=== PATIENT | female | born 1980 | race Two or more races ===

== ENCOUNTER 2020-07-22 15:05 | Emergency (ER) | payer OTHER, SELFPAY ==
--- NOTE | 2020-07-22 | CT_ITS ---
EXAMINATION: CT ABDOMEN AND PELVIS WITHOUT CONTRAST CLINICAL INFORMATION: Right-sided flank pain. Renal colic. COMPARISON: CT scan abdomen pelvis 05/11/2020 TECHNIQUE: Multidetector volumetric imaging was performed from the superior aspect of the liver through the pubic symphysis. Sagittal and coronal reformatted images were obtained on the technologist's workstation. This CT examination was performed using dose optimization techniques as appropriate, variously including the following: *Automated exposure control *Adjustment of mA and/or kV according to patient size (this includes techniques or standardized protocols for targeted exams where dose is matched to indication/reason for exam; i.e. extremities or head) *Use of iterative reconstruction technique DLP: 901 mGy-cm FINDINGS: LUNG BASES: The visualized lung bases are unremarkable. LIVER, GALLBLADDER, AND BILIARY TREE: There is mildly enlarged. Right lobe of liver measures 21 cm superior inferior. Low attenuation of liver parenchyma due to fatty change. No focal liver lesion or intrahepatic bile duct dilatation. The gallbladder is unremarkable with no evidence of radiopaque gallstones, gallbladder wall thickening, or obvious pericholecystic inflammatory changes. PANCREAS: Unremarkable. SPLEEN: Unremarkable. ADRENAL GLANDS: Unremarkable. KIDNEYS AND URETERS: Right kidney: No hydronephrosis or ureteral stone. There is a 1 to 2 mm size stone lower pole right kidney unchanged since prior CT study 05/11/2020. Left kidney: There is no hydronephrosis. No ureteral stone. There is no renal calculus. The stones seen in the left kidney on the prior CAT scan of 05/11/2020 BLADDER: Unremarkable. GASTROINTESTINAL TRACT: The small and large bowel are unremarkable. Moderate volume of stool in the colon. The appendix is nonvisualized. There is no inflammation of the mesentery. ABDOMINAL WALL: No significant hernia is appreciated. LYMPH NODES: Normal. VASCULAR: Unremarkable. PELVIC VISCERA: Unremarkable. OSSEOUS STRUCTURES: Unremarkable. IMPRESSION: 1. There is no acute abnormality of the abdomen or the pelvis. 2. Mild hepatomegaly diffuse fatty change of liver. 3. There is no hydronephrosis of either kidney. There is a 1 to 2 mm size stone at the lower pole of the right kidney unchanged since prior CAT scan of 05/11/2020. No left-sided renal stones or ureteral stones are present.
[2020-07-22 15:31] VITALS: BP 108/61; BP 140/60; PULSE 74; PULSE 90; RESP 20; TEMP 36.3; O2SAT 98; O2SAT 99; BMI 35.4
--- NOTE | 2020-07-22 16:22 | ED_ITS ---
HPI - Back Pain/Injury General Chief Complaint: Back Pain/Injury <Allyson Robert NP - Last Filed: 07/22/20 17:48> Stated Complaint: CHRONIC BACK PAIN <ANG Carter Last Filed: 07/22/20 17:48> Time Seen by Provider: 07/22/20 16:13 <Allyson Robert NP - Last Filed: 07/22/20 17:48> Mode of arrival: ambulatory <ANG Carter Last Filed: 07/22/20 17:48> Limitations: no limitations <ANG Carter Last Filed: 07/22/20 17:48> History of Present Illness HPI Narrative: acute on chronic low back pain With radiation down the right leg with intermittent numbness and tingling for the last few weeks. no bowel or bladder incontinence. no saddle anesthesia. No fever/chills. pt ambulatory. <ANG Carter Last Filed: 07/22/20 17:48> MD elicited complaint: back pain <ANG Carter Last Filed: 07/22/20 17:48> Pertinent past history: prior back pain <ANG Carter Last Filed: 07/22/20 17:48> Onset (ago): week(s) <ANG Carter Last Filed: 07/22/20 17:48> Timing: constant <ANG Carter Last Filed: 07/22/20 17:48> Severity: moderate <ANG Carter Last Filed: 07/22/20 17:48> Similar Symptoms Previously: Yes <ANG Carter Last Filed: 07/22/20 17:48> Quality: sharp and stabbing <ANG Carter Last Filed: 07/22/20 17:48> Location: lumbar spine <ANG Carter Last Filed: 07/22/20 17:48> Radiation: right upper leg <ANG Carter Last Filed: 07/22/20 17:48> Exacerbating factors: movement <Allyson Robert NP - Last Filed: 07/22/20 17:48> Relieving factors: immobilization <Allyson Robert NP - Last Filed: 07/22/20 17:48> Associated symptoms: denies other symptoms <Allyson Robert NP - Last Filed: 07/22/20 17:48> Related Data Allergies/Adverse Reactions: Allergies Allergy/AdvReac Type Severity Reaction Status Date / Time morphine [MORPHINE] Allergy Severe SWELLING Verified 07/22/20 15:22 ibuprofen [IBUPROFEN] Allergy Intermediate HIVES Verified 07/22/20 15:22 naproxen [NAPROXEN] Allergy Intermediate HIVES Verified 07/22/20 15:22 tramadol [TRAMADOL] Allergy Unknown HIVES Verified 07/22/20 15:22 ketorolac [From TORADOL] AdvReac Unknown ITCHING Verified 07/22/20 15:22 Ibuprofen Allergy Unknown Hives Uncoded 07/22/20 15:22 Morphine Sulf Microinfusion Allergy Unknown Swelling Uncoded 07/22/20 15:22 PF <Allyson Robert NP - Last Filed: 07/22/20 17:48> Review of Systems Review of Systems: Yes all other systems are reviewed and are negative <Allyson Robert NP - Last Filed: 07/22/20 17:48> Constitutional: Constitutional: Reports no additional constitutional complaints, Denies body ache(s), Denies chills, Denies fever(s), Denies headache(s) and Denies weakness <Allyson Robert NP - Last Filed: 07/22/20 17:48> Eyes: Eyes: Reports no additional eye complaints and Denies change in vision <Allyson Robert NP - Last Filed: 07/22/20 17:48> ENT: Reports system reviewed and no additional complaints, except as documented, Denies dizziness, Denies headache(s), Denies nasal congestion, Denies nasal discharge and Denies neck pain <Allyson Robert NP - Last Filed: 07/22/20 17:48> Cardiovascular: Cardiovascular: Reports no additional cardiovascular complaints, Denies chest pain, Denies leg edema and Denies dyspnea <Allyson Robert NP - Last Filed: 07/22/20 17:48> Respiratory: Respiratory: Reports no additional respiratory complaints, Denies cough and Denies dyspnea <Allyson Robert NP - Last Filed: 07/22/20 17:48> Gastrointestinal: Gastrointestinal: Reports no additional gastrointestinal complaints, Denies abdominal pain, Denies diarrhea, Denies nausea and Denies vomiting <Allyson Robert NP - Last Filed: 07/22/20 17:48> Genitourinary: Genitourinary: Reports no additional female genitourinary complaints and Denies urinary incontinence <Allyson Robert NP - Last Filed: 07/22/20 17:48> Musculoskeletal: Musculoskeletal: Reports no additional musculoskeletal complaints, Reports back pain, Denies arthralgias, Denies joint swelling, Denies neck pain, Denies numbness and Denies tingling <Allyson Robert NP - Last Filed: 07/22/20 17:48> Integumentary/Breasts: Skin/Breast: Reports system reviewed and no additional complaints, except as docu and Denies rash <Allyson Robert NP - Last Filed: 07/22/20 17:48> Neurologic: Reports system reviewed and no additional complaints, except as documented, Denies Abnormal speech present, Denies dizziness, Denies headac he(s), Denies numbness, Denies tingling and Denies weakness <Allyson Robert NP - Last Filed: 07/22/20 17:48> [facility] [place] Past Medical History Source: obtained from family and nursing notes reviewed <Allyson Robert NP - Last Filed: 07/22/20 17:48> Medical History: Medical History Asthma Depression Sciatica <Allyson Robert NP - Last Filed: 07/22/20 17:48> Social History Social History: Social History Alcohol intake: current Alcohol intake frequency: holidays/special occasions only Alcohol type: beer and wine Smoked in Last 30 Days: No Use of substances other than those prescribed or required for medical reasons: No Substance Use Type: Marijuana Substance Use Frequency: Chronic Longstanding Last Used Substance: Weeks (ago) Advance Directives: No Advance Directives Information Provided: No <Allyson Robert NP - Last Filed: 07/22/20 17:48> Physical Exam Vital Signs and I&O and Narrative: Vital Signs and I&O: Vital Signs Temp 98.7 F 07/22/20 19:35 Pulse 65 07/22/20 19:35 Resp 16 07/22/20 19:35 BP 128/79 07/22/20 19:35 Pulse Ox 99 07/22/20 19:35 Intake & Output 07/22/20 07/22/20 07/23/20 06:59 18:59 06:59 Weight 90.718 kg Body Mass Index 35.4 <Allyson Robert NP - Last Filed: 07/22/20 17:48> Vital Signs and I&O: Vital Signs Temp 98.7 F 07/22/20 19:35 Pulse 65 07/22/20 19:35 Resp 16 07/22/20 19:35 BP 128/79 07/22/20 19:35 Pulse Ox 99 07/22/20 19:35 Intake & Output 07/22/20 07/22/20 07/23/20 06:59 18:59 06:59 Weight 90.718 kg Body Mass Index 35.4 <RHODA Soto - Last Filed: 07/22/20 19:45> Const: General: cooperative, healthy appearing, comfortable and no acute distress <Allyson Robert NP - Last Filed: 07/22/20 17:48> Orientation/consciousness: patient oriented x3 <Allyson Robert NP - Last Filed: 07/22/20 17:48> Limitations: no limitations <Allyson Robert NP - Last Filed: 07/22/20 17:48> HENMT: Head: Yes normal to inspection <Allyson Robert NP - Last Filed: 07/22/20 17:48> Ears: hearing grossly normal bilaterally <Allyson Robert NP - Last Filed: 07/22/20 17:48> General nose exam: Normal external nose present <Allyson Robert NP - Last Filed: 07/22/20 17:48> Face and sinus: Yes normal facial exam <Allyson Robert NP - Last Filed: 07/22/20 17:48> Mouth: Normal oral and palatal mucosa present <Allyson Robert NP - Last Filed: 07/22/20 17:48> Throat: Yes posterior oropharynx normal <Allyson Robert NP - Last Filed: 07/22/20 17:48> Eyes: General: appearance normal, both eyes and all related structures <Allyson Robert NP - Last Filed: 07/22/20 17:48> Pupils: Equal, round and reactive pupils present <Allyson Robert NP - Last Filed: 07/22/20 17:48> Neck: Neck: Yes normal visual inspection <Allyson Robert NP - Last Filed: 07/22/20 17:48> Chest: Chest palpation & inspection: normal inspection of the chest <Allyson Robert NP - Last Filed: 07/22/20 17:48> Resp: Effort & Inspection: normal respiratory effort <Allyson Robert NP - Last Filed: 07/22/20 17:48> Auscultation: clear to auscultation bilaterally <Allyson Robert NP - Last Filed: 07/22/20 17:48> Cardio: Rate: regular rate <Allyson Robert NP - Last Filed: 07/22/20 17:48> Rhythm: regular rhythm <Allyson Robert NP - Last Filed: 07/22/20 17:48> Peripheral pulses: Peripheral pulses 2+ throughout <Allyson Robert NP - Last Filed: 07/22/20 17:48> GI: Inspection: Yes normal to inspection <Allyson Robert NP - Last Filed: 07/22/20 17:48> Palpation (GI): Soft to palpation and nontender <Allyson Robert NP - Last Filed: 07/22/20 17:48> Auscultation: normal bowel sounds <Allyson Robert NP - Last Filed: 07/22/20 17:48> Back/Spine/Pelvis: Thoracic/Lumbar Spine: thoracic and lumbar spine normal to inspection, straight leg raise negative bilaterally ( positive for right lower leg) and paraspinal muscle tenderness ( Pain in the right lumbar paraspinal area and right buttocks) <Allyson Robert NP - Last Filed: 07/22/20 17:48> Skin: General skin exam: no rashes or lesions noted <Allyson Robert NP - Last Filed: 07/22/20 17:48> Neuro: General: patient oriented x3, no focal motor deficits and normal sensation to monofilament <Allyson Robert NP - Last Filed: 07/22/20 17:48> Cranial nerves: Yes Equal, round and reactive pupils present <Allyson Robert NP - Last Filed: 07/22/20 17:48> Cognition (Neuro): normal cognition <Allyson Robert NP - Last Filed: 07/22/20 17:48> Speech: No Abnormal speech present <Allyson Robert NP - Last Filed: 07/22/20 17:48> Gait exam (Neuro): Normal gait present <Allyson Robert NP - Last Filed: 07/22/20 17:48> Motor exam (neuro): 5/5 motor strength present throughout <Allyson Robert NP - Last Filed: 07/22/20 17:48> Extrem: General: Yes normal to inspection <Allyson Robert NP - Last Filed: 07/22/20 17:48> Course Course Course Narrative: Sign-out received from Annette. Labs reviewed and all within normal limits. CT scan of abdomen revealed a kidney stone although still in the kidney therefore not causing the patient's pain at this time. Patient most likely muscularskeletal pain. Will DC home with symptomatic treatment along with instructions to return if any new or worsening symptoms to follow-up with primary care provider. Patient understands agrees the plan. <RHODA Soto - Last Filed: 07/22/20 19:45> Reevaluation(s) Reevaluation #1: UA shows 3+ blood. History of renal colic. Will check CT abdomen /pelvis to rule out same. Will need labs including renal function. <Allyson Robert NP - Last Filed: 07/22/20 17:48> MDM - Back Pain/Injury MDM Narrative Medical decision making narrative: exam consistent with sciatica. No red flag symptoms, neuro deficits. Patient is also concerned for renal colic as she has a history of the same although tells me this feels like her sciatica. Will check UA, labs, Ct A/P. <Allyson Robert NP - Last Filed: 07/22/20 17:48> Differential Diagnosis Differential diagnosis: Likely lumbar radiculopathy, sciatica, renal colic and pyelonephritis <Allyson Robert NP - Last Filed: 07/22/20 17:48> Lab Data Result diagrams: : 07/22/20 17:53 07/22/20 17:53 <Allyson Robert NP - Last Filed: 07/22/20 17:48> Labs: Lab Results 07/22/20 07/22/20 07/22/20 Range/Units 17:32 17:53 17:53 WBC 9.0 (4.8-10.8) X10*3/uL RBC 4.56 (4.20-5.50) X10*6/uL Hgb 12.5 (12.0-16.0) g/dl Hct 37.6 (37-47) % MCV 82.5 (80-98) fL MCH 27.4 (27.0-33.0) pg MCHC 33.2 (31.0-35.0) g/dl RDW 13.3 (11.0-16.0) % Plt Count 219 (160-400) X10*3/uL MPV 10.8 (9.4-12.3) fL Immature Gran % (Auto) 0.8 H (0.0-0.4) % Neut % (Auto) 66.2 (45-73) % Lymph % (Auto) 24.9 (20-40) % [place] % (Auto) 6.3 (2-11) % Eos % (Auto) 1.6 (0-4) % Baso % (Auto) 0.2 (0-2) % Neut # (Auto) 6.0 (2.0-8.3) X10*3/uL Lymph # (Auto) 2.3 (1.2-4.9) X10*3/uL [place] # (Auto) 0.6 (0.1-1.2) X10*3/uL Eos # (Auto) 0.1 (0.0-0.4) X10*3/uL Baso # (Auto) 0.0 (0.0-0.2) X10*3/uL Abs Immat Gran (auto) 0.07 H (0.00-0.03) X10*3/uL Absolute Nucleated RBC 0.000 (0.0-0.012) X10*3/uL Nucleated RBC % (auto) 0.0 (0.0-0.2) /100WBC Sodium 138 (135-145) mmol/L Potassium 4.0 (3.3-5.1) mmol/l Chloride 105 (96-108) mmol/L Carbon Dioxide 23 (22-29) mmol/L Anion Gap 14 (12-20) BUN 13 (9-16) mg/dL Creatinine 0.76 (0.5-1.4) mg/dL Estim Creat Clear Calc 103.0 Estimated GFR > 60 Random Glucose 101 (60-115) mg/dL Calcium 9.2 (8.4-10.2) mg/dL Urine Color YELLOW Urine Appearance HAZY Urine pH 6.0 (5.0-8.0) Ur Specific [place] >= 1.030 H (1.005-1.025) Urine Protein NEG (NEG-TRACE) MG/DL Urine Glucose (UA) NEG (NEG) MG/DL Urine Ketones NEG (NEG) MG/DL Urine Blood 3+ H (NEG) Urine Nitrite NEG (NEG) Ur Leukocyte Esterase NEG (NEG) Urine RBC 5-9 H (0) /HPF Urine WBC 0 (0-4) /HPF Ur Squamous Epith Cells 2+ /LPF Calcium Oxalate Crystal 1+ /LPF Urine Bacteria 1+ /LPF Urine Test NEGATIVE (NEGATIVE) <Allyson Robert [employer] CLINICAL PROGRAMMER - Last Filed: 07/22/20 17:48> Lab Results 07/22/20 07/22/20 07/22/20 Range/Units 17:32 17:53 17:53 WBC 9.0 (4.8-10.8) X10*3/uL RBC 4.56 (4.20-5.50) X10*6/uL Hgb 12.5 (12.0-16.0) g/dl Hct 37.6 (37-47) % MCV 82.5 (80-98) fL MCH 27.4 (27.0-33.0) pg MCHC 33.2 (31.0-35.0) g/dl RDW 13.3 (11.0-16.0) % Plt Count 219 (160-400) X10*3/uL MPV 10.8 (9.4-12.3) fL Immature Gran % (Auto) 0.8 H (0.0-0.4) % Neut % (Auto) 66.2 (45-73) % Lymph % (Auto) 24.9 (20-40) % [place] % (Auto) 6.3 (2-11) % Eos % (Auto) 1.6 (0-4) % Baso % (Auto) 0.2 (0-2) % Neut # (Auto) 6.0 (2.0-8.3) X10*3/uL Lymph # (Auto) 2.3 (1.2-4.9) X10*3/uL [place] # (Auto) 0.6 (0.1-1.2) X10*3/uL Eos # (Auto) 0.1 (0.0-0.4) X10*3/uL Baso # (Auto) 0.0 (0.0-0.2) X10*3/uL Abs Immat Gran (auto) 0.07 H (0.00-0.03) X10*3/uL Absolute Nucleated RBC 0.000 (0.0-0.012) X10*3/uL Nucleated RBC % (auto) 0.0 (0.0-0.2) /100WBC Sodium 138 (135-145) mmol/L Potassium 4.0 (3.3-5.1) mmol/l Chloride 105 (96-108) mmol/L Carbon Dioxide 23 (22-29) mmol/L Anion Gap 14 (12-20) BUN 13 (9-16) mg/dL Creatinine 0.76 (0.5-1.4) mg/dL Estim Creat Clear Calc 103.0 Estimated GFR > 60 Random Glucose 101 (60-115) mg/dL Calcium 9.2 (8.4-10.2) mg/dL Urine Color YELLOW Urine Appearance HAZY Urine pH 6.0 (5.0-8.0) Ur Specific [place] >= 1.030 H (1.005-1.025) Urine Protein NEG (NEG-TRACE) MG/DL Urine Glucose (UA) NEG (NEG) MG/DL Urine Ketones NEG (NEG) MG/DL Urine Blood 3+ H (NEG) Urine Nitrite NEG (NEG) Ur Leukocyte Esterase NEG (NEG) Urine RBC 5-9 H (0) /HPF Urine WBC 0 (0-4) /HPF Ur Squamous Epith Cells 2+ /LPF Calcium Oxalate Crystal 1+ /LPF Urine Bacteria 1+ /LPF Urine Test NEGATIVE (NEGATIVE) <RHODA Soto - Last Filed: 07/22/20 19:45> Discharge Plan Discharge Clinical Impression: Sciatica <Allyson Robert NP - Last Filed: 07/22/20 17:48> Patient Disposition: Home, Self-Care <Allyson Robert NP - Last Filed: 07/22/20 17:48> Instructions: Sciatica (ED) <Allyson Robert NP - Last Filed: 07/22/20 17:48> Additional Instructions: heat or ice Gentle stretching Follow-up with her primary care doctor no heavy lifting or bending. <Allyson Robert NP - Last Filed: 07/22/20 17:48> Referrals: Prosper Barnard MD [Primary Care Provider] - 2 days <Allyson Robert NP - Last Filed: 07/22/20 17:48>
[2020-07-22 17:40] LABS: Glucose Urine UA NEG (NEG); Leukocyte Esterase Urine NEG (NEG); Nitrite Urine NEG (NEG); Specific Gravity - Urine >= 1.030 (1.005-1.025); Urine Blood 3+ (NEG); Urine Ketones NEG (NEG); Urine Protein NEG (NEG-TRACE)
[2020-07-22 17:43] LABS: Appearance Urine HAZY; Color Urine YELLOW
[2020-07-22 17:46] LABS: UPreg QC Valid YES; Urine Pregnancy NEGATIVE (NEGATIVE)
[2020-07-22 17:50] LABS: Bacteria Urine 1+ /LPF; Calcium Oxalate Crystals Urine 1+ /LPF; Squamous Epithelial Cell Urine 2+ /LPF; WBC Urine 0 /HPF (0-4)
[2020-07-22 18:02] LABS: MANUAL DIFF FLAG NO
[2020-07-22 18:13] LABS: Basophils Percent Auto 0.2 % (0-2); Eosinophils Absolute Auto 0.1 X10*3/uL (0.0-0.4); Eosinophils Percent Auto 1.6 % (0-4); Hematocrit 37.6 % (37-47); Hemoglobin 12.5 g/dl (12.0-16.0); Imm Gran Abs Auto 0.07 X10*3/uL (0.00-0.03); Imm Gran Pct Auto 0.8 % (0.0-0.4); Lymphocytes Absolute Auto 2.3 X10*3/uL (1.2-4.9); Lymphocytes Percent Auto 24.9 % (20-40); Mean Corpuscular HGB Conc 33.2 g/dl (31.0-35.0); Mean Corpuscular Hemoglobin 27.4 pg (27.0-33.0); Mean Corpuscular Volume 82.5 fL (80-98); Mean Platelet Volume 10.8 fL (9.4-12.3); Monocytes Absolute Auto 0.6 X10*3/uL (0.1-1.2); Monocytes Percent Auto 6.3 % (2-11); Neutrophils Percent Auto 66.2 % (45-73); Platelet Count 219 X10*3/uL (160-400); Red Blood Count 4.56 X10*6/uL (4.20-5.50); Red Cell Distribution Width 13.3 % (11.0-16.0)
[2020-07-22 18:25] LABS: Anion Gap 14 (12-20); Blood Urea Nitrogen 13 mg/dL (9-16); Calcium 9.2 mg/dL (8.4-10.2); Carbon Dioxide 23 mmol/L (22-29); Chloride 105 mmol/L (96-108); Estimated Glomerular Filt Rate > 60; Glucose Random 101 mg/dL (60-115); Sodium 138 mmol/L (135-145)
[2020-07-22 19:35] VITALS: BP 128/79; PULSE 65; RESP 16; TEMP 37.1; O2SAT 99
[2020-07-22] MEDS: oxyCODONE HCl Immed Release 5 MG TABLET PO (20:10)
== END 2020-07-22 20:20 | disposition home or self-care (01) ==
PROVIDERS: Nurse Practitioner Family; Emergency Provider Internal Medicine; PCP Internal Medicine
DX: M54.40 Lumbago with sciatica, unspecified side (principal); M79.605 Pain in left leg; M79.604 Pain in right leg; R20.0 Anesthesia of skin; F12.90 Cannabis use, unspecified, uncomplicated
CPT/HCPCS: 36415; 74176; 80048; 81001; 81025; 85025; 99284

== ENCOUNTER 2020-11-19 14:09 | Outpatient (REF) | payer OTHER, SELFPAY ==
--- NOTE | 2020-11-19 | US_ITS ---
EXAMINATION: US RETROPERITONEAL LIMITED (RENAL ONLY) CLINICAL INFORMATION: Kidney stone. COMPARISON: Previous CT of the abdomen and pelvis July 2020 and renal ultrasound June 2020 TECHNIQUE: Grayscale and color imaging of the kidneys FINDINGS: RIGHT KIDNEY: 11.6 x 5.5 x 6.3 cm (SAG x AP x TRV). The kidney is normal in size, contour, and echogenicity. Renal cortical thickness is normal. No calculi or focal parenchymal lesions. No hydronephrosis. LEFT KIDNEY: 11 x 5 x 4.9 cm (SAG x AP x TRV). The kidney is normal in size, contour, and echogenicity. Renal cortical thickness is normal. There is a 3 mm echogenic focus with twinkle artifact in the lower pole questionable for a stone. No renal mass. No hydronephrosis. US/US renal BI IMPRESSION: No right-sided stone seen. Question small left renal renal stone.
== END 2020-11-19 14:10 | disposition home or self-care (01) ==
LOC: HO.US 14:09
PROVIDERS: Visit Provider Urology
DX: N20.0 Calculus of kidney (principal)
CPT/HCPCS: 76775

== ENCOUNTER 2021-02-16 14:53 | Emergency (ER) | payer OTHER, SELFPAY ==
--- NOTE | ~2021-02-16 | CT_ITS ---
EXAMINATION: CT ABDOMEN AND PELVIS WITHOUT CONTRAST CLINICAL INFORMATION: Left-sided flank pain COMPARISON: Renal ultrasound 11/19/[address] abdomen pelvis 07/22/2020 TECHNIQUE: Multidetector volumetric imaging was performed from the superior aspect of the liver through the pubic symphysis. Sagittal and coronal reformatted images were obtained on the technologist's workstation. This CT examination was performed using dose optimization techniques as appropriate, variously including the following: *Automated exposure control *Adjustment of mA and/or kV according to patient size (this includes techniques or standardized protocols for targeted exams where dose is matched to indication/reason for exam; i.e. extremities or head) *Use of iterative reconstruction technique DLP: 835 mGy-cm FINDINGS: LUNG BASES: The visualized lung bases are unremarkable. LIVER, GALLBLADDER, AND BILIARY TREE: The liver is enlarged measuring 21 cm in length and demonstrates hepatic steatosis. No focal hepatic lesion or biliary ductal dilatation is present. The gallbladder is unremarkable with no evidence of radiopaque gallstones, gallbladder wall thickening, or obvious pericholecystic inflammatory changes. PANCREAS: Unremarkable. SPLEEN: Unremarkable. ADRENAL GLANDS: Unremarkable. KIDNEYS AND URETERS: The kidneys are normal in size, shape, and attenuation. A right lower pole nonobstructing renal calculus is present unchanged from the prior study. No hydronephrosis, hydroureter, or other calculi seen. No perinephric stranding. BLADDER: Unremarkable. GASTROINTESTINAL TRACT: The small and large bowel are unremarkable. The appendix is not seen but there is no evidence of appendicitis. ABDOMINAL WALL: No significant hernia is appreciated. LYMPH NODES: Normal. VASCULAR: Unremarkable. PELVIC VISCERA: Unremarkable. OSSEOUS STRUCTURES: Unremarkable. CT/CT abdomen pelvis wo con IMPRESSION: 1. Enlarged fatty liver. 2. Unchanged nonobstructing punctate right renal calculus. 3. A cause for the left-sided flank pain has not been found.
--- NOTE | ~2021-02-16 | US_ITS ---
EXAMINATION: US VENOUS ULTRASOUND WITH DOPPLER LOWER EXTREMITY, RIGHT CLINICAL INFORMATION: Right lower extremity pain COMPARISON: None TECHNIQUE: Ultrasound of the deep veins is performed from the hip to the calf with compression sonography and color and pulse Doppler assessment. Spectral analysis with color-flow imaging is performed. FINDINGS: There is normal venous compression and respiratory variation and augmented flow. The visualized common femoral vein, superficial femoral vein, profunda femoral vein, popliteal vein, and the trifurcation region shows no evidence of deep venous thrombosis. There is no significant popliteal fossa cyst. If the patient's symptoms persist, followup ultrasound in 5 days 7 days might be of value to exclude proximal propagation from a non-visualized calf vein. US/US venous duplex LE RT IMPRESSION: No DVT demonstrated in the right lower extremity.
[2021-02-16 14:57] VITALS: BP 126/69; PULSE 84; RESP 16; TEMP 36.9; O2SAT 98; BMI 39.0
--- NOTE | 2021-02-16 16:41 | ED_ITS ---
HPI - Extremity Problem General Chief complaint: Extremity Problem Stated complaint: R LEG PAIN Time Seen by Provider: 02/16/21 16:38 Source: patient Mode of arrival: ambulatory Limitations: no limitations History of Present Illness HPI Narrative: 40 y/o female with history of obesity, sciatica, UTI w/ Proteus bacteremia in the past, & kidney stones who presents with non-traumatic RLE pain. She states is started 2 days on the anterior aspect of her right lower leg and then now migrated to her calf and behind her right knee. It is worse with ambulation and palpation. She reports a small bump at the bottom of her right leg. No trauma or injury. She reported to triage that the last time she had leg pain she was diagnosed with a kidney stone. Upon review it appears her last ED visit in Jul 2020 was for low back pain, CT scan done to r/o renal colic and showed small stone within the kidney. She was treated for sciatica. She initially denied all flank pain to triage. Upon re-interviewing her she report some left sided flank discomfort and suprapubic discomfort as well as mild dysuria. No fever, chills, N/V/D or blood in her urine. MD Complaint: extremity pain Onset (ago): day(s) (2) Pain Consistency: constant Location: right Quality: aching Radiation: proximal Relieving factors: rest Exacerbating factors: weight bearing, walking, exertion and palpation Associated symptoms: other (subrapubic pain, flank pain, headache ) Related Data Previous Rx's Medication Instructions Recorded oxycodone-acetaminophen [Percocet] 1 tab PO Q6H PRN #10 tab 07/22/20 Allergies Allergy/AdvReac Type Severity Reaction Status Date / Time morphine [MORPHINE] Allergy Severe SWELLING Verified 07/22/20 15:22 ibuprofen [IBUPROFEN] Allergy Intermediate HIVES Verified 07/22/20 15:22 naproxen [NAPROXEN] Allergy Intermediate HIVES Verified 07/22/20 15:22 tramadol [TRAMADOL] Allergy Unknown HIVES Verified 07/22/20 15:22 ketorolac [From TORADOL] AdvReac Unknown ITCHING Verified 07/22/20 15:22 Ibuprofen Allergy Unknown Hives Uncoded 07/22/20 15:22 Morphine Sulf Microinfusion Allergy Unknown Swelling Uncoded 07/22/20 15:22 PF Review of Systems Review of Systems: Constitutional: No Fever, No Chills ENT/Mouth: No sore throat, No Rhinorrhea, No Swallowing Difficulty Cardiovascular: No Chest Pain, No SOB, No Orthopnea, No Edema Respiratory: No Cough, No Sputum, No Wheezing, No dyspnea Gastrointestinal: No Nausea, No Vomiting, No Diarrhea, + abdominal Pain (left flank) Genitourinary: + Dysuria, No Urinary Frequency, No Hematuria Musculoskeletal: + joint pain, + Myalgias Skin: No Skin Lesions, No rash Neuro: No Weakness, No Numbness, No Dizziness, + Headache Psych: No Anxiety/Panic, No Depression Heme/Lymph: No Bruising, No Lymphadenopathy Endocrine: No Polyuria, No Polydipsia [facility] Past Medical History Medical History Asthma Depression Sciatica Social History Social History Alcohol intake: current Alcohol intake frequency: holidays/special occasions only Alcohol type: beer and wine Substance Use Type: Marijuana Advance Directives: No Advance Directives Information Provided: No Physical Exam Vital Signs: Vital Signs: Last Vital Signs Temp 98.4 F 02/16/21 14:57 Pulse 84 02/16/21 14:57 Resp 16 02/16/21 14:57 BP 126/69 02/16/21 14:57 Pulse Ox 98 02/16/21 14:57 Body Mass Index 39.0 Appearance: Alert. Oriented X3. No acute distress. Eyes: Pupils equal, round and reactive to light. ENT: Pharynx normal. Neck: Normal inspection. Neck supple. CVS: Normal heart rate and rhythm. Pulses normal. Respiratory: No respiratory distress. Breath sounds normal. Abdomen: Obese, Soft and nontender. +BS x4. No CVA tenderness Skin: Skin warm and dry. Normal skin color. Normal skin turgor. No rashes. Extremities: No lower extremity edema. left posterior calf tenderness, popliteal fossa tenderness, no palpable mass. NV intact distally. no skin changes. Neuro: Oriented X 3. No motor deficit. No sensory deficit. Course Course Course Narrative: 40 y/o female presenting with RLE pain - calf and behind the knee as well as left flank and suprapubic pain (initially denied to triage). Will get LE Doppler to assess for DVT vs Haynes's cyst. UA ordered to assess for UTI and hematuria. Reevaluation(s) Reevaluation #1: LE doppler negative. UA negative for infection or blood. She s tates she never has blood in her urine with her kidney stones and states she needs a CT scan for further evaluation. Signed out to Leno Brown ASSET MANAGEMENT COORDINATOR who will assume care. MDM - Extremity (Nontraumatic) Lab Data Labs: Lab Results 02/16/21 Range/Units 17:12 Urine Color YELLOW Urine Appearance CLEAR Urine pH 6.0 (5.0-8.0) Ur Specific [place] 1.025 (1.005-1.025) Urine Protein NEG (NEG-TRACE) MG/DL Urine Glucose (UA) NEG (NEG) MG/DL Urine Ketones NEG (NEG) MG/DL Urine Blood NEG (NEG) Urine Nitrite NEG (NEG) Ur Leukocyte Esterase NEG (NEG) Discharge Plan Discharge Prescriptions: No Action oxycodone-acetaminophen [Percocet] 5-325 mg tablet 1 tab PO Q6H PRN (Reason: pain) Qty: 10 RF: 0
[2021-02-16 17:34] LABS: Glucose Urine UA NEG (NEG); Leukocyte Esterase Urine NEG (NEG); Nitrite Urine NEG (NEG); Specific Gravity - Urine 1.025 (1.005-1.025); Urine Blood NEG (NEG); Urine Ketones NEG (NEG); Urine Protein NEG (NEG-TRACE)
[2021-02-16 17:44] LABS: Appearance Urine CLEAR; Color Urine YELLOW
[2021-02-16 18:24] LABS: UPreg QC Valid YES; Urine Pregnancy NEGATIVE (NEGATIVE)
[2021-02-16 19:38] VITALS: BP 129/72; PULSE 71; RESP 17; O2SAT 99
[2021-02-16] MEDS: Acetaminophen 325 MG TABLET 650 MG PO (19:38)
== END 2021-02-16 20:43 | disposition home or self-care (01) ==
PROVIDERS: Physician Assistant; Emergency Provider Internal Medicine; PCP Internal Medicine
DX: M79.604 Pain in right leg (principal); R60.0 Localized edema; F12.90 Cannabis use, unspecified, uncomplicated; Z79.899 Other long term (current) drug therapy
CPT/HCPCS: 36415; 74176; 81003; 81025; 93971; 99284

== ENCOUNTER 2021-07-14 16:02 | Emergency (ER) | payer OTHER, SELFPAY ==
--- NOTE | ~2021-07-14 | XR_ITS ---
EXAMINATION: LUMBAR SPINE, SACRUM AND COCCYX CLINICAL INFORMATION: Fall with pain COMPARISON: CT abdomen pelvis 02/16/2021 TECHNIQUE: 3 views sacrum and coccyx, 3 views lumbosacral spine FINDINGS: No significant abnormality is seen. No fractures are detected. Some mild spondylitic endplate changes are present involving the superior endplate of L4 and L1, unchanged when compared to the prior CT. Disc heights are well preserved. Disc spaces are well preserved. XR/XR lumbar spine 2-3V IMPRESSION: No evidence of an acute osseous injury.
--- NOTE | ~2021-07-14 | XR_ITS ---
EXAMINATION: XR CHEST CLINICAL INFORMATION: Chest pain COMPARISON: Chest x-ray on 05/13/2020 TECHNIQUE: 2 views of the chest were obtained. FINDINGS: No significant abnormality is noted involving the heart, lungs, mediastinum, bony thorax or soft tissues. XR/XR chest 2V IMPRESSION: Unremarkable examination.
--- NOTE | ~2021-07-14 | XR_ITS ---
EXAMINATION: LUMBAR SPINE, SACRUM AND COCCYX CLINICAL INFORMATION: Fall with pain COMPARISON: CT abdomen pelvis 02/16/2021 TECHNIQUE: 3 views sacrum and coccyx, 3 views lumbosacral spine FINDINGS: No significant abnormality is seen. No fractures are detected. Some mild spondylitic endplate changes are present involving the superior endplate of L4 and L1, unchanged when compared to the prior CT. Disc heights are well preserved. Disc spaces are well preserved. XR/XR sacrum coccyx min 2V IMPRESSION: No evidence of an acute osseous injury.
[2021-07-14 16:17] VITALS: BP 129/68; PULSE 82; RESP 16; TEMP 36.7; O2SAT 99; BMI 39.0
--- NOTE | 2021-07-14 16:53 | ED_ITS ---
HPI - Fall General Chief Complaint: Fall Stated Complaint: multiple complaints Time Seen by Provider: 07/14/21 16:39 Source: patient Mode of arrival: ambulatory Limitations: no limitations History of Present Illness HPI Narrative: 41-year-old female here with low back pain and buttocks pain after a fall on Tuesday. Patient tells me she was sitting in a low chair and she fell backwards landing on her buttocks directly. Since then she has had persistent pain. No radiation of pain. No numbness to the groin. No bowel or bladder incontinence. No fevers or chills. No numbness or tingling in the legs. Patient is ambulatory. Related Data Previous Rx's Medication Instructions Recorded oxycodone-acetaminophen 5 mg-325 1 tab PO Q6H PRN #10 tab 07/22/20 mg tablet (Percocet) cyclobenzaprine 10 mg tablet 10 mg PO TID PRN #10 tab 07/14/21 lidocaine 5 % topical patch 1 patch TOPICAL DAILY #15 ea 07/14/21 (Lidoderm) oxycodone 5 mg tablet 5 mg PO Q8H PRN #5 tab 07/14/21 Allergies Allergy/AdvReac Type Severity Reaction Status Date / Time morphine [MORPHINE] Allergy Severe SWELLING Verified 07/14/21 16:16 ibuprofen [IBUPROFEN] Allergy Intermediate HIVES Verified 07/14/21 16:16 naproxen [NAPROXEN] Allergy Intermediate HIVES Verified 07/14/21 16:16 tramadol [TRAMADOL] Allergy Unknown HIVES Verified 07/14/21 16:16 ketorolac [From TORADOL] AdvReac Unknown ITCHING Verified 07/14/21 16:16 Ibuprofen Allergy Unknown Hives Uncoded 07/22/20 15:22 Morphine Sulf Microinfusion Allergy Unknown Swelling Uncoded 07/22/20 15:22 PF Review of Systems Review of Systems: Yes all other systems are reviewed and are negative Constitutional: Constitutional: Reports no additional constitutional complaints, Denies body ache(s), Denies chills, Denies fever(s), Denies headache(s) and Denies weakness Eyes: Eyes: Reports no additional eye complaints and Denies change in vision ENT: Reports system reviewed and no additional complaints, except as documented, Denies dizziness, Denies headache(s), Denies nasal congestion, Denies nasal discharge and Denies neck pain Cardiovascular: Cardiovascular: Reports no additional cardiovascular complaints, Denies chest pain, Denies leg edema and Denies dyspnea Respiratory: Respiratory: Reports no additional respiratory complaints, Denies cough and Denies dyspnea Gastrointestinal: Gastrointestinal: Reports no additional gastrointestinal complaints, Denies abdominal pain, Denies diarrhea, Denies nausea and Denies vomiting Genitourinary: Genitourinary: Reports no additional female genitourinary complaints and Denies urinary incontinence Musculoskeletal: Musculoskeletal: Reports no additional musculoskeletal complaints, Reports back pain, Denies arthralgias, Denies joint swelling, Denies neck pain, Denies numbness and Denies tingling Integumentary/Breasts: Skin/Breast: Reports system reviewed and no additional complaints, except as docu and Denies rash Neurologic: Reports system reviewed and no additional complaints, except as documented, Denies Abnormal speech present, Denies dizziness, Denies headache(s), Denies numbness, Denies tingling and Denies weakness PMFSH Past Medical History Attestation statement: The following information was validated with the patient. Source: old records reviewed and nursing notes reviewed Medical History Asthma Depression Sciatica Social History Social History Alcohol intake: current Alcohol intake frequency: holidays/special occasions only Alcohol type: beer and wine Substance Use Type: Marijuana Advance Directives: No Advance Directives Information Provided: No Patient : No Physical Exam Vital Signs: Vital Signs: Last Vital Signs Temp 98.0 F 07/14/21 16:17 Pulse 82 07/14/21 16:17 Resp 16 07/14/21 16:17 BP 129/68 07/14/21 16:17 Pulse Ox 99 07/14/21 16:17 Body Mass Index 39.0 Const: General: cooperative, healthy appearing, comfortable and no acute distress Orientation/consciousness: patient oriented x3 Limitations: no limitations HENMT: Head: Yes normal to inspection Ears: hearing grossly normal bilaterally General nose exam: Normal external nose present Face and sinus: Yes normal facial exam Mouth: Normal oral and palatal mucosa present Throat: Yes posterior oropharynx normal Eyes: General: appearance normal, both eyes and all related structures Pupils: Equal, round and reactive pupils present Neck: Neck: Yes normal visual inspection Chest: Chest palpation & inspection: normal inspection of the chest Resp: Effort & Inspection: normal respiratory effort Auscultation: clear to auscultation bilaterally Cardio: Rate: regular rate Rhythm: regular rhythm Peripheral pulses: Peripheral pulses 2+ throughout GI: Inspection: Yes normal to inspection Palpation (GI): Soft to palpation and nontender Auscultation: normal bowel sounds : General: Yes no CVA tenderness Back/Spine/Pelvis: Other: Midline lumbar tenderness with no step-offs or deformities. Patient also tenderness over bilateral buttocks with no obvious ecchymosis or swelling. Pain is worsened with bilateral straight leg raise Back: no CVA tenderness Thoracic/Lumbar Spine: thoracic and lumbar spine normal to inspection Skin: General skin exam: no rashes or lesions noted Neuro: General: patient oriented x3, no focal motor deficits and normal sensation to monofilament Cranial nerves: Yes CN's II-XII intact bilaterally, Yes Equal, round and reactive pupils present, Yes Bilaterally intact EOM present, Yes Nystagmus not present, Yes Normal facial strength present and Yes Midline tongue present Cognition (Neuro): normal cognition Speech: No Abnormal speech present Gait exam (Neuro): Normal gait present Motor exam (neuro): 5/5 motor strength present throughout Sensory Exam: Normal double simultaneous stimulation for sensation Deep tendon reflexes (DTR's): Right patellar reflex intensity grade: 2+ and Left patellar reflex intensity grade: 2+ Coordination: [id number] test normal, [id number] test normal and tandem gait normal Extrem: General: Yes normal to inspection Course Course Course Narrative: 41-year-old female here with fall with buttocks and low back pain. Will check x-rays. Normal neuro exam and no neuro deficits or red flag symptoms 1753-X-rays of lumbar spine, coccyx/sacrum normal. I went in to review this with the patient and she tells me she is also having left sided chest wall pain with hand numbness >3 days since the fall. Unclear if she struck anything. Will need labs, CXR, EKG. 1839-labs, chest x-ray EKG showed no acute finding. Likely chest wall strain from fall. Reviewed worrisome signs and symptoms when to return to the em ergency department. Comfortable discharge home. MDM - Fall MDM Narrative Medical decision making narrative: Less likely ACS with symptoms greater than 3 days, normal EKG and troponin Medical Records Attestation: I reviewed the patient's medical records. Lab Data Attestation: I reviewed the patient's lab results. Result diagrams: 07/14/21 18:12 07/14/21 18:12 Labs: Lab Results 07/14/21 07/14/21 07/14/21 Range/Units 18:12 18:12 18:12 WBC 8.1 (4.8-10.8) X10*3/uL RBC 4.91 (4.20-5.50) X10*6/uL Hgb 13.1 (12.0-16.0) g/dl Hct 40.0 (37-47) % MCV 81.5 (80-98) fL MCH 26.7 L (27.0-33.0) pg MCHC 32.8 (31.0-35.0) g/dl RDW 13.2 (11.0-16.0) % Plt Count 241 (160-400) X10*3/uL MPV 10.1 (9.4-12.3) fL Immature Gran % (Auto) 0.2 (0.0-0.4) % Neut % (Auto) 66.2 (45-73) % Lymph % (Auto) 26.3 (20-40) % [place] % (Auto) 5.1 (2-11) % Eos % (Auto) 2.0 (0-4) % Baso % (Auto) 0.2 (0-2) % Lymph # (Auto) 2.1 (1.2-4.9) X10*3/uL [place] # (Auto) 0.4 (0.1-1.2) X10*3/uL Eos # (Auto) 0.2 (0.0-0.4) X10*3/uL Baso # (Auto) 0.0 (0.0-0.2) X10*3/uL Abs Immat Gran (auto) 0.02 (0.00-0.03) X10*3/uL Absolute Neuts (auto) 5.3 (2.0-8.3) X10*3/uL Absolute Nucleated RBC 0.000 (0.0-0.012) X10*3/uL Nucleated RBC % (auto) 0.0 (0.0-0.2) /100WBC Sodium 140 (135-145) mmol/L Potassium 4.8 (3.3-5.1) mmol/L Chloride 109 H (96-108) mmol/L Carbon Dioxide 22 (22-29) mmol/L Anion Gap 14 (12-20) BUN 18 H (9-16) mg/dL Creatinine 1.19 (0.5-1.4) mg/dL Estim Creat Clear Calc 61.1 Estimated GFR 50 Random Glucose 93 (60-115) mg/dL Calcium 9.2 (8.4-10.2) mg/dL Magnesium 2.1 (1.6-2.6) mg/dL Total Bilirubin 0.3 (0.0-1.0) mg/dL Direct Bilirubin < 0.2 (0.0-0.5) mg/dL AST 35 H (5-31) U/L ALT 44 H (0-31) U/L Alkaline Phosphatase 81 (39-117) U/L Troponin I High Sens < 3.5 (<3.5-17.0) ng/L Total Protein 7.4 (6.5-8.0) g/dL Albumin 4.3 (3.5-5.0) g/dL ECG Data Attestation: I personally reviewed and interpreted this ECG as follows: ECG interpretation date: 07/14/21 ECG interpretation time: 18:00 Interpretation: NSR with rate 64, normal OK, normal QRS, normal QT Discharge Plan Discharge Clinical Impression: Back contusion, Atypical chest pain Patient Disposition: Home, Self-Care Instructions: Low Back Strain (ED), Contusion in Adults (ED), Chest Wall Pain (ED), Lower Back Exercises (ED) Additional Instructions: Heat or ice gentle stretching no heavy lifting or bending if continuing to have pain after 3 days follow-up with your PCP as discussed Prescriptions: New cyclobenzaprine 10 mg tablet 10 mg PO TID PRN (Reason: muscle spasm) Qty: 10 RF: 0 lidocaine [Lidoderm] 5 % adhesive patch,medicated 1 patch topical DAILY Qty: 15 RF: 0 oxycodone 5 mg tablet 5 mg PO Q8H PRN (Reason: pain) Qty: 5 RF: 0 No Action oxycodone-acetaminophen [Percocet] 5-325 mg tablet 1 tab PO Q6H PRN (Reason: pain) Qty: 10 RF: 0 Referrals: Prosper Barnard MD [Primary Care Provider] - 2 days Stand Alone Forms: Work/School Release
--- NOTE | 2021-07-14 17:53 | ECG_ITS ---
Test Reason : CHEST PAIN Blood Pressure : / mmHG Vent. Rate : 064 BPM Atrial Rate : 064 BPM P-R Int : 142 ms QRS Dur : 082 ms QT Int : 392 ms P-R-T Axes : 030 038 031 degrees QTc Int : 404 ms Normal sinus rhythm Normal ECG When compared with ECG of 02-MAR-2017 00:28, No significant change was found Referred By: Allyson Robert Electronically Signed By:KEY SANTOS
[2021-07-14 18:17] LABS: MANUAL DIFF FLAG NO
[2021-07-14 18:21] LABS: Basophils Percent Auto 0.2 % (0-2); Eosinophils Absolute Auto 0.2 X10*3/uL (0.0-0.4); Hemoglobin 13.1 g/dl (12.0-16.0); Imm Gran Abs Auto 0.02 X10*3/uL (0.00-0.03); Imm Gran Pct Auto 0.2 % (0.0-0.4); Lymphocytes Absolute Auto 2.1 X10*3/uL (1.2-4.9); Lymphocytes Percent Auto 26.3 % (20-40); Mean Corpuscular HGB Conc 32.8 g/dl (31.0-35.0); Mean Corpuscular Hemoglobin 26.7 pg (27.0-33.0); Mean Corpuscular Volume 81.5 fL (80-98); Mean Platelet Volume 10.1 fL (9.4-12.3); Monocytes Absolute Auto 0.4 X10*3/uL (0.1-1.2); Monocytes Percent Auto 5.1 % (2-11); Neutrophils Absolute Auto 5.3 X10*3/uL (2.0-8.3); Neutrophils Percent Auto 66.2 % (45-73); Platelet Count 241 X10*3/uL (160-400); Red Blood Count 4.91 X10*6/uL (4.20-5.50); Red Cell Distribution Width 13.2 % (11.0-16.0); White Blood Count 8.1 X10*3/uL (4.8-10.8)
[2021-07-14 18:37] LABS: Troponin-I High Sensitivity < 3.5 ng/L (<3.5-17.0)
[2021-07-14 18:38] LABS: Alanine Aminotransferase 44 U/L (0-31); Albumin Level 4.3 g/dL (3.5-5.0); Alkaline Phosphatase 81 U/L (39-117); Anion Gap 14 (12-20); Aspartate Amino Transferase 35 U/L (5-31); Bilirubin Direct < 0.2 mg/dL (0.0-0.5); Bilirubin Total 0.3 mg/dL (0.0-1.0); Blood Urea Nitrogen 18 mg/dL (9-16); Calcium 9.2 mg/dL (8.4-10.2); Carbon Dioxide 22 mmol/L (22-29); Chloride 109 mmol/L (96-108); Creatinine Clr Calc Pharmacy 61.1; Estimated Glomerular Filt Rate 50; Glucose Random 93 mg/dL (60-115); Magnesium 2.1 mg/dL (1.6-2.6); Potassium 4.8 mmol/L (3.3-5.1); Sodium 140 mmol/L (135-145); Total Protein 7.4 g/dL (6.5-8.0)
== END 2021-07-14 18:59 | disposition home or self-care (01) ==
PROVIDERS: Nurse Practitioner Family; Emergency Provider Emergency Medicine; PCP Internal Medicine
DX: S30.0XXA Contusion of lower back and pelvis, initial encounter (principal); R07.89 Other chest pain; F12.90 Cannabis use, unspecified, uncomplicated; X58.XXXA Exposure to other specified factors, initial encounter; Y93.9 Activity, unspecified; Y92.9 Unspecified place or not applicable; Y99.9 Unspecified external cause status; Z79.899 Other long term (current) drug therapy
CPT/HCPCS: 36415; 71046; 72100; 72220; 80048; 80076; 83735; 84484; 85025; 93005; 99283

== ENCOUNTER → 2021-07-29 09:43 | Outpatient (BNVA) | payer OTHER, SELFPAY | DX: N20.0 Calculus of kidney (principal); Z88.5 Allergy status to narcotic agent; Z88.8 Allergy status to other drugs, medicaments and biological substances | CPT/HCPCS: 99212 ==

== ENCOUNTER 2022-01-27 13:57 | Outpatient (REF) | payer OTHER, SELFPAY ==
--- NOTE | ~2022-01-27 | US_ITS ---
EXAMINATION: US RETROPERITONEAL LIMITED (RENAL ONLY) CLINICAL INFORMATION: Calculus of kidney. COMPARISON: CT abdomen and pelvis 02/16/2021. Renal ultrasound 11/19/2019 and 06/19/2020. TECHNIQUE: Real-time imaging of the kidneys. FINDINGS: RIGHT KIDNEY: 11.7 x 3.9 x 5.0 cm (SAG x AP x TRV). The kidney is normal in size, contour, and echogenicity. Renal cortical thickness is normal. No calculi or focal parenchymal lesions. No hydronephrosis. LEFT KIDNEY: 11.1 x 5.0 x 4.3 cm (SAG x AP x TRV). The kidney is normal in size, contour, and echogenicity. Renal cortical thickness is normal. No focal parenchymal lesions or hydronephrosis. There are echogenic stones in the upper pole measuring 0.4 cm and lower pole measuring 0.3 cm. There is no caliectasis or hydronephrosis. US/US renal BI IMPRESSION: Nonobstructive echogenic stones in the left kidney. A solitary stone was seen in left kidney on a previous CT abdomen exam 03/05/2021. Right kidney is unremarkable.
== END 2022-01-27 13:58 | disposition home or self-care (01) ==
LOC: HO.US 13:57
PROVIDERS: PCP Internal Medicine
DX: N20.0 Calculus of kidney (principal)
CPT/HCPCS: 76775

== ENCOUNTER → 2022-02-18 09:04 | Outpatient (BNVA) | payer OTHER, SELFPAY | PROVIDERS: PCP Internal Medicine | DX: Z13.89 Encounter for screening for other disorder (principal) ==

== ENCOUNTER 2022-04-27 10:56 | Outpatient (REF) | payer OTHER, SELFPAY ==
--- NOTE | ~2022-04-27 | US_ITS ---
EXAMINATION: US RETROPERITONEAL LIMITED (RENAL ONLY) CLINICAL INFORMATION: Calculus of kidney. COMPARISON: Ultrasound renal 01/27/2022. Ultrasound renal 11/19/2020. CT abdomen pelvis 02/16/2021. TECHNIQUE: Real-time imaging of the kidneys. FINDINGS: RIGHT KIDNEY: 11.3 x 4.8 x 6.8 cm (SAG x AP x TRV). The kidney is normal in size, contour, and echogenicity. Renal cortical thickness is normal. No calculi or focal parenchymal lesions. No hydronephrosis. LEFT KIDNEY: 11.3 x 5.3 x 4.8 cm (SAG x AP x TRV). The kidney is normal in size, contour, and echogenicity. Renal cortical thickness is normal. There is a 3 x 3 x 4 mm stone in the lower pole. No focal parenchymal lesions. No hydronephrosis. The liver is echogenic. US/US renal BI IMPRESSION: Small left renal stone. Normal right kidney..
== END 2022-04-27 10:57 | disposition home or self-care (01) ==
LOC: HO.US 10:56
PROVIDERS: PCP Internal Medicine
DX: N20.0 Calculus of kidney (principal)
CPT/HCPCS: 76775

== ENCOUNTER 2022-07-05 07:18 | Emergency (ER) | payer OTHER, SELFPAY ==
--- NOTE | ~2022-07-05 | CT_ITS ---
EXAMINATION: CT ABDOMEN AND PELVIS WITHOUT CONTRAST CLINICAL INFORMATION: Right flank pain. UTI. History of kidney stones. COMPARISON: CT scans dating between February 16, 2021 and August 11, 2016. TECHNIQUE: Multidetector volumetric imaging was performed from the superior aspect of the liver through the pubic symphysis. Sagittal and coronal reformatted images were obtained on the technologist's workstation. This CT examination was performed using dose optimization techniques as appropriate, variously including the following: *Automated exposure control *Adjustment of mA and/or kV according to patient size (this includes techniques or standardized protocols for targeted exams where dose is matched to indication/reason for exam; i.e. extremities or head) *Use of iterative reconstruction technique DLP: 790 mGy-cm FINDINGS: LUNG BASES: The lung bases appear clear, with no evidence of inflammation or nodules. LIVER, GALLBLADDER, AND BILIARY TREE: Liver measures approximately 21 cm in sagittal dimension. Diffusely hypodense. No focal hepatic lesion or biliary ductal dilatation is appreciated. Unremarkable appearance of the gallbladder. PANCREAS: Unremarkable SPLEEN: Unremarkable ADRENAL GLANDS: Unremarkable KIDNEYS AND URETERS: Suspect small right lower pole renal cortical scar, unchanged. The kidneys otherwise appear unremarkable in size, shape, and attenuation. Two, 0.3 cm right and one, 0.3 cm left, nonobstructing right renal collecting system stones. 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 BLADDER: Unremarkable GASTROINTESTINAL TRACT: The small and large bowel appear unremarkable. No diverticulosis. Normal-appearing distal ileum. No evidence of appendicitis. ABDOMINAL WALL: No significant hernia is appreciated. LYMPH NODES: No evidence of adenopathy by size criteria. VASCULAR: Unremarkable PELVIC VISCERA: Unremarkable OSSEOUS STRUCTURES: Unremarkable CT/CT abdomen pelvis wo IV con IMPRESSION: No acute finding. Bilateral, tiny, nonobstructing renal collecting system stones. No evidence of hydronephrosis on either side. Mild hepatomegaly and mild fatty infiltration of liver. 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
[2022-07-05 07:25] VITALS: BP 112/76; PULSE 100; RESP 19; TEMP 36.6; O2SAT 97; BMI 42.2
[2022-07-05 08:30] LABS: MANUAL DIFF FLAG NO
[2022-07-05 08:31] LABS: Basophils Percent Auto 0.2 % (0-2); Eosinophils Absolute Auto 0.2 X10*3/uL (0.0-0.4); Eosinophils Percent Auto 1.8 % (0-4); Hematocrit 43.7 % (37.0-47.0); Hemoglobin 14.3 g/dl (12.0-16.0); Imm Gran Abs Auto 0.03 X10*3/uL (0.00-0.03); Imm Gran Pct Auto 0.3 % (0.0-0.4); Lymphocytes Absolute Auto 1.9 X10*3/uL (1.2-4.9); Lymphocytes Percent Auto 20.4 % (20-40); Mean Corpuscular HGB Conc 32.7 g/dl (31.0-35.0); Mean Corpuscular Hemoglobin 26.1 pg (27.0-33.0); Mean Corpuscular Volume 79.7 fL (80.0-98.0); Mean Platelet Volume 9.9 fL (9.4-12.3); Monocytes Absolute Auto 0.4 X10*3/uL (0.1-1.2); Monocytes Percent Auto 4.5 % (2-11); Neutrophils Absolute Auto 6.9 x10*3/uL (2.0-8.3); Neutrophils Percent Auto 72.8 % (45-73); Platelet Count 217 X10*3/uL (160-400); Red Blood Count 5.48 X10*6/uL (4.20-5.50); Red Cell Distribution Width 13.2 % (11.0-16.0); White Blood Count 9.5 X10*3/uL (4.8-10.8)
[2022-07-05 08:35] LABS: Appearance Urine Cloudy; Color Urine Dark Yellow; Glucose Urine UA Negative (Negative); Leukocyte Esterase Urine Large (3+) (Negative); Nitrite Urine Positive (Negative); PH 5.5 (5.0-9.0); Specific Gravity - Urine 1.025 (1.005-1.025); UMIC TRIGGER UACC YES; Urine Blood Trace (Negative); Urine Ketones Trace mg/dL (Negative); Urine Protein 30 (1+) mg/dL (Neg-Trace)
[2022-07-05 08:43] LABS: UPreg QC Valid YES; Urine Pregnancy NEGATIVE (NEGATIVE)
[2022-07-05 08:44] LABS: Bacteria Urine 4+ (None Seen); UACC Culture Trigger YES; WBC Clumps Urine Present; WBC Urine >50 /HPF (0-5)
[2022-07-05 08:45] LABS: COVID-19 Test Negative (Negative); IDNOW Serial# 16C4AD1C
[2022-07-05 08:49] LABS: Alanine Aminotransferase 58 U/L (0-31); Albumin Level 4.4 g/dL (3.5-5.0); Alkaline Phosphatase 76 U/L (39-117); Anion Gap 16 (12-20); Aspartate Amino Transferase 42 U/L (5-31); Bilirubin Direct 0.3 mg/dL (0.0-0.5); Bilirubin Total 0.7 mg/dL (0.0-1.0); Blood Urea Nitrogen 16 mg/dL (9-16); Calcium 9.6 mg/dL (8.4-10.2); Carbon Dioxide 26 mmol/L (22-29); Chloride 99 mmol/L (96-108); Creatinine Clr Calc Pharmacy 91.9; Estimated Glomerular Filt Rate > 60; Glucose Random 133 mg/dL (60-115); Lipase 15 U/L (8-78); Potassium 3.8 mmol/L (3.3-5.1); Sodium 137 mmol/L (135-145); Total Protein 7.6 g/dL (6.5-8.0)
--- NOTE | 2022-07-05 09:46 | ED_ITS ---
HPI - General Adult General Chief complaint: Abdominal Pain Stated complaint: Lower abd pain/back pain/leg pain Time Seen by Provider: 07/05/22 09:11 Source: patient Mode of arrival: ambulatory Limitations: no limitations History of Present Illness HPI narrative: 42 yo female with history of kidney stones, sciatica, obesity, asthma who presents to the ER for evaluation of 2 weeks of headaches as well as low back pain that radiates down her right leg and lower abdominal pain. She reports whenever she has an exacerbation of her sciatica it usually correlates with when she is having a kidney stone. She reports her urine has been foul-smelling and cloudy lately. She denies any dysuria. No fever or chills. No foot nausea or vomiting. She presents today with her 17-year-old daughter who also has been having headaches for the last 2 weeks. They report that the filter in the car that they are infrequently had a filter with mouse droppings in it and she is concerned this may have been causing her headaches. MD complaint: Back pain, lower abdominal pain, headaches Onset (ago): week(s) (2) Location: head, back, abdomen, right and lower extremity Severity: moderate Severity scale (1-10): 6 Quality: stabbing and aching Pain Consistency: intermittent Relieving factors: none Exacerbating factors: none Associated symptoms: headaches and malaise Treatments prior to arrival: none Related Data Home Medications Medication Instructions Recorded Confirmed hydrochlorothiazide 12.5 mg tablet 12.5 mg PO DAILY 02/18/22 metoclopramide HCl 10 mg tablet 10 mg PO TID 02/18/22 potassium citrate 10 mEq (1,080 10 meq PO BID 02/18/22 mg) tablet,extended release Previous Rx's Medication Instructions Recorded oxycodone-acetaminophen 5 mg-325 1 tab PO Q6H PRN pain #10 tabs 07/22/20 mg tablet (Percocet) cyclobenzaprine 10 mg tablet 10 mg PO TID PRN muscle spasm #10 07/14/21 tabs lidocaine 5 % topical patch 1 patch topical DAILY #15 ea 07/14/21 (Lidoderm) oxycodone 5 mg tablet 5 mg PO Q8H PRN pain #5 tabs 07/14/21 pyridoxine (vitamin B6) 50 mg 50 mg PO DAILY #90 tabs 03/04/22 tablet phenazopyridine 100 mg tablet 100 mg PO Q8H 6 doses #6 tabs 04/19/22 sulfamethoxazole 800 1 tab PO BID 3 days #6 tabs 04/19/22 mg-trimethoprim 160 mg tablet (Bactrim DS) celecoxib 100 mg capsule (Celebrex) 100 mg PO BID 14 days #28 caps 06/10/22 prednisone 20 mg tablet 20 mg PO DAILY 5 days #5 tabs 06/10/22 tamsulosin 0.4 mg capsule 0.4 mg PO DAILY 14 days #14 caps 06/10/22 cyclobenzaprine 10 mg tablet 10 mg PO BID PRN muscle spasm #10 07/05/22 tabs levofloxacin 750 mg tablet 750 mg PO DAILY #6 tabs 07/05/22 oxycodone 5 mg tablet 5 mg PO TID PRN pain #6 tabs 07/05/22 Allergies Allergy/AdvReac Type Severity Reaction Status Date / Time morphine [MORPHINE] Allergy Severe SWELLING Verified 05/07/22 11:39 ibuprofen [IBUPROFEN] Allergy Intermediate HIVES Verified 05/07/22 11:39 naproxen [NAPROXEN] Allergy Intermediate HIVES Verified 05/07/22 11:39 tramadol [TRAMADOL] Allergy Unknown HIVES Verified 05/07/22 11:39 ketorolac [From TORADOL] AdvReac Unknown ITCHING Verified 05/07/22 11:39 Ibuprofen Allergy Unknown Hives Uncoded 05/07/22 11:39 Morphine Sulf Microinfusion Allergy Unknown Swelling Uncoded 05/07/22 11:39 PF Review of Systems Review of Systems: Constitutional: No Fever, No Chills ENT/Mouth: No sore throat, No Rhinorrhea, No Swallowing Difficulty Eyes: No Eye Pain, No Swelling, No Redness, No vision changes Cardiovascular: No Chest Pain, No SOB, No Orthopnea, No Edema Respiratory: No Cough, No Sputum, No Wheezing, No dyspnea Gastrointestinal: No Nausea, No Vomiting, No Diarrhea, + abdominal Pain, No Hematochezia, No Melena Genitourinary: No Dysuria, + Urinary Frequency, No Hematuria Musculoskeletal: + joint pain, No Myalgias Skin: No Skin Lesions, No rash Neuro: No Weakness, No Numbness, No Dizziness, + Headache Psych: No Anxiety/Panic, No Depression Heme/Lymph: No Bruising, No Lymphadenopathy Endocrine: No Polyuria, No Polydipsia [facility] Past Medical History Medical History Asthma Depression Renal calculi Sciatica Social History Social History Alcohol intake: current Alcohol intake frequency: holidays/special occasions only Alcohol type: beer and wine Substance Use Type: Marijuana Advance Directives: No Advance Directives Information Provided: No Physical Exam ED Vital Signs: Vital Signs - 24 hr 07/05/22 07:25 Temperature 98 F Pulse Rate 100 Respiratory Rate 19 Blood Pressure 112/76 Pulse Oximetry 97 Oxygen Delivery Method Room Air BMI result Body Mass Index 42.2 Appearance: Alert. Oriented X3. No acute distress. Eyes: Pupils equal, round and reactive to light. ENT: Pharynx normal. Neck: Normal inspection. Neck supple. CVS: Normal heart rate and rhythm. Pulses normal. Respiratory: No respiratory distress. Breath sounds normal. Abdomen: Obese, Soft and nontender. +BS x4. Pelvic deferred. No CVA tenderness. Lower lumbar soft tissue tenderness on the right. +SI joint tenderness on the right. Skin: Skin warm and dry. Normal skin color. Normal skin turgor. No rashes. Extremities: No lower extremity edema. Neuro: Oriented X 3. No motor deficit. No sensory deficit. Steady gait Course Course Course Narrative: 42-year-old female with a history of kidney stones and history sciatica pres ents to the ER for evaluation of 2 weeks of headache, lower back pain that radiates down her right leg as well as lower abdominal pain. She had lab work done in triage. She has no leukocytosis. Her kidney function is normal. Her urinalysis positive for infection. She is negative for COVID. She is concerned about recurring kidney stones. She reports they are small in the past but she has required procedures by Dr. Oakes in the past despite their small size. Given her history will get a CT scan for further evaluation. Reevaluation(s) Reevaluation #1: CT scan showing bilateral, tiny, nonobstructing renal collecting system stones. No evidence of hydronephrosis on either side. Will treat for UTI and sciatica. She will follow-up with her primary care doctor and her urologist. She is stable for discharge home. Medical Decision Making Lab Data Result diagrams: 07/05/22 08:21 07/05/22 08:20 Labs: Lab Results 07/05/22 07/05/22 07/05/22 Range/Units 08:20 08:21 08:24 WBC 9.5 (4.8-10.8) X10*3/uL RBC 5.48 (4.20-5.50) X10*6/uL Hgb 14.3 (12.0-16.0) g/dl Hct 43.7 (37.0-47.0) % MCV 79.7 L (80.0-98.0) fL MCH 26.1 L (27.0-33.0) pg MCHC 32.7 (31.0-35.0) g/dl RDW 13.2 (11.0-16.0) % Plt Count 217 (160-400) X10*3/uL MPV 9.9 (9.4-12.3) fL Immature Gran % (Auto) 0.3 (0.0-0.4) % Neut % (Auto) 72.8 (45-73) % Lymph % (Auto) 20.4 (20-40) % [place] % (Auto) 4.5 (2-11) % Eos % (Auto) 1.8 (0-4) % Baso % (Auto) 0.2 (0-2) % Lymph # (Auto) 1.9 (1.2-4.9) X10*3/uL [place] # (Auto) 0.4 (0.1-1.2) X10*3/uL Eos # (Auto) 0.2 (0.0-0.4) X10*3/uL Baso # (Auto) 0.0 (0.0-0.2) X10*3/uL Abs Immat Gran (auto) 0.03 (0.00-0.03) X10*3/uL Absolute Neuts (auto) 6.9 (2.0-8.3) x10*3/uL Absolute Nucleated RBC 0.000 (0.0-0.012) X10*3/uL Nucleated RBC % (auto) 0.0 (0.0-0.2) /100WBC Sodium 137 (135-145) mmol/L Potassium 3.8 D (3.3-5.1) mmol/L Chloride 99 (96-108) mmol/L Carbon Dioxide 26 (22-29) mmol/L Anion Gap 16 (12-20) BUN 16 (9-16) mg/dL Creatinine 0.82 (0.5-1.4) mg/dL Estim Creat Clear Calc 91.9 Estimated GFR > 60 Random Glucose 133 H (60-115) mg/dL Calcium 9.6 (8.4-10.2) mg/dL Total Bilirubin 0.7 (0.0-1.0) mg/dL Direct Bilirubin 0.3 (0.0-0.5) mg/dL AST 42 H (5-31) U/L ALT 58 H (0-31) U/L Alkaline Phosphatase 76 (39-117) U/L Total Protein 7.6 (6.5-8.0) g/dL Albumin 4.4 (3.5-5.0) g/dL Lipase 15 (8-78) U/L Urine Color Urine Appearance Urine pH (5.0-9.0) Ur Specific [place] (1.005-1.025) Urine Protein (Neg-Trace) mg/dL Urine Glucose (UA) (Negative) mg/dL Urine Ketones (Negative) mg/dL Urine Blood (Negative) Urine Nitrite (Negative) Ur Leukocyte Esterase (Negative) Urine RBC (0-2) /HPF Urine WBC (0-5) /HPF Urine WBC Clumps Ur Squamous Epith Cells (0-2) /HPF Urine Bacteria (None Seen) Hyaline Casts (0-2) /LPF Urine Test (NEGATIVE) COVID-19 ([facility]ENNIFER) Negative (Negative) COVID-19 Clin Com See Note 07/05/22 07/05/22 Range/Units 08:24 08:24 WBC (4.8-10.8) X10*3/uL RBC (4.20-5.50) X10*6/uL Hgb (12.0-16.0) g/dl Hct (37.0-47.0) % MCV (80.0-98.0) fL MCH (27.0-33.0) pg MCHC (31.0-35.0) g/dl RDW (11.0-16.0) % Plt Count (160-400) X10*3/uL MPV (9.4-12.3) fL Immature Gran % (Auto) (0.0-0.4) % Neut % (Auto) (45-73) % Lymph % (Auto) (20-40) % [place] % (Auto) (2-11) % Eos % (Auto) (0-4) % Baso % (Auto) (0-2) % Lymph # (Auto) (1.2-4.9) X10*3/uL [place] # (Auto) (0.1-1.2) X10*3/uL Eos # (Auto) (0.0-0.4) X10*3/uL Baso # (Auto) (0.0-0.2) X10*3/uL Abs Immat Gran (auto) (0.00-0.03) X10*3/uL Absolute Neuts (auto) (2.0-8.3) x10*3/uL Absolute Nucleated RBC (0.0-0.012) X10*3/uL Nucleated RBC % (auto) (0.0-0.2) /100WBC Sodium (135-145) mmol/L Potassium (3.3-5.1) mmol/L Chloride (96-108) mmol/L Carbon Dioxide (22-29) mmol/L Anion Gap (12-20) BUN (9-16) mg/dL Creatinine (0.5-1.4) mg/dL Estim Creat Clear Calc Estimated GFR Random Glucose (60-115) mg/dL Calcium (8.4-10.2) mg/dL Total Bilirubin (0.0-1.0) mg/dL Direct Bilirubin (0.0-0.5) mg/dL AST (5-31) U/L ALT (0-31) U/L Alkaline Phosphatase (39-117) U/L Total Protein (6.5-8.0) g/dL Albumin (3.5-5.0) g/dL Lipase (8-78) U/L Urine Color Dark Yellow Urine Appearance Cloudy Urine pH 5.5 (5.0-9.0) Ur Specific [place] 1.025 (1.005-1.025) Urine Protein 30 (1+) H (Neg-Trace) mg/dL Urine Glucose (UA) Negative (Negative) mg/dL Urine Ketones Trace (Negative) mg/dL Urine Blood Trace H (Negative) Urine Nitrite Positive H (Negative) Ur Leukocyte Esterase Large (3+) H (Negative) Urine RBC 3-5 H (0-2) /HPF Urine WBC >50 H (0-5) /HPF Urine WBC Clumps Present Ur Squamous Epith Cells 11-20 (0-2) /HPF Urine Bacteria 4+ (None Seen) Hyaline Casts 6-10 (0-2) /LPF Urine Test NEGATIVE (NEGATIVE) COVID-19 (JENNIFER) (Negative) COVID-19 Clin Com Discharge Plan Discharge Clinical Impression: Acute UTI, Sciatica Patient Disposition: Home, Self-Care Instructions: Urinary Tract Infection in Women (ED), Sciatica (ED) Additional Instructions: Your CT scan today did not show any kidney stones that would be causing your pain. Take the prescribed pain medication muscle relaxer as needed for your sciatica. Take the prescribed antibiotic as directed, start taking it tomorrow because your given 1st dose today in the emergency room. Drink plenty of fluids. Recommend following up with your primary care doctor in your urologist. If you develop new or worsening symptoms call 911 or come back to the ER for further evaluation. Prescriptions: New levofloxacin 750 mg tablet 750 mg PO DAILY Qty: 6 0RF oxycodone 5 mg tablet 5 mg PO TID PRN (Reason: pain) Qty: 6 0RF Rx Instructions: Partial Fill upon patient request. cyclobenzaprine 10 mg tablet 10 mg PO BID PRN (Reason: muscle spasm) Qty: 10 0RF No Action pyridoxine (vitamin B6) 50 mg tablet 50 mg PO DAILY Qty: 90 0RF phenazopyridine 100 mg tablet 100 mg PO Q8H 0 Days Qty: 6 0RF sulfamethoxazole-trimethoprim [Bactrim DS] 800-160 mg tablet 1 tab PO BID 3 Days Qty: 6 0RF tamsulosin 0.4 mg capsule 0.4 mg PO DAILY 14 Days Qty: 14 0RF prednisone 20 mg tablet 20 mg PO DAILY 5 Days Qty: 5 0RF celecoxib [Celebrex] 100 mg capsule 100 mg PO BID 14 Days Qty: 28 0RF oxycodone-acetaminophen [Percocet] 5-325 mg tablet 1 tab PO Q6H PRN (Reason: pain) Qty: 10 0RF cyclobenzaprine 10 mg tablet 10 mg PO TID PRN (Reason: muscle spasm) Qty: 10 0RF lidocaine [Lidoderm] 5 % adhesive patch,medicated 1 patch topical DAILY Qty: 15 0RF Rx Instructions: leave on most painful area for up to 12 hrs oxycodone 5 mg tablet 5 mg PO Q8H PRN (Reason: pain) Qty: 5 0RF metoclopramide HCl 10 mg tablet 10 mg PO TID hydrochlorothiazide 12.5 mg tablet 12.5 mg PO DAILY potassium citrate 10 mEq (1,080 mg) tablet extended release 10 meq PO BID
[2022-07-05] MEDS: Acetaminophen 325 MG TABLET 975 MG PO (10:09)
[2022-07-05] MEDS: levoFLOXacin 750 MG TABLET PO (10:09)
== END 2022-07-05 12:16 | disposition home or self-care (01) ==
PROVIDERS: Emergency Provider Emergency Medicine; PCP Internal Medicine
DX: N39.0 Urinary tract infection, site not specified (principal); B96.20 Unspecified Escherichia coli [E. coli] as the cause of diseases classified elsewhere; M54.41 Lumbago with sciatica, right side; Z87.442 Personal history of urinary calculi; Z20.822 Contact with and (suspected) exposure to COVID-19
CPT/HCPCS: 74176; 80048; 80076; 81001; 81025; 83690; 85025; 87086; 87088; 87186; 87635; 99283; 99284

== ENCOUNTER 2023-01-28 19:40 | Emergency (ER) | payer OTHER, SELFPAY ==
--- NOTE | ~2023-01-28 | CT_ITS ---
EXAMINATION: CT ABDOMEN AND PELVIS WITHOUT CONTRAST CLINICAL INFORMATION: Left flank pain with hematuria COMPARISON: 07/05/2022 TECHNIQUE: Multidetector volumetric imaging was performed from the superior aspect of the liver through the pubic symphysis. Sagittal and coronal reformatted images were obtained on the technologist's workstation. This CT examination was performed using dose optimization techniques as appropriate, variously including the following: *Automated exposure control *Adjustment of mA and/or kV according to patient size (this includes techniques or standardized protocols for targeted exams where dose is matched to indication/reason for exam; i.e. extremities or head) *Use of iterative reconstruction technique DLP: 910 mGy-cm FINDINGS: LUNG BASES: The visualized lung bases are unremarkable. LIVER, GALLBLADDER, AND BILIARY TREE: Enlarged liver measuring 22 cm in CC dimension. The liver is normal in shape with decreased attenuation. No focal hepatic lesion or biliary ductal dilatation is present. The gallbladder is unremarkable with no evidence of radiopaque gallstones, gallbladder wall thickening, or obvious pericholecystic inflammatory changes. PANCREAS: Unremarkable. SPLEEN: Unremarkable. ADRENAL GLANDS: Unremarkable. KIDNEYS AND URETERS: The kidneys are normal in size, shape, and attenuation. No hydronephrosis or hydroureter. Bilateral small calculi. Left lower pole 0.3 cm calculus is 14 cm from the posterior axillary line. Right lower pole 0.2 cm calculus is 15 cm from the posterior axillary line.. No perinephric stranding. BLADDER: Unremarkable. GASTROINTESTINAL TRACT: The stomach is unremarkable. Normal caliber small bowel. No obstruction. Normal appendix. Dense contrast in the rectum results in artifact. No colonic wall thickening or inflammatory change. No free air or free fluid. ABDOMINAL WALL: No significant hernia is appreciated. LYMPH NODES: Normal. VASCULAR: Unremarkable. PELVIC VISCERA: The uterus and adnexa are unremarkable. OSSEOUS STRUCTURES: No acute or suspicious osseous abnormality. Mild degenerative changes of the spine. CT/CT abdomen pelvis wo IV con IMPRESSION: 1. No hydronephrosis. Small bilateral nonobstructing renal calculi. 2. Hepatomegaly with hepatic steatosis. Fleischner guidelines were followed.
--- NOTE | 2023-01-28 20:29 | ED.GENADULT ---
HPI - General Adult General Chief complaint: General Medical <RHODA Montejo - Last Filed: 01/28/23 20:30> Stated complaint: Allergic reaction <RHODA Montejo - Last Filed: 01/28/23 20:30> Time Seen by Provider: 01/29/23 00:14 <RHODA Montejo - Last Filed: 01/28/23 20:30> Source: patient <Moise Zepeda MD - Last Filed: 01/29/23 07:13> Mode of arrival: ambulatory <Moise Zepeda MD - Last Filed: 01/29/23 07:13> Limitations: no limitations <Moise Zepeda MD - Last Filed: 01/29/23 07:13> History of Present Illness HPI narrative: Patient with multiple allergies applied the same here diabetes she does all the time and notices hives over the forehead extremities and the back no shortness of breath no lips or tongue swelling patient took 2 Benadryl and again 2 more tablets total of 100 mg prior to arrival and feeling much better at this time patient never had similar reaction in the past patient also noticed left lower abdomen pain with blood in the urine just prior to arrival does have history of kidney stones <Moise Zepeda MD - Last Filed: 01/29/23 07:13> Related Data Home medications: Home Medications Medication Instructions Recorded Confirmed hydrochlorothiazide 12.5 mg tablet 12.5 mg PO DAILY 02/18/22 metoclopramide HCl 10 mg tablet 10 mg PO TID 02/18/22 potassium citrate 10 mEq (1,080 10 meq PO BID 02/18/22 mg) tablet,extended release Previous Rx's Medication Instructions Recorded oxycodone-acetaminophen 5 mg-325 1 tab PO Q6H PRN pain #10 tabs 07/22/20 mg tablet (Percocet) cyclobenzaprine 10 mg tablet 10 mg PO TID PRN muscle spasm #10 07/14/21 tabs lidocaine 5 % topical patch 1 patch topical DAILY #15 ea 07/14/21 (Lidoderm) oxycodone 5 mg tablet 5 mg PO Q8H PRN pain #5 tabs 07/14/21 pyridoxine (vitamin B6) 50 mg 50 mg PO DAILY #90 tabs 03/04/22 tablet phenazopyridine 100 mg tablet 100 mg PO Q8H 6 doses #6 tabs 04/19/22 sulfamethoxazole 800 1 tab PO BID 3 days #6 tabs 04/19/22 mg-trimethoprim 160 mg tablet (Bactrim DS) celecoxib 100 mg capsule (Celebrex) 100 mg PO BID 14 days #28 caps 06/10/22 prednisone 20 mg tablet 20 mg PO DAILY 5 days #5 tabs 06/10/22 tamsulosin 0.4 mg capsule 0.4 mg PO DAILY 14 days #14 caps 06/10/22 cyclobenzaprine 10 mg tablet 10 mg PO BID PRN muscle spasm #10 07/05/22 tabs levofloxacin 750 mg tablet 750 mg PO DAILY #6 tabs 07/05/22 oxycodone 5 mg tablet 5 mg PO TID PRN pain #6 tabs 07/05/22 diphenhydramine HCl 25 mg tablet 50 mg PO Q8H PRN allergic reaction 01/29/23 (Benadryl Allergy) #20 tabs oxycodone 5 mg tablet 5 mg PO Q6H PRN pain #20 tabs 01/29/23 <RHODA Montejo - Last Filed: 01/28/23 20:30> Allergies/adverse reactions: Allergies Allergy/AdvReac Type Severity Reaction Status Date / Time morphine [MORPHINE] Allergy Severe SWELLING Verified 05/07/22 11:39 ibuprofen [IBUPROFEN] Allergy Intermediate HIVES Verified 05/07/22 11:39 naproxen [NAPROXEN] Allergy Intermediate HIVES Verified 05/07/22 11:39 acetaminophen Allergy Unknown Rash Verified 01/29/23 01:01 tramadol [TRAMADOL] Allergy Unknown HIVES Verified 05/07/22 11:39 ketorolac [From TORADOL] AdvReac Unknown ITCHING Verified 05/07/22 11:39 Ibuprofen Allergy Unknown Hives Uncoded 05/07/22 11:39 Morphine Sulf Microinfusion Allergy Unknown Swelling Uncoded 05/07/22 11:39 PF <RHODA Montejo - Last Filed: 01/28/23 20:30> Review of Systems Review of Systems: Yes all other systems are reviewed and are negative <Moise Zepeda MD - Last Filed: 01/29/23 07:13> PMFSH Past Medical History Medical History: Medical History Asthma Depression Renal calculi Sciatica <RHODA Montejo - Last Filed: 01/28/23 20:30> Social History Social History: Social History Alcohol intake: current Alcohol intake frequency: holidays/special occasions only Alcohol type: beer and wine Smoked in Last 30 Days: Yes Use of substances other than those prescribed or required for medical reasons: No Substance Use Type: Marijuana Advance Directives: No Advance Directives Information Provided: No Patient : No <RHODA Montejo - Last Filed: 01/28/23 20:30> Physical Exam ED Vital Signs: Vital Signs - 24 hr 01/28/23 20:33 01/29/23 00:13 01/29/23 03:41 Temperature 99.6 F 98.6 F 97.6 F Pulse Rate 106 H 84 77 Respiratory Rate 20 19 18 Blood Pressure 127/76 126/79 116/73 Pulse Oximetry 96 97 95 Oxygen Delivery Method Room Air Room Air Room Air BMI result Body Mass Index 41.0 <RHODA Montejo - Last Filed: 01/28/23 20:30> Vital Signs - 24 hr 01/28/23 20:33 01/29/23 00:13 01/29/23 03:41 Temperature 99.6 F 98.6 F 97.6 F Pulse Rate 106 H 84 77 Respiratory Rate 20 19 18 Blood Pressure 127/76 126/79 116/73 Pulse Oximetry 96 97 95 Oxygen Delivery Method Room Air Room Air Room Air BMI result Body Mass Index 41.0 <Moise Zepeda MD - Last Filed: 01/29/23 07:13> Appearance: Alert. Oriented X3. No acute distress. Eyes: PERRLA, No Nystagmus ENT: Pharynx normal. Oral Mucosa moist tongue and lips normal Neck: Normal inspection. Neck supple. CVS: Normal heart rate and rhythm. Pulses normal. Respiratory: No respiratory distress. Equal air entry bilateral, no wheezing/rales/rhonchi Abdomen: Soft left lower abdomen tenderness, Bowel sounds are present, no mass palpable, no CVA tenderness Skin: Skin warm and dry. Normal skin color. Normal skin turgor. Extremities: No lower extremity edema. No calf tenderness, hives over the forehead Neuro: Oriented X 3. No motor deficit. No sensory deficit.No cerebellar signs , cranial nerves II-XII intact <Moise Zepeda MD - Last Filed: 01/29/23 07:13> Course Course Course Narrative: RME performed by Mary Oliver PA-C. Patient is a 42 year old assigned female at presenting to the emergency department with an allergic reaction. Patient states that she dyed her hair today and is having an allergic reaction to it. Patient states that she took 4 25mg benadryl. Patient states she is now having lower abdominal pain and vaginal bleeding. Labs and imaging ordered. Patient placed back in the waiting room pending room availability and results. <RHODA Montejo - Last Filed: 01/28/23 20:30> Medications Administered Discontinued Medications Generic Name Dose Route Start Last Admin Trade Name Freq PRN Reason Stop Dose Admin Dexamethasone 10 mg 01/29/23 01:25 01/29/23 01:33 Dexamethasone 2 Mg Tablet PO 01/29/23 01:26 10 mg ONCE ONE Administration Oxycodone HCl 10 mg 01/29/23 03:42 01/29/23 03:49 Oxycodone Hcl Immed Release 5 Mg Tablet PO 01/29/23 03:43 10 mg ONCE ONE Administration <RHODA Montejo - Last Filed: 01/28/23 20:30> Medications Administered Discontinued Medications Generic Name Dose Route Start Last Admin Trade Name Freq PRN Reason Stop Dose Admin Dexamethasone 10 mg 01/29/23 01:25 01/29/23 01:33 Dexamethasone 2 Mg Tablet PO 01/29/23 01:26 10 mg ONCE ONE Administration Oxycodone HCl 10 mg 01/29/23 03:42 01/29/23 03:49 Oxycodone Hcl Immed Release 5 Mg Tablet PO 01/29/23 03:43 10 mg ONCE ONE Administration <Moise Zepeda MD - Last Filed: 01/29/23 07:13> Medical Decision Making Medical Decision Making MDM Narrative: Patient allergic reaction likely to hair dye nonspecific abdominal pain from likely had a stone which passed through the skin as such is negative , with nonobstructive stone <Moise Zepeda MD - Last Filed: 01/29/23 07:13> Lab Data MDM Lab Attestation statement: I reviewed the patient's lab results. <Moise Zepeda MD - Last Filed: 01/29/23 07:13> Result Diagrams: 01/28/23 20:48 01/28/23 20:48 <RHODA Montejo - Last Filed: 01/28/23 20:30> Labs: Lab Results 01/28/23 01/28/23 01/29/23 Range/Units 20:48 20:48 00:25 WBC 17.7 H (4.8-10.8) X10*3/uL RBC 5.03 (4.20-5.50) X10*6/uL Hgb 13.3 (12.0-16.0) g/dl Hct 40.5 (37.0-47.0) % MCV 80.5 (80.0-98.0) fL MCH 26.4 L (27.0-33.0) pg MCHC 32.8 (31.0-35.0) g/dl RDW 13.4 (11.0-16.0) % Plt Count 284 D (160-400) X10*3/uL MPV 9.7 (9.4-12.3) fL Immature Gran % (Auto) 0.5 H (0.0-0.4) % Neut % (Auto) 82.2 H (45-73) % Lymph % (Auto) 12.9 L (20-40) % [place] % (Auto) 3.9 (2-11) % Eos % (Auto) 0.3 (0-4) % Baso % (Auto) 0.2 (0-2) % Lymph # (Auto) 2.3 (1.2-4.9) X10*3/uL [place] # (Auto) 0.7 (0.1-1.2) X10*3/uL Eos # (Auto) 0.1 (0.0-0.4) X10*3/uL Baso # (Auto) 0.0 (0.0-0.2) X10*3/uL Abs Immat Gran (auto) 0.08 H (0.00-0.03) X10*3/uL Absolute Neuts (auto) 14.6 H (2.0-8.3) x10*3/uL Absolute Nucleated RBC 0.000 (0.0-0.012) X10*3/uL Nucleated RBC % (auto) 0.0 (0.0-0.2) /100WBC Sodium 138 (135-145) mmol/L Potassium 3.9 (3.3-5.1) mmol/L Chloride 103 (96-108) mmol/L Carbon Dioxide 25 (22-29) mmol/L Anion Gap 14 (12-20) BUN 18 H (9-16) mg/dL Creatinine 0.82 (0.5-1.4) mg/dL Estim Creat Clear Calc 90.4 Estimated GFR > 60 Random Glucose 103 (60-115) mg/dL Calcium 9.8 (8.4-10.2) mg/dL Magnesium 1.7 (1.6-2.6) mg/dL Total Bilirubin 0.7 (0.0-1.0) mg/dL AST 46 H (5-31) U/L ALT 62 H (0-31) U/L Alkaline Phosphatase 76 (39-117) U/L Total Protein 7.4 (6.5-8.0) g/dL Albumin 4.4 (3.5-5.0) g/dL Beta HCG, Quant < 2 mIU/mL Urine Color Yellow Urine Appearance Cloudy Urine pH 5.5 (5.0-9.0) Ur Specific [place] 1.025 (1.005-1.025) Urine Protein 30 (1+) H (Neg-Trace) mg/dL Urine Glucose (UA) Negative (Negative) mg/dL Urine Ketones Trace (Negative) mg/dL Urine Blood Large (3+) H (Negative) Urine Nitrite Negative (Negative) Ur Leukocyte Esterase Trace H (Negative) Urine RBC 6-10 H (0-2) /HPF Urine WBC 0-5 (0-5) /HPF Ur Squamous Epith Cells 3-5 (0-2) /HPF Urine Bacteria 1+ (None Seen) Hyaline Casts 3-5 (0-2) /LPF <RHODA Montejo - Last Filed: 01/28/23 20:30> Lab Results 01/28/23 01/28/23 01/29/23 Range/Units 20:48 20:48 00:25 WBC 17.7 H (4.8-10.8) X10*3/uL RBC 5.03 (4.20-5.50) X10*6/uL Hgb 13.3 (12.0-16.0) g/dl Hct 40.5 (37.0-47.0) % MCV 80.5 (80.0-98.0) fL MCH 26.4 L (27.0-33.0) pg MCHC 32.8 (31.0-35.0) g/dl RDW 13.4 (11.0-16.0) % Plt Count 284 D (160-400) X10*3/uL MPV 9.7 (9.4-12.3) fL Immature Gran % (Auto) 0.5 H (0.0-0.4) % Neut % (Auto) 82.2 H (45-73) % Lymph % (Auto) 12.9 L (20-40) % [place] % (Auto) 3.9 (2-11) % Eos % (Auto) 0.3 (0-4) % Baso % (Auto) 0.2 (0-2) % Lymph # (Auto) 2.3 (1.2-4.9) X10*3/uL [place] # (Auto) 0.7 (0.1-1.2) X10*3/uL Eos # (Auto) 0.1 (0.0-0.4) X10*3/uL Baso # (Auto) 0.0 (0.0-0.2) X10*3/uL Abs Immat Gran (auto) 0.08 H (0.00-0.03) X10*3/uL Absolute Neuts (auto) 14.6 H (2.0-8.3) x10*3/uL Absolute Nucleated RBC 0.000 (0.0-0.012) X10*3/uL Nucleated RBC % (auto) 0.0 (0.0-0.2) /100WBC Sodium 138 (135-145) mmol/L Potassium 3.9 (3.3-5.1) mmol/L Chloride 103 (96-108) mmol/L Carbon Dioxide 25 (22-29) mmol/L Anion Gap 14 (12-20) BUN 18 H (9-16) mg/dL Creatinine 0.82 (0.5-1.4) mg/dL Estim Creat Clear Calc 90.4 Estimated GFR > 60 Random Glucose 103 (60-115) mg/dL Calcium 9.8 (8.4-10.2) mg/dL Magnesium 1.7 (1.6-2.6) mg/dL Total Bilirubin 0.7 (0.0-1.0) mg/dL AST 46 H (5-31) U/L ALT 62 H (0-31) U/L Alkaline Phosphatase 76 (39-117) U/L Total Protein 7.4 (6.5-8.0) g/dL Albumin 4.4 (3.5-5.0) g/dL Beta HCG, Quant < 2 mIU/mL Urine Color Yellow Urine Appearance Cloudy Urine pH 5.5 (5.0-9.0) Ur Specific [place] 1.025 (1.005-1.025) Urine Protein 30 (1+) H (Neg-Trace) mg/dL Urine Glucose (UA) Negative (Negative) mg/dL Urine Ketones Trace (Negative) mg/dL Urine Blood Large (3+) H (Negative) Urine Nitrite Negative (Negative) Ur Leukocyte Esterase Trace H (Negative) Urine RBC 6-10 H (0-2) /HPF Urine WBC 0-5 (0-5) /HPF Ur Squamous Epith Cells 3-5 (0-2) /HPF Urine Bacteria 1+ (None Seen) Hyaline Casts 3-5 (0-2) /LPF <Moise Zepeda MD - Last Filed: 01/29/23 07:13> Discharge Plan Discharge Clinical Impression: Renal calculi, Allergic reaction <RHODA Montejo - Last Filed: 01/28/23 20:30> Patient Disposition: Home, Self-Care <RHODA Montejo - Last Filed: 01/28/23 20:30> Instructions: Kidney Stones (ED), General Allergic Reaction (ED) <RHODA Montejo - Last Filed: 01/28/23 20:30> Additional Instructions: Drink plenty of fluids Benadryl 2 tablets every 6 hours as needed for allergic reaction Likely allergic to hair dye do not use in future <RHODA Montejo - Last Filed: 01/28/23 20:30> Prescriptions: New diphenhydramine HCl [Benadryl Allergy] 25 mg tablet 50 mg PO Q8H PRN (Reason: allergic reaction) Qty: 20 0RF oxycodone 5 mg tablet 5 mg PO Q6H PRN (Reason: pain) Qty: 20 0RF Rx Instructions: Partial Fill upon patient request. No Action pyridoxine (vitamin B6) 50 mg tablet 50 mg PO DAILY Qty: 90 0RF phenazopyridine 100 mg tablet 100 mg PO Q8H 0 Days Qty: 6 0RF sulfamethoxazole-trimethoprim [Bactrim DS] 800-160 mg tablet 1 tab PO BID 3 Days Qty: 6 0RF tamsulosin 0.4 mg capsule 0.4 mg PO DAILY 14 Days Qty: 14 0RF prednisone 20 mg tablet 20 mg PO DAILY 5 Days Qty: 5 0RF celecoxib [Celebrex] 100 mg capsule 100 mg PO BID 14 Days Qty: 28 0RF oxycodone-acetaminophen [Percocet] 5-325 mg tablet 1 tab PO Q6H PRN (Reason: pain) Qty: 10 0RF cyclobenzaprine 10 mg tablet 10 mg PO TID PRN (Reason: muscle spasm) Qty: 10 0RF lidocaine [Lidoderm] 5 % adhesive patch,medicated 1 patch topical DAILY Qty: 15 0RF Rx Instructions: leave on most painful area for up to 12 hrs oxycodone 5 mg tablet 5 mg PO Q8H PRN (Reason: pain) Qty: 5 0RF levofloxacin 750 mg tablet 750 mg PO DAILY Qty: 6 0RF oxycodone 5 mg tablet 5 mg PO TID PRN (Reason: pain) Qty: 6 0RF Rx Instructions: Partial Fill upon patient request. cyclobenzaprine 10 mg tablet 10 mg PO BID PRN (Reason: muscle spasm) Qty: 10 0RF metoclopramide HCl 10 mg tablet 10 mg PO TID hydrochlorothiazide 12.5 mg tablet 12.5 mg PO DAILY potassium citrate 10 mEq (1,080 mg) tablet extended release 10 meq PO BID <RHODA Montejo - Last Filed: 01/28/23 20:30> Interventions: ED Discharge Assessment Last Done: 01/29/23 03:55 <RHODA Montejo - Last Filed: 01/28/23 20:30> Discharge Date/Time: 01/29/23 03:56 <RHODA Montejo - Last Filed: 01/28/23 20:30>
[2023-01-28 20:33] VITALS: BP 127/76; PULSE 106; RESP 20; TEMP 37.6; O2SAT 96; BMI 41.0
[2023-01-28 20:57] LABS: MANUAL DIFF FLAG NO
[2023-01-28 21:00] LABS: Basophils Percent Auto 0.2 % (0-2); Eosinophils Absolute Auto 0.1 X10*3/uL (0.0-0.4); Eosinophils Percent Auto 0.3 % (0-4); Hematocrit 40.5 % (37.0-47.0); Hemoglobin 13.3 g/dl (12.0-16.0); Imm Gran Abs Auto 0.08 X10*3/uL (0.00-0.03); Imm Gran Pct Auto 0.5 % (0.0-0.4); Lymphocytes Absolute Auto 2.3 X10*3/uL (1.2-4.9); Lymphocytes Percent Auto 12.9 % (20-40); Mean Corpuscular HGB Conc 32.8 g/dl (31.0-35.0); Mean Corpuscular Hemoglobin 26.4 pg (27.0-33.0); Mean Corpuscular Volume 80.5 fL (80.0-98.0); Mean Platelet Volume 9.7 fL (9.4-12.3); Monocytes Absolute Auto 0.7 X10*3/uL (0.1-1.2); Monocytes Percent Auto 3.9 % (2-11); Neutrophils Absolute Auto 14.6 x10*3/uL (2.0-8.3); Neutrophils Percent Auto 82.2 % (45-73); Platelet Count 284 X10*3/uL (160-400); Red Blood Count 5.03 X10*6/uL (4.20-5.50); Red Cell Distribution Width 13.4 % (11.0-16.0); White Blood Count 17.7 X10*3/uL (4.8-10.8)
[2023-01-28 21:41] LABS: Alanine Aminotransferase 62 U/L (0-31); Albumin Level 4.4 g/dL (3.5-5.0); Alkaline Phosphatase 76 U/L (39-117); Anion Gap 14 (12-20); Aspartate Amino Transferase 46 U/L (5-31); Bilirubin Total 0.7 mg/dL (0.0-1.0); Blood Urea Nitrogen 18 mg/dL (9-16); Calcium 9.8 mg/dL (8.4-10.2); Carbon Dioxide 25 mmol/L (22-29); Chloride 103 mmol/L (96-108); Creatinine Clr Calc Pharmacy 90.4; Estimated Glomerular Filt Rate > 60; Glucose Random 103 mg/dL (60-115); Magnesium 1.7 mg/dL (1.6-2.6); Potassium 3.9 mmol/L (3.3-5.1); Sodium 138 mmol/L (135-145); Total Protein 7.4 g/dL (6.5-8.0)
[2023-01-28 21:44] LABS: HCG Quantitative < 2 mIU/mL
[2023-01-29 00:13] VITALS: BP 126/79; PULSE 84; RESP 19; TEMP 37; O2SAT 97
[2023-01-29 00:39] LABS: Appearance Urine Cloudy; Color Urine Yellow; Glucose Urine UA Negative (Negative); Leukocyte Esterase Urine Trace (Negative); Nitrite Urine Negative (Negative); PH 5.5 (5.0-9.0); Specific Gravity - Urine 1.025 (1.005-1.025); UMIC TRIGGER UACC YES; Urine Blood Large (3+) (Negative); Urine Ketones Trace mg/dL (Negative); Urine Protein 30 (1+) mg/dL (Neg-Trace)
[2023-01-29 00:48] LABS: Bacteria Urine 1+ (None Seen); WBC Urine 0-5 /HPF (0-5)
[2023-01-29] MEDS: dexAMETHasone 2 MG TABLET 10 MG PO (01:33)
--- NOTE | 2023-01-29 03:33 | PC.NURSE ---
Pt. resting quietly in room, under no apparent distress. Pt. does report abdominal pain that wraps around the back. Pt. will be medicated per DEC.
[2023-01-29 03:41] VITALS: BP 116/73; PULSE 77; RESP 18; TEMP 36.4; O2SAT 95
[2023-01-29] MEDS: oxyCODONE HCl Immed Release 5 MG TABLET 10 MG PO (03:49)
== END 2023-01-29 03:56 | disposition home or self-care (01) ==
PROVIDERS: Physician Assistant Medical; Emergency Provider Internal Medicine; PCP Internal Medicine
DX: L23.4 Allergic contact dermatitis due to dyes (principal); N20.0 Calculus of kidney
CPT/HCPCS: 36415; 74176; 80053; 81001; 83735; 84702; 85025; 99284; J8540

== ENCOUNTER 2023-03-18 12:48 | Emergency (ER) | payer OTHER, SELFPAY ==
--- NOTE | 2023-03-18 12:49 | ECG_ITS ---
Test Reason : chest pain Blood Pressure : / mmHG Vent. Rate : 089 BPM Atrial Rate : 089 BPM P-R Int : 148 ms QRS Dur : 082 ms QT Int : 374 ms P-R-T Axes : 036 016 031 degrees QTc Int : 455 ms Normal sinus rhythm Cannot rule out Anterior infarct , age undetermined Abnormal ECG When compared with ECG of 14-JUL-2021 18:00, No significant change was found Referred By: Mary Oliver Electronically Signed By:SAHRA ULLOA MD
[2023-03-18 13:12] VITALS: BP 134/80; PULSE 100; RESP 18; TEMP 36.7; O2SAT 98; BMI 42.6
--- NOTE | 2023-03-18 13:12 | ED_ITS ---
HPI - General Adult General Chief complaint: General Medical Stated complaint: Chest Pain Time Seen by Provider: 03/18/23 20:40 Source: patient Mode of arrival: ambulatory Limitations: no limitations History of Present Illness HPI narrative: Patient is a 42 year old assigned female at with a history of kidney s tones presenting to the emergency department today with bilateral hip / leg pain, chest pain, and shortness of breath. Patient states that for a week she has had bilateral hip and leg pain but yesterday she developed chest pain and SOB after completing some heavy lifting. Patient denies any dizziness, lightheadedness, abdominal pain, nausea, vomiting, fever, chills, blurry vision, double vision, loss of vision, back pain, night sweats, pain with urination, increased urinary frequency, increased urinary urgency, blood in her urine or stool, syncope or a near syncopal episode, recent trauma or falls, bowel incontinence, bladder incontinence, bowel retention, bladder retention, or any other complaints at this time. Severity: mild Severity scale (1-10): 2 Relieving factors: none Exacerbating factors: none Associated symptoms: chest pain Treatments prior to arrival: none Related Data Home Medications Medication Instructions Recorded Confirmed hydrochlorothiazide 12.5 mg tablet 12.5 mg PO DAILY 02/18/22 metoclopramide HCl 10 mg tablet 10 mg PO TID 02/18/22 potassium citrate 10 mEq (1,080 10 meq PO BID 02/18/22 mg) tablet,extended release Previous Rx's Medication Instructions Recorded oxycodone-acetaminophen 5 mg-325 1 tab PO Q6H PRN pain #10 tabs 07/22/20 mg tablet (Percocet) cyclobenzaprine 10 mg tablet 10 mg PO TID PRN muscle spasm #10 07/14/21 tabs lidocaine 5 % topical patch 1 patch topical DAILY #15 ea 07/14/21 (Lidoderm) oxycodone 5 mg tablet 5 mg PO Q8H PRN pain #5 tabs 07/14/21 pyridoxine (vitamin B6) 50 mg 50 mg PO DAILY #90 tabs 03/04/22 tablet phenazopyridine 100 mg tablet 100 mg PO Q8H 6 doses #6 tabs 04/19/22 sulfamethoxazole 800 1 tab PO BID 3 days #6 tabs 04/19/22 mg-trimethoprim 160 mg tablet (Bactrim DS) celecoxib 100 mg capsule (Celebrex) 100 mg PO BID 14 days #28 caps 06/10/22 prednisone 20 mg tablet 20 mg PO DAILY 5 days #5 tabs 06/10/22 tamsulosin 0.4 mg capsule 0.4 mg PO DAILY 14 days #14 caps 06/10/22 cyclobenzaprine 10 mg tablet 10 mg PO BID PRN muscle spasm #10 07/05/22 tabs levofloxacin 750 mg tablet 750 mg PO DAILY #6 tabs 07/05/22 oxycodone 5 mg tablet 5 mg PO TID PRN pain #6 tabs 07/05/22 diphenhydramine HCl 25 mg tablet 50 mg PO Q8H PRN allergic reaction 01/29/23 (Benadryl Allergy) #20 tabs oxycodone 5 mg tablet 5 mg PO Q6H PRN pain #20 tabs 01/29/23 Allergies Allergy/AdvReac Type Severity Reaction Status Date / Time morphine [MORPHINE] Allergy Severe SWELLING Verified 05/07/22 11:39 ibuprofen [IBUPROFEN] Allergy Intermediate HIVES Verified 05/07/22 11:39 naproxen [NAPROXEN] Allergy Intermediate HIVES Verified 05/07/22 11:39 acetaminophen Allergy Unknown Rash Verified 01/29/23 01:01 tramadol [TRAMADOL] Allergy Unknown HIVES Verified 05/07/22 11:39 ketorolac [From TORADOL] AdvReac Unknown ITCHING Verified 05/07/22 11:39 Ibuprofen Allergy Unknown Hives Uncoded 05/07/22 11:39 Morphine Sulf Microinfusion Allergy Unknown Swelling Uncoded 05/07/22 11:39 PF Review of Systems Constitutional: Constitutional: Reports no additional constitutional complaints, Denies chills, Denies fever(s) and Denies night sweats Eyes: Eyes: Reports no additional eye complaints, Denies blurry vision, Denies change in vision, Denies diplopia, Denies eye discharge, Denies loss of vision and Denies eye pain ENT: Denies dizziness Cardiovascular: Cardiovascular: Reports no additional cardiovascular complaints, Reports chest pain, Denies lightheadedness, Denies Loss of Consciousness and Reports dyspnea Respiratory: Respiratory: Reports no additional respiratory complaints and Reports dyspnea Gastrointestinal: Gastrointestinal: Reports no additional gastrointestinal complaints, Denies abdominal pain, Denies melena, Denies hematochezia, Denies change in bowel habits and Denies change in stool character Genitourinary: Genitourinary: Denies hematuria, Denies urinary frequency, Eduardo es dysuria, Denies urinary incontinence, Denies urinary hesitancy and Denies urinary urgency Musculoskeletal: Musculoskeletal: Reports no additional musculoskeletal complaints, Denies numbness and Denies tingling Comments: bilateral hip and leg pain Neurologic: Denies dizziness, Denies loss of vision, Denies numbness and Denies tingling Psychiatric: Psychiatric: Reports no additional psychiatric complaints Endocrine: Endocrine: Reports no additional endocrine complaints Hematologic/Lymphatic: Hematologic/Lymphatic: Reports no additional hematologic/lymphatic complaints Allergic/Immunologic: Allergic/Immunologic: Reports no additional allerg ic/immunologic complaints [facility] Past Medical History Attestation statement: The following information was validated with the patient. Source: old records reviewed and nursing notes reviewed Medical History Asthma Depression Renal calculi Sciatica Social History Social History Alcohol intake: current Alcohol intake frequency: holidays/special occasions on ly Alcohol type: beer and wine Substance Use Type: Marijuana Advance Directives: No Advance Directives Information Provided: No Physical Exam ED Vital Signs: Vital Signs - 24 hr 03/18/23 13:12 Temperature 98.1 F Pulse Rate 100 Respiratory Rate 18 Blood Pressure 134/80 Pulse Oximetry 98 Oxygen Delivery Method Room Air BMI result Body Mass Index 42.6 Const General: cooperative, no acute distress, alert and awake Nutritional Appearance: well nourished Orientation/consciousness: patient oriented x3 Limitations: no limitations [facility] Head: Yes normal to inspection and Yes atraumatic Ears: hearing grossly normal bilaterally and external ears normal General nose exam: Normal external nose present, no nasal discharge noted and no epistaxis Face and sinus: Yes normal facial exam, No abrasion and No laceration Mouth: Normal oral and palatal mucosa present, no drooling and no muffled voice Eyes General: appearance normal, both eyes and all related structures Periorbital: periorbital findings normal Eyelids: Yes eyelids normal Conjunctivae: conjunctivae normal Pupils: Equal, round and reactive pupils present EOM: EOMs intact bilaterally Neck Neck: Yes normal visual inspection, Yes full ROM and Yes no lymphadenopathy Chest Chest palpation & inspection: normal inspection of the chest Resp Effort & Inspection: normal respiratory effort and able to speak in complete sentences GI Inspection: Yes normal to inspection Neuro General: patient oriented x3 and moves all extremities Cranial nerves: Yes Equal, round and reactive pupils present Cognition (Neuro): normal cognition Motor exam (neuro): 5/5 motor strength present throughout Sensory Exam: Normal double simultaneous stimulation for sensation Coordination: [id number] test normal Extrem General: Yes normal to inspection, Yes full ROM and Yes capillary refill normal Psych Appearance: grossly normal Mental Status: mental status grossly normal Affect: normal affect Attitude: cooperative Thought process: Normal thought process present Thought content: Normal thought content present Insight: Good insight present (Psych) Course Course Course Narrative: RME performed by Mary Oliver PA-C. Patient is a 42 year old assigned female at presenting to the emergency department with bilateral leg pain and chest pain. Labs ordered. Patient placed back in the waiting room pending room availability and results. Medical Decision Making Medical Decision Making MDM Narrative: Patient is a 42 year old assigned female at with a history of kidney stones presenting to the emergency department today with bilateral leg / hip pain, chest pain, and shortness of breath. Patient's physical exam was unremarkable. Patient's blood work was unremarkable. Patient's EKG was unremarkable. Patient eloped from the department before myself or any other provider within the department could explain her physical exam findings or test resutls. Differential Diagnosis Differential Diagnoses: The differential diagnosis associated with the presentation includes chest pain, hip pain, leg pain Lab Data [facility] Lab Attestation statement: I reviewed the patient's lab results. My interpretation of these studies and their corresponding values is that they are grossly normal. 03/18/23 13:05 03/18/23 13:05 Labs: Lab Results 03/18/23 03/18/23 03/18/23 Range/Units 13:05 13:05 13:05 WBC 10.0 (4.8-10.8) X10*3/uL RBC 5.27 (4.20-5.50) X10*6/uL Hgb 13.6 (12.0-16.0) g/dl Hct 42.7 (37.0-47.0) % MCV 81.0 (80.0-98.0) fL MCH 25.8 L (27.0-33.0) pg MCHC 31.9 (31.0-35.0) g/dl RDW 13.5 (11.0-16.0) % Plt Count 281 (160-400) X10*3/uL MPV 9.7 (9.4-12.3) fL Immature Gran % (Auto) 0.2 (0.0-0.4) % Neut % (Auto) 66.2 (45-73) % Lymph % (Auto) 25.5 (20-40) % Bath % (Auto) 5.5 (2-11) % Eos % (Auto) 2.3 (0-4) % Baso % (Auto) 0.3 (0-2) % Lymph # (Auto) 2.6 (1.2-4.9) X10*3/uL Bath # (Auto) 0.6 (0.1-1.2) X10*3/uL Eos # (Auto) 0.2 (0.0-0.4) X10*3/uL Baso # (Auto) 0.0 (0.0-0.2) X10*3/uL Abs Immat Gran (auto) 0.02 (0.00-0.03) X10*3/uL Absolute Neuts (auto) 6.6 (2.0-8.3) x10*3/uL Absolute Nucleated RBC 0.000 (0.0-0.012) X10*3/uL Nucleated RBC % (auto) 0.0 (0.0-0.2) /100WBC Sodium 139 (135-145) mmol/L Potassium 3.5 (3.3-5.1) mmol/L Chloride 103 (96-108) mmol/L Carbon Dioxide 21 L (22-29) mmol/L Anion Gap 19 (12-20) BUN 16 (9-16) mg/dL Creatinine 0.79 (0.5-1.4) mg/dL Estim Creat Clear Calc 95.9 Estimated GFR > 60 Random Glucose 118 H (60-115) mg/dL Calcium 10.0 (8.4-10.2) mg/dL Magnesium 2.2 (1.6-2.6) mg/dL Total Bilirubin 0.5 (0.0-1.0) mg/dL AST 59 H (5-31) U/L ALT 77 H (0-31) U/L Alkaline Phosphatase 75 (39-117) U/L Troponin I High Sens (<3.5-17.0) ng/L B-Natriuretic Peptide < 10 (<100) pg/mL Total Protein 7.8 (6.5-8.0) g/dL Albumin 4.5 (3.5-5.0) g/dL Beta HCG, Quant < 2 mIU/mL Urine Color Urine Appearance Urine pH (5.0-9.0) Ur Specific [place] (1.005-1.025) Urine Protein (Neg-Trace) mg/dL Urine Glucose (UA) (Negative) mg/dL Urine Ketones (Negative) mg/dL Urine Blood (Negative) Urine Nitrite (Negative) Ur Leukocyte Esterase (Negative) Urine RBC (0-2) /HPF Urine WBC (0-5) /HPF Ur Squamous Epith Cells (0-2) /HPF Urine Bacteria (None Seen) Hyaline Casts (0-2) /LPF 03/18/23 03/18/23 Range/Units 13:05 13:05 WBC (4.8-10.8) X10*3/uL RBC (4.20-5.50) X10*6/uL Hgb (12.0-16.0) g/dl Hct (37.0-47.0) % MCV (80.0-98.0) fL MCH (27.0-33.0) pg MCHC (31.0-35.0) g/dl RDW (11.0-16.0) % Plt Count (160-400) X10*3/uL MPV (9.4-12.3) fL Immature Gran % (Auto) (0.0-0.4) % Neut % (Auto) (45-73) % Lymph % (Auto) (20-40) % Bath % (Auto) (2-11) % Eos % (Auto) (0-4) % Baso % (Auto) (0-2) % Lymph # (Auto) (1.2-4.9) X10*3/uL Bath # (Auto) (0.1-1.2) X10*3/uL Eos # (Auto) (0.0-0.4) X10*3/uL Baso # (Auto) (0.0-0.2) X10*3/uL Abs Immat Gran (auto) (0.00-0.03) X10*3/uL Absolute Neuts (auto) (2.0-8.3) x10*3/uL Absolute Nucleated RBC (0.0-0.012) X10*3/uL Nucleated RBC % (auto) (0.0-0.2) /100WBC Sodium (135-145) mmol/L Potassium (3.3-5.1) mmol/L Chloride (96-108) mmol/L Carbon Dioxide (22-29) mmol/L Anion Gap (12-20) BUN (9-16) mg/dL Creatinine (0.5-1.4) mg/dL Estim Creat Clear Calc Estimated GFR Random Glucose (60-115) mg/dL Calcium (8.4-10.2) mg/dL Magnesium (1.6-2.6) mg/dL Total Bilirubin (0.0-1.0) mg/dL AST (5-31) U/L ALT (0-31) U/L Alkaline Phosphatase (39-117) U/L Troponin I High Sens < 2.7 (<3.5-17.0) ng/L B-Natriuretic Peptide (<100) pg/mL Total Protein (6.5-8.0) g/dL Albumin (3.5-5.0) g/dL Beta HCG, Quant mIU/mL Urine Color Yellow Urine Appearance Clear Urine pH 6.0 (5.0-9.0) Ur Specific [place] 1.020 (1.005-1.025) Urine Protein Negative (Neg-Trace) mg/dL Urine Glucose (UA) Negative (Negative) mg/dL Urine Ketones Negative (Negative) mg/dL Urine Blood Negative (Negative) Urine Nitrite Negative (Negative) Ur Leukocyte Esterase Trace H (Negative) Urine RBC 3-5 H (0-2) /HPF Urine WBC 0-5 (0-5) /HPF Ur Squamous Epith Cells 6-10 (0-2) /HPF Urine Bacteria 2+ (None Seen) Hyaline Casts 0-2 (0-2) /LPF Independent Interpretation I performed an independent interpretation of an: EKG Interpretation: Vent. Rate: 089 BPM ? ? Atrial Rate: 089 BPM P-R Int: 148 ms? QRS Dur: 082 ms QT Int: 374 ms ? ? ? P-R-T Axes: 036 016 031 degrees QTc Int: 455 ms ? Normal sinus rhythm Cannot rule out Anterior infarct , age undetermined Abnormal ECG When compared with ECG of 14-JUL-2021 18:00, No significant change was found ? Electronically Signed By:ZANDER CHAMBERLAIN MD Dictated By: Zander Chamberlain MD Signed By: Electronically signed by Zander Chamberlain MD 03/19/23 0942 Discharge Plan Discharge Clinical Impression: Bilateral hip pain, Chest pain Patient Disposition: Elopement Prescriptions: No Action pyridoxine (vitamin B6) 50 mg tablet 50 mg PO DAILY Qty: 90 0RF phenazopyridine 100 mg tablet 100 mg PO Q8H 0 Days Qty: 6 0RF sulfamethoxazole-trimethoprim [Bactrim DS] 800-160 mg tablet 1 tab PO BID 3 Days Qty: 6 0RF tamsulosin 0.4 mg capsule 0.4 mg PO DAILY 14 Days Qty: 14 0RF prednisone 20 mg tablet 20 mg PO DAILY 5 Days Qty: 5 0RF celecoxib [Celebrex] 100 mg capsule 100 mg PO BID 14 Days Qty: 28 0RF oxycodone-acetaminophen [Percocet] 5-325 mg tablet 1 tab PO Q6H PRN (Reason: pain) Qty: 10 0RF cyclobenzaprine 10 mg tablet 10 mg PO TID PRN (Reason: muscle spasm) Qty: 10 0RF lidocaine [Lidoderm] 5 % adhesive patch,medicated 1 patch topical DAILY Qty: 15 0RF Rx Instructions: leave on most painful area for up to 12 hrs oxycodone 5 mg tablet 5 mg PO Q8H PRN (Reason: pain) Qty: 5 0RF levofloxacin 750 mg tablet 750 mg PO DAILY Qty: 6 0RF oxycodone 5 mg tablet 5 mg PO TID PRN (Reason: pain) Qty: 6 0RF Rx Instructions: Partial Fill upon patient request. cyclobenzaprine 10 mg tablet 10 mg PO BID PRN (Reason: muscle spasm) Qty: 10 0RF diphenhydramine HCl [Benadryl Allergy] 25 mg tablet 50 mg PO Q8H PRN (Reason: allergic reaction) Qty: 20 0RF oxycodone 5 mg tablet 5 mg PO Q6H PRN (Reason: pain) Qty: 20 0RF Rx Instructions: Partial Fill upon patient request. metoclopramide HCl 10 mg tablet 10 mg PO TID hydrochlorothiazide 12.5 mg tablet 12.5 mg PO DAILY potassium citrate 10 mEq (1,080 mg) tablet extended release 10 meq PO BID Discharge Date/Time: 03/18/23 21:21
[2023-03-18 13:13] LABS: MANUAL DIFF FLAG NO
[2023-03-18 13:16] LABS: Appearance Urine Clear; Basophils Percent Auto 0.3 % (0-2); Color Urine Yellow; Eosinophils Absolute Auto 0.2 X10*3/uL (0.0-0.4); Eosinophils Percent Auto 2.3 % (0-4); Glucose Urine UA Negative (Negative); Hematocrit 42.7 % (37.0-47.0); Hemoglobin 13.6 g/dl (12.0-16.0); Imm Gran Abs Auto 0.02 X10*3/uL (0.00-0.03); Imm Gran Pct Auto 0.2 % (0.0-0.4); Leukocyte Esterase Urine Trace (Negative); Lymphocytes Absolute Auto 2.6 X10*3/uL (1.2-4.9); Lymphocytes Percent Auto 25.5 % (20-40); Mean Corpuscular HGB Conc 31.9 g/dl (31.0-35.0); Mean Corpuscular Hemoglobin 25.8 pg (27.0-33.0); Mean Platelet Volume 9.7 fL (9.4-12.3); Monocytes Absolute Auto 0.6 X10*3/uL (0.1-1.2); Monocytes Percent Auto 5.5 % (2-11); Neutrophils Absolute Auto 6.6 x10*3/uL (2.0-8.3); Neutrophils Percent Auto 66.2 % (45-73); Nitrite Urine Negative (Negative); Platelet Count 281 X10*3/uL (160-400); Red Blood Count 5.27 X10*6/uL (4.20-5.50); Red Cell Distribution Width 13.5 % (11.0-16.0); UMIC TRIGGER UACC YES; Urine Blood Negative (Negative); Urine Ketones Negative (Negative); Urine Protein Negative (Neg-Trace)
[2023-03-18 13:22] LABS: Bacteria Urine 2+ (None Seen); Hyaline Casts Urine 0-2 /LPF (0-2); WBC Urine 0-5 /HPF (0-5)
[2023-03-18 13:44] LABS: B Type Natriuretic Peptide < 10 pg/mL (<100)
[2023-03-18 13:50] LABS: Alanine Aminotransferase 77 U/L (0-31); Albumin Level 4.5 g/dL (3.5-5.0); Alkaline Phosphatase 75 U/L (39-117); Anion Gap 19 (12-20); Aspartate Amino Transferase 59 U/L (5-31); Bilirubin Total 0.5 mg/dL (0.0-1.0); Blood Urea Nitrogen 16 mg/dL (9-16); Carbon Dioxide 21 mmol/L (22-29); Chloride 103 mmol/L (96-108); Creatinine Clr Calc Pharmacy 95.9; Estimated Glomerular Filt Rate > 60; Glucose Random 118 mg/dL (60-115); Magnesium 2.2 mg/dL (1.6-2.6); Potassium 3.5 mmol/L (3.3-5.1); Sodium 139 mmol/L (135-145); Total Protein 7.8 g/dL (6.5-8.0)
[2023-03-18 13:53] LABS: HCG Quantitative < 2 mIU/mL; Troponin-I High Sensitivity < 2.7 ng/L (<3.5-17.0)
== END 2023-03-18 21:21 | disposition left against medical advice (07) ==
LOC: HO.ED 21:17
PROVIDERS: Physician Assistant Medical; Emergency Provider Emergency Medicine; PCP Internal Medicine
DX: M25.551 Pain in right hip (principal); M25.552 Pain in left hip; R07.9 Chest pain, unspecified; R06.02 Shortness of breath; Z87.442 Personal history of urinary calculi; Z79.899 Other long term (current) drug therapy
CPT/HCPCS: 36415; 80053; 81001; 83735; 83880; 84484; 84702; 85025; 93005; 99283

== ENCOUNTER 2023-04-02 21:44 | Emergency (ER) | payer OTHER, SELFPAY ==
[2023-04-02 21:45] VITALS: BP 130/72; PULSE 81; RESP 18; TEMP 37; O2SAT 95; BMI 39.1
[2023-04-02 22:43] LABS: MANUAL DIFF FLAG NO
[2023-04-02 22:52] LABS: Basophils Percent Auto 0.3 % (0-2); Eosinophils Absolute Auto 0.2 X10*3/uL (0.0-0.4); Eosinophils Percent Auto 1.4 % (0-4); Hematocrit 40.6 % (37.0-47.0); Hemoglobin 13.5 g/dl (12.0-16.0); Imm Gran Abs Auto 0.02 X10*3/uL (0.00-0.03); Imm Gran Pct Auto 0.2 % (0.0-0.4); Lymphocytes Absolute Auto 2.4 X10*3/uL (1.2-4.9); Lymphocytes Percent Auto 20.8 % (20-40); Mean Corpuscular HGB Conc 33.3 g/dl (31.0-35.0); Mean Corpuscular Hemoglobin 26.3 pg (27.0-33.0); Monocytes Absolute Auto 0.5 X10*3/uL (0.1-1.2); Monocytes Percent Auto 4.4 % (2-11); Neutrophils Absolute Auto 8.5 x10*3/uL (2.0-8.3); Neutrophils Percent Auto 72.9 % (45-73); Platelet Count 288 X10*3/uL (160-400); Red Blood Count 5.14 X10*6/uL (4.20-5.50); Red Cell Distribution Width 14.1 % (11.0-16.0); White Blood Count 11.6 X10*3/uL (4.8-10.8)
[2023-04-02 22:53] LABS: Appearance Urine Clear; Color Urine Yellow; Glucose Urine UA Negative (Negative); Leukocyte Esterase Urine Small (1+) (Negative); Nitrite Urine Negative (Negative); PH 7.5 (5.0-9.0); UMIC TRIGGER UACC YES; Urine Blood Negative (Negative); Urine Ketones Negative (Negative); Urine Protein Negative (Neg-Trace)
[2023-04-02 23:04] LABS: Alanine Aminotransferase 64 U/L (0-31); Albumin Level 4.3 g/dL (3.5-5.0); Alkaline Phosphatase 68 U/L (39-117); Anion Gap 14 (12-20); Aspartate Amino Transferase 45 U/L (5-31); Bilirubin Direct 0.2 mg/dL (0.0-0.5); Bilirubin Total 0.9 mg/dL (0.0-1.0); Blood Urea Nitrogen 14 mg/dL (9-16); Carbon Dioxide 25 mmol/L (22-29); Chloride 102 mmol/L (96-108); Creatinine Clr Calc Pharmacy 104.4; Estimated Glomerular Filt Rate > 60; Glucose Random 95 mg/dL (60-115); Lipase 12 U/L (8-78); Potassium 3.3 mmol/L (3.3-5.1); Sodium 138 mmol/L (135-145)
[2023-04-02 23:24] LABS: Bacteria Urine 3+ (None Seen); UACC Culture Trigger YES
--- NOTE | 2023-04-03 01:32 | ED_ITS ---
HPI - General Adult General Chief complaint: Abdominal Pain Stated complaint: Vomiting, unbalanced Time Seen by Provider: 04/03/23 01:32 Source: patient Mode of arrival: ambulatory Limitations: no limitations History of Present Illness HPI narrative: Patient is a 42 year old assigned female at with a history of kidney stones presenting to the emergency department today with nausea, vomiting, and abdominal pain. Patient states that since this morning she has had nausea, vomiting, and abdominal pain. Patient denies any current dizziness, lightheadedness, fever, chills, blurry vision, double vision, loss of vision, chest pain, difficulty breathing, shortness of breath, back pain, night sweats, pain with urination, increased urinary frequency, increased urinary urgency, blood in her urine or stool, syncope or a near syncopal episode, recent trauma or falls, bowel incontinence, bladder incontinence, bowel retention, bladder retention, or any other complaints at this time. Onset (ago): hour(s) Severity: mild Severity scale (1-10): 2 Relieving factors: none Exacerbating factors: none Associated symptoms: nausea/vomiting Treatments prior to arrival: none Related Data Home Medications Medication Instructions Recorded Confirmed hydrochlorothiazide 12.5 mg tablet 12.5 mg PO DAILY 02/18/22 metoclopramide HCl 10 mg tablet 10 mg PO TID 02/18/22 potassium citrate 10 mEq (1,080 10 meq PO BID 02/18/22 mg) tablet,extended release Previous Rx's Medication Instructions Recorded oxycodone-acetaminophen 5 mg-325 1 tab PO Q6H PRN pain #10 tabs 07/22/20 mg tablet (Percocet) cyclobenzaprine 10 mg tablet 10 mg PO TID PRN muscle spasm #10 07/14/21 tabs lidocaine 5 % topical patch 1 patch topical DAILY #15 ea 07/14/21 (Lidoderm) oxycodone 5 mg tablet 5 mg PO Q8H PRN pain #5 tabs 07/14/21 pyridoxine (vitamin B6) 50 mg 50 mg PO DAILY #90 tabs 03/04/22 tablet phenazopyridine 100 mg tablet 100 mg PO Q8H 6 doses #6 tabs 04/19/22 sulfamethoxazole 800 1 tab PO BID 3 days #6 tabs 04/19/22 mg-trimethoprim 160 mg tablet (Bactrim DS) celecoxib 100 mg capsule (Celebrex) 100 mg PO BID 14 days #28 caps 06/10/22 prednisone 20 mg tablet 20 mg PO DAILY 5 days #5 tabs 06/10/22 tamsulosin 0.4 mg capsule 0.4 mg PO DAILY 14 days #14 caps 06/10/22 cyclobenzaprine 10 mg tablet 10 mg PO BID PRN muscle spasm #10 07/05/22 tabs levofloxacin 750 mg tablet 750 mg PO DAILY #6 tabs 07/05/22 oxycodone 5 mg tablet 5 mg PO TID PRN pain #6 tabs 07/05/22 diphenhydramine HCl 25 mg tablet 50 mg PO Q8H PRN allergic reaction 01/29/23 (Benadryl Allergy) #20 tabs oxycodone 5 mg tablet 5 mg PO Q6H PRN pain #20 tabs 01/29/23 cefdinir 300 mg capsule 300 mg PO BID 7 days #14 caps 04/03/23 ondansetron 4 mg disintegrating 4 mg PO Q8H 3 days #9 tabs 04/03/23 tablet prednisone 20 mg tablet 20 mg PO DAILY 7 days #7 tabs 04/03/23 tamsulosin 0.4 mg capsule 0.4 mg PO DAILY #7 caps 04/03/23 Allergies Allergy/AdvReac Type Severity Reaction Status Date / Time morphine [MORPHINE] Allergy Severe SWELLING Verified 05/07/22 11:39 ibuprofen [IBUPROFEN] Allergy Intermediate HIVES Verified 05/07/22 11:39 naproxen [NAPROXEN] Allergy Intermediate HIVES Verified 05/07/22 11:39 acetaminophen Allergy Unknown Rash Verified 01/29/23 01:01 tramadol [TRAMADOL] Allergy Unknown HIVES Verified 05/07/22 11:39 ketorolac [From TORADOL] AdvReac Unknown ITCHING Verified 05/07/22 11:39 Ibuprofen Allergy Unknown Hives Uncoded 05/07/22 11:39 Morphine Sulf Microinfusion Allergy Unknown Swelling Uncoded 05/07/22 11:39 PF Review of Systems Constitutional: Constitutional: Reports no additional constitutional complaints, Denies chills, Denies fever(s) and Denies night sweats Eyes: Eyes: Reports no additional eye complaints, Denies blurry vision, Denies change in vision, Denies diplopia, Denies eye discharge, Denies loss of vision and Denies eye pain ENT: Denies dizziness Cardiovascular: Cardiovascular: Reports no additional cardiovascular complaints, Denies chest pain, Denies lightheadedness, Denies Loss of Consciousn ess and Denies dyspnea Respiratory: Respiratory: Reports no additional respiratory complaints and Denies dyspnea Gastrointestinal: Gastrointestinal: Reports no additional gastrointestinal complaints, Reports abdominal pain, Denies melena, Denies hematochezia, Denies change in bowel habits, Denies change in stool character, Reports nausea and Reports vomiting Genitourinary: Genitourinary: Denies hematuria, Denies urinary frequency, Den ies dysuria, Denies urinary incontinence, Denies urinary hesitancy and Denies urinary urgency Musculoskeletal: Musculoskeletal: Reports no additional musculoskeletal complaints, Denies numbness and Denies tingling Neurologic: Denies dizziness, Denies loss of vision, Denies numbness and Denies tingling Psychiatric: Psychiatric: Reports no additional psychiatric complaints Endocrine: Endocrine: Reports no additional endocrine complaints Hematologic/Lymphatic: Hematologic/Lymphatic: Reports no additional hematologic/lymphatic complaints Allergic/Immunologic: Allergic/Immunologic: Reports no additional allergic/immunologic complaints PMFSH Past Medical History Attestation statement: The following information was validated with the patient. Source: old records reviewed and nursing notes reviewed Medical History Asthma Depression Renal calculi Sciatica Social History Social History Alcohol intake: never Smoked in Last 30 Days: No Use of substances other than those prescribed or required for medical reasons: No Substance Use Type: Marijuana Advance Directives: No Advance Directives Information Provided: No Patient : No Physical Exam ED Vital Signs: Vital Signs - 24 hr 04/02/23 21:45 Temperature 98.6 F Pulse Rate 81 Respiratory Rate 18 Blood Pressure 130/72 Pulse Oximetry 95 Oxygen Delivery Method Room Air BMI result Body Mass Index 39.1 Const General: cooperative, no acute distress, alert and awake Nutritional Appearance: well nourished Orientation/consciousness: patient oriented x3 Limitations: no limitations HENMT Head: Yes normal to inspection and Yes atraumatic Ears: hearing grossly normal bilaterally and external ears normal General nose exam: Normal external nose present, no nasal discharge noted and no epistaxis Face and sinus: Yes normal facial exam, No abrasion and No laceration Mouth: Normal oral and palatal mucosa present, no drooling and no muffled voice Eyes General: appearance normal, both eyes and all related structures Periorbital: periorbital findings normal Eyelids: Yes eyelids normal Conjunctivae: conjunctivae normal Pupils: Equal, round and reactive pupils present EOM: EOMs intact bilaterally Neck Neck: Yes normal visual inspection, Yes full ROM and Yes no lymphadenopathy Chest Chest palpation & inspection: normal inspection of the chest Resp Effort & Inspection: normal respiratory effort and able to speak in complete se ntences GI Inspection: Yes normal to inspection Palpation (GI): Soft to palpation, not firm, nontender, no guarding and not rig id Neuro General: patient oriented x3 and moves all extremities Cranial nerves: Yes Equal, round and reactive pupils present Cognition (Neuro): normal cognition Motor exam (neuro): 5/5 motor strength present throughout Sensory Exam: Normal double simultaneous stimulation for sensation Coordination: [id number] test normal Extrem General: Yes normal to inspection, Yes full ROM and Yes capillary refill normal Psych Appearance: grossly normal Mental Status: mental status grossly normal Affect: normal affect Attitude: cooperative Thought process: Normal thought process present Thought content: Normal thought content present Insight: Good insight present (Psych) Medical Decision Making Medical Decision Making MDM Narrative: Patient is a 42 year old assigned female at with a history of kidney stones presenting to the emergency department today with abdominal pain, nausea, and vomiting. Patient's physical exam was unremarkable. Patient's blood work showed a slightly elevated WBC count of 11.6 which I attribute to her recent vomiting. Patient's urine showed a probable UTI, given her symptoms, will treat. Patient requested that I give her the medications she usually gets when she has a kidney stone . I explained my physical exam findings as well as all test results to the patient. I answered all questions asked by the patient. I stressed the importance of the patient taking her medication as prescribed. I stressed the importance of the patient following up with her primary care provider and her urologist. I stressed the importance of the patient returning to the emergency department immediately if her symptoms were to worsen or if she were to develop any dizziness, shortness of breath, difficulty breathing, chest pain, blurry vision, loss of vision, nausea, vomiting, abdominal pain, fever, chills, back pain, or any other complaints. Patient verbalized agreement and understanding with this treatment plan and discharge. Differential Diagnosis Differential Diagnoses: The differential diagnosis associated with the presentation includes UTI Admission/Observation Consideration of admission/observation: Escalation of care including admis roz/observation considered Patient would have been admitted to the hospital had her work up had any findings where hospital admission was appropriate. Lab Data MDM Lab Attestation statement: I reviewed the patient's lab results. My interpretation of these studies and their corresponding values is that they are grossly normal with the exception of her slightly elevated WBC count which I attribute to her recent episode of vomiting. 04/02/23 22:32 04/02/23 22:32 Labs: Lab Results 04/02/23 04/02/23 04/02/23 Range/Units 22:32 22:32 22:39 WBC 11.6 H (4.8-10.8) X10*3/uL RBC 5.14 (4.20-5.50) X10*6/uL Hgb 13.5 (12.0-16.0) g/dl Hct 40.6 (37.0-47.0) % MCV 79.0 L (80.0-98.0) fL MCH 26.3 L (27.0-33.0) pg MCHC 33.3 (31.0-35.0) g/dl RDW 14.1 (11.0-16.0) % Plt Count 288 (160-400) X10*3/uL MPV 10.0 (9.4-12.3) fL Immature Gran % (Auto) 0.2 (0.0-0.4) % Neut % (Auto) 72.9 (45-73) % Lymph % (Auto) 20.8 (20-40) % [place] % (Auto) 4.4 (2-11) % Eos % (Auto) 1.4 (0-4) % Baso % (Auto) 0.3 (0-2) % Lymph # (Auto) 2.4 (1.2-4.9) X10*3/uL [place] # (Auto) 0.5 (0.1-1.2) X10*3/uL Eos # (Auto) 0.2 (0.0-0.4) X10*3/uL Baso # (Auto) 0.0 (0.0-0.2) X10*3/uL Abs Immat Gran (auto) 0.02 (0.00-0.03) X10*3/uL Absolute Neuts (auto) 8.5 H (2.0-8.3) x10*3/uL Absolute Nucleated RBC 0.000 (0.0-0.012) X10*3/uL Nucleated RBC % (auto) 0.0 (0.0-0.2) /100WBC Sodium 138 (135-145) mmol/L Potassium 3.3 (3.3-5.1) mmol/L Chloride 102 (96-108) mmol/L Carbon Dioxide 25 (22-29) mmol/L Anion Gap 14 (12-20) BUN 14 (9-16) mg/dL Creatinine 0.69 (0.5-1.4) mg/dL Estim Creat Clear Calc 104.4 Estimated GFR > 60 Random Glucose 95 (60-115) mg/dL Calcium 10.0 (8.4-10.2) mg/dL Total Bilirubin 0.9 (0.0-1.0) mg/dL Direct Bilirubin 0.2 (0.0-0.5) mg/dL AST 45 H (5-31) U/L ALT 64 H (0-31) U/L Alkaline Phosphatase 68 (39-117) U/L Total Protein 8.0 (6.5-8.0) g/dL Albumin 4.3 (3.5-5.0) g/dL Lipase 12 (8-78) U/L Urine Color Yellow Urine Appearance Clear Urine pH 7.5 (5.0-9.0) Ur Specific [place] 1.020 (1.005-1.025) Urine Protein Negative (Neg-Trace) mg/dL Urine Glucose (UA) Negative (Negative) mg/dL Urine Ketones Negative (Negative) mg/dL Urine Blood Negative (Negative) Urine Nitrite Negative (Negative) Ur Leukocyte Esterase Small (1+) H (Negative) Urine RBC 6-10 H (0-2) /HPF Urine WBC 6-10 H (0-5) /HPF Ur Squamous Epith Cells 11-20 (0-2) /HPF Urine Bacteria 3+ (None Seen) Hyaline Casts 3-5 (0-2) /LPF Discharge Plan Discharge Clinical Impression: UTI (urinary tract infection) Patient Disposition: Home, Self-Care Instructions: Urinary Tract Infection in Women (DC) Additional Instructions: Follow up with your primary care provider and your urologist. Return to the emergency department immediately if your symptoms worsen or if you develop any dizziness, shortness of breath, difficulty breathing, chest pain, blurry vision, loss of vision, nausea, vomiting, abdominal pain, fever, chills, back pain, or any other complaints. Prescriptions: New prednisone 20 mg tablet 20 mg PO DAILY 7 Days Qty: 7 0RF ondansetron 4 mg tablet,disintegrating 4 mg PO Q8H 3 Days Qty: 9 0RF cefdinir 300 mg capsule 300 mg PO BID 7 Days Qty: 14 0RF tamsulosin 0.4 mg capsule 0.4 mg PO DAILY Qty: 7 0RF No Action pyridoxine (vitamin B6) 50 mg tablet 50 mg PO DAILY Qty: 90 0RF phenazopyridine 100 mg tablet 100 mg PO Q8H 0 Days Qty: 6 0RF sulfamethoxazole-trimethoprim [Bactrim DS] 800-160 mg tablet 1 tab PO BID 3 Days Qty: 6 0RF tamsulosin 0.4 mg capsule 0.4 mg PO DAILY 14 Days Qty: 14 0RF prednisone 20 mg tablet 20 mg PO DAILY 5 Days Qty: 5 0RF celecoxib [Celebrex] 100 mg capsule 100 mg PO BID 14 Days Qty: 28 0RF oxycodone-acetaminophen [Percocet] 5-325 mg tablet 1 tab PO Q6H PRN (Reason: pain) Qty: 10 0RF cyclobenzaprine 10 mg tablet 10 mg PO TID PRN (Reason: muscle spasm) Qty: 10 0RF lidocaine [Lidoderm] 5 % adhesive patch,medicated 1 patch topical DAILY Qty: 15 0RF Rx Instructions: leave on most painful area for up to 12 hrs oxycodone 5 mg tablet 5 mg PO Q8H PRN (Reason: pain) Qty: 5 0RF levofloxacin 750 mg tablet 750 mg PO DAILY Qty: 6 0RF oxycodone 5 mg tablet 5 mg PO TID PRN (Reason: pain) Qty: 6 0RF Rx Instructions: Partial Fill upon patient request. cyclobenzaprine 10 mg tablet 10 mg PO BID PRN (Reason: muscle spasm) Qty: 10 0RF diphenhydramine HCl [Benadryl Allergy] 25 mg tablet 50 mg PO Q8H PRN (Reason: allergic reaction) Qty: 20 0RF oxycodone 5 mg tablet 5 mg PO Q6H PRN (Reason: pain) Qty: 20 0RF Rx Instructions: Partial Fill upon patient request. metoclopramide HCl 10 mg tablet 10 mg PO TID hydrochlorothiazide 12.5 mg tablet 12.5 mg PO DAILY potassium citrate 10 mEq (1,080 mg) tablet extended release 10 meq PO BID Referrals: [facility] [place] [facility] [place] Group] (Call to establish and follow up with a primary care provider. If you already have a primary care provider, please follow up with them.) [facility] [place] [facility] [place] [Provider Group] (Call to establish and follow up with a primary care provider. If you already have a primary care provider, please follow up with them.) [facility] [place] [facility] [Provider Group] (Call to establish and follow up with a primary care provider. If you already have a primary care provider, please follow up with them.) [facility] [place] [facility] [Provider Group] (Follow up with your urologist. ) Interventions: ED Discharge Assessment Last Done: 04/03/23 02:04 Discharge Date/Time: 04/03/23 02:04 Print Language: Austrian
== END 2023-04-03 02:04 | disposition home or self-care (01) ==
PROVIDERS: Emergency Provider Emergency Medicine
DX: N39.0 Urinary tract infection, site not specified (principal); Z79.899 Other long term (current) drug therapy
CPT/HCPCS: 36415; 80048; 80076; 81001; 83690; 85025; 87086; 99283; 99284

== ENCOUNTER 2023-05-06 10:49 | Emergency (ER) | payer OTHER, SELFPAY ==
--- NOTE | ~2023-05-06 | XR_ITS ---
EXAMINATION: XR CHEST CLINICAL INFORMATION: Chest pain COMPARISON: None available. TECHNIQUE: 2 views of the chest were obtained. FINDINGS: No significant abnormality is noted involving the heart, lungs, mediastinum, bony thorax or soft tissues. XR/XR chest 2V IMPRESSION: Unremarkable examination.
--- NOTE | ~2023-05-06 | CT_ITS ---
EXAMINATION: CT ABDOMEN AND PELVIS WITHOUT CONTRAST CLINICAL INFORMATION: Question stone COMPARISON: 01/29/2023 TECHNIQUE: Multidetector volumetric imaging was performed from the superior aspect of the liver through the pubic symphysis. Sagittal and coronal reformatted images were obtained on the technologist's workstation. This CT examination was performed using dose optimization techniques as appropriate, variously including the following: *Automated exposure control *Adjustment of mA and/or kV according to patient size (this includes techniques or standardized protocols for targeted exams where dose is matched to indication/reason for exam; i.e. extremities or head) *Use of iterative reconstruction technique DLP: 916 mGy-cm FINDINGS: LUNG BASES: The visualized lung bases are unremarkable. LIVER, GALLBLADDER, AND BILIARY TREE: Enlarged liver measuring 21 cm in CC dimension. The liver is normal in shape with decreased attenuation. No focal hepatic lesion or biliary ductal dilatation is present. The gallbladder is unremarkable with no evidence of radiopaque gallstones, gallbladder wall thickening, or obvious pericholecystic inflammatory changes. PANCREAS: Unremarkable. SPLEEN: Unremarkable. ADRENAL GLANDS: Unremarkable. KIDNEYS AND URETERS: The kidneys are normal in size, shape, and attenuation. No hydronephrosis or hydroureter. There are 3 right renal calculi. The largest is seen at the lower pole measuring 0.3 cm, 16 cm from the posterior axillary line. There is a left lower pole 0.3 cm calculus which is 14 cm from the posterior axillary line. BLADDER: Decompressed with no gross abnormality. GASTROINTESTINAL TRACT: The stomach is unremarkable. Normal caliber small bowel. No obstruction. No colonic wall thickening or inflammation. Normal appendix. No free air or free fluid. ABDOMINAL WALL: No significant hernia is appreciated. LYMPH NODES: No lymphadenopathy. Unchanged appearance of a susana mesentery . VASCULAR: Unremarkable. PELVIC VISCERA: The uterus and adnexa are unremarkable. OSSEOUS STRUCTURES: No acute or suspicious osseous abnormality. Mild degenerative changes in the spine. CT/CT abdomen pelvis wo IV con IMPRESSION: 1. No hydronephrosis. Bilateral nonobstructing renal calculi. 2. Hepatomegaly with hepatic steatosis. Fleischner guidelines were followed.
--- NOTE | 2023-05-06 11:19 | ECG_ITS ---
Test Reason : CP Blood Pressure : / mmHG Vent. Rate : 068 BPM Atrial Rate : 068 BPM P-R Int : 152 ms QRS Dur : 084 ms QT Int : 406 ms P-R-T Axes : 025 009 016 degrees QTc Int : 431 ms Normal sinus rhythm Minimal voltage criteria for LVH, may be normal variant ( R in aVL ) Borderline ECG When compared with ECG of 18-MAR-2023 12:50, No significant change was found Referred By: Mary Oliver Electronically Signed By:Sancho Silvestre
[2023-05-06 11:25] VITALS: BP 125/78; BP 165/96; PULSE 65; PULSE 72; RESP 18; TEMP 36.8; O2SAT 96; O2SAT 98; BMI 42.9
[2023-05-06 11:34] VITALS: PULSE 73
--- NOTE | 2023-05-06 11:44 | PC.NURSE ---
pt a&ox3. respirations even and unlabored, lung sounds clear bilaterally. skin appropriate for ethnicity but slightly clammy. pt reports having bilateral flank pain with a hx of kidney stones. pt also reports pain across the upper chest. normal sinus on tele. reports n/v yesterday but denies today.
[2023-05-06 12:56] LABS: IDNOW Serial# 55D5AD1C
[2023-05-06 12:57] LABS: COVID-19 Test Negative (Negative)
--- NOTE | 2023-05-06 12:57 | ED_ITS ---
HPI - Chest Pain General Chief Complaint: Chest Pain Stated Complaint: Chest pain, dizzy, N/V per EMS Time Seen by Provider: 05/06/23 12:44 Source: patient Mode of arrival: ambulatory Limitations: no limitations History of Present Illness HPI narrative: This is a 42 years old female sent here by the office with multiple somatic complain which included chest pain, lower abdominal pain, MD complaint: chest pain Onset (ago): day(s) (2) Timing of current episode: episodic Onset: during rest Pain radiation: none Quality: aching Relieving factors: nothing Exacerbating factors: nothing Associated symptoms: nausea Risk Factors Coronary artery disease risk factors: none Thoracic aortic dissection risk factors: none Related Data Home Medications Medication Instructions Recorded Confirmed hydrochlorothiazide 12.5 mg tablet 12.5 mg PO DAILY 02/18/22 metoclopramide HCl 10 mg tablet 10 mg PO TID 02/18/22 potassium citrate 10 mEq (1,080 10 meq PO BID 02/18/22 mg) tablet,extended release Previous Rx's Medication Instructions Recorded oxycodone-acetaminophen 5 mg-325 1 tab PO Q6H PRN pain #10 tabs 07/22/20 mg tablet (Percocet) cyclobenzaprine 10 mg tablet 10 mg PO TID PRN muscle spasm #10 07/14/21 tabs lidocaine 5 % topical patch 1 patch topical DAILY #15 ea 07/14/21 (Lidoderm) oxycodone 5 mg tablet 5 mg PO Q8H PRN pain #5 tabs 07/14/21 pyridoxine (vitamin B6) 50 mg 50 mg PO DAILY #90 tabs 03/04/22 tablet phenazopyridine 100 mg tablet 100 mg PO Q8H 6 doses #6 tabs 04/19/22 sulfamethoxazole 800 1 tab PO BID 3 days #6 tabs 04/19/22 mg-trimethoprim 160 mg tablet (Bactrim DS) celecoxib 100 mg capsule (Celebrex) 100 mg PO BID 14 days #28 caps 06/10/22 prednisone 20 mg tablet 20 mg PO DAILY 5 days #5 tabs 06/10/22 tamsulosin 0.4 mg capsule 0.4 mg PO DAILY 14 days #14 caps 06/10/22 cyclobenzaprine 10 mg tablet 10 mg PO BID PRN muscle spasm #10 07/05/22 tabs levofloxacin 750 mg tablet 750 mg PO DAILY #6 tabs 07/05/22 oxycodone 5 mg tablet 5 mg PO TID PRN pain #6 tabs 07/05/22 diphenhydramine HCl 25 mg tablet 50 mg PO Q8H PRN allergic reaction 01/29/23 (Benadryl Allergy) #20 tabs oxycodone 5 mg tablet 5 mg PO Q6H PRN pain #20 tabs 01/29/23 cefdinir 300 mg capsule 300 mg PO BID 7 days #14 caps 04/03/23 ondansetron 4 mg disintegrating 4 mg PO Q8H 3 days #9 tabs 04/03/23 tablet prednisone 20 mg tablet 20 mg PO DAILY 7 days #7 tabs 04/03/23 tamsulosin 0.4 mg capsule 0.4 mg PO DAILY #7 caps 04/03/23 famotidine 20 mg tablet (Pepcid) 20 mg PO DAILY #5 tabs 05/07/23 prednisone 50 mg tablet 50 mg PO DAILY #5 tabs 05/07/23 Allergies Allergy/AdvReac Type Severity Reaction Status Date / Time morphine [MORPHINE] Allergy Severe SWELLING Verified 05/06/23 21:11 ibuprofen [IBUPROFEN] Allergy Intermediate HIVES Verified 05/06/23 21:11 naproxen [NAPROXEN] Allergy Intermediate HIVES Verified 05/06/23 21:11 acetaminophen Allergy Unknown Rash Verified 05/06/23 21:11 tramadol [TRAMADOL] Allergy Unknown HIVES Verified 05/06/23 21:11 diphenhydramine Allergy Hives Verified 05/06/23 21:11 [From Benadryl] ketorolac [From TORADOL] AdvReac Unknown ITCHING Verified 05/06/23 21:11 Ibuprofen Allergy Unknown Hives Uncoded 05/06/23 21:11 Morphine Sulf Microinfusion Allergy Unknown Swelling Uncoded 05/06/23 21:11 PF Review of Systems Constitutional: Constitutional: Reports no additional constitutional complaints Eyes: Eyes: Reports no additional eye complaints Cardiovascular: Cardiovascular: Reports no additional cardiovascular complaints Neurologic: Reports system reviewed and no additional complaints, except as documented PMFSH Past Medical History Attestation statement: The following information was validated with the patient. Medical History Asthma Depression Renal calculi Sciatica Social History Social History Alcohol intake: former Smoked in Last 30 Days: Yes Use of substances other than those prescribed or required for medical reasons: No Substance Use Type: Marijuana Advance Directives: No Advance Directives Information Provided: No Patient : No Physical Exam Vital Signs: Vital Signs: Last Vital Signs Temp 98.3 F 05/06/23 11:25 Pulse 78 05/06/23 17:10 Resp 16 05/06/23 17:10 BP 110/65 05/06/23 17:10 Pulse Ox 98 05/06/23 17:10 O2 Del Method Room Air 05/06/23 17:10 BMI result Body Mass Index 42.9 Const: General: cooperative Nutritional Appearance: well nourished Orientation/consciousness: patient oriented x3 Limitations: no limitations HEENT: Head: Yes normal to inspection General nose exam: Normal external nose present Face and sinus: Yes normal facial exam Mouth: Normal oral and palatal mucosa present Teeth and gingiva: dentition normal Neck: Neck: Yes normal visual inspection and Yes full ROM Thyroid: Thyroid normal Resp: Effort & Inspection: normal respiratory effort and able to speak in complete sentences Auscultation: clear to auscultation bilaterally Cardio: Jugular venous distension: no JVD Rate: regular rate Rhythm: regular rhythm GI: Inspection: Yes normal to inspection Palpation (GI): Soft to palpation and nontender Percussion: Yes normal to percussion Skin: General skin exam: no rashes or lesions noted, elasticity normal and turgor normal Neuro: General: patient oriented x3 Course Reevaluation(s) Reevaluation #1: Re-examined the patient this time she is doing much better reviewed the workup with the family at this point I think the patient can be discharged home in stable condition Time: 16:35 Medications Administered Discontinued Medications Generic Name Dose Route Start Last Admin Trade Name Freq PRN Reason Stop Dose Admin Sodium Chloride 1,000 mls @ 999 mls/hr 05/06/23 13:00 05/06/23 13:59 Ns IVCONT 05/06/23 14:00 999 mls/hr .[id number] LIZ Administration Medical Decision Making Medical Decision Making MDM Narrative: Patient presenting with multiple complaining including chest pain we go ahead and do labs, chest x-ray Differential Diagnosis Differential Diagnoses: The differential diagnosis associated with the presentation includes ACS/mi/viral syndrome Admission/Observation Consideration of admission/observation: Escalation of care including admission/observation considered Lab Data MDM Lab Attestation statement: I reviewed the patient's lab results. 05/06/23 11:55 05/06/23 11:55 Labs: Lab Results 05/06/23 05/06/23 05/06/23 Range/Units 11:50 11:55 11:55 WBC 10.0 (4.8-10.8) X10*3/uL RBC 5.16 (4.20-5.50) X10*6/uL Hgb 13.4 (12.0-16.0) g/dl Hct 40.9 (37.0-47.0) % MCV 79.3 L (80.0-98.0) fL MCH 26.0 L (27.0-33.0) pg MCHC 32.8 (31.0-35.0) g/dl RDW 13.8 (11.0-16.0) % Plt Count 204 D (160-400) X10*3/uL MPV 11.3 (9.4-12.3) fL Immature Gran % (Auto) 0.5 H (0.0-0.4) % Neut % (Auto) 67.6 (45-73) % Lymph % (Auto) 24.5 (20-40) % [place] % (Auto) 5.4 (2-11) % Eos % (Auto) 1.6 (0-4) % Baso % (Auto) 0.4 (0-2) % Lymph # (Auto) 2.4 (1.2-4.9) X10*3/uL [place] # (Auto) 0.5 (0.1-1.2) X10*3/uL Eos # (Auto) 0.2 (0.0-0.4) X10*3/uL Baso # (Auto) 0.0 (0.0-0.2) X10*3/uL Abs Immat Gran (auto) 0.05 H (0.00-0.03) X10*3/uL Absolute Neuts (auto) 6.7 (2.0-8.3) x10*3/uL Absolute Nucleated RBC 0.000 (0.0-0.012) X10*3/uL Nucleated RBC % (auto) 0.0 (0.0-0.2) /100WBC Sodium 136 (135-145) mmol/L Potassium 3.4 (3.3-5.1) mmol/L Chloride 102 (96-108) mmol/L Carbon Dioxide 24 (22-29) mmol/L Anion Gap 13 (12-20) BUN 13 (9-16) mg/dL Creatinine 0.70 (0.5-1.4) mg/dL Estim Creat Clear Calc 108.6 Estimated GFR > 60 Random Glucose 85 (60-115) mg/dL Calcium 9.3 D (8.4-10.2) mg/dL Magnesium 2.0 (1.6-2.6) mg/dL Total Bilirubin 0.4 (0.0-1.0) mg/dL AST 40 H (5-31) U/L ALT 46 H (0-31) U/L Alkaline Phosphatase 64 (39-117) U/L Troponin I High Sens (<3.5-17.0) ng/L Total Protein 7.5 (6.5-8.0) g/dL Albumin 4.0 (3.5-5.0) g/dL Beta HCG, Quant mIU/mL Urine Color Urine Appearance Urine pH (5.0-9.0) Ur Specific [place] (1.005-1.025) Urine Protein (Neg-Trace) mg/dL Urine Glucose (UA) (Negative) mg/dL Urine Ketones (Negative) mg/dL Urine Blood (Negative) Urine Nitrite (Negative) Ur Leukocyte Esterase (Negative) Urine Test (NEGATIVE) COVID-19 (JENNIFER) Negative (Negative) COVID-19 Clin Com See Note 05/06/23 05/06/23 05/06/23 Range/Units 11:55 11:55 13:56 WBC (4.8-10.8) X10*3/uL RBC (4.20-5.50) X10*6/uL Hgb (12.0-16.0) g/dl Hct (37.0-47.0) % MCV (80.0-98.0) fL MCH (27.0-33.0) pg MCHC (31.0-35.0) g/dl RDW (11.0-16.0) % Plt Count (160-400) X10*3/uL MPV (9.4-12.3) fL Immature Gran % (Auto) (0.0-0.4) % Neut % (Auto) (45-73) % Lymph % (Auto) (20-40) % [place] % (Auto) (2-11) % Eos % (Auto) (0-4) % Baso % (Auto) (0-2) % Lymph # (Auto) (1.2-4.9) X10*3/uL [place] # (Auto) (0.1-1.2) X10*3/uL Eos # (Auto) (0.0-0.4) X10*3/uL Baso # (Auto) (0.0-0.2) X10*3/uL Abs Immat Gran (auto) (0.00-0.03) X10*3/uL Absolute Neuts (auto) (2.0-8.3) x10*3/uL Absolute Nucleated RBC (0.0-0.012) X10*3/uL Nucleated RBC % (auto) (0.0-0.2) /100WBC Sodium (135-145) mmol/L Potassium (3.3-5.1) mmol/L Chloride (96-108) mmol/L Carbon Dioxide (22-29) mmol/L Anion Gap (12-20) BUN (9-16) mg/dL Creatinine (0.5-1.4) mg/dL Estim Creat Clear Calc Estimated GFR Random Glucose (60-115) mg/dL Calcium (8.4-10.2) mg/dL Magnesium (1.6-2.6) mg/dL Total Bilirubin (0.0-1.0) mg/dL AST (5-31) U/L ALT (0-31) U/L Alkaline Phosphatase (39-117) U/L Troponin I High Sens < 2.7 (<3.5-17.0) ng/L Total Protein (6.5-8.0) g/dL Albumin (3.5-5.0) g/dL Beta HCG, Quant < 2 mIU/mL Urine Color Dark Yellow Urine Appearance Cloudy Urine pH 5.5 (5.0-9.0) Ur Specific [place] >= 1.030 H (1.005-1.025) Urine Protein Trace (Neg-Trace) mg/dL Urine Glucose (UA) Negative (Negative) mg/dL Urine Ketones Negative (Negative) mg/dL Urine Blood Negative (Negative) Urine Nitrite Negative (Negative) Ur Leukocyte Esterase Negative (Negative) Urine Test (NEGATIVE) COVID-19 (JENNIFER) (Negative) COVID-19 Clin Com 05/06/23 Range/Units 13:59 WBC (4.8-10.8) X10*3/uL RBC (4.20-5.50) X10*6/uL Hgb (12.0-16.0) g/dl Hct (37.0-47.0) % MCV (80.0-98.0) fL MCH (27.0-33.0) pg MCHC (31.0-35.0) g/dl RDW (11.0-16.0) % Plt Count (160-400) X10*3/uL MPV (9.4-12.3) fL Immature Gran % (Auto) (0.0-0.4) % Neut % (Auto) (45-73) % Lymph % (Auto) (20-40) % [place] % (Auto) (2-11) % Eos % (Auto) (0-4) % Baso % (Auto) (0-2) % Lymph # (Auto) (1.2-4.9) X10*3/uL [place] # (Auto) (0.1-1.2) X10*3/uL Eos # (Auto) (0.0-0.4) X10*3/uL Baso # (Auto) (0.0-0.2) X10*3/uL Abs Immat Gran (auto) (0.00-0.03) X10*3/uL Absolute Neuts (auto) (2.0-8.3) x10*3/uL Absolute Nucleated RBC (0.0-0.012) X10*3/uL Nucleated RBC % (auto) (0.0-0.2) /100WBC Sodium (135-145) mmol/L Potassium (3.3-5.1) mmol/L Chloride (96-108) mmol/L Carbon Dioxide (22-29) mmol/L Anion Gap (12-20) BUN (9-16) mg/dL Creatinine (0.5-1.4) mg/dL Estim Creat Clear Calc Estimated GFR Random Glucose (60-115) mg/dL Calcium (8.4-10.2) mg/dL Magnesium (1.6-2.6) mg/dL Total Bilirubin (0.0-1.0) mg/dL AST (5-31) U/L ALT (0-31) U/L Alkaline Phosphatase (39-117) U/L Troponin I High Sens (<3.5-17.0) ng/L Total Protein (6.5-8.0) g/dL Albumin (3.5-5.0) g/dL Beta HCG, Quant mIU/mL Urine Color Urine Appearance Urine pH (5.0-9.0) Ur Specific [place] (1.005-1.025) Urine Protein (Neg-Trace) mg/dL Urine Glucose (UA) (Negative) mg/dL Urine Ketones (Negative) mg/dL Urine Blood (Negative) Urine Nitrite (Negative) Ur Leukocyte Esterase (Negative) Urine Test NEGATIVE (NEGATIVE) COVID-19 ([facility]ENN[facility]ER) (Negative) COVID-19 Clin Com Independent Interpretation I performed an independent interpretation of an: EKG, Plain X-Ray and CT Scan Interpretation: Normal sinus rhythm rate [address]-T changes Radiology Impression Discussion of test interpretation with radiology: I have reviewed the radiologist's reading. Independent Historian Clinical information obtained from an independent historian. History obtained from or confirmed by: Other (sister) External Record Review External record reviewed: Inpatient record Prescription Management I considered prescription management with: Pain Medication Chronic Conditions Patient?s care impacted by: Hypertension Discharge Plan Discharge Clinical Impression: Fatty liver, Chest pain Patient Disposition: Home, Self-Care Instructions: Non-Alcoholic Fatty Liver Disease (ED) Prescriptions: No Action pyridoxine (vitamin B6) 50 mg tablet 50 mg PO DAILY Qty: 90 0RF phenazopyridine 100 mg tablet 100 mg PO Q8H 0 Days Qty: 6 0RF sulfamethoxazole-trimethoprim [Bactrim DS] 800-160 mg tablet 1 tab PO BID 3 Days Qty: 6 0RF tamsulosin 0.4 mg capsule 0.4 mg PO DAILY 14 Days Qty: 14 0RF prednisone 20 mg tablet 20 mg PO DAILY 5 Days Qty: 5 0RF celecoxib [Celebrex] 100 mg capsule 100 mg PO BID 14 Days Qty: 28 0RF oxycodone-acetaminophen [Percocet] 5-325 mg tablet 1 tab PO Q6H PRN (Reason: pain) Qty: 10 0RF cyclobenzaprine 10 mg tablet 10 mg PO TID PRN (Reason: muscle spasm) Qty: 10 0RF lidocaine [Lidoderm] 5 % adhesive patch,medicated 1 patch topical DAILY Qty: 15 0RF Rx Instructions: leave on most painful area for up to 12 hrs oxycodone 5 mg tablet 5 mg PO Q8H PRN (Reason: pain) Qty: 5 0RF levofloxacin 750 mg tablet 750 mg PO DAILY Qty: 6 0RF oxycodone 5 mg tablet 5 mg PO TID PRN (Reason: pain) Qty: 6 0RF Rx Instructions: Partial Fill upon patient request. cyclobenzaprine 10 mg tablet 10 mg PO BID PRN (Reason: muscle spasm) Qty: 10 0RF diphenhydramine HCl [Benadryl Allergy] 25 mg tablet 50 mg PO Q8H PRN (Reason: allergic reaction) Qty: 20 0RF oxycodone 5 mg tablet 5 mg PO Q6H PRN (Reason: pain) Qty: 20 0RF Rx Instructions: Partial Fill upon patient request. prednisone 20 mg tablet 20 mg PO DAILY 7 Days Qty: 7 0RF ondansetron 4 mg tablet,disintegrating 4 mg PO Q8H 3 Days Qty: 9 0RF cefdinir 300 mg capsule 300 mg PO BID 7 Days Qty: 14 0RF tamsulosin 0.4 mg capsule 0.4 mg PO DAILY Qty: 7 0RF prednisone 50 mg tablet 50 mg PO DAILY Qty: 5 0RF famotidine [Pepcid] 20 mg tablet 20 mg PO DAILY Qty: 5 0RF metoclopramide HCl 10 mg tablet 10 mg PO TID hydrochlorothiazide 12.5 mg tablet 12.5 mg PO DAILY potassium citrate 10 mEq (1,080 mg) tablet extended release 10 meq PO BID Interventions: ED Discharge Assessment Last Done: 05/06/23 17:13 Discharge Date/Time: 05/06/23 17:14
[2023-05-06 13:09] LABS: Basophils Percent Auto 0.4 % (0-2); Eosinophils Absolute Auto 0.2 X10*3/uL (0.0-0.4); Eosinophils Percent Auto 1.6 % (0-4); Hematocrit 40.9 % (37.0-47.0); Hemoglobin 13.4 g/dl (12.0-16.0); Imm Gran Abs Auto 0.05 X10*3/uL (0.00-0.03); Imm Gran Pct Auto 0.5 % (0.0-0.4); Lymphocytes Absolute Auto 2.4 X10*3/uL (1.2-4.9); Lymphocytes Percent Auto 24.5 % (20-40); MANUAL DIFF FLAG NO; Mean Corpuscular HGB Conc 32.8 g/dl (31.0-35.0); Mean Corpuscular Volume 79.3 fL (80.0-98.0); Mean Platelet Volume 11.3 fL (9.4-12.3); Monocytes Absolute Auto 0.5 X10*3/uL (0.1-1.2); Monocytes Percent Auto 5.4 % (2-11); Neutrophils Absolute Auto 6.7 x10*3/uL (2.0-8.3); Neutrophils Percent Auto 67.6 % (45-73); Platelet Count 204 X10*3/uL (160-400); Red Blood Count 5.16 X10*6/uL (4.20-5.50); Red Cell Distribution Width 13.8 % (11.0-16.0)
[2023-05-06 13:14] LABS: Anion Gap 13 (12-20)
[2023-05-06 13:19] LABS: Alanine Aminotransferase 46 U/L (0-31); Alkaline Phosphatase 64 U/L (39-117); Aspartate Amino Transferase 40 U/L (5-31); Bilirubin Total 0.4 mg/dL (0.0-1.0); Blood Urea Nitrogen 13 mg/dL (9-16); Calcium 9.3 mg/dL (8.4-10.2); Carbon Dioxide 24 mmol/L (22-29); Chloride 102 mmol/L (96-108); Creatinine Clr Calc Pharmacy 108.6; Estimated Glomerular Filt Rate > 60; Glucose Random 85 mg/dL (60-115); Potassium 3.4 mmol/L (3.3-5.1); Sodium 136 mmol/L (135-145); Total Protein 7.5 g/dL (6.5-8.0)
[2023-05-06 13:24] LABS: Troponin-I High Sensitivity < 2.7 ng/L (<3.5-17.0)
[2023-05-06 13:26] LABS: HCG Quantitative < 2 mIU/mL
[2023-05-06] MEDS: 0.9 % Sodium Chloride 1,000 ML 999 ML IVCONT (13:59)
[2023-05-06 14:24] LABS: Appearance Urine Cloudy; Color Urine Dark Yellow; Glucose Urine UA Negative (Negative); Leukocyte Esterase Urine Negative (Negative); Nitrite Urine Negative (Negative); PH 5.5 (5.0-9.0); Specific Gravity - Urine >= 1.030 (1.005-1.025); Urine Blood Negative (Negative); Urine Ketones Negative (Negative); Urine Protein Trace mg/dL (Neg-Trace)
[2023-05-06 14:26] LABS: UPreg QC Valid YES; Urine Pregnancy NEGATIVE (NEGATIVE)
[2023-05-06 14:30] VITALS: BP 103/53; PULSE 68; RESP 13; O2SAT 97
[2023-05-06 17:10] VITALS: BP 110/65; PULSE 78; RESP 16; O2SAT 98
== END 2023-05-06 17:14 | disposition home or self-care (01) ==
PROVIDERS: Physician Assistant Medical; Emergency Provider Emergency Medicine; PCP Internal Medicine
DX: R07.9 Chest pain, unspecified (principal); K76.0 Fatty (change of) liver, not elsewhere classified; I10 Essential (primary) hypertension; F12.90 Cannabis use, unspecified, uncomplicated; Z79.899 Other long term (current) drug therapy; Z20.822 Contact with and (suspected) exposure to COVID-19
CPT/HCPCS: 36415; 71046; 74176; 80053; 81003; 81025; 83735; 84484; 84702; 85025; 87635; 93005; 99284; 99285

== ENCOUNTER → 2023-05-06 11:19 | Outpatient (BNV) | payer OTHER, SELFPAY | PROVIDERS: Emergency Provider Emergency Medicine; PCP Internal Medicine; Visit Provider Internal Medicine Cardiovascular Disease | DX: R07.9 Chest pain, unspecified (principal) | CPT/HCPCS: 93010 ==

== ENCOUNTER 2023-05-06 21:04 | Emergency (ER) | payer OTHER, SELFPAY ==
[2023-05-06 21:06] VITALS: BP 134/75; PULSE 105; RESP 20; TEMP 36.9; O2SAT 95; BMI 42.6
--- NOTE | 2023-05-06 22:50 | ED_ITS ---
HPI - Allergic Reaction General Chief complaint: Allergic Reaction Stated complaint: Allergic reaction/Was just D/C Time Seen by Provider: 05/06/23 22:36 Source: patient Mode of arrival: ambulatory Limitations: no limitations History of Present Illness HPI narrative: Patient comes to the emergency room complaining of a possible allergic reaction. Patient complaining of itching in the forehead ears and around the chest. Patient denies shortness of breath or oropharyngeal swelling. Patient states that the allergic reaction started after she left the hospital today. Earlier today patient was seen here for chest pain. However, since that only medication the patient got was normal saline. Patient states that at home she took Merline to help with the symptoms but did not help much. Related Data Home Medications Medication Instructions Recorded Confirmed hydrochlorothiazide 12.5 mg tablet 12.5 mg PO DAILY 02/18/22 metoclopramide HCl 10 mg tablet 10 mg PO TID 02/18/22 potassium citrate 10 mEq (1,080 10 meq PO BID 02/18/22 mg) tablet,extended release Previous Rx's Medication Instructions Recorded oxycodone-acetaminophen 5 mg-325 1 tab PO Q6H PRN pain #10 tabs 07/22/20 mg tablet (Percocet) cyclobenzaprine 10 mg tablet 10 mg PO TID PRN muscle spasm #10 07/14/21 tabs lidocaine 5 % topical patch 1 patch topical DAILY #15 ea 07/14/21 (Lidoderm) oxycodone 5 mg tablet 5 mg PO Q8H PRN pain #5 tabs 07/14/21 pyridoxine (vitamin B6) 50 mg 50 mg PO DAILY #90 tabs 03/04/22 tablet phenazopyridine 100 mg tablet 100 mg PO Q8H 6 doses #6 tabs 04/19/22 sulfamethoxazole 800 1 tab PO BID 3 days #6 tabs 04/19/22 mg-trimethoprim 160 mg tablet (Bactrim DS) celecoxib 100 mg capsule (Celebrex) 100 mg PO BID 14 days #28 caps 06/10/22 prednisone 20 mg tablet 20 mg PO DAILY 5 days #5 tabs 06/10/22 tamsulosin 0.4 mg capsule 0.4 mg PO DAILY 14 days #14 caps 06/10/22 cyclobenzaprine 10 mg tablet 10 mg PO BID PRN muscle spasm #10 07/05/22 tabs levofloxacin 750 mg tablet 750 mg PO DAILY #6 tabs 07/05/22 oxycodone 5 mg tablet 5 mg PO TID PRN pain #6 tabs 07/05/22 diphenhydramine HCl 25 mg tablet 50 mg PO Q8H PRN allergic reaction 01/29/23 (Benadryl Allergy) #20 tabs oxycodone 5 mg tablet 5 mg PO Q6H PRN pain #20 tabs 01/29/23 cefdinir 300 mg capsule 300 mg PO BID 7 days #14 caps 04/03/23 ondansetron 4 mg disintegrating 4 mg PO Q8H 3 days #9 tabs 04/03/23 tablet prednisone 20 mg tablet 20 mg PO DAILY 7 days #7 tabs 04/03/23 tamsulosin 0.4 mg capsule 0.4 mg PO DAILY #7 caps 04/03/23 famotidine 20 mg tablet (Pepcid) 20 mg PO DAILY #5 tabs 05/07/23 prednisone 50 mg tablet 50 mg PO DAILY #5 tabs 05/07/23 Allergies Allergy/AdvReac Type Severity Reaction Status Date / Time morphine [MORPHINE] Allergy Severe SWELLING Verified 05/06/23 21:11 ibuprofen [IBUPROFEN] Allergy Intermediate HIVES Verified 05/06/23 21:11 naproxen [NAPROXEN] Allergy Intermediate HIVES Verified 05/06/23 21:11 acetaminophen Allergy Unknown Rash Verified 05/06/23 21:11 tramadol [TRAMADOL] Allergy Unknown HIVES Verified 05/06/23 21:11 diphenhydramine Allergy Hives Verified 05/06/23 21:11 [From Benadryl] ketorolac [From TORADOL] AdvReac Unknown ITCHING Verified 05/06/23 21:11 Ibuprofen Allergy Unknown Hives Uncoded 05/06/23 21:11 Morphine Sulf Microinfusion Allergy Unknown Swelling Uncoded 05/06/23 21:11 PF Review of Systems Review of Systems: Constitutional : No Weight loss, No Fever, No Chills, No Night Sweats, No Fatigue, No Malaise ENT/Mouth : No Hearing loss, No Ear Pain, No Nasal Congestion, No Sinus Pain, No Hoarseness, No sore throat, No Rhinorrhea, No Swallowing Difficulty Eyes: No Eye Pain, No Swelling, No Redness, No Foreign Body, No Discharge, No Vision Changes Cardiovascular : No Chest Pain, No SOB, No Dyspnea on Exertion, No Orthopnea, No Edema, No Palpitations Respiratory : No Cough, No Sputum, No Wheezing, No Smoke Exposure, No Dyspnea Gastrointestinal : No Nausea, No Vomiting, No Diarrhea, No Constipation, No abdominal Pain, No Hematochezia, No Melena Genitourinary : no irregular bleeding, No Dysuria, No Urinary Frequency, No Hematuria, No Urinary Incontinence, No Urgency, No Flank Pain, No Urinary Flow Changes, No Hesitancy Musculoskeletal : No joint pain, No Myalgias, No Joint Swelling Skin : Complaining of mild rash in the forehead, neck ears and chest Neuro : No Weakness, No Numbness, No Paresthesias, No Loss of Consciousness, No Dizziness, No Headache Psych : No Anxiety/Panic, No Depression, No SI/HI/AH/VH, No Social Issues, Heme/Lymph: No Bruising, No Bleeding,No Lymphadenopathy Endocrine : No Polyuria, No Polydipsia, No Temperature Intolerance [facility] Past Medical History Medical History Asthma Depression Renal calculi Sciatica Social History Social History Alcohol intake: former Smoked in Last 30 Days: Yes Use of substances other than those prescribed or required for medical reasons: No Substance Use Type: Marijuana Advance Directives: No Advance Directives Information Provided: No Patient : No Physical Exam ED Vital Signs: Vital Signs - 24 hr 05/06/23 21:06 05/06/23 23:29 05/07/23 00:11 Temperature 98.4 F 98.2 F 98.2 F Pulse Rate 105 H 64 77 Respiratory Rate 20 16 16 Blood Pressure 134/75 110/54 L 127/78 Pulse Oximetry 95 97 98 Oxygen Delivery Method Room Air Room Air Room Air BMI result Body Mass Index 42.6 Const Other: Appearance: Alert. Oriented X3. No acute distress. Eyes: Pupils equal, round and reactive to light. ENT: Pharynx normal. Neck: Normal inspection. Neck supple. No lymph nodes noted. No crepitus CVS: Normal heart rate and rhythm. Pulses normal. Normal S1 and S2 Respiratory: No respiratory distress. Breath sounds normal. No Wheezing. No rales Abdomen: Soft and nontender. No rigidity. No distention. Skin: Skin warm and dry. Erythema and hives on the forehead, ears in forearms, mild rash/hives over the chest Extremities: No lower extremity edema. No Lacerations. No Rash Neuro: Oriented X 3. No motor deficit. No sensory deficit. Moving all extremities. No slurred speech. CN 2 through 12 grossly intact Psych: calm, cooperative, normal affect Course Course Course Narrative: -at this time, patient receiving Pepcid, Solu-Medrol. Patient is allergic to Benadryl. Epinephrine not indicated at this time. Medications Administered Discontinued Medications Generic Name Dose Route Start Last Admin Trade Name Freq PRN Reason Stop Dose Admin Famotidine 20 mg 05/06/23 22:43 05/06/23 22:58 Famotidine/Pf 20 Mg/2 Ml Vial IVPUSH 05/06/23 22:44 20 mg ONCE ONE Administration Methylprednisolone Sodium Succinate 125 mg 05/06/23 22:42 05/06/23 22:58 Methylprednisolone Sod Succ 125 Mg/2 Ml Vial IVPUSH 05/06/23 22:43 125 mg ONCE ONE Administration Medical Decision Making Medical Decision Making [facility] Narrative: -patient receive IV medication. Patient states that she still feels that she has itching in her forehead and her face. However, there is no rash present. There is no swelling -patient discharged with p.o. medication for home. Has no angioedema, no wheezing, vitals normal Differential Diagnosis Differential Diagnoses: The differential diagnosis associated with the pr esentation includes (Allergic reaction, anxiety) Discharge Plan Discharge Clinical Impression: Urticaria Patient Disposition: Home, Self-Care Instructions: Urticaria (ED) Additional Instructions: Please follow-up with your primary care physician tomorrow. If you have any worsening or new symptoms, please return to the emergency room or call 911 Prescriptions: New prednisone 50 mg tablet 50 mg PO DAILY Qty: 5 0RF famotidine [Pepcid] 20 mg tablet 20 mg PO DAILY Qty: 5 0RF No Action pyridoxine (vitamin B6) 50 mg tablet 50 mg PO DAILY Qty: 90 0RF phenazopyridine 100 mg tablet 100 mg PO Q8H 0 Days Qty: 6 0RF sulfamethoxazole-trimethoprim [Bactrim DS] 800-160 mg tablet 1 tab PO BID 3 Days Qty: 6 0RF tamsulosin 0.4 mg capsule 0.4 mg PO DAILY 14 Days Qty: 14 0RF prednisone 20 mg tablet 20 mg PO DAILY 5 Days Qty: 5 0RF celecoxib [Celebrex] 100 mg capsule 100 mg PO BID 14 Days Qty: 28 0RF oxycodone-acetaminophen [Percocet] 5-325 mg tablet 1 tab PO Q6H PRN (Reason: pain) Qty: 10 0RF cyclobenzaprine 10 mg tablet 10 mg PO TID PRN (Reason: muscle spasm) Qty: 10 0RF lidocaine [Lidoderm] 5 % adhesive patch,medicated 1 patch topical DAILY Qty: 15 0RF Rx Instructions: leave on most painful area for up to 12 hrs oxycodone 5 mg tablet 5 mg PO Q8H PRN (Reason: pain) Qty: 5 0RF levofloxacin 750 mg tablet 750 mg PO DAILY Qty: 6 0RF oxycodone 5 mg tablet 5 mg PO TID PRN (Reason: pain) Qty: 6 0RF Rx Instructions: Partial Fill upon patient request. cyclobenzaprine 10 mg tablet 10 mg PO BID PRN (Reason: muscle spasm) Qty: 10 0RF diphenhydramine HCl [Benadryl Allergy] 25 mg tablet 50 mg PO Q8H PRN (Reason: allergic reaction) Qty: 20 0RF oxycodone 5 mg tablet 5 mg PO Q6H PRN (Reason: pain) Qty: 20 0RF Rx Instructions: Partial Fill upon patient request. prednisone 20 mg tablet 20 mg PO DAILY 7 Days Qty: 7 0RF ondansetron 4 mg tablet,disintegrating 4 mg PO Q8H 3 Days Qty: 9 0RF cefdinir 300 mg capsule 300 mg PO BID 7 Days Qty: 14 0RF tamsulosin 0.4 mg capsule 0.4 mg PO DAILY Qty: 7 0RF metoclopramide HCl 10 mg tablet 10 mg PO TID hydrochlorothiazide 12.5 mg tablet 12.5 mg PO DAILY potassium citrate 10 mEq (1,080 mg) tablet extended release 10 meq PO BID
[2023-05-06] MEDS: Famotidine/PF 20 MG/2 ML VIAL IVPUSH (22:58)
[2023-05-06] MEDS: methylPREDNISolone Sod Succ 125 MG/2 ML VIAL IVPUSH (22:58)
[2023-05-06 23:29] VITALS: BP 110/54; PULSE 64; RESP 16; TEMP 36.8; O2SAT 97
[2023-05-07 00:11] VITALS: BP 127/78; PULSE 77; RESP 16; TEMP 36.8; O2SAT 98
--- NOTE | 2023-05-07 01:55 | PC.NURSE ---
Provider spoke with patient and updated patient on plan of care. Plan is for dc home with oral medications. pt aware and agreeable to plan pt awake, alert and oriented x 3. skin warm and dry. resp unlabored. denies n/v. no acute distress noted. managing secretions. speaking in full clear sentences. dc home with family member
== END 2023-05-07 01:58 | disposition home or self-care (01) ==
PROVIDERS: Emergency Provider Emergency Medicine
DX: L50.9 Urticaria, unspecified (principal)
CPT/HCPCS: 96374; 96375; 99284; J2930

== ENCOUNTER 2023-05-25 10:42 | Outpatient (AMB) | payer OTHER, SELFPAY ==
--- NOTE | 2023-05-25 10:42 | A.OFFVIS_ITS ---
Intake Intake Visit Reasons: ED follow up(UTI) Intake Note: Patient presents today via phone for a follow-up on UTI: Patient stated: Discomfort when urinating more like burning. Meds- Vit B6 & Tamsulosin Allergies to Antibiotic- No Known Allergies Blood Thinner- None Bobbin Marker Required: No Accompanied by: Self / Same As Patient Allergies morphine [MORPHINE] Allergy (Severe, Verified 05/25/23 10:43) SWELLING ibuprofen [IBUPROFEN] Allergy (Intermediate, Verified 05/25/23 10:43) HIVES naproxen [NAPROXEN] Allergy (Intermediate, Verified 05/25/23 10:43) HIVES acetaminophen Allergy (Unknown, Verified 05/25/23 10:43) Rash tramadol [TRAMADOL] Allergy (Unknown, Verified 05/25/23 10:43) HIVES diphenhydramine [From Benadryl] Allergy (Verified 05/25/23 10:43) Hives ketorolac [From TORADOL] Adverse Reaction (Unknown, Verified 05/25/23 10:43) ITCHING Ibuprofen Allergy (Unknown, Uncoded 05/25/23 10:43) Hives Morphine Sulf Microinfusion PF Allergy (Unknown, Uncoded 05/25/23 10:43) Swelling Medication List - Last Reconciled 05/25/23 by Jose A Oakes MD celecoxib (Celebrex) 100 mg PO BID 14 days famotidine (Pepcid) 20 mg PO DAILY hydrochlorothiazide 12.5 mg PO DAILY metoclopramide HCl 10 mg PO TID ondansetron 4 mg PO Q8H PRN oxycodone 5 mg PO Q8H PRN potassium citrate ER 10 mEq PO BID 90 days prednisone 50 mg PO DAILY PRN pyridoxine (vitamin B6) 50 mg PO DAILY 90 days tamsulosin 0.4 mg PO DAILY topiramate 25 mg PO DAILY HPI HPI Comments History of Present Illness Details Tracey is a very pleasant female. She is a patient of Dr. Mak. She seen for the following urologic conditions - nephrolithiasis Telemedicine Evaluation 15 min Consultation Doximity Elena Video attempted Nephrolithiasis Longstanding stone former Concurrent sciatica and herniated disc which makes pain evaluation difficult Multiple prior stone procedures Continues with vitamin B6 and potassium citrate Recently started top remain for headaches which is a stone promoter 05/08 CT scan 3 small stones right side Therapeutic plan - encourage fluid intake - surveillance imaging PFSH Medical History Asthma Depression Renal calculi Sciatica Social History Alcohol intake: former Substance Use Type: Marijuana Review of Systems Const All systems reviewed & are unremarkable except as noted in HPI and below Reports no additional complaints Resp Reports no additional complaints GI Reports no additional complaints Reports as per HPI Musc Reports no additional complaints Physical Exam Telemedicine evaluation Appropriate responses Regular breathing rate and rhythm HEENT Head: Yes normal to inspection Ears: hearing grossly normal bilaterally Eyes General: appearance normal, both eyes and all related structures Neck Neck: Yes normal visual inspection Chest Chest palpation & inspection: normal inspection of the chest Resp Effort & Inspection: normal respiratory effort and able to speak in complete sentences Assessment & Plan Assessment & Plan (1) Renal calculi: Code(s): N20.0 - Calculus of kidney Plan Six month follow-up Orders: Orders US renal BI 6 Months N20.0 - Calculus of kidney Medications: Changed From ondansetron 4 mg PO Q8H 9 tabs 0RF 3 days To ondansetron 4 mg PO Q8H PRN From prednisone 50 mg PO DAILY 5 tabs 0RF To prednisone 50 mg PO DAILY PRN From pyridoxine (vitamin B6) 50 mg PO DAILY 90 tabs 0RF To pyridoxine (vitamin B6) 50 mg PO DAILY 90 tabs 3RF 90 days From potassium citrate ER 10 mEq PO BID To potassium citrate ER 10 mEq PO BID 180 tabs 3RF 90 days Patient Instructions: Imaging studies, laboratory and physical exam results were discussed and reviewed in detail. No major barriers to patient understanding were identified. An opportunity to ask questions regarding the treatment plan was provided. All questions were answered. The patient expressed understanding and agreement with the above treatment plan. The patient is aware they should contact our office by phone for worsening of their current condition or the appearance of new urologic symptoms. Compliance is encouraged with any medications and followup testing that is ordered. It is a privilege to participate in the urologic care of your patient. If you have any questions or concerns regarding treatment for the above conditions, or other urologic issues, please do not hesitate to contact me. The office telephone contact is [phone]. This note is constructed using voice recognition software. While every effort has been made to ensure accuracy finisher card tender errors may have been included. Yours sincerely, Dr Jose A Oakes MD, [facility] - Urology Providers of Expert, Compassionate Care for the Genitourinary System Telehealth Telehealth Location of provider rendering services: practice address Location of patient: address on file Patient Identification confirmed using: Name, : Yes Telehealth method: voice only Patient verbally consented to treatment: Yes Patient verbally consented to billing insurance company: Yes Patient informed of any privacy concerns related to visit: Yes Coding Level of Care Code Tele Est Pt Level 4 (25485) Diagnoses Renal calculi N20.0
== END 2023-05-25 11:40 | disposition home or self-care (01) ==
LOC: HO.HUSH 10:42
PROVIDERS: PCP Internal Medicine; Visit Provider Urology
DX: N20.0 Calculus of kidney (principal)
CPT/HCPCS: 99214

== ENCOUNTER → 2023-05-25 10:42 | Outpatient (BNVA) | payer OTHER, SELFPAY | PROVIDERS: PCP Internal Medicine; Visit Provider Urology ==

== ENCOUNTER 2023-08-09 06:53 | Emergency (ER) | payer OTHER, SELFPAY ==
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
[2023-08-09 07:09] VITALS: BP 114/75; PULSE 76; RESP 18; TEMP 36.6; O2SAT 95; BMI 42.0
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
== END 2023-08-09 13:16 | disposition home or self-care (01) ==
PROVIDERS: Emergency Provider Emergency Medicine; PCP Internal Medicine
DX: S33.5XXA Sprain of ligaments of lumbar spine, initial encounter (principal); S46.912A Strain of unspecified muscle, fascia and tendon at shoulder and upper arm level, left arm, initial encounter; S13.4XXA Sprain of ligaments of cervical spine, initial encounter; V43.52XA Car driver injured in collision with other type car in traffic accident, initial encounter; Y93.89 Activity, other specified; Y92.414 Local residential or business street as the place of occurrence of the external cause; Y99.9 Unspecified external cause status
CPT/HCPCS: 72100; 73030; 99282; 99283

== ENCOUNTER 2023-09-14 12:00 | Emergency (ER) | payer OTHER, SELFPAY ==
--- NOTE | ~2023-09-14 | XR_ITS ---
EXAMINATION: XR CHEST CLINICAL INFORMATION: Chest pain COMPARISON: 05/06/2023. TECHNIQUE: 2 views of the chest were obtained. FINDINGS: No significant abnormality is noted involving the heart, lungs, mediastinum, bony thorax or soft tissues. No evidence for pleural effusion or vascular congestion. XR/XR chest 2V IMPRESSION: No evidence for acute process.
--- NOTE | ~2023-09-14 | CT_ITS ---
EXAMINATION: CT ANGIOGRAM OF THE CHEST WITH AND WITHOUT CONTRAST (CT PULMONARY ANGIOGRAM FOR PE) CLINICAL INFORMATION: Reason for Exam Exertional dyspnea. SOB/CP. Postsurgical COMPARISON: None available. TECHNIQUE: Prior to contrast administration, noncontrast localization images were obtained. Subsequently, multidetector volumetric imaging was performed from the thoracic inlet to below the diaphragms following the administration of 65 mL Omnipaque 350 intravenous contrast. No contrast reaction reported Sagittal, coronal, and MIP oblique sagittal reformatted images were obtained on the CT workstation, uploaded to PACS, and reviewed. This CT examination was performed using dose optimization techniques as appropriate, variously including the following: *Automated exposure control *Adjustment of mA and/or kV according to patient size (this includes techniques or standardized protocols for targeted exams where dose is matched to indication/reason for exam; i.e. extremities or head) *Use of iterative reconstruction technique Total exam dose-length product 334 mGy-cm FINDINGS: QUALITY OF STUDY/CONTRAST BOLUS: Satisfactory. PULMONARY ARTERIES: No pulmonary emboli. THORACIC AORTA: No aneurysm. LUNG: No focal consolidation, nodules or masses. PLEURA: No pleural effusion or pneumothorax. MEDIASTINUM: Normal heart size. No pericardial effusion. No hilar or mediastinal lymphadenopathy. No evidence of septal bowing or right heart strain. CORONARY ARTERY CALCIFICATION: None visualized on this study. CHEST WALL/AXILLA: No axillary or internal mammary lymphadenopathy. OSSEOUS STRUCTURES: No acute or suspicious osseous abnormality. UPPER ABDOMEN: The liver is of diminished attenuation. There has been a prior gastric sleeve procedure. There is a small amount of free air within the upper abdomen. No reflux of contrast into the hepatic veins to suggest elevated right heart pressures. CT/CT angio chest PE protocol IMPRESSION: No evidence of pulmonary embolism. No active cardiopulmonary disease. Fatty infiltration of the liver. Prior gastric sleeve procedure. Small amount of free air noted within the upper abdomen which needs correlation for current significance. VTE: Negative.
--- NOTE | 2023-09-14 12:03 | ECG_ITS ---
Test Reason : CHEST TIGHNESS Blood Pressure : / mmHG Vent. Rate : 091 BPM Atrial Rate : 091 BPM P-R Int : 140 ms QRS Dur : 076 ms QT Int : 364 ms P-R-T Axes : 037 010 023 degrees QTc Int : 447 ms Normal sinus rhythm Normal ECG When compared with ECG of 06-MAY-2023 11:31, Heart rate has increased Referred By: Isabel Montoya Electronically Signed By:SHANIA SUAREZ MD
[2023-09-14 12:09] VITALS: BP 113/72; PULSE 108; RESP 19; TEMP 36.6; O2SAT 98; BMI 39.2
--- NOTE | 2023-09-14 12:10 | ED.GENADULT ---
HPI - General Adult General Chief complaint: Chest Pain Stated complaint: Chest tightness, headache Time Seen by Provider: 09/14/23 16:05 Source: patient, RN notes reviewed and old records reviewed Mode of arrival: ambulatory History of Present Illness HPI narrative: 43-year-old female with a past medical history of renal calculi, depression, asthma, sciatica, s/p gastric sleeve at [facility] on 09/05/23 presenting to the ED today complaining of generalized fatigue/weakness, lightheadedness, chest pressure SOB, and exertional dyspnea x yesterday. Admits chest pain worse with deep inspiration. Denies abdominal pain, nausea/vomiting, diarrhea, dysuria/hematuria, cough, fever Onset (ago): day(s) Related Data Home Medications Medication Instructions Recorded Confirmed hydrochlorothiazide 12.5 mg tablet 12.5 mg PO DAILY 02/18/22 05/25/23 metoclopramide HCl 10 mg tablet 10 mg PO TID 02/18/22 05/25/23 ondansetron 4 mg disintegrating 4 mg PO Q8H PRN nausea and vomiting 05/25/23 05/25/23 tablet prednisone 50 mg tablet 50 mg PO DAILY PRN 05/25/23 05/25/23 topiramate 25 mg tablet 25 mg PO DAILY 05/25/23 05/25/23 Previous Rx's Medication Instructions Recorded oxycodone 5 mg tablet 5 mg PO Q8H PRN pain #5 tabs 07/14/21 celecoxib 100 mg capsule (Celebrex) 100 mg PO BID 14 days #28 caps 06/10/22 tamsulosin 0.4 mg capsule 0.4 mg PO DAILY #7 caps 04/03/23 famotidine 20 mg tablet (Pepcid) 20 mg PO DAILY #5 tabs 05/07/23 potassium citrate 10 mEq (1,080 10 meq PO BID 90 days #180 tabs 05/25/23 mg) tablet,extended release pyridoxine (vitamin B6) 50 mg 50 mg PO DAILY 90 days #90 tabs 05/25/23 tablet cyclobenzaprine 10 mg tablet 10 mg PO BID PRN muscle spasm #10 08/09/23 tabs Allergies Allergy/AdvReac Type Severity Reaction Status Date / Time morphine [MORPHINE] Allergy Severe SWELLING Verified 09/14/23 12:09 ibuprofen [IBUPROFEN] Allergy Intermediate HIVES Verified 09/14/23 12:09 naproxen [NAPROXEN] Allergy Intermediate HIVES Verified 09/14/23 12:09 acetaminophen Allergy Unknown Rash Verified 09/14/23 12:09 tramadol [TRAMADOL] Allergy Unknown HIVES Verified 09/14/23 12:09 diphenhydramine Allergy Hives Verified 09/14/23 12:09 [From Benadryl] ketorolac [From TORADOL] AdvReac Unknown ITCHING Verified 09/14/23 12:09 Ibuprofen Allergy Unknown Hives Uncoded 09/14/23 12:09 Morphine Sulf Microinfusion Allergy Unknown Swelling Uncoded 09/14/23 12:09 PF Review of Systems Review of Systems: Constitutional: No Fever, No Chills, No Fatigue, No Malaise ENT/Mouth: No Ear Pain, No Nasal Congestion, No sore throat, No Rhinorrhea, No Swallowing Difficulty Eyes: No Eye Pain, No Swelling, No Redness, No Vision Changes Cardiovascular: +Chest Pain, + SOB, + Dyspnea on Exertion, No Orthopnea, No Edema, No Palpitations Respiratory: No Cough, No Sputum, No Wheezing, No Smoke Exposure, + Dyspnea Gastrointestinal: No Nausea, No Vomiting, No Diarrhea, No Constipation, No Abdominal pain Genitourinary: No Dysuria, No Urinary Frequency, No Hematuria, No Urinary Incontinence/retention, No Flank Pain Musculoskeletal: No joint pain, No Myalgias, No Joint Swelling Skin: No Skin Lesions, No rash Neuro: No Weakness, + lightheaded, No Headache Yes all other systems are reviewed and are negative Constitutional: Constitutional: Reports as per [facility] Past Medical History Attestation statement: The following information was validated with the patient. Source: old records reviewed Medical History Renal calculi Depression Asthma Sciatica Social History Social History Alcohol intake: never Smoked in Last 30 Days: No Use of substances other than those prescribed or required for medical reasons: No Substance Use Type: Marijuana Advance Directives: No Advance Directives Information Provided: Yes Physical Exam ED Vital Signs: Vital Signs - 24 hr 09/14/23 12:09 09/14/23 16:11 09/14/23 18:27 Temperature 98 F 98 F Pulse Rate 108 H 80 86 Respiratory Rate 19 18 Blood Pressure 113/72 116/72 Pulse Oximetry 98 96 97 Oxygen Delivery Method Room Air Room Air Room Air 09/14/23 21:08 Temperature 98.2 F Pulse Rate 84 Respiratory Rate 14 Blood Pressure 105/61 Pulse Oximetry 98 Oxygen Delivery Method Room Air BMI result Body Mass Index 39.2 Const General: cooperative, healthy appearing and no acute distress Orientation/consciousness: patient oriented x3 Limitations: no limitations HENMT Head: Yes normal to inspection and Yes atraumatic Ears: hearing grossly normal bilaterally General nose exam: Normal external nose present Face and sinus: Yes normal facial exam Eyes General: appearance normal, both eyes and all related structures EOM: EOMs intact bilaterally Neck Neck: Yes normal visual inspection and Yes no meningeal signs Resp Effort & Inspection: normal respiratory effort and no respiratory distress Auscultation: clear to auscultation bilaterally Cardio Rate: regular rate Heart sounds: S1 normal heart sound present and S2 normal heart sound present GI Other: Appropriately healing surgical scars noted Inspection: Yes normal to inspection Palpation (GI): Soft to palpation, nontender, no guarding and not rigid General: Yes no CVA tenderness Back/Spine/Pelvis Back: no CVA tenderness Skin Rashes: no rashes Wounds: no wounds Neuro General: patient oriented x3, tone normal and no meningeal signs Cranial nerves: Yes CN's II-XII intact bilaterally Gait exam (Neuro): Normal gait present Extrem General: Yes normal to inspection, Yes no pedal edema and Yes no calf tenderness Course Course Course Narrative: This is an RME: Additional HPI, ROS, PE not included below will be deferred to primary provider. This is a [id number], hx of bariatric surgery on 09/05/2023, presenting to the ER with a complaint of chest tightness, dizziness, and generalized starting today. Had gastric sleeve last tuesday at [facility], no complications with the surgery Plan: EKG, CXR, labs, UA, viral swabs -1755--no leukocytosis. AST/ALT chronically elevated. initial troponin negative > will obtain 3 hour repeat -COVID/flu/RSV negative XR chest 2V IMPRESSION: No evidence for acute process. -2210--troponin x2 negative. CT angio chest PE protocol IMPRESSION: No evidence of pulmonary embolism. No active cardiopulmonary disease. Fatty infiltration of the liver. Prior gastric sleeve procedure. Small amount of free air noted within the upper abdomen which needs correlation for current significance. VTE: Negative. > free air expected as patient is postsurgical from laparoscopic sleeve. Case discussed with Dr. Webb who is in agreement, no need for abdominal imaging at this time, abdomen is benign on exam. Will consult patient's bariatric surgery in at [facility] Dr. Salamanca -[id number]--ED administrative secretary has called bariatric office multiple times, have not heard back from patient's surgeon. Patient requesting discharge. Patient is tolerating p.o. in the ED. Results discussed. Recommended calling her surgeon 1st thing in the morning, also admits she has follow-up on September 19 or . With shared decision-making comfortable with this plan Results discussed with patient including worrisome signs and symptoms and strict return precautions, and when to return to the emergency department. They verbalized understanding and feel safe for discharge at this time. Medications Administered Discontinued Medications Generic Name Dose Route Start Last Admin Trade Name Freq PRN Reason Stop Dose Admin Sodium Chloride 1,000 mls @ 999 mls/hr 09/14/23 16:30 09/14/23 19:40 Ns IV 09/14/23 17:30 Infused .Q1H1M LIZ Infusion Iohexol 100 ml 09/14/23 19:17 09/14/23 19:17 Iohexol 350 Mg/Ml 100 Ml Infus..Btl IV 09/14/23 19:18 65 ml ONCE ONE Administration Medical Decision Making Medical Decision Making MDM Narrative: 43-year-old female with a past medical history of renal calculi, depression, asthma, sciatica, s/p gastric sleeve at [facility] on 09/05/23 presenting to the ED today complaining of generalized fatigue/weakness, lightheadedness, chest pressure SOB, and exertional dyspnea x yesterday. Admits chest pain worse with deep inspiration. On exam initially tachycardic, NAD, nontoxic appearing, lungs CTA, abdomen soft/nontender. No pedal edema/calf tenderness. Concern for ACS vs PE vs dehydration/metabolic abnormalities. Lower suspicion for DVT. Rule out pneumonia. Low suspicion for intra-abdominal pathology/perforation or postsurgical complication without tenderness on exam Plan: EKG, labs, UA, CXR, CT/PE, IVF, reassess Please refer to course for remaining clinical decision making, interpretation of labs/imaging results, and discussions with consultants and/or family members. Differential Diagnosis Differential Diagnoses: The differential diagnosis associated with the presentation includes As above Admission/Observation Consideration of admission/observation: Escalation of care including admission/observation considered Consult Healthcare Provider Management of the patient was discussed with: Flight Operations Dispatch Clerk Lab Data MDM Lab Attestation statement: I reviewed the patient's lab results. 09/14/23 12:21 09/14/23 12:21 Labs: Lab Results 09/14/23 09/14/23 09/14/23 Range/Units 12:21 18:18 19:04 WBC 7.9 (4.8-10.8) X10*3/uL RBC 5.17 (4.20-5.50) X10*6/uL Hgb 13.5 (12.0-16.0) g/dl Hct 40.2 (37.0-47.0) % MCV 77.8 L (80.0-98.0) fL MCH 26.1 L (27.0-33.0) pg MCHC 33.6 (31.0-35.0) g/dl RDW 13.6 (11.0-16.0) % Plt Count 383 D (160-400) X10*3/uL MPV 9.5 (9.4-12.3) fL Immature Gran % (Auto) 0.3 (0.0-0.4) % Neut % (Auto) 66.2 (45-73) % Lymph % (Auto) 23.6 (20-40) % [place] % (Auto) 7.3 (2-11) % Eos % (Auto) 2.3 (0-4) % Baso % (Auto) 0.3 (0-2) % Lymph # (Auto) 1.9 (1.2-4.9) X10*3/uL [place] # (Auto) 0.6 (0.1-1.2) X10*3/uL Eos # (Auto) 0.2 (0.0-0.4) X10*3/uL Baso # (Auto) 0.0 (0.0-0.2) X10*3/uL Abs Immat Gran (auto) 0.02 (0.00-0.03) X10*3/uL Absolute Neuts (auto) 5.3 (2.0-8.3) x10*3/uL Absolute Nucleated RBC 0.000 (0.0-0.012) X10*3/uL Nucleated RBC % (auto) 0.0 (0.0-0.2) /100WBC Sodium 139 (135-145) mmol/L Potassium 3.4 (3.3-5.1) mmol/L Chloride 106 (96-108) mmol/L Carbon Dioxide 21 L (22-29) mmol/L Anion Gap 15 (12-20) BUN 10 (9-16) mg/dL Creatinine 0.66 (0.5-1.4) mg/dL Estim Creat Clear Calc 108.2 Estimated GFR > 60 Random Glucose 93 (60-115) mg/dL Calcium 9.6 (8.4-10.2) mg/dL Magnesium 1.9 (1.6-2.6) mg/dL Total Bilirubin 0.5 (0.0-1.0) mg/dL Direct Bilirubin 0.2 (0.0-0.5) mg/dL AST 46 H (5-31) U/L ALT 48 H (0-31) U/L Alkaline Phosphatase 66 (39-117) U/L Troponin I High Sens < 2.7 < 2.7 (<3.5-17.0) ng/L B-Natriuretic Peptide < 10 (<100) pg/mL Total Protein 8.1 H (6.5-8.0) g/dL Albumin 4.3 (3.5-5.0) g/dL Lipase 35 (8-78) U/L Beta HCG, Quant < 2 mIU/mL Urine Color Dark Yellow Urine Appearance Cloudy Urine pH 6.0 (5.0-9.0) Ur Specific [place] 1.025 (1.005-1.025) Urine Protein 30 (1+) H (Neg-Trace) mg/dL Urine Glucose (UA) Negative (Negative) mg/dL Urine Ketones >=160 (Negative) mg/dL Urine Blood Moderate (2+) H (Negative) Urine Nitrite Negative (Negative) Ur Leukocyte Esterase Negative (Negative) Urine RBC 3-5 H (0-2) /HPF Urine WBC 0-5 (0-5) /HPF Ur Squamous Epith Cells 6-10 (0-2) /HPF Urine Bacteria 1+ (None Seen) Hyaline Casts 6-10 (0-2) /LPF Influenza Type A (PCR) NEGATIVE (Negative) Influenza Type B (PCR) NEGATIVE (Negative) RSV RNA Qual (PCR) NEGATIVE (Negative) SARS-CoV-2 RNA (RT-PCR) NEGATIVE (Negative) Independent Interpretation I performed an independent interpretation of an: EKG (My interpretation EKG normal sinus rhythm rate of 91. MN interval 140. QTC 447. No significant change when compared to prior. No STEMI) Radiology Impression Discussion of test interpretation with radiology: I have reviewed the radiologist's reading. Independent Historian Clinical information obtained from an independent historian. History obtained from or confirmed by: EMS External Record Review External record reviewed: Inpatient record, Office record, Outpatient record, Prior outpatient labs, Prior outpatient radiology, Primary care record and Outside ED record Tests considered The following testing was considered but not selected: As above Prescription Management I considered prescription management with: Pain Medication Discharge Plan Discharge Clinical Impression: Chest pressure, Exertional dyspnea Patient Disposition: Home, Self-Care Instructions: Chest Pain (DC) Additional Instructions: PLEASE CALL YOUR BARIATRIC SURGEON 1ST THING IN THE MORNING Your blood work and imaging studies were reassuring If her pain persists or worsens, you are unable to eat or drink develops fever, nausea/vomiting, worsening shortness of breath return to the ED immediately Prescriptions: No Action celecoxib [Celebrex] 100 mg capsule 100 mg PO BID 14 Days Qty: 28 0RF oxycodone 5 mg tablet 5 mg PO Q8H PRN (Reason: pain) Qty: 5 0RF tamsulosin 0.4 mg capsule 0.4 mg PO DAILY Qty: 7 0RF famotidine [Pepcid] 20 mg tablet 20 mg PO DAILY Qty: 5 0RF cyclobenzaprine 10 mg tablet 10 mg PO BID PRN (Reason: muscle spasm) Qty: 10 0RF metoclopramide HCl 10 mg tablet 10 mg PO TID hydrochlorothiazide 12.5 mg tablet 12.5 mg PO DAILY topiramate 25 mg tablet 25 mg PO DAILY ondansetron 4 mg tablet,disintegrating 4 mg PO Q8H PRN (Reason: nausea and vomiting) prednisone 50 mg tablet 50 mg PO DAILY PRN pyridoxine (vitamin B6) 50 mg tablet 50 mg PO DAILY 90 Days Qty: 90 3RF potassium citrate 10 mEq (1,080 mg) tablet extended release 10 meq PO BID 90 Days Qty: 180 3RF Referrals: Dejan Mak MD [Primary Care Provider] -
[2023-09-14 12:24] LABS: MANUAL DIFF FLAG NO
[2023-09-14 12:27] LABS: Basophils Percent Auto 0.3 % (0-2); Eosinophils Absolute Auto 0.2 X10*3/uL (0.0-0.4); Eosinophils Percent Auto 2.3 % (0-4); Hematocrit 40.2 % (37.0-47.0); Hemoglobin 13.5 g/dl (12.0-16.0); Imm Gran Abs Auto 0.02 X10*3/uL (0.00-0.03); Imm Gran Pct Auto 0.3 % (0.0-0.4); Lymphocytes Absolute Auto 1.9 X10*3/uL (1.2-4.9); Lymphocytes Percent Auto 23.6 % (20-40); Mean Corpuscular HGB Conc 33.6 g/dl (31.0-35.0); Mean Corpuscular Hemoglobin 26.1 pg (27.0-33.0); Mean Corpuscular Volume 77.8 fL (80.0-98.0); Mean Platelet Volume 9.5 fL (9.4-12.3); Monocytes Absolute Auto 0.6 X10*3/uL (0.1-1.2); Monocytes Percent Auto 7.3 % (2-11); Neutrophils Absolute Auto 5.3 x10*3/uL (2.0-8.3); Neutrophils Percent Auto 66.2 % (45-73); Platelet Count 383 X10*3/uL (160-400); Red Blood Count 5.17 X10*6/uL (4.20-5.50); Red Cell Distribution Width 13.6 % (11.0-16.0); White Blood Count 7.9 X10*3/uL (4.8-10.8)
[2023-09-14 12:44] LABS: Alanine Aminotransferase 48 U/L (0-31); Albumin Level 4.3 g/dL (3.5-5.0); Alkaline Phosphatase 66 U/L (39-117); Anion Gap 15 (12-20); Aspartate Amino Transferase 46 U/L (5-31); Bilirubin Direct 0.2 mg/dL (0.0-0.5); Bilirubin Total 0.5 mg/dL (0.0-1.0); Blood Urea Nitrogen 10 mg/dL (9-16); Calcium 9.6 mg/dL (8.4-10.2); Carbon Dioxide 21 mmol/L (22-29); Chloride 106 mmol/L (96-108); Creatinine Clr Calc Pharmacy 108.2; Estimated Glomerular Filt Rate > 60; Glucose Random 93 mg/dL (60-115); Lipase 35 U/L (8-78); Potassium 3.4 mmol/L (3.3-5.1); Sodium 139 mmol/L (135-145); Total Protein 8.1 g/dL (6.5-8.0)
[2023-09-14 12:54] LABS: Troponin-I High Sensitivity < 2.7 ng/L (<3.5-17.0)
[2023-09-14 13:12] LABS: Influenza A PCR NEGATIVE (Negative); Influenza B PCR NEGATIVE (Negative); Resp Syncy Virus RNA Qual PCR NEGATIVE (Negative); SARS COV2 PCR INHOUSE NEGATIVE (Negative)
--- NOTE | 2023-09-14 16:10 | PC.NURSE ---
Patient reports sob with exertion and right sided chest pressure. Had gastric sleeve last tuesday, and had echo about 2 weeks ago at [facility] but has not gotten the results,. States has had the sob for a few months but it is worse lately
[2023-09-14 16:11] VITALS: BP 116/72; PULSE 80; RESP 18; TEMP 36.6; O2SAT 96
[2023-09-14] MEDS: 0.9 % Sodium Chloride 1,000 ML 999 ML IV (16:56)
[2023-09-14 18:27] VITALS: PULSE 86; O2SAT 97
[2023-09-14 18:28] LABS: Appearance Urine Cloudy; Color Urine Dark Yellow; Glucose Urine UA Negative (Negative); Leukocyte Esterase Urine Negative (Negative); Nitrite Urine Negative (Negative); Specific Gravity - Urine 1.025 (1.005-1.025); UMIC TRIGGER UACC YES; Urine Blood Moderate (2+) (Negative); Urine Ketones >=160 mg/dL (Negative); Urine Protein 30 (1+) mg/dL (Neg-Trace)
[2023-09-14 18:37] LABS: Bacteria Urine 1+ (None Seen); WBC Urine 0-5 /HPF (0-5)
[2023-09-14 18:45] LABS: HCG Quantitative < 2 mIU/mL
--- NOTE | 2023-09-14 19:06 | PC.NURSE ---
this rn assumed care of pt. pt resting in stretcher, ct at bedside.
[2023-09-14] MEDS: iohexoL 350 MG/ML 100 ML INFUS..BTL IV (19:17)
[2023-09-14 19:48] LABS: Magnesium 1.9 mg/dL (1.6-2.6)
[2023-09-14 19:56] LABS: B Type Natriuretic Peptide < 10 pg/mL (<100)
[2023-09-14 19:57] LABS: Troponin-I High Sensitivity < 2.7 ng/L (<3.5-17.0)
[2023-09-14 21:08] VITALS: BP 105/61; PULSE 84; RESP 14; TEMP 36.8; O2SAT 98
--- NOTE | 2023-09-14 21:49 | MHC.EDTECH ---
Called [facility] bariatrics/surgery per request of Es Nash to reach (or subscription agent) @ 2014. No call back recieved. 2nd call placed @0152
== END 2023-09-14 22:46 | disposition home or self-care (01) ==
PROVIDERS: Physician Assistant; Physician Assistant Medical; Emergency Provider Emergency Medicine; PCP Internal Medicine
DX: R07.89 Other chest pain (principal); R51.9 Headache, unspecified; R06.02 Shortness of breath; Z79.899 Other long term (current) drug therapy; Z20.822 Contact with and (suspected) exposure to COVID-19; Z20.828 Contact with and (suspected) exposure to other viral communicable diseases
CPT/HCPCS: 0241U; 36415; 71046; 71275; 80048; 80076; 81001; 83690; 83735; 83880; 84484; 84702; 85025; 93005; 96360; 96361; 99284; 99285; Q9967

== ENCOUNTER 2023-09-17 11:22 | Emergency (ER) | payer OTHER, SELFPAY ==
--- NOTE | ~2023-09-17 | CT_ITS ---
EXAMINATION: CT ABDOMEN AND PELVIS WITHOUT CONTRAST CLINICAL INFORMATION: Right flank pain COMPARISON: CT abdomen pelvis 05/06/2023. TECHNIQUE: Multidetector volumetric imaging was performed from the superior aspect of the liver through the pubic symphysis. Sagittal and coronal reformatted images were obtained on the technologist's workstation. This CT examination was performed using dose optimization techniques as appropriate, variously including the following: *Automated exposure control *Adjustment of mA and/or kV according to patient size (this includes techniques or standardized protocols for targeted exams where dose is matched to indication/reason for exam; i.e. extremities or head) *Use of iterative reconstruction technique DLP: 721 mGy-cm FINDINGS: Evaluation of solid organs, vascular structures, and bowel wall limited in the absence of intravenous contrast. LUNG BASES: Unremarkable. LIVER AND BILIARY TREE: Diffuse hepatic steatosis. Hepatomegaly with liver spanning 20 cm in craniocaudal dimension. GALLBLADDER: Unremarkable. PANCREAS: Unremarkable. SPLEEN: Unremarkable. ADRENAL GLANDS: Unremarkable. KIDNEYS AND URETERS: Tiny, 3 mm calculus at the right ureterovesicular junction with minimal upstream right hydroureteronephrosis and mild right perinephric fat stranding. Scattered additional nonobstructing bilateral renal calculi, measuring up to 4 mm on each side, not significantly changed in burden from 05/06/2023. GASTROINTESTINAL TRACT: Postoperative appearance from sleeve gastrectomy without abnormal fluid adjacent to the surgical anastomosis. Normal appendix. VASCULAR: Unremarkable LYMPH NODES: No lymphadenopathy. PERITONEUM: No ascites. A few small foci of scattered ventral abdominal pneumoperitoneum, most pronounced in the mid and upper abdomen, likely postoperative. BLADDER: Unremarkable. PELVIC VISCERA: Unremarkable. ABDOMINAL AND PELVIC WALL: Linear fat stranding traversing the epigastric abdominal wall to the ventral omental fat (series 4, image [id number]), may correlate to prior surgical port site. OSSEOUS STRUCTURES: Unremarkable. CT/CT abdomen pelvis wo IV con IMPRESSION: 1. Obstructing 3 mm calculus at the right ureterovesicular junction with minimal upstream right hydroureteronephrosis and mild likely reactive right perinephric fat stranding. 2. Expected postoperative appearance from sleeve gastrectomy with a few residual foci of scattered pneumoperitoneum. 3. Hepatomegaly with hepatic steatosis.
[2023-09-17 11:29] VITALS: BP 110/76; BP 133/67; PULSE 72; RESP 22; TEMP 36.4; O2SAT 98; BMI 39.1
--- NOTE | 2023-09-17 11:47 | ED.GENADULT ---
HPI - General Adult General Chief complaint: Abdominal Pain Stated complaint: LOWER BACK PAIN RECENT SURGERY Time Seen by Provider: 09/17/23 11:47 Source: patient Mode of arrival: ambulatory Limitations: no limitations History of Present Illness HPI narrative: Patient is a 43-year-old female with history of gastric sleeve on 09/05 performed at [facility], renal calculi, asthma, sciatica, depression presenting to the emergency department with acute onset severe right lower quadrant abdominal pain radiating to her flank, is unable to void, also reports nausea and vomiting. Denies diarrhea. Denies fever. States feels similar to previous episodes of renal calculi. MD complaint: abdominal and flank pain Onset (ago): hour(s) Location: abdomen and right Radiation: flank Severity: severe and similar to prior episodes Severity scale (1-10): >10 Quality: sharp Pain Consistency: constant Relieving factors: none Exacerbating factors: none Associated symptoms: nausea/vomiting Treatments prior to arrival: none Related Data Home Medications Medication Instructions Recorded Confirmed hydrochlorothiazide 12.5 mg tablet 12.5 mg PO DAILY 02/18/22 05/25/23 metoclopramide HCl 10 mg tablet 10 mg PO TID 02/18/22 05/25/23 ondansetron 4 mg disintegrating 4 mg PO Q8H PRN nausea and vomiting 05/25/23 05/25/23 tablet prednisone 50 mg tablet 50 mg PO DAILY PRN 05/25/23 05/25/23 topiramate 25 mg tablet 25 mg PO DAILY 05/25/23 05/25/23 Previous Rx's Medication Instructions Recorded oxycodone 5 mg tablet 5 mg PO Q8H PRN pain #5 tabs 07/14/21 celecoxib 100 mg capsule (Celebrex) 100 mg PO BID 14 days #28 caps 06/10/22 famotidine 20 mg tablet (Pepcid) 20 mg PO DAILY #5 tabs 05/07/23 potassium citrate 10 mEq (1,080 10 meq PO BID 90 days #180 tabs 05/25/23 mg) tablet,extended release pyridoxine (vitamin B6) 50 mg 50 mg PO DAILY 90 days #90 tabs 05/25/23 tablet cyclobenzaprine 10 mg tablet 10 mg PO BID PRN muscle spasm #10 08/09/23 tabs ondansetron 8 mg disintegrating 8 mg PO Q6-8H #20 tabs 09/17/23 tablet oxycodone 5 mg tablet 5 mg PO Q8H PRN pain #9 tabs 09/17/23 tamsulosin 0.4 mg capsule 0.4 mg PO DAILY #7 caps 09/17/23 tamsulosin 0.4 mg capsule 0.4 mg PO DAILY to help pass 09/17/23 kidney stones #10 caps Allergies Allergy/AdvReac Type Severity Reaction Status Date / Time morphine [MORPHINE] Allergy Severe SWELLING Verified 09/17/23 11:34 ibuprofen [IBUPROFEN] Allergy Intermediate HIVES Verified 09/17/23 11:34 naproxen [NAPROXEN] Allergy Intermediate HIVES Verified 09/17/23 11:34 acetaminophen Allergy Unknown Rash Verified 09/17/23 11:34 tramadol [TRAMADOL] Allergy Unknown HIVES Verified 09/17/23 11:34 diphenhydramine Allergy Hives Verified 09/17/23 11:34 [From Benadryl] ketorolac [From TORADOL] AdvReac Unknown ITCHING Verified 09/17/23 11:34 Ibuprofen Allergy Unknown Hives Uncoded 09/14/23 12:09 Morphine Sulf Microinfusion Allergy Unknown Swelling Uncoded 09/14/23 12:09 PF Review of Systems Review of Systems: As per HPI. Yes all other systems are reviewed and are negative Constitutional: Constitutional: Reports as per HPI PMFSH Past Medical History Medical History Renal calculi Depression Asthma Sciatica Social History Social History Alcohol intake: never Smoked in Last 30 Days: No Use of substances other than those prescribed or required for medical reasons: No Substance Use Type: Marijuana Advance Directives: No Advance Directives Information Provided: No Physical Exam ED Vital Signs: Vital Signs - 24 hr 09/17/23 11:29 09/17/23 11:51 09/17/23 12:08 Temperature 97.6 F 97.6 F Pulse Rate 68 62 Respiratory Rate 22 H 18 Blood Pressure 133/67 137/64 Pulse Oximetry 97 96 Oxygen Delivery Method Room Air Room Air 09/17/23 13:58 Temperature Pulse Rate 60 Respiratory Rate 18 Blood Pressure 131/71 Pulse Oximetry 96 Oxygen Delivery Method Room Air BMI result Body Mass Index 39.1 Vital signs have been reviewed and appear to be correct. Blood pressure normal. Heart rate normal. Respiratory rate normal. Temperature normal. Oxygen saturation normal. Const General: cooperative, healthy appearing, no acute distress and other (appears uncomfortable) Orientation/consciousness: oriented to person, oriented to place, oriented to time and patient oriented x3 Limitations: no limitations HENMT Head: Yes normocephalic and Yes atraumatic Ears: external ears normal General nose exam: Normal external nose present Face and sinus: Yes face symmetric Mouth: oropharynx normal and moist mucous membranes Throat: Yes uvula midline Eyes Pupils: Equal, round and reactive pupils present Neck Neck: Yes normal visual inspection and Yes supple Resp Effort & Inspection: normal respiratory effort and able to speak in complete sentences Auscultation: clear to auscultation bilaterally Cardio Rate: regular rate Rhythm: regular rhythm Heart sounds: S1 normal heart sound present and S2 normal heart sound present GI Palpation (GI): Soft to palpation and nontender Auscultation: normoactive bowel sounds General: Yes CVA tenderness on the right Back/Spine/Pelvis Back: CVA tenderness Skin General skin exam: elasticity normal and turgor normal Neuro General: oriented to person, oriented to place, oriented to time, patient oriented x3, moves all extremities, no focal motor deficits and CN's II-XI intact bilaterally Cranial nerves: Yes Equal, round and reactive pupils present Cognition (Neuro): normal cognition Extrem General: Yes full ROM, Yes no pedal edema and Yes no calf tenderness Psych Mental Status: mental status grossly normal Affect: normal affect Thought process: Normal thought process present Medications Administered Discontinued Medications Generic Name Dose Route Start Last Admin Trade Name Yash PRN Reason Stop Dose Admin Fentanyl 50 mcg 09/17/23 12:12 09/17/23 12:18 Fentanyl Citrate/Pf 100 Mcg/2 Ml Vial IVPUSH 09/17/23 12:13 50 mcg ONCE ONE Administration Protocol Fentanyl 50 mcg 09/17/23 13:51 09/17/23 13:56 Fentanyl Citrate/Pf 100 Mcg/2 Ml Vial IVPUSH 09/17/23 13:52 50 mcg ONCE ONE Administration Protocol Sodium Chloride 1,000 mls @ 999 mls/hr 09/17/23 12:00 09/17/23 13:56 Ns IV 09/17/23 13:00 Infused .Q1H1M LIZ Infusion Ondansetron HCl 4 mg 09/17/23 11:49 09/17/23 11:59 Ondansetron Hcl 4 Mg/2 Ml Vial IVPUSH 09/17/23 11:50 4 mg ONCE ONE Administration Oxycodone HCl 5 mg 09/17/23 11:49 09/17/23 11:59 Oxycodone Hcl Immed Release 5 Mg Tablet PO 09/17/23 11:50 5 mg ONCE ONE Administration Medical Decision Making Medical Decision Making [facility] Narrative: Patient is a 43-year-old female with history of gastric sleeve on 09/05 performed at [facility], renal calculi, asthma, sciatica, depression presenting to the emergency department with acute onset severe right lower quadrant abdominal pain radiating to her flank, is unable to void, also reports nausea and vomiting. On exam patient is awake, A+Ox3, VS WNL, afebrile, normal neurological exam without focal deficits, physical exam findings as above. Given reported symptoms and physical exam findings, initial differential includes renal/ureteral calculi, UTI/pyelonephritis, ovarian torsion, appendicitis, uterine fibroid. Notified by nursing that patient vomited PO oxycodone, will try IV fentanyl. Labs notable for no leukocytosis, no anemia, no significant electrolyte abnormalities or evidence of MARJORIE. CT notable for 3 mm stone at UVJ with mild hydronephrosis. My interpretation is in agreement with the radiologist's interpretation. Patient updated on results and all questions answered. Feel patient is stable for discharge home with oxycodone and tamsulosin. Instructed patient to follow-up with urology. Return precautions discussed at bedside. Patient verbalized understanding of and agreement with plan. Differential Diagnosis Differential Diagnoses: The differential diagnosis associated with the presentation includes As per MDM. Admission/Observation Consideration of admission/observation: Escalation of care including admission/observation considered Lab Data [facility] Lab Attestation statement: I reviewed the patient's lab results. As per MDM. 09/17/23 11:50 09/17/23 12:40 Labs: Lab Results 09/17/23 09/17/23 09/17/23 Range/Units 11:50 12:08 12:40 WBC 9.3 (4.8-10.8) X10*3/uL RBC 4.89 (4.20-5.50) X10*6/uL Hgb 12.6 (12.0-16.0) g/dl Hct 38.2 (37.0-47.0) % MCV 78.1 L (80.0-98.0) fL MCH 25.8 L (27.0-33.0) pg MCHC 33.0 (31.0-35.0) g/dl RDW 14.0 (11.0-16.0) % Plt Count 353 (160-400) X10*3/uL MPV 10.0 (9.4-12.3) fL Immature Gran % (Auto) 0.2 (0.0-0.4) % Neut % (Auto) 75.1 H (45-73) % Lymph % (Auto) 17.4 L (20-40) % [place] % (Auto) 6.1 (2-11) % Eos % (Auto) 0.9 (0-4) % Baso % (Auto) 0.3 (0-2) % Lymph # (Auto) 1.6 (1.2-4.9) X10*3/uL [place] # (Auto) 0.6 (0.1-1.2) X10*3/uL Eos # (Auto) 0.1 (0.0-0.4) X10*3/uL Baso # (Auto) 0.0 (0.0-0.2) X10*3/uL Abs Immat Gran (auto) 0.02 (0.00-0.03) X10*3/uL Absolute Neuts (auto) 7.0 (2.0-8.3) x10*3/uL Absolute Nucleated RBC 0.000 (0.0-0.012) X10*3/uL Nucleated RBC % (auto) 0.0 (0.0-0.2) /100WBC Sodium 145 (135-145) mmol/L Potassium 3.3 (3.3-5.1) mmol/L Chloride 108 (96-108) mmol/L Carbon Dioxide 22 (22-29) mmol/L Anion Gap 18 (12-20) BUN 12 (9-16) mg/dL Creatinine 0.79 (0.5-1.4) mg/dL Estim Creat Clear Calc 90.3 Estimated GFR > 60 Random Glucose 100 (60-115) mg/dL Calcium 9.0 D (8.4-10.2) mg/dL Total Bilirubin 0.4 (0.0-1.0) mg/dL Direct Bilirubin 0.2 (0.0-0.5) mg/dL AST 38 H (5-31) U/L ALT 36 H (0-31) U/L Alkaline Phosphatase 57 (39-117) U/L Total Protein 6.9 (6.5-8.0) g/dL Albumin 3.6 (3.5-5.0) g/dL Lipase 25 (8-78) U/L Urine Color Yellow Urine Appearance Cloudy Urine pH 6.0 (5.0-9.0) Ur Specific [place] >= 1.030 H (1.005-1.025) Urine Protein 30 (1+) H (Neg-Trace) mg/dL Urine Glucose (UA) Negative (Negative) mg/dL Urine Ketones >=80 (Negative) mg/dL Urine Blood Moderate (2+) H (Negative) Urine Nitrite Negative (Negative) Ur Leukocyte Esterase Negative (Negative) Urine RBC 11-20 H (0-2) /HPF Urine WBC 0-5 (0-5) /HPF Ur Squamous Epith Cells 11-20 (0-2) /HPF Calcium Oxalate Crystal Present Urine Bacteria 4+ (None Seen) Hyaline Casts >20 (0-2) /LPF Urine Test NEGATIVE (NEGATIVE) Independent Interpretation I performed an independent interpretation of an: CT Scan Interpretation: Obstructing 3 mm calculus at right UVJ with mild hydroureteronephrosis Radiology Impression Discussion of test interpretation with radiology: I have reviewed the radiologist's reading. Radiologist Impression: CT/CT abdomen pelvis wo IV con IMPRESSION: 1. Obstructing 3 mm calculus at the right ureterovesicular junction with minimal upstream right hydroureteronephrosis and mild likely reactive right perinephric fat stranding. 2. Expected postoperative appearance from sleeve gastrectomy with a few residual foci of scattered pneumoperitoneum. 3. Hepatomegaly with hepatic steatosis. External Record Review External record reviewed: Inpatient record, Office record and Outpatient record Prescription Management I considered prescription management with: Pain Medication and Other Discharge Plan Discharge Clinical Impression: Calculi, ureter Patient Disposition: Home, Self-Care Instructions: Low Oxalate Diet (ED), How to Strain Your Urine (ED), Hydronephrosis (ED), Ureteral Stones (ED) Additional Instructions: You are evaluated in the emergency department today for right-sided pain. Your CT scan shows a 3 mm stone in your right ureter. You are being discharged home with a referral to Urology, please call the office to schedule a follow-up appointment. You are being prescribed oxycodone for severe pain. You are being prescribed tamsulosin to dilate your ureter. You should also follow-up with your primary care provider this week. Return to the emergency department if you develop worsening pain, persistent vomiting, inability urinate, fever 100.4? F or greater, or any other concerning symptoms. Prescriptions: New tamsulosin 0.4 mg capsule 0.4 mg PO DAILY Qty: 7 0RF oxycodone 5 mg tablet 5 mg PO Q8H PRN (Reason: pain) Qty: 9 0RF Rx Instructions: Partial Fill upon patient request. No Action celecoxib [Celebrex] 100 mg capsule 100 mg PO BID 14 Days Qty: 28 0RF tamsulosin 0.4 mg capsule 0.4 mg PO DAILY Qty: 10 1RF ondansetron 8 mg tablet,disintegrating 8 mg PO Q6-8H Qty: 20 0RF oxycodone 5 mg tablet 5 mg PO Q8H PRN (Reason: pain) Qty: 5 0RF famotidine [Pepcid] 20 mg tablet 20 mg PO DAILY Qty: 5 0RF cyclobenzaprine 10 mg tablet 10 mg PO BID PRN (Reason: muscle spasm) Qty: 10 0RF metoclopramide HCl 10 mg tablet 10 mg PO TID hydrochlorothiazide 12.5 mg tablet 12.5 mg PO DAILY topiramate 25 mg tablet 25 mg PO DAILY ondansetron 4 mg tablet,disintegrating 4 mg PO Q8H PRN (Reason: nausea and vomiting) prednisone 50 mg tablet 50 mg PO DAILY PRN pyridoxine (vitamin B6) 50 mg tablet 50 mg PO DAILY 90 Days Qty: 90 3RF potassium citrate 10 mEq (1,080 mg) tablet extended release 10 meq PO BID 90 Days Qty: 180 3RF Referrals: [facility] [Provider Group]
[2023-09-17 11:51] VITALS: PULSE 68; O2SAT 97
[2023-09-17 11:53] LABS: MANUAL DIFF FLAG NO
[2023-09-17 11:54] LABS: Basophils Percent Auto 0.3 % (0-2); Eosinophils Absolute Auto 0.1 X10*3/uL (0.0-0.4); Eosinophils Percent Auto 0.9 % (0-4); Hematocrit 38.2 % (37.0-47.0); Hemoglobin 12.6 g/dl (12.0-16.0); Imm Gran Abs Auto 0.02 X10*3/uL (0.00-0.03); Imm Gran Pct Auto 0.2 % (0.0-0.4); Lymphocytes Absolute Auto 1.6 X10*3/uL (1.2-4.9); Lymphocytes Percent Auto 17.4 % (20-40); Mean Corpuscular Hemoglobin 25.8 pg (27.0-33.0); Mean Corpuscular Volume 78.1 fL (80.0-98.0); Monocytes Absolute Auto 0.6 X10*3/uL (0.1-1.2); Monocytes Percent Auto 6.1 % (2-11); Neutrophils Percent Auto 75.1 % (45-73); Platelet Count 353 X10*3/uL (160-400); Red Blood Count 4.89 X10*6/uL (4.20-5.50); White Blood Count 9.3 X10*3/uL (4.8-10.8)
[2023-09-17] MEDS: oxyCODONE HCl Immed Release 5 MG TABLET PO (11:59)
[2023-09-17] MEDS: ondansetron HCL 4 MG/2 ML VIAL IVPUSH (11:59)
[2023-09-17] MEDS: 0.9 % Sodium Chloride 1,000 ML 999 ML IV (12:01)
[2023-09-17 12:08] VITALS: BP 137/64; PULSE 62; RESP 18; TEMP 36.4; O2SAT 96
[2023-09-17] MEDS: fentaNYL citrate/PF 100 MCG/2 ML VIAL 50 MCG IVPUSH ×2 (12:18→13:56)
--- NOTE | 2023-09-17 12:19 | PC.NURSE ---
RLQ abd pain, inability to void but urge, bladder scan 13ml. Medicated as charted however pt unable to tolerate PO Oxycodone vomiting after admin, fentanyl being given at this time. Pt states nausea/vomiting with waves of pain. Skin pwd. Speaking full sentences but appears comfortable and restless. Incisions well appearing, no redness/warmth/drainage to sites.
[2023-09-17 12:33] LABS: UPreg QC Valid YES; Urine Pregnancy NEGATIVE (NEGATIVE)
[2023-09-17 12:36] LABS: Appearance Urine Cloudy; Color Urine Yellow; Glucose Urine UA Negative (Negative); Leukocyte Esterase Urine Negative (Negative); Nitrite Urine Negative (Negative); Specific Gravity - Urine >= 1.030 (1.005-1.025); UMIC TRIGGER UACC YES; Urine Blood Moderate (2+) (Negative); Urine Ketones >=80 mg/dL (Negative); Urine Protein 30 (1+) mg/dL (Neg-Trace)
[2023-09-17 12:50] LABS: Bacteria Urine 4+ (None Seen); Calcium Oxalate Crystals Urine Present; Hyaline Casts Urine >20 /LPF (0-2); WBC Urine 0-5 /HPF (0-5)
[2023-09-17 13:02] LABS: Alanine Aminotransferase 36 U/L (0-31); Albumin Level 3.6 g/dL (3.5-5.0); Alkaline Phosphatase 57 U/L (39-117); Anion Gap 18 (12-20); Aspartate Amino Transferase 38 U/L (5-31); Bilirubin Direct 0.2 mg/dL (0.0-0.5); Bilirubin Total 0.4 mg/dL (0.0-1.0); Blood Urea Nitrogen 12 mg/dL (9-16); Carbon Dioxide 22 mmol/L (22-29); Chloride 108 mmol/L (96-108); Creatinine Clr Calc Pharmacy 90.3; Estimated Glomerular Filt Rate > 60; Glucose Random 100 mg/dL (60-115); Lipase 25 U/L (8-78); Potassium 3.3 mmol/L (3.3-5.1); Sodium 145 mmol/L (135-145); Total Protein 6.9 g/dL (6.5-8.0)
[2023-09-17 13:58] VITALS: BP 131/71; PULSE 60; RESP 18; O2SAT 96
--- NOTE | 2023-09-17 13:58 | PC.NURSE ---
Pt improved s/p pain meds, now returning and medicated again as charted, pain remains to rlq and 10/10
[2023-09-17] MEDS: fentaNYL citrate/PF 100 MCG/2 ML VIAL IVPUSH (16:12)
[2023-09-17 16:15] VITALS: BP 113/55; PULSE 60; RESP 18
== END 2023-09-17 16:27 | disposition home or self-care (01) ==
PROVIDERS: Emergency Provider Emergency Medicine; PCP Internal Medicine
DX: N13.2 Hydronephrosis with renal and ureteral calculous obstruction (principal)
CPT/HCPCS: 36415; 74176; 80048; 80076; 81001; 81025; 83690; 85025; 96361; 96374; 96375; 96376; 99284; 99285; J2405; J3010

== ENCOUNTER 2023-11-15 07:39 | Outpatient (REF) | payer OTHER, SELFPAY ==
--- NOTE | ~2023-11-15 | US_ITS ---
EXAMINATION: US RETROPERITONEAL LIMITED (RENAL ONLY) CLINICAL INFORMATION: Calculus of kidney. COMPARISON: CT abdomen and pelvis 09/17/2023. Renal ultrasound 04/27/2022 and 01/27/2022. TECHNIQUE: Real-time imaging of the kidneys. FINDINGS: RIGHT KIDNEY: 10.7 x 5.8 x 5.6 cm (SAG x AP x TRV). The kidney is normal in size, contour, and echogenicity. Renal cortical thickness is normal. No focal parenchymal lesions or hydronephrosis. At the lower pole, a 6 mm nonobstructing calculus is seen. LEFT KIDNEY: 11.2 x 5.4 x 4.7 cm (SAG x AP x TRV). The kidney is normal in size, contour, and echogenicity. Renal cortical thickness is normal. No calculi or focal parenchymal lesions. No hydronephrosis. US/US renal BI IMPRESSION: A 6 cm nonobstructing right renal calculus is seen. No right renal calculus is seen. No hydronephrosis is noted bilaterally.
== END 2023-11-15 07:40 | disposition home or self-care (01) ==
LOC: HO.US 07:39
PROVIDERS: PCP Internal Medicine; Visit Provider Urology
DX: N20.0 Calculus of kidney (principal)
CPT/HCPCS: 76775

== ENCOUNTER 2023-11-22 15:32 | Outpatient (AMB) | payer OTHER, SELFPAY ==
--- NOTE | 2023-11-22 15:42 | A.OFFVIS_ITS ---
Intake Intake Visit Reasons: UVJ stone(set) Intake Note: Patient presents for follow up Ultrasound Results Imagin11/15/23 Urology Medications: Vitamin B6,Tamsulosin Blood Thinner: none Patient stated she was not able to urinate prior to today's visit, and today she is urinating with pain in the area of the bladder, and she also noticed her urine light green color Bladder Blower Required: No Accompanied by: Daughter Allergies morphine [MORPHINE] Allergy (Severe, Verified 11/22/23 20:21) SWELLING ibuprofen [IBUPROFEN] Allergy (Intermediate, Verified 11/22/23 20:21) HIVES naproxen [NAPROXEN] Allergy (Intermediate, Verified 11/22/23 20:21) HIVES acetaminophen Allergy (Unknown, Verified 11/22/23 20:21) Rash tramadol [TRAMADOL] Allergy (Unknown, Verified 11/22/23 20:21) HIVES diphenhydramine [From Benadryl] Allergy (Verified 11/22/23 20:21) Hives ketorolac [From TORADOL] Adverse Reaction (Unknown, Verified 11/22/23 20:21) ITCHING Ibuprofen Allergy (Unknown, Uncoded 11/22/23 20:21) Hives Morphine Sulf Microinfusion PF Allergy (Unknown, Uncoded 11/22/23 20:21) Swelling Medication List - Last Reconciled 11/22/23 by EMANI Rock-CARMELO celecoxib (Celebrex) 100 mg PO BID 14 days cyclobenzaprine 10 mg PO BID PRN famotidine (Pepcid) 20 mg PO DAILY hydrochlorothiazide 12.5 mg PO DAILY metoclopramide HCl 10 mg PO TID ondansetron 8 mg PO Q6-8H oxycodone 5 mg PO Q8H PRN potassium citrate ER 10 mEq PO BID 90 days prednisone 50 mg PO DAILY PRN pyridoxine (vitamin B6) 50 mg PO DAILY 90 days tamsulosin 0.4 mg PO DAILY topiramate 25 mg PO DAILY HPI HPI Comments History of Present Illness Details Tracey is a 43-year-old female patient of Dr. Mak who was accompanied by her daughter at today's office visit. She has a past medical history of asthma, depression, and nephrolithiasis. She presents to the office today for follow-up of her nephrolithiasis. In discussion with the patient today she reports having seeked emergency room care in September and again just a few days ago for ongoing flank pain she has been having. She reports originally flank pain started on the right side at which time a CT of the abdomen was ordered and performed. These results were reviewed with the patient today. 3 mm calculus at the right ureterovesical junction with minimal upstream right hydroureteronephrosis and mild right perinephric fat stranding. Scattered additional nonobstructing bilateral renal calculi measuring up to 4 mm on each side. She reports soon after ER visit in September her right-sided flank pain subsided. However more recently approximately 1 week ago started experiencing left-sided flank pain at which time an ultrasound was ordered for further assessment evaluation. These results were reviewed with the patient today. Right kidney with lower pole 6 mm nonobstructing calculus. Left kidney with no calculi, lesions, and or hydronephrosis noted. No right renal calculus is seen as noted on previous CT. Discussed no nephrolithiasis noted on left side and patient reporting left-sided flank pain. No CVA tenderness noted bilaterally on exam today. Discussed obtaining CT KUB for further assessment evaluation. She reports a longstanding history of nephrolithiasis and discusses attempting to drink plenty of water daily. However has recently had gastric sleeve and has had difficulty with increased water consumption. She does report noting urinary urgency and frequency 1 week ago however this has since subsided. She otherwise denies incontinence, nocturia, hematuria, dysuria, foul smelling urine, changes to urinary stream, fever, and or chills. In office urinalysis results reviewed with the patient today. She otherwise offers no other issues or concerns at this time. [facility] Medical History Renal calculi Depression Asthma Sciatica Social History Alcohol intake: never Substance Use Type: Marijuana Review of Systems Const Reports as per HPI Eyes Reports no additional complaints ENT Reports no additional complaints Card Reports no additional complaints Resp Reports as per HPI GI Reports as per HPI Reports as per HPI Musc Reports no additional complaints Neuro Reports no additional complaints Psych Reports as per HPI Endo Reports no additional complaints Manuel/Lymph Reports no additional complaints Aller/Immun Reports no additional complaints Physical Exam Const General: cooperative, healthy appearing, comfortable, no acute distress, well developed, alert and awake Orientation/consciousness: patient oriented x3 Limitations: no limitations HEENT Head: Yes normal to inspection, Yes normocephalic and Yes atraumatic Ears: hearing grossly normal bilaterally Eyes General: appearance normal, both eyes and all related structures Neck Neck: Yes normal visual inspection and Yes trachea midline Chest Chest palpation & inspection: normal inspection of the chest Resp Effort & Inspection: normal respiratory effort and able to speak in complete sentences Cardio Rate: regular rate GI Inspection: Yes normal to inspection General: Yes no CVA tenderness Back/Spine/Pelvis Back: no CVA tenderness Skin General skin exam: no rashes or lesions noted Neuro General: patient oriented x3 Extrem General: Yes normal to inspection Psych Appearance: grossly normal and well kempt Mental Status: mental status grossly normal Speech and movement: Normal speech and movement present and Clear speech present Affect: normal affect Attitude: cooperative Thought process: Normal thought process present Thought content: Normal thought content present Insight: Fair insight present (Psych) Judgement: Fair judgement present (Psych) Results AMB Urinalysis, Automated UA Leukoctes 0 Aida/uL Last Edit by Mayte Lemonisra Lemon [facility] on 11/22/23 15 :52 UA Nitrite Negative [facility] on 11/22/23 15: 52 UA Urobilinogen 0.2 mg/dL Last Edit by Mayte Lemonisra Lemon [facility] on 4 15:52 UA Protein 15 mg/dL [facility] on 11/22/23 15:5 2 UA pH 6.0 Last Edit by Mayte Lemonisra Lemon [facility] on 11/22/23 15:52 UA Blood 10 Senthil/uL Last Edit by Mayte Lemonisra Lemon [facility] on 11/22/23 15:52 UA Specific [place] 1.030 Last Edit by Mayte Lemonisra Lemon [facility] on 15:52 UA Ketone Negative Last Edit by Mayte Lemonisra Lemon [facility] on 11/22/23 15:5 2 UA Bilirubin 0 mg/dL Last Edit by Mayte Lemonisra Lemon [facility] on 11/22/23 15: 52 UA Glucose 0 mg/dL Last [facility] on 11/22/23 15:52 Results Reviewed Results Reviewed: Laboratory Last Values Urine pH (Auto) 6.0 11/22/23 15:45 Specific [place] (Auto) 1.030 11/22/23 15:45 Urine Protein (Auto) 15 mg/dL 11/22/23 15:45 Glucose (UA)(Auto) 0 mg/dL 11/22/23 15:45 Urine Ketones (Auto) Negative 11/22/23 15:45 Urine Blood (Auto) 10 Senthil/uL 11/22/23 15:45 Urine Nitrite (Auto) Negative 11/22/23 15:45 Urine Bilirubin (Auto) 0 mg/dL 11/22/23 15:45 Urine Urobilinogen (Auto) 0.2 mg/dL 11/22/23 15:45 Leukocyte Esterase (Auto) 0 Aida/uL 11/22/23 15:45 Date of Service: 09/17/23 EXAMINATION: CT ABDOMEN AND PELVIS WITHOUT CONTRAST LUNG BASES: Unremarkable. LIVER AND BILIARY TREE: Diffuse hepatic steatosis. Hepatomegaly with liver spanning 20 cm in craniocaudal dimension. GALLBLADDER: Unremarkable. PANCREAS: Unremarkable. SPLEEN: Unremarkable. ADRENAL GLANDS: Unremarkable. KIDNEYS AND URETERS: Tiny, 3 mm calculus at the right ureterovesicular junction with minimal upstream right hydroureteronephrosis and mild right perinephric fat stranding. Scattered additional nonobstructing bilateral renal calculi, measuring up to 4 mm on each side, not significantly changed in burden from 05/06/2023. GASTROINTESTINAL TRACT: Postoperative appearance from sleeve gastrectomy without abnormal fluid adjacent to the surgical anastomosis. Normal appendix. VASCULAR: Unremarkable LYMPH NODES: No lymphadenopathy. PERITONEUM: No ascites. A few small foci of scattered ventral abdominal pneumoperitoneum, most pronounced in the mid and upper abdomen, likely postoperative. BLADDER: Unremarkable. PELVIC VISCERA: Unremarkable. ABDOMINAL AND PELVIC WALL: Linear fat stranding traversing the epigastric abdominal wall to the ventral omental fat (series 4, image 274), may correlate to prior surgical port site. OSSEOUS STRUCTURES: Unremarkable. IMPRESSION: 1. Obstructing 3 mm calculus at the right ureterovesicular junction with minimal upstream right hydroureteronephrosis and mild likely reactive right perinephric fat stranding. 2. Expected postoperative appearance from sleeve gastrectomy with a few residual foci of scattered pneumoperitoneum. 3. Hepatomegaly with hepatic steatosis. Date of Service: 11/15/23 EXAMINATION: US RETROPERITONEAL LIMITED (RENAL ONLY) FINDINGS: RIGHT KIDNEY: 10.7 x 5.8 x 5.6 cm (SAG x AP x TRV). The kidney is normal in size, contour, and echogenicity. Renal cortical thickness is normal. No focal parenchymal lesions or hydronephrosis. At the lower pole, a 6 mm nonobstructing calculus is seen. LEFT KIDNEY: 11.2 x 5.4 x 4.7 cm (SAG x AP x TRV). The kidney is normal in size, contour, and echogenicity. Renal cortical thickness is normal. No calculi or focal parenchymal lesions. No hydronephrosis. IMPRESSION: A 6 cm nonobstructing right renal calculus is seen. No right renal calculus is seen. No hydronephrosis is noted bilaterally. Assessment & Plan Assessment & Plan (1) Renal calculi: Code(s): N20.0 - Calculus of kidney (2) Flank pain: Code(s): R10.9 - Unspecified abdominal pain Plan In office urinalysis results reviewed with the patient today; as noted above. Recent CT and ultrasound results reviewed with the patient today. No CVA tenderness noted on exam today bilaterally Discussed, educated, and stressed the importance of attempting to drink plenty of water daily. Continue vitamin B6 as discussed and prescribed. Discussed at length potential causes for nephrolithiasis Discussed obtaining CT KUB for further assessment evaluation. Discussed near future metabolic workup with 24 hour urine collection and labs. P.r.n. medication provided; for pain Follow-up in 1-2 weeks with imaging to be completed prior; or sooner with any issues, concerns, and or questions. Orders: Orders AMB Urinalysis Automated Today R33.9 - Retention of urine, unspecified CT kidney stone Today N20.0 - Calculus of kidney, R10.9 - Unspecified abdominal pain Medications: Refilled oxycodone Partial Fill upon patient request. 5 mg PO Q8H PRN 9 tabs 0RF pain Discontinued tamsulosin Discontinued Reason: Duplicate 0.4 mg PO DAILY 7 caps 0RF Patient Instructions: The patient had an opportunity to ask questions regarding the treatment plan. All questions were answered. Physical exam, labs, and imaging were discussed and reviewed in detail. As well as risks, benefits, and discussion of treatment choices. No major barriers to understanding were identified. The patient expressed understanding and agreement with the above treatment plan. The patient was made aware they should contact our office by phone for worsening of their current condition, the appearance of new symptoms, or with any questions or concerns. Compliance is encouraged with any medications and follow up testing that is ordered. It is a privilege to be allowed the opportunity to participate in? your urological care.? Again, if you have any questions or concerns If you have any questions or concerns please do not hesitate to contact me. The office is [phone]. This note is constructed using voice recognition software. While every effort has been made to ensure accuracy amusement centre manager errors may have been included. Yours sincerely, MELE Rock Coding Level of Care Code Est Pt Level 4 (46059) Diagnoses Renal calculi N20.0 Flank pain R10.9
== END 2023-11-22 16:15 | disposition home or self-care (01) ==
PROVIDERS: PCP Internal Medicine; Visit Provider Nurse Practitioner Family
DX: N20.0 Calculus of kidney (principal); R10.9 Unspecified abdominal pain
CPT/HCPCS: 99214

== ENCOUNTER → 2023-11-22 15:32 | Outpatient (BNVA) | payer OTHER, SELFPAY | PROVIDERS: PCP Internal Medicine; Visit Provider Nurse Practitioner Family | DX: N20.0 Calculus of kidney (principal); R10.9 Unspecified abdominal pain | CPT/HCPCS: 81003; 99212 ==

== ENCOUNTER 2023-12-14 07:12 | Outpatient (REF) | payer OTHER, SELFPAY ==
--- NOTE | ~2023-12-14 | CT_ITS ---
EXAMINATION: CT KIDNEY STONE CLINICAL INFORMATION: Calculus of kidney. COMPARISON: CT abdomen and pelvis 09/17/2023. TECHNIQUE: 5 mm thin axial and reformatted 3 mm thin sagittal and coronal images of abdomen and pelvis were obtained without contrast. DLP: 526 mGy-cm. This CT examination was performed using dose optimization technique as appropriate, variously including the following: Automated exposure control Adjustment of MA and/or KV according to patient size(this includes techniques or standardized protocols for targeted exams where dose is matched to indication/reason for exam; extremities or head. Use of iterative reconstruction techniques. FINDINGS: Lung Bases: Unremarkable. The heart size is normal. Liver, Gallbladder and Ducts: The liver is mildly enlarged measuring 20 cm in craniocaudad dimension, normal contour and mildly attenuated. No focal lesion or intrahepatic ductal dilatation seen. The gallbladder is unremarkable. Spleen: The spleen is normal size and density. There is punctate calcification at the splenic hilum. Pancreas: Unremarkable. Adrenal Glands: Unremarkable. Kidneys and Ureter: There is a 2 mm nonobstructive radiopaque calculus midpole and a 3 mm radiopaque calculus lower pole right kidney; the calculi are approximately 11.2 cm from the right posterior skin line. There is scarring along the lower pole right kidney. Previously seen radiopaque calculi in left kidney is not visualized at this time. No perinephric stranding seen. There is no caliectasis or hydronephrosis. The ureters are unremarkable. Lymphovascular Structures: The abdominal aorta is of normal caliber. No abnormal-sized retroperitoneal or mesenteric lymph nodes seen. GI Tract: There are gastric sleeve postsurgical changes in the epigastric region. The small bowel loops are normal caliber. Scattered stool and gas is seen in the colon without distention. Appendix is normal with likely appendicolith present. Abdominal Wall: Unremarkable. Pelvis: The uterus is anteverted and unremarkable. No adnexal mass or free fluid. No abnormal pelvic lymph nodes Osseous Structures: Unremarkable. CT/CT kidney stone IMPRESSION: 2 mm midpole and 3 mm lower pole radiopaque calculi left kidney without caliectasis or hydronephrosis. Previously visualized left renal calculi and right UVJ stones are not visualized. Stable gastric sleeve surgery changes. Mild hepatomegaly and hepatic steatosis are stable.
== END 2023-12-14 07:13 | disposition home or self-care (01) ==
LOC: HO.CT 07:12
PROVIDERS: PCP Internal Medicine; Visit Provider Nurse Practitioner Family
DX: N20.0 Calculus of kidney (principal); R10.9 Unspecified abdominal pain
CPT/HCPCS: 74176

== ENCOUNTER 2023-12-27 14:48 | Outpatient (AMB) | payer OTHER, SELFPAY ==
--- NOTE | 2023-12-27 14:51 | A.OFFVIS_ITS ---
Intake Intake Visit Reasons: 4w/CT KUB(set) Intake Note: Patient presents today for a follow up Meds- Tamsulosin, Vitamin B6, Allergies to Antibiotic- No Known Allergies Blood Thinner- None Housing Officer Required: No Accompanied by: Self / Same As Patient Allergies morphine [MORPHINE] Allergy (Severe, Verified 12/27/23 14:58) SWELLING ibuprofen [IBUPROFEN] Allergy (Intermediate, Verified 12/27/23 14:58) HIVES naproxen [NAPROXEN] Allergy (Intermediate, Verified 12/27/23 14:58) HIVES acetaminophen Allergy (Unknown, Verified 12/27/23 14:58) Rash tramadol [TRAMADOL] Allergy (Unknown, Verified 12/27/23 14:58) HIVES diphenhydramine [From Benadryl] Allergy (Verified 12/27/23 14:58) Hives ketorolac [From TORADOL] Adverse Reaction (Unknown, Verified 12/27/23 14:58) ITCHING Ibuprofen Allergy (Unknown, Uncoded 12/27/23 14:58) Hives Morphine Sulf Microinfusion PF Allergy (Unknown, Uncoded 12/27/23 14:58) Swelling HPI HPI Comments History of Present Illness Details Tracey is a 43-year-old female patient of Dr. Mak who was accompanied by her daughter at today's office visit. She has a past medical history of asthma, depression, and nephrolithiasis. She presents to the office today for follow-up of her nephrolithiasis. Recent CT KUB results reviewed with the patient today. There is a 2 mm nonobstructing radiopaque calculus mid pole and a 3 mm calculus lower pole right kidney. No perinephric stranding. No hydronephrosis. The ureters are unremarkable. It appears when compared to previous study patient has since passed her stone. In discussion with the patient today she reports she continues with infrequent intermittent bilateral flank pain. She has a longstanding history of nephrolithiasis requiring surgical intervention. Discussed at length potential causes of nephrolithiasis. Discussed further metabolic workup with 24 hour urine collection and labs. When asked she reports compliance with vitamin B6 as prescribed. She otherwise denies urinary urgency, urinary frequency, incontinence, nocturia, hematuria, dy suria, foul smelling urine, changes to urinary stream, flank pain, fever, and or chills. She is happy with her current voiding parameters. In office urinalysis results reviewed with the patient today. She otherwise offers no other issues or concerns at this time. [facility] Medical History Renal calculi Depression Asthma Sciatica Social History Alcohol intake: never Substance Use Type: Marijuana Review of Systems Const Reports as per HPI Eyes Reports no additional complaints ENT Reports no additional complaints Card Reports no additional complaints Resp Reports as per HPI GI Reports as per HPI Reports as per HPI Musc Reports no additional complaints Neuro Reports no additional complaints Psych Reports as per HPI Endo Reports no additional complaints Manuel/Lymph Reports no additional complaints Aller/Immun Reports no additional complaints Physical Exam Const General: cooperative, healthy appearing, comfortable, no acute distress, well developed, alert and awake Orientation/consciousness: patient oriented x3 Limitations: no limitations HEENT Head: Yes normal to inspection, Yes normocephalic and Yes atraumatic Ears: hearing grossly normal bilaterally Eyes General: appearance normal, both eyes and all related structures Neck Neck: Yes normal visual inspection and Yes trachea midline Chest Chest palpation & inspection: normal inspection of the chest Resp Effort & Inspection: normal respiratory effort and able to speak in complete sentences Cardio Rate: regular rate GI Inspection: Yes normal to inspection General: Yes no CVA tenderness Back/Spine/Pelvis Back: no CVA tenderness Skin General skin exam: no rashes or lesions noted Neuro General: patient oriented x3 Extrem General: Yes normal to inspection Psych Appearance: grossly normal and well kempt Mental Status: mental status grossly normal Speech and movement: Normal speech and movement present and Clear speech present Affect: normal affect Attitude: cooperative Thought process: Normal thought process present Thought content: Normal thought content present Insight: Fair insight present (Psych) Judgement: Fair judgement present (Psych) Results AMB Urinalysis, Automated UA Leukoctes 0 Aida/uL Last Edit by Mayte Lemon, [facility] on 12/27/23 15 :05 UA Nitrite Negative Last Edit by [facility], [facility] on 12/27/23 15: 05 UA Urobilinogen 0.2 mg/dL [facility] on 4 15:05 UA Protein 15 mg/dL Last Edit by [facility], [facility] on 12/27/23 15:0 5 UA pH 5.5 Last Edit by [facility], [facility] on 12/27/23 15:05 UA Blood 0 Senthil/uL Last Edit by [facility], [facility] on 12/27/23 15:05 UA Specific [place] 1.030 Last Edit by [facility], [facility] on 15:05 UA Ketone Negative Last Edit by [facility], [facility] on 12/27/23 15:0 5 UA Bilirubin 0 mg/dL Last Edit by [facility] on 12/27/23 15: 05 UA Glucose 0 mg/dL Last Edit by [facility] on 12/27/23 15:05 Results Reviewed Results Reviewed: Laboratory Last Values Urine pH (Auto) 5.5 12/27/23 14:55 Specific [place] (Auto) 1.030 12/27/23 14:55 Urine Protein (Auto) 15 mg/dL 12/27/23 14:55 Glucose (UA)(Auto) 0 mg/dL 12/27/23 14:55 Urine Ketones (Auto) Negative 12/27/23 14:55 Urine Blood (Auto) 0 Senthil/uL 12/27/23 14:55 Urine Nitrite (Auto) Negative 12/27/23 14:55 Urine Bilirubin (Auto) 0 mg/dL 12/27/23 14:55 Urine Urobilinogen (Auto) 0.2 mg/dL 12/27/23 14:55 Leukocyte Esterase (Auto) 0 Aida/uL 12/27/23 14:55 Date of Service: 12/14/23 Procedure(s): CT kidney stone FINDINGS: Lung Bases: Unremarkable. The heart size is normal. Liver, Gallbladder and Ducts: The liver is mildly enlarged measuring 20 cm in craniocaudad dimension, normal contour and mildly attenuated. No focal lesion or intrahepatic ductal dilatation seen. The gallbladder is unremarkable. Spleen: The spleen is normal size and density. There is punctate calcification at the splenic hilum. Pancreas: Unremarkable. Adrenal Glands: Unremarkable. Kidneys and Ureter: There is a 2 mm nonobstructive radiopaque calculus midpole and a 3 mm radiopaque calculus lower pole right kidney; the calculi are approximately 11.2 cm from the right posterior skin line. There is scarring along the lower pole right kidney. Previously seen radiopaque calculi in left kidney is not visualized at this time. No perinephric stranding seen. There is no caliectasis or hydronephrosis. The ureters are unremarkable. Lymphovascular Structures: The abdominal aorta is of normal caliber. No abnormal-sized retroperitoneal or mesenteric lymph nodes seen. GI Tract: There are gastric sleeve postsurgical changes in the epigastric region. The small bowel loops are normal caliber. Scattered stool and gas is seen in the colon without distention. Appendix is normal with likely appendicolith present. Abdominal Wall: Unremarkable. Pelvis: The uterus is anteverted and unremarkable. No adnexal mass or free fluid. No abnormal pelvic lymph nodes Osseous Structures: Unremarkable. IMPRESSION: 2 mm midpole and 3 mm lower pole radiopaque calculi left kidney without caliectasis or hydronephrosis. Previously visualized left renal calculi and right UVJ stones are not visualized. Stable gastric sleeve surgery changes. Mild hepatomegaly and hepatic steatosis are stable. Assessment & Plan Assessment & Plan (1) Renal calculi: Code(s): N20.0 - Calculus of kidney (2) Flank pain: Code(s): R10.9 - Unspecified abdominal pain Plan In office urinalysis results reviewed with the patient today; as noted above. Recent imaging results reviewed with the patient today; as noted above. No CVA tenderness noted on exam today bilaterally Discussed, educated, and stressed the importance of attempting to drink plenty of water daily. Continue vitamin B6 as discussed and prescribed. Discussed at length potential causes for nephrolithiasis Discussed obtaining metabolic workup with 24 hour urine collection and labs; however patient declines at this time. Patient currently denies any bothersome urinary issues or concerns. Reassurance provided. Will obtain renal ultrasound in 6 months. Follow-up in 6 months with imaging to be completed prior; or sooner with any issues, concerns, and or questions. Orders: Orders US renal BI 6 Months N20.0 - Calculus of kidney AMB Urinalysis Automated Today R33.9 - Retention of urine, unspecified Medications: Discontinued famotidine (Pepcid) Discontinued Reason: Patient Completed Course 20 mg PO DAILY 5 tabs 0RF cyclobenzaprine Discontinued Reason: Patient Completed Course 10 mg PO BID PRN 10 tabs 0RF muscle spasm celecoxib (Celebrex) Discontinued Reason: Patient Completed Course 100 mg PO BID 28 caps 0RF 14 days tamsulosin Discontinued Reason: Patient Completed Course 0.4 mg PO DAILY 10 caps 1RF to help pass kidney stones oxycodone Partial Fill upon patient request. Discontinued Reason: Patient no longer taking 5 mg PO Q8H PRN 9 tabs 0RF pain ondansetron Discontinued Reason: Patient Completed Course 8 mg PO Q6-8H 20 tabs 0RF Patient Instructions: The patient had an opportunity to ask questions regarding the treatment plan. All questions were answered. Physical exam, labs, and imaging were discussed and reviewed in detail. As well as risks, benefits, and discussion of treatment choices. No major barriers to understanding were identified. The patient expressed understanding and agreement with the above treatment plan. The patient was made aware they should contact our office by phone for worsening of their current condition, the appearance of new symptoms, or with any questions or concerns. Compliance is encouraged with any medications and follow up testing that is ordered. It is a privilege to be allowed the opportunity to participate in? your urological care.? Again, if you have any questions or con cerns If you have any questions or concerns please do not hesitate to contact me. The office is [phone]. This note is constructed using voice recognition software. While every effort has been made to ensure accuracy kieselguhr regenerator operator errors may have been included. Yours sincerely, MELE Rock Coding Level of Care Code Est Pt Level 3 (23985) Diagnoses Renal calculi N20.0 Flank pain R10.9
== END 2023-12-27 15:27 | disposition home or self-care (01) ==
PROVIDERS: PCP Internal Medicine; Visit Provider Nurse Practitioner Family
DX: N20.0 Calculus of kidney (principal); R10.9 Unspecified abdominal pain
CPT/HCPCS: 99213

== ENCOUNTER → 2023-12-27 14:48 | Outpatient (BNVA) | payer OTHER, SELFPAY | PROVIDERS: PCP Internal Medicine; Visit Provider Nurse Practitioner Family | DX: N20.0 Calculus of kidney (principal); R10.9 Unspecified abdominal pain | CPT/HCPCS: 81003; 99212 ==

== ENCOUNTER 2024-03-16 16:39 | Emergency (ER) | payer OTHER, SELFPAY ==
[2024-03-16 16:50] VITALS: BP 147/78; PULSE 74; RESP 18; TEMP 36.7; O2SAT 99; BMI 34.0
--- NOTE | 2024-03-16 16:52 | ED_ITS ---
HPI - Female Genitourinary General Chief complaint: Abdominal Pain Stated complaint: bleeding for 2+ weeks Time Seen by Provider: 03/16/24 20:11 Source: patient Mode of arrival: ambulatory Limitations: no limitations History of Present Illness ED Provider: Leno Toscano PA-C HPI Narrative: 43-year-old female with history of obesity, status post bariatric surgery 6 months ago who presents to the ER for evaluation of irregular vaginal bleeding for the last 2-3 weeks. Patient states she usually gets her menstrual cycle at the end of every month however got it warrants the earlier part of this month. She states she has been bleeding on and off for the last 3 weeks. She has been wearing a panty liner and feels small gushes of blood when she is up and about. No large passage of clots. She states with the bleeding she has had some nausea, lower back pain and feeling generally weak. She is afraid her blood counts are low. She denies history of anemia in the past. She states her older sister started going through perimenopause at her age. Patient has not seen her OBGYN in over 1 year. She states she has been having nausea and some epigastric discomfort for the last day or so as well. No vomiting or diarrhea. She is due to follow-up with her bariatric surgeon. elicited complaint: vaginal bleeding Onset (ago): week(s) Location of symptoms: suprapubic Severity: moderate Female Urogenital Radiation: Non-Radiating Quality of pain: cramping Consistency: intermittent Vaginal discharge: none Vaginal bleeding: moderate Urinary symptoms: Hematuria Exacerbating factors: movement Associated symptoms: abdominal pain Treatment prior to arrival: none Sexual activity: No Patient : No Related Data Home Medications ?Medication ?Instructions ?Recorded ?Confirmed topiramate 25 mg tablet 25 mg PO DAILY 05/25/23 05/25/23 Previous Rx's ?Medication ?Instructions ?Recorded potassium citrate 10 mEq (1,080 10 meq PO BID 90 days #180 tabs 05/25/23 mg) tablet,extended release pyridoxine (vitamin B6) 50 mg 50 mg PO DAILY 90 days #90 tabs 05/25/23 tablet ondansetron 4 mg disintegrating 4 mg PO Q8H PRN nausea and 03/16/24 tablet vomiting #7 tabs Allergies Allergy/AdvReac Type Severity Reaction Status Date / Time morphine [MORPHINE] Allergy Severe SWELLING Verified 03/16/24 16:54 ibuprofen [IBUPROFEN] Allergy Intermediate HIVES Verified 03/16/24 16:54 naproxen [NAPROXEN] Allergy Intermediate HIVES Verified 03/16/24 16:54 acetaminophen Allergy Unknown Rash Verified 03/16/24 16:54 tramadol [TRAMADOL] Allergy Unknown HIVES Verified 03/16/24 16:54 diphenhydramine Allergy Hives Verified 03/16/24 16:54 [From Benadryl] ketorolac [From TORADOL] AdvReac Unknown ITCHING Verified 03/16/24 16:54 Ibuprofen Allergy Unknown Hives Uncoded 12/27/23 14:58 Morphine Sulf Microinfusion Allergy Unknown Swelling Uncoded 12/27/23 14:58 PF Review of Systems 2 Review of Systems: Yes all other systems are reviewed and are negative [facility] Past Medical History Medical History Renal calculi Depression Asthma Sciatica Social History Social History Alcohol intake: never Substance Use Type: Marijuana Advance Directives: No Advance Directives Information Provided: No Do you have a plan to hurt others: No Plan Physical Exam 2 Vital Signs: Vital Signs: Last Vital Signs Temp 98.5 F 03/16/24 20:29 Pulse 59 03/16/24 20:29 Resp 18 03/16/24 20:29 BP 93/71 03/16/24 20:29 Pulse Ox 99 03/16/24 20:29 O2 Del Method Room Air 03/16/24 20:29 BMI result Body Mass Index 34.0 Appearance: Alert. Oriented X3. No acute distress. Head: normocephalic, atraumatic. Eyes: Pupils equal, round and reactive to light. ENT: Pharynx normal. No tonsillar swelling or exudate. Neck: Normal inspection. Neck supple. CVS: Normal heart rate and rhythm. Pulses normal. Respiratory: No respiratory distress. Breath sounds normal. Abdomen: Soft and nontender. +BS x4. Pelvic deferred Skin: Skin warm and dry. Normal skin color. Normal skin turgor. No rashes. Extremities: No lower extremity edema. No joint swelling. Neuro/psych: Oriented X 3. No motor deficit. No sensory deficit. CN II-XII intact. Normal speech and cognition. Course Course Course Narrative: This is a Rapid Medical Examination (RME) performed by Tg Rider PA-C in triage. Full HPI, ROS, assessment and treatment plan per primary provider in the Main ED. 43 yo female here for eval of intermittent vaginal spotting, lower abdominal cramping, nausea, headache, and b/l low back pain x3 weeks. is unable to decipher if the bleeding is coming from her vagina or her urethra. reports blood is more present when I urinate) . using panty liners at home. is not changing these very often. has not followed up with OBGYN for this. admits to hx of renal stones, reports back pain feels similar to this. not on AC. well appearing. obese abd. soft, ND/NT. No cvat. Plan: labs, UA ordered Medical Decision Making Medical Decision Making [facility] Narrative: 53-year-old female presents to the ER for evaluation of irregular vaginal bleeding for the last 3 weeks. Patient is vital signs are stable on arrival. Her exam is benign. She is declining a pelvic examination today and would like to follow-up with her OBGYN for this. Her lab work was reviewed and reveals an H and H of 13/39.4. She has not anemic. What she is describing is small amounts of bleeding, only requiring a panty liner. Urinalysis is not showing any evidence of infection. Doubt any kidney stones given her descriptions of the pain being more suprapubic and cramping in nature. At this time comfortable discharge home with outpatient follow-up with her OBGYN, bariatric surgeon. Patient agrees with plan. Differential Diagnosis Differential Diagnoses: The differential diagnosis associated with the presentation includes Perimenopausal bleeding, dysfunctional uterine bleeding, , fibroids, endometriosis Lab Data [facility] Lab Attestation statement: I reviewed the patient's lab results. No evidence of anemia, normal renal function 03/16/24 17:18 03/16/24 17:18 Labs: Lab Results 03/16/24 Range/Units 17:18 WBC 8.1 (4.8-10.8) X10*3/uL RBC 4.70 (4.20-5.50) X10*6/uL Hgb 13.0 (12.0-16.0) g/dl Hct 39.4 (37.0-47.0) % MCV 83.8 (80.0-98.0) fL MCH 27.7 (27.0-33.0) pg MCHC 33.0 (31.0-35.0) g/dl RDW 13.7 (11.0-16.0) % Plt Count 252 D (160-400) X10*3/uL MPV 10.0 (9.4-12.3) fL Immature Gran % (Auto) 0.2 (0.0-0.4) % Neut % (Auto) 64.7 (45-73) % Lymph % (Auto) 27.7 (20-40) % [place] % (Auto) 6.3 (2-11) % Eos % (Auto) 0.7 (0-4) % Baso % (Auto) 0.4 (0-2) % Lymph # (Auto) 2.2 (1.2-4.9) X10*3/uL [place] # (Auto) 0.5 (0.1-1.2) X10*3/uL Eos # (Auto) 0.1 (0.0-0.4) X10*3/uL Baso # (Auto) 0.0 (0.0-0.2) X10*3/uL Abs Immat Gran (auto) 0.02 (0.00-0.03) X10*3/uL Absolute Neuts (auto) 5.2 (2.0-8.3) x10*3/uL Absolute Nucleated RBC 0.000 (0.0-0.012) X10*3/uL Nucleated RBC % (auto) 0.0 (0.0-0.2) /100WBC Sodium 139 (135-145) mmol/L Potassium 4.4 (3.3-5.1) mmol/L Chloride 106 (96-108) mmol/L Carbon Dioxide 27 (22-29) mmol/L Anion Gap 10 L (12-20) BUN 14 (9-16) mg/dL Creatinine 0.67 (0.5-1.4) mg/dL Estim Creat Clear Calc 98.5 Estimated GFR > 60 Random Glucose 82 (60-115) mg/dL Calcium 9.4 (8.4-10.2) mg/dL Magnesium 1.9 (1.6-2.6) mg/dL Total Bilirubin 0.4 (0.0-1.0) mg/dL AST 21 (5-31) U/L ALT 15 (0-31) U/L Alkaline Phosphatase 87 (39-117) U/L Total Protein 7.0 (6.5-8.0) g/dL Albumin 3.9 (3.5-5.0) g/dL Lipase 24 (8-78) U/L Urine Color Dark Yellow Urine Appearance Cloudy Urine pH 5.5 (5.0-9.0) Ur Specific [place] 1.025 (1.005-1.025) Urine Protein Trace (Neg-Trace) mg/dL Urine Glucose (UA) Negative (Negative) mg/dL Urine Ketones Trace (Negative) mg/dL Urine Blood Large (3+) H (Negative) Urine Nitrite Negative (Negative) Ur Leukocyte Esterase Negative (Negative) Urine RBC >20 H (0-2) /HPF Urine WBC 0-5 (0-5) /HPF Ur Squamous Epith Cells 3-5 (0-2) /HPF Calcium Oxalate Crystal Present Urine Bacteria None Seen (None Seen) Hyaline Casts 0-2 (0-2) /LPF Urine Test NEGATIVE (NEGATIVE) External Record Review External record reviewed: Outpatient record and Prior outpatient labs Tests considered The following testing was considered but not selected: Pelvic ultrasound was considered however not indicated emergently today Prescription Management I considered prescription management with: Pain Medication Chronic Conditions Patient?s care impacted by: Other (Obesity) Critical Care Time Critical Care Time Critical Care Time: No Discharge Plan Discharge Clinical Impression: Abnormal vaginal bleeding Patient Disposition: Home, Self-Care Instructions: Dysfunctional Uterine Bleeding (ED) Additional Instructions: Your blood counts today were normal, no evidence of anemia. Your urine test did not show any evidence of infection. Recommend taking the prescribed nausea medication as needed. Rest and drink plenty of fluids. It is important that you follow-up with your OBGYN provider for full evaluation and treatment. Your vaginal bleeding is most likely due to perimenopausal state. You may expect irregular vaginal bleeding for the next several months to years. If you develop new or worsening symptoms call 911 or come back to the ER for further evaluation. Prescriptions: New ondansetron 4 mg tablet,disintegrating 4 mg PO Q8H PRN (Reason: nausea and vomiting) Qty: 7 0RF No Action topiramate 25 mg tablet 25 mg PO DAILY pyridoxine (vitamin B6) 50 mg tablet 50 mg PO DAILY 90 Days Qty: 90 3RF potassium citrate 10 mEq (1,080 mg) tablet extended release 10 meq PO BID 90 Days Qty: 180 3RF Referrals: Dejan Mak MD [Primary Care Provider] - Print Language: Icelandic
[2024-03-16 17:23] LABS: MANUAL DIFF FLAG NO
[2024-03-16 17:34] LABS: Appearance Urine Cloudy; Color Urine Dark Yellow; Glucose Urine UA Negative (Negative); Leukocyte Esterase Urine Negative (Negative); Nitrite Urine Negative (Negative); PH 5.5 (5.0-9.0); Specific Gravity - Urine 1.025 (1.005-1.025); UMIC TRIGGER UACC YES; Urine Blood Large (3+) (Negative); Urine Ketones Trace mg/dL (Negative); Urine Protein Trace mg/dL (Neg-Trace)
[2024-03-16 17:38] LABS: Basophils Percent Auto 0.4 % (0-2); Eosinophils Absolute Auto 0.1 X10*3/uL (0.0-0.4); Eosinophils Percent Auto 0.7 % (0-4); Hematocrit 39.4 % (37.0-47.0); Imm Gran Abs Auto 0.02 X10*3/uL (0.00-0.03); Imm Gran Pct Auto 0.2 % (0.0-0.4); Lymphocytes Absolute Auto 2.2 X10*3/uL (1.2-4.9); Lymphocytes Percent Auto 27.7 % (20-40); Mean Corpuscular Hemoglobin 27.7 pg (27.0-33.0); Mean Corpuscular Volume 83.8 fL (80.0-98.0); Monocytes Absolute Auto 0.5 X10*3/uL (0.1-1.2); Monocytes Percent Auto 6.3 % (2-11); Neutrophils Absolute Auto 5.2 x10*3/uL (2.0-8.3); Neutrophils Percent Auto 64.7 % (45-73); Platelet Count 252 X10*3/uL (160-400); Red Cell Distribution Width 13.7 % (11.0-16.0); White Blood Count 8.1 X10*3/uL (4.8-10.8)
[2024-03-16 17:40] LABS: UPreg QC Valid YES; Urine Pregnancy NEGATIVE (NEGATIVE)
[2024-03-16 17:42] LABS: Alanine Aminotransferase 15 U/L (0-31); Albumin Level 3.9 g/dL (3.5-5.0); Alkaline Phosphatase 87 U/L (39-117); Anion Gap 10 (12-20); Aspartate Amino Transferase 21 U/L (5-31); Bilirubin Total 0.4 mg/dL (0.0-1.0); Blood Urea Nitrogen 14 mg/dL (9-16); Calcium 9.4 mg/dL (8.4-10.2); Carbon Dioxide 27 mmol/L (22-29); Chloride 106 mmol/L (96-108); Creatinine Clr Calc Pharmacy 98.5; Estimated Glomerular Filt Rate > 60; Glucose Random 82 mg/dL (60-115); Lipase 24 U/L (8-78); Magnesium 1.9 mg/dL (1.6-2.6); Potassium 4.4 mmol/L (3.3-5.1); Sodium 139 mmol/L (135-145)
[2024-03-16 17:59] LABS: Bacteria Urine None Seen (None Seen); Calcium Oxalate Crystals Urine Present; Hyaline Casts Urine 0-2 /LPF (0-2); RBC Urine >20 /HPF (0-2); WBC Urine 0-5 /HPF (0-5)
[2024-03-16 20:29] VITALS: BP 93/71; PULSE 59; RESP 18; TEMP 36.9; O2SAT 99
[2024-03-16 21:05] VITALS: BP 116/71; PULSE 66; RESP 18; TEMP 36.9; O2SAT 99
== END 2024-03-16 21:06 | disposition home or self-care (01) ==
PROVIDERS: Physician Assistant Medical; Emergency Provider Emergency Medicine Emergency Medical Services; PCP Internal Medicine
DX: N93.9 Abnormal uterine and vaginal bleeding, unspecified (principal); Z98.84 Bariatric surgery status
CPT/HCPCS: 36415; 80053; 81001; 81025; 83690; 83735; 85025; 99283; 99284

== ENCOUNTER 2024-06-05 04:56 | Emergency (ER) | payer OTHER, SELFPAY ==
--- NOTE | ~2024-06-05 | XR_ITS ---
EXAMINATION: XR CHEST CLINICAL INFORMATION: Chest pain. COMPARISON: CTA chest dated 09/14/2023. TECHNIQUE: PA and lateral views of the chest. FINDINGS: The lungs are clear. The cardiomediastinal silhouette is normal in size. There is no pleural effusion or pneumothorax. No acute osseous abnormality. XR/XR chest 2V IMPRESSION: No acute cardiopulmonary findings. Electronically signed by: Shahbaz Titus MD 06/05/2024 11:04 AM EDT
[2024-06-05 05:07] VITALS: BP 123/84; PULSE 61; RESP 18; TEMP 36.8; O2SAT 100; BMI 32.5
--- NOTE | 2024-06-05 05:12 | MHC.EDTECH ---
Patient brought into triage area,covid,and strep swab obtained and sent to lab
[2024-06-05 05:30] LABS: IDNOW Serial# 08D9AD1C; Strep A Nucleic Acid Negative (Negative)
[2024-06-05 05:36] LABS: COVID-19 Test Negative (Negative); IDNOW Serial# 152EDE1D
[2024-06-05 05:41] VITALS: BP 107/69; PULSE 57; RESP 18; TEMP 36.7; O2SAT 94
--- NOTE | 2024-06-05 06:31 | ED_ITS ---
HPI - General Adult General Chief complaint: General Medical Stated complaint: cough Time Seen by Provider: 06/05/24 06:31 Source: patient and RN notes reviewed Mode of arrival: ambulatory Limitations: no limitations History of Present Illness ED Provider: Isabel Montoya PA-C HPI narrative: This is a 43-year-old female, with a history of asthma, presents to the emergency department with complaints of cough and sore throat for the last 3 days. Patient states that over the last 3 days she has had a slight cough which has progressively worsened over the last 2 days. She states that cough is dry, and is accompanied by shortness of breath. She also reports constant chest pain, worsening with cough. Denies any palpitations. Denies any abdominal pain, nausea, vomiting or diarrhea. No sick contacts. She has been taking [id number] cold medicine without any relief. No other complaints or concerns at this time. MD complaint: Cough, chest pain, sore throat Onset (ago): day(s) Quality: aching Pain Consistency: constant Relieving factors: none Exacerbating factors: none Associated symptoms: denies other symptoms Treatments prior to arrival: none Related Data Home Medications ?Medication ?Instructions ?Recorded ?Confirmed topiramate 25 mg tablet 25 mg PO DAILY 05/25/23 05/25/23 Previous Rx's ?Medication ?Instructions ?Recorded potassium citrate 10 mEq (1,080 10 meq PO BID 90 days #180 tabs 05/25/23 mg) tablet,extended release pyridoxine (vitamin B6) 50 mg 50 mg PO DAILY 90 days #90 tabs 05/25/23 tablet ondansetron 4 mg disintegrating 4 mg PO Q8H PRN nausea and 03/16/24 tablet vomiting #7 tabs benzonatate 100 mg capsule 100 mg PO TID PRN cough #10 caps 06/05/24 Allergies Allergy/AdvReac Type Severity Reaction Status Date / Time morphine [MORPHINE] Allergy Severe SWELLING Verified 06/05/24 05:08 ibuprofen [IBUPROFEN] Allergy Intermediate HIVES Verified 06/05/24 05:08 naproxen [NAPROXEN] Allergy Intermediate HIVES Verified 06/05/24 05:08 acetaminophen Allergy Unknown Rash Verified 06/05/24 05:08 tramadol [TRAMADOL] Allergy Unknown HIVES Verified 06/05/24 05:08 diphenhydramine Allergy Hives Verified 06/05/24 05:08 [From Benadryl] ketorolac [From TORADOL] AdvReac Unknown ITCHING Verified 06/05/24 05:08 Ibuprofen Allergy Unknown Hives Uncoded 06/05/24 05:08 Morphine Sulf Microinfusion Allergy Unknown Swelling Uncoded 06/05/24 05:08 PF Review of Systems 2 Review of Systems: Yes all other systems are reviewed and are negative Constitutional: Constitutional: Reports as per HPI [facility] Past Medical History Medical History Renal calculi Depression Asthma Sciatica Social History Social History Alcohol intake: never Smoked in Last 30 Days: No Use of substances other than those prescribed or required for medical reasons: No Substance Use Type: Marijuana Advance Directives: No Advance Directives Information Provided: Yes Do you have a plan to hurt others: No Plan Physical Exam ED Vital Signs: Vital Signs - 24 hr 06/05/24 05:07 06/05/24 05:41 06/05/24 07:51 Temperature 98.3 F 98.0 F 98.0 F Pulse Rate 61 57 62 Respiratory Rate 18 18 16 Blood Pressure 123/84 107/69 114/80 Pulse Oximetry 100 94 97 Oxygen Delivery Method Room Air Room Air Room Air 06/05/24 10:24 06/05/24 12:24 06/05/24 13:12 Temperature 98.2 F 97.8 F 97.8 F Pulse Rate 53 50 50 Respiratory Rate 18 15 15 Blood Pressure 123/80 109/74 109/74 Pulse Oximetry 96 99 99 Oxygen Delivery Method Room Air Room Air Room Air BMI result Body Mass Index 32.5 Const General: cooperative, comfortable and no acute distress Orientation/consciousness: patient oriented x3 Limitations: no limitations HENMT Head: Yes normal to inspection, Yes normocephalic and Yes atraumatic Ears: hearing grossly normal bilaterally and TM's normal bilaterally General nose exam: Normal external nose present Face and sinus: Yes normal facial exam Mouth: Normal oral and palatal mucosa present, oropharynx normal and moist mucous membranes Throat: Yes posterior oropharynx normal Eyes General: appearance normal, both eyes and all related structures Eyelids: Yes eyelids normal Conjunctivae: conjunctivae normal Sclerae: sclerae normal Pupils: Equal, round and reactive pupils present EOM: EOMs intact bilaterally Neck Neck: Yes normal visual inspection, Yes full ROM and Yes no lymphadenopathy Lymphatic: no lymphadenopathy noted Chest Other: Mild tenderness palpation along the anterior chest wall. Chest palpation & inspection: normal inspection of the chest Resp Effort & Inspection: normal respiratory effort and able to speak in complete sentences Auscultation: clear to auscultation bilaterally, no crackles, no rales, no rhonchi and no wheezes Cardio Rate: regular rate Rhythm: regular rhythm Heart sounds: S1 normal heart sound present and S2 normal heart sound present GI Inspection: Yes normal to inspection Skin General skin exam: no rashes or lesions noted Trauma: no lacerations or abrasions Wounds: no wounds Neuro General: patient oriented x3 and moves all extremities Cranial nerves: Yes Equal, round and reactive pupils present Extrem General: Yes normal to inspection Right upper extremity: normal to inspection Left upper extremity: normal to inspection Right lower extremity: normal to inspection Left lower extremity: normal to inspection Course Reevaluation(s) Reevaluation #1: Labs returned, she has no leukocytosis, normocytic anemia noted with an H and H of 11.6 and 35.2 chemistry within normal limits. Troponin 45.1. Repeat EKG shows no changes. It is unlikely that this is cardiac in nature. She has had chest pain ongoing for the last 2 days, worsening with coughing. We will repeat 2nd troponin at 10:30 a.m.. We will continue to closely monitor. She tested negative for COVID and strep. Chest x-ray still pending at this time. Time: 08:36 Reevaluation #2: Patient's initial trop was elevated, repeated twice, less than 2.7. I discussed this with my attending physician, Dr. Ledesma. This is likely a lab error, as it is very unlikely that she had an elevated troponin at 43 and then had 2- troponins. She has remained stable, is not complaining of any chest pain, only reproducible chest pain with coughing. It is unclear what caused this elevation however this is unlikely cardiac in nature. She has no cardiac risk factors. This may be a lab error as this is highly unlikely that her 1st troponin was 43 and then became negative. Discussed findings with patient. Her symptoms are likely consistent with a URI. Discussed strict return precautions. She understands and agrees with plan. Patient stable for discharge. Medications Administered Discontinued Medications Generic Name Dose Route Start Last Admin Trade Name Yash PRN Reason Stop Dose Admin Benzonatate 100 mg 06/05/24 06:43 06/05/24 07:15 Benzonatate 100 Mg Capsule PO 06/05/24 06:44 100 mg ONCE ONE Administration Medical Decision Making Medical Decision Making [facility] Narrative: This is a 43-year-old female who presents to the emergency department with complaints of cough and sore throat for the last 2 days. On arrival, vital signs within normal limits. She is nontoxic appearing and speaking full sentences. She does have mild chest wall tenderness with palpation. Lungs are clear to auscultation bilaterally. Differential diagnoses include pneumonia, URI, COVID, ACS strep, [employer] unlikely. Plan: Labs, EKG, chest x-ray, Tessalon Differential Diagnosis Differential Diagnoses: The differential diagnosis associated with the presentation includes See above Admission/Observation Consideration of admission/observation: Escalation of care including admission/observation considered Lab Data [facility] Lab Attestation statement: I reviewed the patient's lab results. Negative COVID, strep 06/05/24 07:24 06/05/24 12:32 Labs: Lab Results 06/05/24 06/05/24 06/05/24 Range/Units 05:12 07:24 10:30 WBC 7.2 (4.8-10.8) X10*3/uL RBC 4.21 (4.20-5.50) X10*6/uL Hgb 11.6 L (12.0-16.0) g/dl Hct 35.2 L (37.0-47.0) % MCV 83.6 (80.0-98.0) fL MCH 27.6 (27.0-33.0) pg MCHC 33.0 (31.0-35.0) g/dl RDW 12.8 (11.0-16.0) % Plt Count 224 (160-400) X10*3/uL MPV 10.0 (9.4-12.3) fL Immature Gran % (Auto) 0.3 (0.0-0.4) % Neut % (Auto) 61.4 (45-73) % Lymph % (Auto) 28.0 (20-40) % [place] % (Auto) 6.8 (2-11) % Eos % (Auto) 3.2 (0-4) % Baso % (Auto) 0.3 (0-2) % Lymph # (Auto) 2.0 (1.2-4.9) X10*3/uL [place] # (Auto) 0.5 (0.1-1.2) X10*3/uL Eos # (Auto) 0.2 (0.0-0.4) X10*3/uL Baso # (Auto) 0.0 (0.0-0.2) X10*3/uL Abs Immat Gran (auto) 0.02 (0.00-0.03) X10*3/uL Absolute Neuts (auto) 4.4 (2.0-8.3) x10*3/uL Absolute Nucleated RBC 0.000 (0.0-0.012) X10*3/uL Nucleated RBC % (auto) 0.0 (0.0-0.2) /100WBC Sodium 142 (135-145) mmol/L Potassium 3.9 (3.3-5.1) mmol/L Chloride 109 H (96-108) mmol/L Carbon Dioxide 24 (22-29) mmol/L Anion Gap 13 (12-20) BUN 13 (9-16) mg/dL Creatinine 0.67 (0.5-1.4) mg/dL Estim Creat Clear Calc 96.3 Estimated GFR > 60 Random Glucose 86 (60-115) mg/dL Calcium 9.1 (8.4-10.2) mg/dL Magnesium 1.9 (1.6-2.6) mg/dL Total Bilirubin 0.3 (0.0-1.0) mg/dL Direct Bilirubin 0.1 (0.0-0.5) mg/dL AST 19 (5-31) U/L ALT 14 (0-31) U/L Alkaline Phosphatase 88 (39-117) U/L Troponin I High Sens 45.1 H D < 2.7 D (<3.5-17.0) ng/L B-Natriuretic Peptide 38 (<100) pg/mL Total Protein 6.5 (6.5-8.0) g/dL Albumin 3.8 (3.5-5.0) g/dL COVID-19 (JENNIFER) Negative (Negative) COVID-19 Clin Com See Note S. pyogenes GrpA ALEKSANDR Negative (Negative) 06/05/24 Range/Units 12:32 WBC (4.8-10.8) X10*3/uL RBC (4.20-5.50) X10*6/uL Hgb (12.0-16.0) g/dl Hct (37.0-47.0) % MCV (80.0-98.0) fL MCH (27.0-33.0) pg MCHC (31.0-35.0) g/dl RDW (11.0-16.0) % Plt Count (160-400) X10*3/uL MPV (9.4-12.3) fL Immature Gran % (Auto) (0.0-0.4) % Neut % (Auto) (45-73) % Lymph % (Auto) (20-40) % [place] % (Auto) (2-11) % Eos % (Auto) (0-4) % Baso % (Auto) (0-2) % Lymph # (Auto) (1.2-4.9) X10*3/uL [place] # (Auto) (0.1-1.2) X10*3/uL Eos # (Auto) (0.0-0.4) X10*3/uL Baso # (Auto) (0.0-0.2) X10*3/uL Abs Immat Gran (auto) (0.00-0.03) X10*3/uL Absolute Neuts (auto) (2.0-8.3) x10*3/uL Absolute Nucleated RBC (0.0-0.012) X10*3/uL Nucleated RBC % (auto) (0.0-0.2) /100WBC Sodium 140 (135-145) mmol/L Potassium 4.1 (3.3-5.1) mmol/L Chloride 109 H (96-108) mmol/L Carbon Dioxide 24 (22-29) mmol/L Anion Gap 11 L (12-20) BUN 12 (9-16) mg/dL Creatinine 0.62 (0.5-1.4) mg/dL Estim Creat Clear Calc 104.0 Estimated GFR > 60 Random Glucose 83 (60-115) mg/dL Calcium 9.1 (8.4-10.2) mg/dL Magnesium (1.6-2.6) mg/dL Total Bilirubin (0.0-1.0) mg/dL Direct Bilirubin (0.0-0.5) mg/dL AST (5-31) U/L ALT (0-31) U/L Alkaline Phosphatase (39-117) U/L Troponin I High Sens < 2.7 (<3.5-17.0) ng/L B-Natriuretic Peptide (<100) pg/mL Total Protein (6.5-8.0) g/dL Albumin (3.5-5.0) g/dL COVID-19 (JENNIFER) (Negative) COVID-19 Clin Com S. pyogenes GrpA ALEKSANDR (Negative) Independent Interpretation I performed an independent interpretation of an: EKG Interpretation: EKG - 06/05/2024649 - normal sinus rhythm at a ventricular rate of 60 beats per minute, MA interval 156, QT QTC 438/438, no STEMI EKG 06/05/2024818 - sinus bradycardia at a ventricular rate of 57 beats per minute, no ST elevation Radiology Impression Discussion of test interpretation with radiology: I have reviewed the radiologist's reading. Radiologist Impression: FINDINGS: The lungs are clear. The cardiomediastinal silhouette is normal in size. There is no pleural effusion or pneumothorax. No acute osseous abnormality. IMPRESSION: No acute cardiopulmonary findings. Discharge Plan Discharge Clinical Impression: Acute upper respiratory infection Patient Disposition: Home, Self-Care Instructions: Upper Respiratory Infection (ED) Additional Instructions: You were seen in the emergency department due to cough and sore throat. Your workup today was reassuring. We will likely have a virus that is causing him to have these symptoms. Please rest, drink plenty of fluids and take prescribed Tessalon as needed. Saltwater gargles, warm tea with honey, and cold fluids could also help with your sore throat. Follow up with your primary care physician. If any new or worsening symptoms occur including but not limited to chest pain, shortness of breath, difficulty breathing, please return for re-evaluation. Prescriptions: New benzonatate 100 mg capsule 100 mg PO TID PRN (Reason: cough) Qty: 10 0RF No Action ondansetron 4 mg tablet,disintegrating 4 mg PO Q8H PRN (Reason: nausea and vomiting) Qty: 7 0RF topiramate 25 mg tablet 25 mg PO DAILY pyridoxine (vitamin B6) 50 mg tablet 50 mg PO DAILY 90 Days Qty: 90 3RF potassium citrate 10 mEq (1,080 mg) tablet extended release 10 meq PO BID 90 Days Qty: 180 3RF Interventions: ED Discharge Assessment Last Done: 06/05/24 13:12 Discharge Date/Time: 06/05/24 13:15 Print Language: [place]
--- NOTE | 2024-06-05 06:43 | ECG_ITS ---
Test Reason : GEN MED Blood Pressure : / mmHG Vent. Rate : 060 BPM Atrial Rate : 060 BPM P-R Int : 156 ms QRS Dur : 092 ms QT Int : 438 ms P-R-T Axes : 037 023 024 degrees QTc Int : 438 ms Normal sinus rhythm Normal ECG When compared with ECG of 14-SEP-2023 12:07, Vent. rate has decreased BY 31 BPM Referred By: Isabel Montoya Electronically Signed By:KEY SANTOS
[2024-06-05] MEDS: Benzonatate 100 MG CAPSULE PO (07:15)
[2024-06-05 07:28] LABS: MANUAL DIFF FLAG NO
[2024-06-05 07:29] LABS: Basophils Percent Auto 0.3 % (0-2); Eosinophils Absolute Auto 0.2 X10*3/uL (0.0-0.4); Eosinophils Percent Auto 3.2 % (0-4); Hematocrit 35.2 % (37.0-47.0); Hemoglobin 11.6 g/dl (12.0-16.0); Imm Gran Abs Auto 0.02 X10*3/uL (0.00-0.03); Imm Gran Pct Auto 0.3 % (0.0-0.4); Mean Corpuscular Hemoglobin 27.6 pg (27.0-33.0); Mean Corpuscular Volume 83.6 fL (80.0-98.0); Monocytes Absolute Auto 0.5 X10*3/uL (0.1-1.2); Monocytes Percent Auto 6.8 % (2-11); Neutrophils Absolute Auto 4.4 x10*3/uL (2.0-8.3); Neutrophils Percent Auto 61.4 % (45-73); Platelet Count 224 X10*3/uL (160-400); Red Blood Count 4.21 X10*6/uL (4.20-5.50); Red Cell Distribution Width 12.8 % (11.0-16.0); White Blood Count 7.2 X10*3/uL (4.8-10.8)
[2024-06-05 07:45] LABS: Alanine Aminotransferase 14 U/L (0-31); Albumin Level 3.8 g/dL (3.5-5.0); Alkaline Phosphatase 88 U/L (39-117); Anion Gap 13 (12-20); Aspartate Amino Transferase 19 U/L (5-31); Bilirubin Direct 0.1 mg/dL (0.0-0.5); Bilirubin Total 0.3 mg/dL (0.0-1.0); Blood Urea Nitrogen 13 mg/dL (9-16); Calcium 9.1 mg/dL (8.4-10.2); Carbon Dioxide 24 mmol/L (22-29); Chloride 109 mmol/L (96-108); Creatinine Clr Calc Pharmacy 96.3; Estimated Glomerular Filt Rate > 60; Glucose Random 86 mg/dL (60-115); Magnesium 1.9 mg/dL (1.6-2.6); Potassium 3.9 mmol/L (3.3-5.1); Sodium 142 mmol/L (135-145); Total Protein 6.5 g/dL (6.5-8.0)
[2024-06-05 07:51] VITALS: BP 114/80; PULSE 62; RESP 16; TEMP 36.7; O2SAT 97
[2024-06-05 07:52] LABS: Troponin-I High Sensitivity 45.1 ng/L (<3.5-17.0)
--- NOTE | 2024-06-05 08:11 | ECG_ITS ---
Test Reason : elevated trop Blood Pressure : / mmHG Vent. Rate : 057 BPM Atrial Rate : 057 BPM P-R Int : 160 ms QRS Dur : 090 ms QT Int : 432 ms P-R-T Axes : 035 019 024 degrees QTc Int : 420 ms Sinus bradycardia Otherwise normal ECG When compared with ECG of 05-JUN-2024 06:50, No significant change was found Referred By: Isabel Montoya Electronically Signed By:KEY SANTOS
[2024-06-05 09:10] LABS: B Type Natriuretic Peptide 38 pg/mL (<100)
[2024-06-05 10:24] VITALS: BP 123/80; PULSE 53; RESP 18; TEMP 36.8; O2SAT 96
[2024-06-05 11:00] LABS: Troponin-I High Sensitivity < 2.7 ng/L (<3.5-17.0)
[2024-06-05 12:24] VITALS: BP 109/74; PULSE 50; RESP 15; TEMP 36.6; O2SAT 99
[2024-06-05 12:52] LABS: Anion Gap 11 (12-20); Blood Urea Nitrogen 12 mg/dL (9-16); Calcium 9.1 mg/dL (8.4-10.2); Carbon Dioxide 24 mmol/L (22-29); Chloride 109 mmol/L (96-108); Estimated Glomerular Filt Rate > 60; Glucose Random 83 mg/dL (60-115); Potassium 4.1 mmol/L (3.3-5.1); Sodium 140 mmol/L (135-145)
[2024-06-05 13:01] LABS: Troponin-I High Sensitivity < 2.7 ng/L (<3.5-17.0)
[2024-06-05 13:12] VITALS: BP 109/74; PULSE 50; RESP 15; TEMP 36.6; O2SAT 99
== END 2024-06-05 13:15 | disposition home or self-care (01) ==
PROVIDERS: Emergency Medicine; Physician Assistant Medical; Emergency Provider Emergency Medicine
DX: J39.8 Other specified diseases of upper respiratory tract (principal); J02.9 Acute pharyngitis, unspecified; R05.9 Cough, unspecified; R00.2 Palpitations; R06.02 Shortness of breath; R00.1 Bradycardia, unspecified; Z11.52 Encounter for screening for COVID-19; Z79.899 Other long term (current) drug therapy
CPT/HCPCS: 36415; 71046; 80048; 80076; 83735; 83880; 84484; 85025; 87635; 87651; 93005; 99283; 99284

== ENCOUNTER 2024-06-28 10:23 | Emergency (ER) | payer OTHER, SELFPAY ==
--- NOTE | ~2024-06-28 | CT_ITS ---
EXAMINATION: CT HEAD WITHOUT CONTRAST CLINICAL INFORMATION: Left facial tingling COMPARISON: None TECHNIQUE: Contiguous axial imaging was performed from the skull base to vertex without intravenous administration of contrast. This CT examination was performed using dose optimization techniques as appropriate, variously including the following: *Automated exposure control *Adjustment of mA and/or kV according to patient size (this includes techniques or standardized protocols for targeted exams where dose is matched to indication/reason for exam; i.e. extremities or head) *Use of iterative reconstruction technique DLP: 619.79 mGy-cm FINDINGS: There is no evidence of acute intracranial hemorrhage or territorial infarction. No abnormal mass effect or midline shift is seen. [place] to white matter differentiation is well preserved. No extra-axial fluid collections are identified. The ventricles are normal in size. There is no abnormal attenuation within the brain parenchyma. The osseous structures and soft tissues are normal. The mastoid air cells and visualized portions of the paranasal sinuses are well aerated. CT/CT cervical spine wo IV con IMPRESSION: No acute intracranial pathology. EXAMINATION: Noncontrast CT scan of the cervical spine. INDICATION: Left facial tingling COMPARISON: None. TECHNIQUE: Helical, multidetector axial images were obtained from the occiput to the upper thorax. Coronal and sagittal reformats of the cervical spine were provided for interpretation. DLP: 377.66 mGy-cm FINDINGS: No acute fractures or dislocations of the cervical spine are seen. Slight reversal of the normal cervical curvature. Mild multilevel degenerative changes. Anatomic alignment and positioning of the vertebral bodies and posterior elements is noted. The atlantoaxial joint and craniovertebral articulations are normal without evidence of subluxation. There is no prevertebral soft tissue swelling. The thyroid gland and visualized portions of the lung apices and mediastinum are unremarkable. IMPRESSION: 1. No acute visible fracture or dislocation. 2. Slight reversal of the normal cervical curvature. 3. Mild multilevel degenerative changes. Electronically signed by: Zulma Floyd MD 06/28/2024 04:16 PM EDT
[2024-06-28 10:29] VITALS: BP 131/63; PULSE 80; RESP 20; TEMP 36.8; O2SAT 98; BMI 32.1
--- NOTE | 2024-06-28 10:37 | ECG_ITS ---
Test Reason : facial numbness Blood Pressure : / mmHG Vent. Rate : 072 BPM Atrial Rate : 072 BPM P-R Int : 146 ms QRS Dur : 074 ms QT Int : 386 ms P-R-T Axes : 025 012 023 degrees QTc Int : 422 ms Normal sinus rhythm Normal ECG When compared with ECG of 05-JUN-2024 08:19, No significant change was found Referred By: Kelly Hsu Electronically Signed By:KEY SANTOS
[2024-06-28 10:52] LABS: MANUAL DIFF FLAG NO
[2024-06-28 10:59] LABS: Basophils Percent Auto 0.2 % (0-2); Eosinophils Absolute Auto 0.1 X10*3/uL (0.0-0.4); Eosinophils Percent Auto 1.3 % (0-4); Hematocrit 37.5 % (37.0-47.0); Hemoglobin 12.2 g/dl (12.0-16.0); Imm Gran Abs Auto 0.04 X10*3/uL (0.00-0.03); Imm Gran Pct Auto 0.4 % (0.0-0.4); Lymphocytes Absolute Auto 1.5 X10*3/uL (1.2-4.9); Lymphocytes Percent Auto 16.3 % (20-40); Mean Corpuscular HGB Conc 32.5 g/dl (31.0-35.0); Mean Corpuscular Hemoglobin 26.9 pg (27.0-33.0); Mean Corpuscular Volume 82.8 fL (80.0-98.0); Mean Platelet Volume 9.9 fL (9.4-12.3); Monocytes Absolute Auto 0.5 X10*3/uL (0.1-1.2); Neutrophils Absolute Auto 6.9 x10*3/uL (2.0-8.3); Neutrophils Percent Auto 75.8 % (45-73); Platelet Count 244 X10*3/uL (160-400); Red Blood Count 4.53 X10*6/uL (4.20-5.50); Red Cell Distribution Width 12.8 % (11.0-16.0); White Blood Count 9.1 X10*3/uL (4.8-10.8)
[2024-06-28 11:14] LABS: Troponin-I High Sensitivity < 2.7 ng/L (<3.5-17.0)
[2024-06-28 11:27] LABS: Alanine Aminotransferase 13 U/L (0-31); Alkaline Phosphatase 95 U/L (39-117); Anion Gap 11 (12-20); Aspartate Amino Transferase 18 U/L (5-31); Bilirubin Total 0.7 mg/dL (0.0-1.0); Blood Urea Nitrogen 13 mg/dL (9-16); Calcium 9.3 mg/dL (8.4-10.2); Carbon Dioxide 25 mmol/L (22-29); Chloride 108 mmol/L (96-108); Creatinine Clr Calc Pharmacy 94.5; Estimated Glomerular Filt Rate > 60; Glucose Random 86 mg/dL (60-115); HCG Quantitative < 2 mIU/mL; Magnesium 2.1 mg/dL (1.6-2.6); Potassium 4.4 mmol/L (3.3-5.1); Sodium 140 mmol/L (135-145); TSH reflex Free T4 1.36 uIU/mL (0.32-4.0); Total Protein 7.1 g/dL (6.5-8.0)
--- NOTE | 2024-06-28 13:54 | ED_ITS ---
HPI - General Adult General Chief complaint: General Medical Stated complaint: Facial numbness, back pain Time Seen by Provider: 06/28/24 13:53 Source: patient Mode of arrival: ambulatory Limitations: no limitations History of Present Illness ED Provider: shena REYES narrative: Patient is a 44-year-old female with history of asthma, sciatica, depression, renal calculi presenting to the emergency department with complaint of right- sided hip pain for the past 3 days. Patient states that she was walking down stairs 3 days ago when she slipped and put out her arms to brace herself. She states that she felt a pulling sensation in her back and hip at that time. Since then, she feels as though her right hip is spasming. Has pain with movement, difficulty with ambulation due to this. She also reports feeling palpitations with brief episodes of left sided cheek/jaw tingling yesterday for approximately 3 hours which have since resolved and have not returned. MD complaint: right hip pain Onset (ago): day(s) Location: right and lower extremity Radiation: non-radiation Severity: severe Quality: aching Pain Consistency: constant Relieving factors: none Exacerbating factors: movement Associated symptoms: other Treatments prior to arrival: none Related Data Home Medications ?Medication ?Instructions ?Recorded ?Confirmed topiramate 25 mg tablet 25 mg PO DAILY 05/25/23 05/25/23 Previous Rx's ?Medication ?Instructions ?Recorded potassium citrate 10 mEq (1,080 10 meq PO BID 90 days #180 tabs 05/25/23 mg) tablet,extended release pyridoxine (vitamin B6) 50 mg 50 mg PO DAILY 90 days #90 tabs 05/25/23 tablet ondansetron 4 mg disintegrating 4 mg PO Q8H PRN nausea and 03/16/24 tablet vomiting #7 tabs benzonatate 100 mg capsule 100 mg PO TID PRN cough #10 caps 06/05/24 cyclobenzaprine 5 mg tablet 5 mg PO TID PRN muscle spasm #10 06/28/24 tabs lidocaine 5 % topical patch 1 patch topical DAILY #15 ea 06/28/24 prednisone 20 mg tablet 40 mg (2 x 20 mg) PO DAILY #10 tabs 06/28/24 Allergies Allergy/AdvReac Type Severity Reaction Status Date / Time morphine [MORPHINE] Allergy Severe SWELLING Verified 06/28/24 10:34 ibuprofen [IBUPROFEN] Allergy Intermediate HIVES Verified 06/28/24 10:34 naproxen [NAPROXEN] Allergy Intermediate HIVES Verified 06/28/24 10:34 acetaminophen Allergy Unknown Rash Verified 06/28/24 10:34 tramadol [TRAMADOL] Allergy Unknown HIVES Verified 06/28/24 10:34 diphenhydramine Allergy Hives Verified 06/28/24 10:34 [From Benadryl] ketorolac [From TORADOL] AdvReac Unknown ITCHING Verified 06/28/24 10:34 Ibuprofen Allergy Unknown Hives Uncoded 06/05/24 05:08 Morphine Sulf Microinfusion Allergy Unknown Swelling Uncoded 06/05/24 05:08 PF Review of Systems 2 Review of Systems: As per HPI. Yes all other systems are reviewed and are negative Constitutional: Constitutional: Reports as per HPI PMFSH Past Medical History Medical History Renal calculi Depression Asthma Sciatica Social History Social History Alcohol intake: never Substance Use Type: Marijuana Advance Directives: No Advance Directives Information Provided: Yes Do you have a plan to hurt others: No Plan Physical Exam ED Vital Signs: Vital Signs - 24 hr 06/28/24 10:29 06/28/24 14:41 06/28/24 17:01 Temperature 98.2 F 98.1 F 98.5 F Pulse Rate 80 69 78 Respiratory Rate 20 18 20 Blood Pressure 131/63 103/49 L 112/77 Pulse Oximetry 98 99 98 Oxygen Delivery Method Room Air Room Air Room Air BMI result Body Mass Index 32.1 Vital signs have been reviewed and appear to be correct. Blood pressure normal. Heart rate normal. Respiratory rate normal. Temperature normal. Oxygen saturation normal. Const General: cooperative, healthy appearing and no acute distress Orientation/consciousness: oriented to person, oriented to place, oriented to time and patient oriented x3 Limitations: no limitations HENMT Head: Yes normocephalic and Yes atraumatic Ears: external ears normal General nose exam: Normal external nose present Face and sinus: Yes face symmetric Mouth: oropharynx normal and moist mucous membranes Throat: Yes uvula midline Eyes Pupils: Equal, round and reactive pupils present Neck Neck: Yes normal visual inspection and Yes supple Resp Effort & Inspection: normal respiratory effort and able to speak in complete sentences Auscultation: clear to auscultation bilaterally Cardio Rate: regular rate Rhythm: regular rhythm Heart sounds: S1 normal heart sound present and S2 normal heart sound present GI Palpation (GI): Soft to palpation and nontender Auscultation: normoactive bowel sounds General: Yes no CVA tenderness Back/Spine/Pelvis Back: no CVA tenderness Skin General skin exam: elasticity normal and turgor normal Neuro General: oriented to person, oriented to place, oriented to time, patient oriented x3, gait normal, tone normal, moves all extremities, Normal light touch and pain sensation, no focal motor deficits, CN's II-XI intact bilaterally and deep tendon reflexes 2+ bilaterally Cranial nerves: Yes Equal, round and reactive pupils present Cognition (Neuro): normal cognition Motor exam (neuro): 5/5 motor strength present throughout Extrem General: Yes full ROM, Yes no pedal edema and Yes no calf tenderness Right lower extremity: hip/thigh Details: normal to inspection, tenderness Location: of the hip Location: laterally and normal ROM; no swelling and no crepitus and foot Details: toes with normal ROM and vascular exam Details: dorsalis pedis pulse present and posterior tibial pulse present Psych Mental Status: mental status grossly normal Affect: normal affect Thought process: Normal thought process present NIH Stroke Scale Internal: Initial- Upon Arrival Time: 15:00 Level of Consciousness: Alert Level of Consciousness Questions: Answers both questions correctly Level of Consciousness Commands: Performs both tasks correctly Best Gaze: Normal Visual: No visual loss Facial Palsy: Normal Motor Arm (Right): No drift Motor Arm (Left): No drift Motor Leg (Right): No drift Motor Leg (Left): No drift Limb Ataxia: Absent Sensory: Normal Best Language: No aphasia Dysarthia: Normal Extinction and Inattention: No abnormality Score: 0 Medications Administered Discontinued Medications Generic Name Dose Route Start Last Admin Trade Name Kennyq PRN Reason Stop Dose Admin Cyclobenzaprine HCl 10 mg 06/28/24 14:59 06/28/24 15:20 Cyclobenzaprine Hcl 10 Mg Tablet PO 06/28/24 15:00 10 mg ONCE ONE Administration Prednisone 50 mg 06/28/24 14:59 06/28/24 15:22 Prednisone 10 Mg Tablet PO 06/28/24 15:00 50 mg ONCE ONE Administration Medical Decision Making Medical Decision Making [facility] Narrative: Patient is a 44-year-old female with history of asthma, sciatica, depression, renal calculi presenting to the emergency department with complaint of right- sided hip pain for the past 3 days. On exam patient is awake, A+Ox3, VS WNL, afebrile, normal neurological exam without focal deficits, physical exam findings as above. Given reported symptoms and physical exam findings, initial differential includes right hip strain, sprain, spasm, lumbar radiculopathy, anxiety, TIA, CVA/ICH. No red flag findings concerning for malignancy/mass, SEA, cauda equina/cord compression. Labs unremarkable, troponin negative. CT head and c-spine notable for no acute abnormalities. My interpretation is in agreement with the radiologist's interpretation. EKG shows normal sinus rhythm. Pain improved with medication given in the ED. Feel facial tingling likely due to anxiety. Will treat with cyclobenzaprine, prednisone. Instructed patient to follow up with PCP. Return precautions discussed at bedside. Patient verbalized understanding of and agreement with plan. Differential Diagnosis Differential Diagnoses: The differential diagnosis associated with the presentation includes As per [facility] Admission/Observation Consideration of admission/observation: Escalation of care including admission/observation considered Patient would have been admitted to the hospital had their work up had any findings where hospital admission was appropriate and their clinical presentation warranted hospital admission. Lab Data [facility] Lab Attestation statement: I reviewed the patient's lab results. As per [facility] 06/28/24 10:47 06/28/24 10:47 Labs: Lab Results 06/28/24 Range/Units 10:47 WBC 9.1 (4.8-10.8) X10*3/uL RBC 4.53 (4.20-5.50) X10*6/uL Hgb 12.2 (12.0-16.0) g/dl Hct 37.5 (37.0-47.0) % MCV 82.8 (80.0-98.0) fL MCH 26.9 L (27.0-33.0) pg MCHC 32.5 (31.0-35.0) g/dl RDW 12.8 (11.0-16.0) % Plt Count 244 (160-400) X10*3/uL MPV 9.9 (9.4-12.3) fL Immature Gran % (Auto) 0.4 (0.0-0.4) % Neut % (Auto) 75.8 H (45-73) % Lymph % (Auto) 16.3 L (20-40) % [place] % (Auto) 6.0 (2-11) % Eos % (Auto) 1.3 (0-4) % Baso % (Auto) 0.2 (0-2) % Lymph # (Auto) 1.5 (1.2-4.9) X10*3/uL [place] # (Auto) 0.5 (0.1-1.2) X10*3/uL Eos # (Auto) 0.1 (0.0-0.4) X10*3/uL Baso # (Auto) 0.0 (0.0-0.2) X10*3/uL Abs Immat Gran (auto) 0.04 H (0.00-0.03) X10*3/uL Absolute Neuts (auto) 6.9 (2.0-8.3) x10*3/uL Absolute Nucleated RBC 0.000 (0.0-0.012) X10*3/uL Nucleated RBC % (auto) 0.0 (0.0-0.2) /100WBC Sodium 140 (135-145) mmol/L Potassium 4.4 (3.3-5.1) mmol/L Chloride 108 (96-108) mmol/L Carbon Dioxide 25 (22-29) mmol/L Anion Gap 11 L (12-20) BUN 13 (9-16) mg/dL Creatinine 0.67 (0.5-1.4) mg/dL Estim Creat Clear Calc 94.5 Estimated GFR > 60 Random Glucose 86 (60-115) mg/dL Calcium 9.3 (8.4-10.2) mg/dL Magnesium 2.1 (1.6-2.6) mg/dL Total Bilirubin 0.7 (0.0-1.0) mg/dL AST 18 (5-31) U/L ALT 13 (0-31) U/L Alkaline Phosphatase 95 (39-117) U/L Troponin I High Sens < 2.7 (<3.5-17.0) ng/L Total Protein 7.1 (6.5-8.0) g/dL Albumin 4.0 (3.5-5.0) g/dL TSH 1.36 (0.32-4.0) uIU/mL Beta HCG, Quant < 2 mIU/mL Independent Interpretation I performed an independent interpretation of an: EKG (normal sinus rhythm, rate 72bpm, normal IN interval and QTc) and CT Scan Interpretation: CT head and c-spine notable for no acute abnormalities. Radiology Impression Discussion of test interpretation with radiology: I have reviewed the radiologist's reading. Radiologist Impression: IMPRESSION: 1. No acute visible fracture or dislocation. 2. Slight reversal of the normal cervical curvature. 3. Mild multilevel degenerative changes. IMPRESSION: No acute intracranial pathology. External Record Review External record reviewed: Inpatient record, Office record and Outpatient record Prescription Management I considered prescription management with: Pain Medication and Other Discharge Plan Discharge Clinical Impression: Strain of muscle of right hip, Lumbar radiculopathy, right Patient Disposition: Home, Self-Care Instructions: Muscle Strain (DC), Hip Sprain (ED), Lumbar Radiculopathy (ED) Additional Instructions: You were evaluated in the emergency department today for hip pain. Your evaluation did not show signs of medical conditions requiring emergent intervention at this time. We recommended that you use ibuprofen or Tylenol per package directions every 6 hours as needed for pain. If necessary, you can alternate these medications so that you take one medication every 3 hours. For instance, at noon take ibuprofen, then at 3:00 p.m. take Tylenol, then at 6:00 p.m. take ibuprofen. You have been prescribed a muscle relaxer which you may take every 8 hours as needed for spasms. You have been prescribed 5% topical lidocaine patches which you can wear for up to 12 hours in a 24 hour period. Do not apply heat directly over the patches. You have been prescribed a short course of steroids to decrease inflammation. Please schedule an appointment for follow-up with your primary care physician this week for further evaluation of your symptoms. Return to the emergency department if you experience worsening back pain, difficulty walking, fevers, numbness, tingling, incontinence, groin numbness or tingling, or any other concerning symptoms. Prescriptions: New cyclobenzaprine 5 mg tablet 5 mg PO TID PRN (Reason: muscle spasm) Qty: 10 0RF prednisone 20 mg tablet 40 mg PO DAILY Qty: 10 0RF lidocaine 5 % adhesive patch,medicated 1 patch topical DAILY Qty: 15 0RF Rx Instructions: leave on most painful area for up to 12 hrs No Action ondansetron 4 mg tablet,disintegrating 4 mg PO Q8H PRN (Reason: nausea and vomiting) Qty: 7 0RF benzonatate 100 mg capsule 100 mg PO TID PRN (Reason: cough) Qty: 10 0RF topiramate 25 mg tablet 25 mg PO DAILY pyridoxine (vitamin B6) 50 mg tablet 50 mg PO DAILY 90 Days Qty: 90 3RF potassium citrate 10 mEq (1,080 mg) tablet extended release 10 meq PO BID 90 Days Qty: 180 3RF Print Language: Nigerien
[2024-06-28 14:41] VITALS: BP 103/49; PULSE 69; RESP 18; TEMP 36.7; O2SAT 99
[2024-06-28] MEDS: Cyclobenzaprine HCl 10 MG TABLET PO (15:20)
[2024-06-28] MEDS: predniSONE 10 MG TABLET 50 MG PO (15:22)
[2024-06-28 17:01] VITALS: BP 112/77; PULSE 78; RESP 20; TEMP 36.9; O2SAT 98
[2024-06-28 18:10] VITALS: BP 112/77; PULSE 78; RESP 20; TEMP 36.9; O2SAT 98
== END 2024-06-28 18:18 | disposition home or self-care (01) ==
PROVIDERS: Registered Nurse Emergency; Emergency Provider Emergency Medicine; PCP Internal Medicine
DX: M54.16 Radiculopathy, lumbar region (principal); M54.50 Low back pain, unspecified; R20.0 Anesthesia of skin; M25.551 Pain in right hip; R00.2 Palpitations; R51.9 Headache, unspecified; M54.2 Cervicalgia; Z79.899 Other long term (current) drug therapy
CPT/HCPCS: 36415; 70450; 72125; 80053; 83735; 84443; 84484; 84702; 85025; 93005; 99284

== ENCOUNTER 2024-07-02 18:42 | Emergency (ER) | payer OTHER, SELFPAY ==
--- NOTE | ~2024-07-02 | XR_ITS ---
EXAMINATION: XR LUMBOSACRAL SPINE CLINICAL INFORMATION: Injury. Pain. COMPARISON: None available. TECHNIQUE: Three views of the lumbosacral spine. FINDINGS: The alignment is normal. There is mild diffuse thoracolumbar discogenic degenerative change with mild endplate sclerosis and mild osteophyte formation. The bone mineralization is normal. There is no fracture. The soft tissues are unremarkable. XR/XR lumbar spine 2-3V IMPRESSION: Mild degenerative disc disease. No fracture or malalignment. Electronically signed by: Guilherme Goss MD 07/03/2024 12:50 AM EDT
[2024-07-02 18:52] VITALS: BP 118/77; PULSE 74; O2SAT 99
[2024-07-02 19:03] VITALS: BP 118/61; PULSE 71; RESP 20; TEMP 37.1; O2SAT 99; BMI 34.2
--- NOTE | 2024-07-02 19:03 | ED.GENADULT ---
HPI - General Adult General Chief complaint: Abdominal Pain Stated complaint: R side hip & lower back pain 1x day Time Seen by Provider: 07/02/24 21:36 Source: patient Mode of arrival: ambulatory Limitations: no limitations History of Present Illness ED Provider: ekta REYES narrative: Patient apparently week ago had a near fall complaining of pain in the paraspinal lumbar area increases on ambulation getting worse also noticed her urine is cloudy no fever no shortness a breath no nausea no vomiting Related Data Home Medications ?Medication ?Instructions ?Recorded ?Confirmed topiramate 25 mg tablet 25 mg PO DAILY 05/25/23 05/25/23 Previous Rx's ?Medication ?Instructions ?Recorded potassium citrate 10 mEq (1,080 10 meq PO BID 90 days #180 tabs 05/25/23 mg) tablet,extended release pyridoxine (vitamin B6) 50 mg 50 mg PO DAILY 90 days #90 tabs 05/25/23 tablet ondansetron 4 mg disintegrating 4 mg PO Q8H PRN nausea and 03/16/24 tablet vomiting #7 tabs benzonatate 100 mg capsule 100 mg PO TID PRN cough #10 caps 06/05/24 cyclobenzaprine 5 mg tablet 5 mg PO TID PRN muscle spasm #10 06/28/24 tabs lidocaine 5 % topical patch 1 patch topical DAILY #15 ea 06/28/24 prednisone 20 mg tablet 40 mg (2 x 20 mg) PO DAILY #10 tabs 06/28/24 cyclobenzaprine 10 mg tablet 10 mg PO Q8H #20 tabs 07/03/24 oxycodone 5 mg tablet 5 mg PO Q6H PRN pain #20 tabs 07/03/24 Allergies Allergy/AdvReac Type Severity Reaction Status Date / Time morphine [MORPHINE] Allergy Severe SWELLING Verified 07/02/24 19:05 ibuprofen [IBUPROFEN] Allergy Intermediate HIVES Verified 07/02/24 19:05 naproxen [NAPROXEN] Allergy Intermediate HIVES Verified 07/02/24 19:05 acetaminophen Allergy Unknown Rash Verified 07/02/24 19:05 tramadol [TRAMADOL] Allergy Unknown HIVES Verified 07/02/24 19:05 diphenhydramine Allergy Hives Verified 07/02/24 19:05 [From Benadryl] ketorolac [From TORADOL] AdvReac Unknown ITCHING Verified 07/02/24 19:05 Ibuprofen Allergy Unknown Hives Uncoded 07/02/24 19:05 Morphine Sulf Microinfusion Allergy Unknown Swelling Uncoded 07/02/24 19:05 PF Review of Systems Review of Systems: Yes all other systems are reviewed and are negative [facility] Past Medical History Medical History Renal calculi Depression Asthma Sciatica Social History Social History Alcohol intake: never Substance Use Type: Marijuana Advance Directives: No Advance Directives Information Provided: No Do you have a plan to hurt others: No Plan Physical Exam ED Vital Signs: Vital Signs - 24 hr 07/02/24 19:03 07/02/24 22:00 Temperature 98.7 F 98.5 F Pulse Rate 71 65 Respiratory Rate 20 18 Blood Pressure 118/61 107/71 Pulse Oximetry 99 99 Oxygen Delivery Method Room Air Room Air BMI result Body Mass Index 34.2 Appearance: Alert. Oriented X3. No acute distress. ENT: Pharynx normal. Oral Mucosa moist Neck: Normal inspection. Neck supple. CVS: Normal heart rate and rhythm. Pulses normal. Respiratory: No respiratory distress. Equal air entry bilateral, no wheezing/rales/rhonchi Abdomen: Soft and nontender. Bowel sounds are present, no mass palpable, no CVA tenderness back: Tenderness paraspinal lumbar area more so on the right side no midline tenderness Skin: Skin warm and dry. Normal skin color. Normal skin turgor. Extremities: No lower extremity edema. No calf tenderness Neuro: Oriented X 3. No motor deficit. Course Course Course Narrative: This is a Rapid Medical Examination (RME) performed by Tg Rider PA-C in triage. Full HPI, ROS, assessment and treatment plan per primary provider in the Main ED. 44 yo female with history of asthma, sciatica, depression, renal calculi here for eval of right low back/ hip pain, worsening today. pain now radiating to right lower abdomen. reports assoc cloudy urine. seen here on 06/28 for same. diagnosed w/ muscle strain and discharged home w/ lido patches, pregnisone, and flexeril. + uncomfortable appearing. no cvat. Plan: labs, UA Medications Administered Discontinued Medications Generic Name Dose Route Start Last Admin Trade Name Yash PRN Reason Stop Dose Admin Cyclobenzaprine HCl 10 mg 07/02/24 22:17 07/02/24 22:39 Cyclobenzaprine Hcl 10 Mg Tablet PO 07/02/24 22:18 10 mg ONCE ONE Administration Oxycodone HCl 10 mg 07/02/24 22:18 07/02/24 22:39 Oxycodone Hcl Immed Release 5 Mg Tablet PO 07/02/24 22:19 10 mg ONCE ONE Administration Medical Decision Making Medical Decision Making [facility] Narrative: Patient with lumbar strain x-ray negative for lumbar fracture workup negative advised patient to take pain medication muscle relaxant as advised Differential Diagnosis Differential Diagnoses: The differential diagnosis associated with the presentation includes Lab Data [facility] Lab Attestation statement: I reviewed the patient's lab results. 07/02/24 19:46 07/02/24 19:46 Labs: Lab Results 07/02/24 Range/Units 19:46 WBC 9.5 (4.8-10.8) X10*3/uL RBC 4.65 (4.20-5.50) X10*6/uL Hgb 12.4 (12.0-16.0) g/dl Hct 38.6 (37.0-47.0) % MCV 83.0 (80.0-98.0) fL MCH 26.7 L (27.0-33.0) pg MCHC 32.1 (31.0-35.0) g/dl RDW 12.4 (11.0-16.0) % Plt Count 298 (160-400) X10*3/uL MPV 9.9 (9.4-12.3) fL Immature Gran % (Auto) 0.4 (0.0-0.4) % Neut % (Auto) 86.5 H (45-73) % Lymph % (Auto) 10.5 L (20-40) % [place] % (Auto) 1.9 L (2-11) % Eos % (Auto) 0.6 (0-4) % Baso % (Auto) 0.1 (0-2) % Lymph # (Auto) 1.0 L (1.2-4.9) X10*3/uL [place] # (Auto) 0.2 (0.1-1.2) X10*3/uL Eos # (Auto) 0.1 (0.0-0.4) X10*3/uL Baso # (Auto) 0.0 (0.0-0.2) X10*3/uL Abs Immat Gran (auto) 0.04 H (0.00-0.03) X10*3/uL Absolute Neuts (auto) 8.2 (2.0-8.3) x10*3/uL Absolute Nucleated RBC 0.000 (0.0-0.012) X10*3/uL Nucleated RBC % (auto) 0.0 (0.0-0.2) /100WBC Sodium 143 (135-145) mmol/L Potassium 4.5 (3.3-5.1) mmol/L Chloride 104 (96-108) mmol/L Carbon Dioxide 27 (22-29) mmol/L Anion Gap 17 (12-20) BUN 17 H (9-16) mg/dL Creatinine 0.74 (0.5-1.4) mg/dL Estim Creat Clear Calc 88.5 Estimated GFR > 60 Random Glucose 131 H (60-115) mg/dL Calcium 9.7 (8.4-10.2) mg/dL Magnesium 2.1 (1.6-2.6) mg/dL Total Bilirubin 0.3 (0.0-1.0) mg/dL AST 18 (5-31) U/L ALT 12 (0-31) U/L Alkaline Phosphatase 102 (39-117) U/L Total Protein 7.6 (6.5-8.0) g/dL Albumin 4.1 (3.5-5.0) g/dL Urine Color Yellow Urine Appearance Clear Urine pH >= 9.0 (5.0-9.0) Ur Specific [place] 1.020 (1.005-1.025) Urine Protein Trace (Neg-Trace) mg/dL Urine Glucose (UA) Negative (Negative) mg/dL Urine Ketones Negative (Negative) mg/dL Urine Blood Negative (Negative) Urine Nitrite Negative (Negative) Ur Leukocyte Esterase Negative (Negative) Discharge Plan Discharge Clinical Impression: Acute lumbar myofascial strain Patient Disposition: Home, Self-Care Instructions: Low Back Strain (ED) Additional Instructions: Take pain medication and muscle relaxant as advised Apply ice pack Prescriptions: New cyclobenzaprine 10 mg tablet 10 mg PO Q8H Qty: 20 0RF oxycodone 5 mg tablet 5 mg PO Q6H PRN (Reason: pain) Qty: 20 0RF Rx Instructions: Partial Fill upon patient request. No Action ondansetron 4 mg tablet,disintegrating 4 mg PO Q8H PRN (Reason: nausea and vomiting) Qty: 7 0RF benzonatate 100 mg capsule 100 mg PO TID PRN (Reason: cough) Qty: 10 0RF cyclobenzaprine 5 mg tablet 5 mg PO TID PRN (Reason: muscle spasm) Qty: 10 0RF prednisone 20 mg tablet 40 mg PO DAILY Qty: 10 0RF lidocaine 5 % adhesive patch,medicated 1 patch topical DAILY Qty: 15 0RF Rx Instructions: leave on most painful area for up to 12 hrs topiramate 25 mg tablet 25 mg PO DAILY pyridoxine (vitamin B6) 50 mg tablet 50 mg PO DAILY 90 Days Qty: 90 3RF potassium citrate 10 mEq (1,080 mg) tablet extended release 10 meq PO BID 90 Days Qty: 180 3RF Print Language: Portuguese
[2024-07-02 19:51] LABS: MANUAL DIFF FLAG NO
[2024-07-02 19:54] LABS: Basophils Percent Auto 0.1 % (0-2); Eosinophils Absolute Auto 0.1 X10*3/uL (0.0-0.4); Eosinophils Percent Auto 0.6 % (0-4); Hematocrit 38.6 % (37.0-47.0); Hemoglobin 12.4 g/dl (12.0-16.0); Imm Gran Abs Auto 0.04 X10*3/uL (0.00-0.03); Imm Gran Pct Auto 0.4 % (0.0-0.4); Lymphocytes Percent Auto 10.5 % (20-40); Mean Corpuscular HGB Conc 32.1 g/dl (31.0-35.0); Mean Corpuscular Hemoglobin 26.7 pg (27.0-33.0); Mean Platelet Volume 9.9 fL (9.4-12.3); Monocytes Absolute Auto 0.2 X10*3/uL (0.1-1.2); Monocytes Percent Auto 1.9 % (2-11); Neutrophils Absolute Auto 8.2 x10*3/uL (2.0-8.3); Neutrophils Percent Auto 86.5 % (45-73); Platelet Count 298 X10*3/uL (160-400); Red Blood Count 4.65 X10*6/uL (4.20-5.50); Red Cell Distribution Width 12.4 % (11.0-16.0); White Blood Count 9.5 X10*3/uL (4.8-10.8)
[2024-07-02 20:06] LABS: Appearance Urine Clear; Color Urine Yellow; Glucose Urine UA Negative (Negative); Leukocyte Esterase Urine Negative (Negative); Nitrite Urine Negative (Negative); PH >= 9.0 (5.0-9.0); Urine Blood Negative (Negative); Urine Ketones Negative (Negative); Urine Protein Trace mg/dL (Neg-Trace)
[2024-07-02 20:08] LABS: Alanine Aminotransferase 12 U/L (0-31); Albumin Level 4.1 g/dL (3.5-5.0); Alkaline Phosphatase 102 U/L (39-117); Anion Gap 17 (12-20); Aspartate Amino Transferase 18 U/L (5-31); Bilirubin Total 0.3 mg/dL (0.0-1.0); Blood Urea Nitrogen 17 mg/dL (9-16); Calcium 9.7 mg/dL (8.4-10.2); Carbon Dioxide 27 mmol/L (22-29); Chloride 104 mmol/L (96-108); Creatinine Clr Calc Pharmacy 88.5; Estimated Glomerular Filt Rate > 60; Glucose Random 131 mg/dL (60-115); Magnesium 2.1 mg/dL (1.6-2.6); Potassium 4.5 mmol/L (3.3-5.1); Sodium 143 mmol/L (135-145); Total Protein 7.6 g/dL (6.5-8.0)
[2024-07-02 22:00] VITALS: BP 107/71; PULSE 65; RESP 18; TEMP 36.9; O2SAT 99
--- NOTE | 2024-07-02 22:18 | MHC.EDTECH ---
Hourly rounds and vitals completed,call siu in reach
[2024-07-02] MEDS: Cyclobenzaprine HCl 10 MG TABLET PO (22:39)
[2024-07-02] MEDS: oxyCODONE HCl Immed Release 5 MG TABLET 10 MG PO (22:39)
[2024-07-03 00:35] VITALS: BP 107/71; PULSE 65; RESP 18; TEMP 36.9; O2SAT 99
== END 2024-07-03 00:35 | disposition home or self-care (01) ==
PROVIDERS: Physician Assistant Medical; Emergency Provider Internal Medicine
DX: S39.012A Strain of muscle, fascia and tendon of lower back, initial encounter (principal); X58.XXXA Exposure to other specified factors, initial encounter; M25.551 Pain in right hip; Y93.89 Activity, other specified; Y92.89 Other specified places as the place of occurrence of the external cause; Y99.8 Other external cause status; Z79.899 Other long term (current) drug therapy
CPT/HCPCS: 36415; 72100; 80053; 81003; 83735; 85025; 99283; 99284

== ENCOUNTER 2024-12-10 06:20 | Emergency (ER) | payer OTHER, SELFPAY ==
--- NOTE | ~2024-12-10 | CT_ITS ---
EXAMINATION: CT ABDOMEN AND PELVIS WITH CONTRAST CLINICAL INFORMATION: Diffuse abdominal pain. COMPARISON: CT kidney stone protocol dated December 14, 2023. TECHNIQUE: Multidetector volumetric images were obtained from the superior aspect of the liver through the pubic symphysis following administration 85 mL of Omnipaque 350 intravenous contrast. Sagittal and coronal reformatted images were obtained on the technologist's workstation. Oral contrast: No This CT examination was performed using dose optimization techniques as appropriate, variously including the following: *Automated exposure control *Adjustment of mA and/or kV according to patient size (this includes techniques or standardized protocols for targeted exams where dose is matched to indication/reason for exam; i.e. extremities or head) *Use of iterative reconstruction technique DLP: 585 mGy centimeter. FINDINGS: LUNG BASES: No acute airspace disease. There is a 1 mm noncalcified pulmonary nodule, left lung base. LIVER, GALLBLADDER, AND BILIARY TREE: Liver measures 18 cm. No focal mass. Portal veins, hepatic veins and intrahepatic portion of the IVC are patent. Gallbladder is fluid-filled without pericholecystic fluid collection or gallbladder wall thickening. Common bile duct measures 3 mm. PANCREAS: No focal mass. No peripancreatic fluid collection. No main pancreatic ductal dilatation. SPLEEN: 10 cm. No focal lesion. ADRENAL GLANDS: No nodular lesions. KIDNEYS AND URETERS: Normal enhancement pattern. No gross renal mass. No hydronephrosis. 2 mm nonobstructing calculus in the lower pole right kidney. Subcentimeter cystic lesions, right kidney. BLADDER: Fluid-filled. GASTROINTESTINAL TRACT: Gas and fluid-filled mildly prominent distal jejunal enhancement ileal loops. Stool within the large intestine. No intestinal obstruction pattern. Appendix is normal. Terminal ileum is normal. No ascites. No pneumoperitoneum. Sutures along the right side of the stomach wall. No pneumatosis intestinalis. ABDOMINAL WALL: Fat-containing right midline supraumbilical/epigastric hernia. LYMPH NODES: Prominent mesenteric lymph nodes with associated mesenteric edema pattern. VASCULAR: No aneurysm or dissection, abdominal aorta. PELVIC VISCERA: Heterogeneous nodular nonenlarged uterus. 2.2 cm cystic structure in the left adnexa and 1.4 cm cystic structure in the right adnexa. OSSEOUS STRUCTURES: Spondylosis, L4-5 and L5-S1. Sclerosis and the sacroiliac joints. Probable bony island lesions in the left femoral head. CT/CT abdomen pelvis w IV con IMPRESSION: Consider inflammatory bowel disease versus enteritis in the correct clinical settings. Small fat-containing right midline epigastric/supraumbilical hernia. Hepatomegaly. Nonobstructing calculus/nephrolithiasis, right kidney. Probable dominant follicles, bilaterally Status post gastric sleeve.. Fleischner guidelines were followed. Electronically signed by: Keyon Mendoza MD 12/10/2024 09:41 AM [place]
[2024-12-10 06:24] VITALS: BP 109/61; PULSE 89; RESP 18; TEMP 37.1; O2SAT 98; BMI 32.2
--- OUTSIDE RECORDS SUMMARY | 2024-12-10 06:40 | XMS_ITS | Encounter Summary ---
Author Organization [facility] Address [address] [place] [address] Care Team Providers Care Senior Electronics Design Engineer Name Role Phone Dejan Mak MD Primary Care Provider [phone] Reason for Visit * Consultation (Routine) - Authorized Specialty Diagnoses / Procedures Referred By Contac t Referred To Contact Physical Therapy Diagnoses Chronic bilateral low back pain with right-sided sciatica Heather Miller, PA [address] [facility], [address] [place] [address] Phone: tel: fax: Reg Caro, PT [address] [place] [address] Phone: tel: fax: Referral ID Status Reason Start Date Expiration Date Visits Requested Visits Authorized [id number] Authorized Consult and Treat 10/12/2024 10/12/2025 21 21 Encounter Details Date Type Department Care Team ([facility] Contact Info) Description 12/04/2024 12:30 PM EST Treatment Outpatient Rehabilitation - [place] [address] [place] [phone] Sarah Aponte PTA Chronic bilateral low back pain with right-sided sciatica (Primary Dx) Social History Tobacco Use Types Packs/Day Years Used Date Smoking Tobacco: Some Days Cigarettes Last attempted to quit: 07/24/2023 Smokeless Tobacco: Never Alcohol Use Standard Drinks/Week Comments Yes 0 (1 standard drink = 0.6 oz pur e alcohol) occasional Comments No Sex and Gender Information Value Date Recorded Sex Assigned at Not on file Legal Sex Female 1:55 AM EST Gender Identity Not on file Sexual Orientation Not on file documented as of this encounter Progress Notes * Aden Mccall PTA - 12/04/2024 12:30 PM EST [facility] - Outpatient PHYSICAL THERAPY DAILY TREATMENT NOTE - OP Date: 12/04/2024 Visit Number: [id number] Patient Name: Tracey Estes : 1980 Age: 44 y.o. Gender: female Diagnosis: ICD-10-CM ICD-9-CM 1. Chronic bilateral low back pain with right-sided sciatica M54.41 724.2 G89.29 724.3 338.29 Date of Onset/Surgery: 08/08/2023 Referring Provider: Heather Miller PA Insurance: Payor: [employer] PLAN / Plan: [employer] MEDICAID / Product Type: *No Product type* / Patient Identified by: Aden Mccall PTA Language: Kinyarwanda Medications: Current Outpatient Medications on File Prior to Visit Medication Sig Dispense Refill albuterol HFA (PROAIR HFA ; PROVENTIL HFA ; VENTOLIN HFA) 90 mcg/actuation inhaler Inhale 2 puffs by mouth. clotrimazole-betamethasone (LOTRISONE) 1-0.05 % cream 1 g twice daily 2 to 4 weeks (between toes onleft side) cyclobenzaprine (FLEXERIL) 5 mg tablet Take 1 tablet (5 mg total) by mouth at bedtime as needed formuscle spasms. 30 tablet 1 EPINEPHrine (EpiPen 2-Telly) 0.3 mg/0.3 mL injection Inject 0.3 mL (0.3 mg total) into the thigh. fluticasone propionate (FLONASE) 50 mcg/actuation nasal spray SPRAY 2 SPRAYS INTO EACH NOSTRIL EVERY DAY 48 mL 1 HYDROmorphone (DILAUDID) 2 mg tablet Take 1 tablet (2 mg total) by mouth. hydrOXYzine HCL (ATARAX) 10 mg tablet Take 1 tablet (10 mg total) by mouth 3 (three) times a day ifneeded. meclizine (ANTIVERT) 12.5 mg tablet Take 1 tablet (12.5 mg total) by mouth. ondansetron ODT (ZOFRAN-ODT) 8 mg disintegrating tablet Dissolve 1 tablet (8 mg total) on top of the tongue every 8 (eight) hours if needed for nausea or vomiting. 12 tablet 1 oxyCODONE (OXY-IR) 5 mg immediate release capsule Take 1 capsule (5 mg total) by mouth 2 (two) times a day if needed for severe pain. Max Daily Amount: 10 mg 20 capsule 0 predniSONE (DELTASONE) 20 mg tablet Take 2 tablets (40 mg total) by mouth 1 (one) time each day. SUMAtriptan (IMITREX) 25 mg tablet Take 1 tablet (25 mg total) by mouth 1 (one) time if needed for migraine. May repeat after 2 hours. 27 tablet 3 No current facility-administered medications on file prior to visit. Allergies: is allergic to ibuprofen, morphine, naproxen, acetaminophen, amoxicillin, diphenhydramine hcl, gabapentin, hydromorphone, nitrofurantoin, tramadol, and latex. Precautions: Fall risk: No Patient/Caregiver Goals: SUBJECTIVE Subjective Report: I'm a little sore today. Chart Reviewed: Yes Pain 7/10 OBJECTIVE TREATMENT INTERVENTION: Modalities: None performed Procedures: HS in sitting 30 sec x3 Piriformis stretch 30 x3 Seated red ball roll outs x10 with 10 sec holds Supine hip flexor stretch with leg hanging off 30 sec x3 ASSESSMENT/Response to Treatment Good Pt reports pain with all activities today, educated on exercises to do at home, unable to print handout due to program, print next visit. Patient Education: Education provided: Yes Education Provided To: Patient utilizing Explanation and Demonstration mode(s) of education Response to Education: Applied Knowledge, Verbal Understanding, and Demonstrated Skills PLAN POC Development/Review: No Change in the Plan of Care; Participants: Patient Total Treatment Time: 30 Modalities: Therapeutic procedures: Documentation completed by Aden Mccall PTA Cosigned by Sarah Aponte PTA at 12/04/2024 1:39 PM EST documented in this encounter Plan of Treatment Upcoming Encounters Date Type Department Care Team (Late st Contact Info) Description 12/11/2024 9:30 AM EST Office Visit Obstetrics and Gynecology - [address] [phone] Gabi Grimaldo MD [address] [place], [place] 01/23/2025 2:00 PM EDT Consult [facility] [place] [address] [facility] [address] [place] [phone] Afsaneh Smith MD [address] [phone] 06/20/2025 4:00 PM EDT Appointment Radiology Department - [address] [phone] 07/23/2025 8:00 AM EDT Office Visit Adult Medicine West - [address] [phone] Dejan Mak MD [address] [place] [address] documented as of this encounter Goals Goal Patient Goal Type Associated Problems Recent Progress Patient-Stated? Author less pain General Yes Reg Caro PT PT STG x 8 visits General Yes Reg Caro, PT Note: Pt will report average pain level decrease of 2 /10, Pt will wake be able to sleep 2-3 hrs at night Pt will increase sitting capacity to 30 minutes, Pt will be able to perform full bridge in order to improve bed mobility, Pt will improve lumbar flexion ROM to 80 degrees, and Pt will require no assist in LE dressing Pt will improve hip abd strength to 4-/5 P will improve hip add strength to 3/5 PT LTG x 15 visits General No Vania, George, PT Note: Pt will improve lumbar flexion to 90 degrees to allow dressing LE without assist, Pt will be able to sit through a 90 movie, Pt will be able to lift case of water without being limited by back pain, Pt will be able to negotiate stairs reciprocally without limitation due to back pain Pt will be able to put groceries away documented as of this encounter Visit Diagnoses Diagnosis Chronic bilateral low back pain with right-sided sciatica- Primary Encounter for screening mammogram for breast cancer documented in this encounter Care Teams Senior Electronics Design Engineer Relationship Specialty Start Date End Date Dejan Mak MD [address] [place] [address] PCP - General 12/28/22 documented as of this encounter
--- OUTSIDE RECORDS SUMMARY | 2024-12-10 06:40 | XMS_ITS | Encounter Summary ---
Author Organization [employer] Address [address] [place] [address] Care Team Providers Care Vehicle Body Maker Name Role Phone Dejan Mak MD Primary Care Provider [phone] Reason for Visit * Reason Onset Date Comments ultra sound 11/29/2024 Encounter Details Date Type Department Care Team ([facility] st Contact Info) Description 11/29/2024 Telephone Adult Medicine [facility] [address] [place] [address] Dejan Mak MD [address] [place] [address] ultra sound Social History Tobacco Use Types Packs/Day Years [...] as of this encounter Progress Notes * Ivory Santos RN - 11/30/2024 3:30 PM EST Results of ultrasound given to pt . She is having vaginal spotting and I did explain that would notbe related to her kidneys, if this is vaginal she would need to speak with filenet developer, she has no new symptoms, will f/u with urology * Lorena Cardoza - 11/30/2024 3:04 PM EST Patient returning phone call Patient is expeirecning bleeding the pass three days. Pt states that she was bleeding a day before the ultra however not on the day of the ultra. Patient is worried regarding the bleeding. Pt is not understanding if results on MyChart are normal then why is she bleeding. Patient states she keeps playing phone tag and growing increasingly worried. Patient also had some other test that she has been expecting calls back from and no one has called her and explained the results to any of the test taking. Patient is starting to become concerned with care team not calling to explain test results. Patient states she see results in my chart however she does not understand any results and would like to discuss what results mean. * Ivory Santos RN - 11/30/2024 1:46 PM EST Call to pt. Left message for pt to call triage * Dejan Mak MD - 11/30/2024 1:39 PM EST Recommend patient to follow up with her urologist * Ivory Santos RN - 11/29/2024 4:27 PM EST Any recommendations for pt ? Has a non obstructing stone on US * Gricelda Garcia MA - 11/29/2024 4:19 PM EST Images from the original note were not included. Pt just had U/S yesterday and called seemingly upset that she has not gotten the result. Please reach out to pt with result as the pt wants this explained. * Lorena Cardoza - 11/29/2024 3:22 PM EST Patient call requires triage: Symptoms patient is presenting: patient had ultra sound test done yesterday. Patient saw results were in the chart however patient has been expecting phone call regarding explaining results and future treatment options going forward. How long has patient had these symptoms?: 11/28/2024 For ALL patients calling to schedule any appointment (routine, sick visit, follow up, consult, etc.) in the outpatient setting please ask the following questions: Do you have fever of higher than 101, sore throat with difficulty swallowing or severe shortness ofbreath? no If YES to any of these above symptoms, send a message to triage and do not book. Red dot. If no, an audio or video visit should be booked. Have you had close contact with someone with Coronavirus in the last 14 days? no Have you traveled abroad? no Have you traveled recently to another state outside of [place], [place], [place], [place], [place], [place], [place]? no o If yes, did you quarantine for 14 days or have a negative covid test? no If yes to any of the above, patient is not to be scheduled in office until after 14 day quarantine or negative covid test. If pain or injury related was it due to an accident at work or from a motor vehicle accident? If yes, date of accident/Injury: No If yes, gather 3rd republican insurance information Third Democrat Information: not applicable PCP: Dejan Mak MD Payor: [facility] PLAN / Plan: WE[employer] MEDICAID / Product Type: *No Product type* / documented in this encounter Plan of Treatment Upcoming Encounters Date Type Department Care Team (Late st Contact Info) Description 12/11/2024 9:30 AM EST Office Visit Obstetrics and Gynecology [address] [phone] Gabi Grimaldo MD [address] [place] [address] 01/23/2025 2:00 PM EDT Consult [facility] [place] [address] [place] [phone] Afsaneh Smith MD [address] [facility] [address] [place] [phone] 06/20/2025 4:00 PM EDT Appointment Radiology Department - [address] [phone] 07/23/2025 8:00 AM EDT Office Visit Adult Medicine [facility] - [address] [phone] Dejan Mak MD [address] [place] [address] documented as of this encounter Goals Goal [...] PT LTG x 15 visits General No Reg Caro, PT Note: Pt will improve lumbar flexion [...] documented as of this encounter Visit Diagnoses Not on filedocumented in this encounter Care Teams Vehicle Body Maker Relationship Specialty Start Date End Date Dejan Mak MD [address] [place] [address] PCP - General 12/28/22 documented as of this encounter
--- OUTSIDE RECORDS SUMMARY | 2024-12-10 06:40 | XMS_ITS | Clinical Summary ---
Author Organization [facility] Address [address] [place] [address] Phone Care Team Providers Care Employment Law Specialist Name Role Phone Prosper Barnard MD Primary Care Provider [phone] Allergies Active Allergy Reactions Criticality Noted Date Comments Ibuprofen 08/28/2021 Morphine 08/28/2021 Naproxen 08/28/2021 Tramadol 08/28/2021 Medications oxyCODONE (ROXICODONE) 5 MG immediate release tablet 07/14/2021 Acti ve albuterol HFA (PROVENTIL HFA;VENTOLIN HFA) 108 (90 Base) MCG/ACT inhaler Inhale 2 puffs every 6 (six) hours if needed Active EPINEPHrine 0.3 MG/0.3ML solution prefilled syringe Inject 0.3 mg into the shoulder, thigh, or buttocks 05/26/2020 Active loratadine (CLARITIN) 10 MG tablet Take 10 mg by mouth 11/24/2017 Active Pyridoxine HCl (Vitamin B6) 50 MG tablet Take 50 mg by mouth 1 (one) time each day 04/05/2022 Active phentermine 15 MG capsule Take 15 mg by mouth 1 (one) time each day in the morning Active hydroCHLOROthia zide 25 MG tablet Take 1 tablet (25 mg total) by mouth 1 (one) time each day 30 tablet 5 07/29/2023 Active Cholecalciferol (Vitamin D) 25 MCG (1000 UT) tablet Take 1 tablet by mouth 1 (one) time each day 30 tablet 5 07/29/2023 Active Active Problems Problem Noted Date Diagnosed Date Flank pain 11/03/2021 Microscopic hematuria 11/03/2021 Renal colic 11/03/2021 Renal stone 11/03/2021 Urinary tract infectious disease 11/03/2021 Family History Medical History Relation Comments Kidney disease Brother Heart disease Father Kidney failure Father Heart disease Paternal Grandfather Heart disease Paternal Grandmother Kidney failure Sister Relation Status Comments Brother Father Paternal Grandfather Paternal Grandmother Sister Social History Tobacco Use Types Packs/Day Years Used Date Smoking Tobacco: Every Day Cigarettes Smokeless Tobacco: Never Tobacco Cessation:Ready to Q uit: Not Asked; Counseling Given: Not Answered Alcohol Use Standard Drinks/Week Comments Yes 0 (1 standard drink = 0.6 oz pur e alcohol) occasion Comments Unknown Sex and Gender Information Value Date Recorded Sex Assigned at Not on file Legal Sex Female 1:21 PM EDT Gender Identity Not on file Sexual Orientation Not on file Last Filed Vital Signs Vital Sign Reading Time Taken Comments Blood Pressure 118/76 07/29/2023 11:50 AM EDT Pulse 73 07/29/2023 11:50 AM EDT Temperature - - Respiratory Rate - - Oxygen Saturation 97% 05/12/2022 2:35 PM EDT Inhaled Oxygen Concentration - - Weight 98.9 kg (218 lb) 07/29/2023 11:50 AM EDT Height - - Body Mass Index - - Plan of Treatment Health Maintenance Due Date Last Done Comments Pneumococcal Vaccine: Pediat rics (0 to 5 Years) and At-Risk Patients (6 to 64 Years) (1 of 2 - PCV) 1984 Hepatitis B Vaccine (1 of 3 - 19+ 3-dose series) 06/12 Influenza Vaccine (#1) 2024 Insurance [facility] MEDICAID [facility] MEDICAID Care Teams Employment Law Specialist Relationship Specialty Start Date End Date Prosper Barnard MD [address] [place] [address] PCP - General Internal Medicine 08/28/21
--- OUTSIDE RECORDS SUMMARY | 2024-12-10 06:40 | XMS_ITS | Encounter Summary ---
Author Organization [facility] Address [address] [place] [address] Care Team Providers Care Bread Distributor Name Role Phone Dejan Mak MD Primary Care Provider [phone] Reason for Visit * Reason Onset Date Comments vna 11/29/2024 Encounter Details Date Type Department Care Team ([facility] st Contact Info) Description 11/29/2024 Telephone Adult Medicine [facility] [address] [place] [address] Dejan Mak MD [address] [place] [address] vna Social History Tobacco Use Types Packs/Day Years [...] as of this encounter Progress Notes * Aime Santos LPN - 12/04/2024 2:12 PM EST 11/27 office note faxed to [facility] * Aime Santos LPN - 12/04/2024 9:48 AM EST Left a message on [employer] (+ ID) VM to call me left the last OV date 11/27/24 * Remy Kurtz - 12/03/2024 12:15 PM EST [facility] calling back , would like to speak to nurse [phone], last office visit for the client , states received one for August but patient saw provider recently * Aime Santos LPN - 11/29/2024 4:47 PM EST Spoke with [employer] she did receive the referral for [employer] * Aime Santos LPN - 11/29/2024 3:56 PM EST Called patient referral paper work was faxed to [phone] Att [employer] confirmation was received Called [employer] she said she never received the fax re faxed to [phone] Confirmation received * Ivory Santos RN - 11/29/2024 3:40 PM EST 11/27 vna referral was sent by Fabricio santos and confirmation received And there is note pt is active with [employer] Pt states no one has come because the agency is waiting for forms from dr Mak? * Lorena Cardoza - 11/29/2024 3:12 PM EST Patient call requires triage: Symptoms patient is presenting: patient is reaching out regarding needing pcp signature for home health care paperwork [employer] [address], [facility]. Patient wastold that doctor would fax information over however nothing was fax over. Appointment notes provingthat you need services. Patient insurance company called patient and told her that someone from [facility] said that paperwork was faxed however nothing was faxed over. Phone number [phone] How long has patient had these symptoms?: 10/2024 For ALL patients calling to schedule any [...] traveled recently to another state outside of [place], [place], [place], [place], [place], [place], [place]? no o If yes, did you [...] yes, gather 3rd republican insurance information Third Libertarian Information: not applicable PCP: Dejan Mak MD [facility] [employer] [facility] [employer] PLAN / Plan: [facility] MEDICAID / Product Type: *No Product type* / documented in this encounter Plan of Treatment Upcoming Encounters Date Type Department Care Team (Late st Contact Info) Description 12/11/2024 9:30 AM EST Office Visit Obstetrics and Gynecology - [address] [phone] Gabi Grimaldo MD [address] [place], [place] 01/23/2025 2:00 PM EDT Consult [address] [place] [address] Afsaneh Smith MD 175 [facility] [address] [place] [address] 06/20/2025 4:00 PM EDT Appointment Radiology Department [address] [phone] 07/23/2025 8:00 AM EDT Office Visit Adult Medicine [address] [phone] Dejan Mak MD [address] [place], [place] documented as of this encounter Goals Goal Patient Goal Type Associated Problems Recent Progress Patient-Stated? Author less pain General Yes Reg Caro, PT PT STG x 8 visits General [...] on filedocumented in this encounter Care Teams Bread Distributor Relationship Specialty Start Date End Date Dejan Mak MD [address] [place], [place] PCP - General 12/28/22 documented as of this encounter
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
--- OUTSIDE RECORDS SUMMARY | 2024-12-10 06:41 | XMS_ITS | Encounter Summary ---
Author Organization [employer] Address [address] [place] [address] Care Team Providers Care Extern Name Role Phone Dejan Mak MD Primary Care Provider [phone] Reason for Visit * Reason Onset Date Comments Referral 11/12/2024 Fall 11/12/2024 Encounter Details Date Type Department Care Team ([facility] st Contact Info) Description 11/12/2024 Telephone Adult Medicine [facility] [place] [address] [place] [address] Dejan Mak MD 444 [place] [address] Referral; Fall Social History Tobacco Use Types Packs/Day Years [...] Progress Notes * Ivory Santos RN - 11/12/2024 10:09 AM EST Pt to complete PT ev al and then will see dr Mak to disucuss changes in services she wants to change to a program at [place] she will have the agency send form to PCP. Will see dr Mak 11/27 * Honorio Casas - 11/12/2024 9:23 AM EST The patient is calling in regards to a referral for [employer] services and a fall that she has had 2 daysago due to her right leg (she stated). The patient was calling for a referral and stated that she is already receiving [employer] services but the program or service company is asking for another referral due to the patient needing more hours and she does not know if she would need to make another appointment for that or just request another referral. The fall was on her right side. Please Advise. documented in this encounter Plan of Treatment Upcoming Encounters Date Type Department Care Team (Late st Contact Info) Description 12/11/2024 9:30 AM EST Office Visit Obstetrics and Gynecology - [address] [phone] Gabi Grimaldo MD 30 [place], [place] 01/23/2025 2:00 PM EDT Consult [facility] [place] [address] [phone] Afsaneh Smith MD [address] [phone] 06/20/2025 4:00 PM EDT Appointment Radiology Department - [address] [phone] 07/23/2025 8:00 AM EDT Office Visit Adult Medicine [place] - [address] [phone] Dejan Mak MD [address] [place] [address] documented as of this encounter Visit Diagnoses Not on filedocumented in this encounter Care Teams Extern Relationship Specialty Start Date End Date Dejan Mak MD [address] [place] [address] PCP - General 12/28/22 documented as of this encounter
--- OUTSIDE RECORDS SUMMARY | 2024-12-10 06:41 | XMS_ITS | Encounter Summary ---
Author Organization [employer] Address [address] [place] [address] Care Team Providers Care Bench Worker Binding Name Role Phone Dejan Mak MD Primary Care Provider [phone] Reason for Visit * Reason Onset Date Comments Abdominal Pain 11/26/2024 Blood in Urine 11/26/2024 Encounter Details Date Type Department Care Team (Late st Contact Info) Description 11/26/2024 Telephone Adult Medicine [facility] 444 [place] [phone] Dejan Mak MD 444 [place] [address] Abdominal Pain; Blood in Urine Social History Tobacco Use Types Packs/Day Years [...] Progress Notes * Ivory Santos RN - 11/26/2024 3:57 PM EST Pt has had dysuria and frequency for the past week. Also c/o feeling tired and dizzy Pt has no chest pain or SOB, denies any N/V/D , has not taken temp but she felt like she had a fever last night, no fever now , is able to tolerate PO with no appetite, Pt has abd and flank pain, C/Oburning with urination,voiding small amounts frequently and has urgency, denies any blood in the urine but has bright red blood when she wipes pt denies any recent trauma or surgery Advised home care following the Protocol. RN reinforced telephone consultation and advice. Reviewedwith the patient the signs and symptoms to watch for that would require immediate attention. If symptoms change, worsen or increase in intensity, to call back immediately. Pt is scheduled to see dr Mak at 2:00 , she will go to the ed tonight if she is worse * Cara Galeas - 11/26/2024 3:47 PM EST Patient call requires triage: Symptoms patient is presenting: c/o abdominal pain, blood in urine, frequent urination How long has patient had these symptoms?: 1 week For ALL patients calling to schedule any [...] traveled recently to another state outside of [place], [place], [place], [place], [place], [place], [place]? no o If yes, did you quarantine [...] not applicable PCP: Dejan Mak MD Payor: [employer] PLAN / Plan: [employer] MEDICAID / Product Type: *No Product type* / documented in this encounter Plan of Treatment Upcoming Encounters Date Type Department Care Team (Late st Contact Info) Description 12/11/2024 9:30 AM EST Office Visit Obstetrics and Gynecology - [address] [phone] Gabi Grimaldo MD 30 [place], [place] 01/23/2025 2:00 PM EDT Consult [facility] [place] 175 [facility] [address] [place] [phone] Afsaneh Smith MD [address] [phone] 06/20/2025 4:00 PM EDT Appointment Radiology Department - [address] [phone] 07/23/2025 8:00 AM EDT Office Visit Adult Medicine [place] - [address] [phone] Dejan Mak MD [address] [place] [address] documented as of this encounter Goals Goal [...] on filedocumented in this encounter Care Teams Bench Worker Binding Relationship Specialty Start Date End Date Dejan Mak MD [address] [place] [address] PCP - General 12/28/22 documented as of this encounter
--- OUTSIDE RECORDS SUMMARY | 2024-12-10 06:41 | XMS_ITS | Encounter Summary ---
Author Organization [employer] Address [address] [place] [address] Care Team Providers Care Special Projects Coordinator Name Role Phone Dejan Mak MD Primary Care Provider [phone] Reason for Visit * Reason Onset Date Comments Medication Problem 11/29/2024 Encounter Details Date Type Department Care Team ([facility] Contact Info) Description 11/29/2024 Telephone Adult Medicine [facility] [address] [place] [address] Dejan Mak MD [address] [place] [address] Medication Problem Social History Tobacco Use Types Packs/Day Years [...] as of this encounter Progress Notes * Gricelda Garcia MA - 12/06/2024 4:47 PM EST Called and spoke with Jamari. I asked if Tracey was able to pickling operator the medication. Jamari attemptedto call Tracey to ask but no answer. I let Jamari know to ask her if she was able to get the meds and if not then what pharmacy she wanted the medication to go to. I recommended to use [employer] to get back to us about this. And I made her aware also that Dr Mak will not be in the office until the . * Natalia Amaury - 11/29/2024 1:32 PM EST Qamar from [facility] is calling. States all 3 scripts didn't make it to the pharmacy. States patient is in pain and needs faxed again NAOMI Patient scripts Outpatient Medication Detail oxyCODONE (OXY-IR) 5 mg immediate release capsule Sig: Take 1 capsule (5 mg total) by mouth 2 (two) times a day if needed for severe pain. Max Daily Amount: 10 mg Class: Print ondansetron ODT (ZOFRAN-ODT) 8 mg disintegrating tablet Sig: Dissolve 1 tablet (8 mg total) on top of the tongue every 8 (eight) hours if needed for nauseaor vomiting. Sent to pharmacy as: ondansetron 8 mg disintegrating tablet (ZOFRAN-ODT) SUMAtriptan (IMITREX) 25 mg tablet Sig: Take 1 tablet (25 mg total) by mouth 1 (one) time if needed for migraine. May repeat after 2 hours. Sent to pharmacy as: SUMAtriptan 25 mg tablet (IMITREX) Class: Normal Route: oral documented in this encounter Plan of Treatment Upcoming Encounters Date Type Department Care Team (Late st Contact Info) Description 12/11/2024 9:30 AM EST Office Visit Obstetrics and Gynecology [address] [phone] Gabi Grimaldo MD 30 [place], [place] 01/23/2025 2:00 PM EDT Consult [facility] for [place] - [address] [facility] [address] [place] [phone] Afsaneh Smith MD 175 [facility] [address] [place] [phone] 06/20/2025 4:00 PM EDT Appointment Radiology Department [address] [place] [phone] 07/23/2025 8:00 AM EDT Office Visit Adult Medicine [address] [phone] Dejan Mak MD 4 [place], [place] documented as of this encounter Goals Goal Patient Goal Type Associated Problems Recent Progress Patient-Stated? Author less pain General Yes Reg Crao, PT PT STG x 8 visits General [...] on filedocumented in this encounter Care Teams Special Projects Coordinator Relationship Specialty Start Date End Date Dejan Mak MD 4 [facility] [place] PCP - General 12/28/22 documented as of this encounter
--- OUTSIDE RECORDS SUMMARY | 2024-12-10 06:41 | XMS_ITS | Encounter Summary ---
Author Organization [email or web address] Address [address] [place] [address] Care Team Providers Care Water Resource Agent Name Role Phone Dejan Mak MD Primary Care Provider [phone] Reason for Visit * Reason Onset Date Comments vna 11/14/2024 Encounter Details Date Type Department Care Team ([facility] Contact Info) Description 11/14/2024 Telephone Adult Medicine [address] [phone] Aime Santos LPN vna Social History Tobacco Use Types Packs/Day [...] Progress Notes * Aime Santos LPN - 11/27/2024 4:26 PM EST Home care referral faxed to [phone] confirmation received * Aime Santos LPN - 11/20/2024 2:34 PM EST Called Adry at [place] [phone] explained the provider is out of office until 11/27/24 I will fax what she needs as to as I get the referral ok with waiting * Aime Santos LPN - 11/16/2024 11:08 AM EST Called [facility] care Adry is not in this morning Will try later Patient has an apt on 11/[address] office visit with Dr. Mak 08/29/24 [facility] requesting a home care referral and face to face for [facility] They have sent this requests 3 times starting 08/15/64 10/26/24 11/12/24 Please give to Aime when completed Thank you * Aime Santos LPN - 11/14/2024 12:28 PM EST [facility] requesting face to face encounter , last office visit, updated med listand Diagnosis This is for her home [facility] services called left a message for Adry to call me last OV 08/29/24 Next OV 11/27/24 documented in this encounter Plan of Treatment Upcoming Encounters Date Type Department Care Team (Late st Contact Info) Description 12/11/2024 9:30 AM EST Office Visit Obstetrics and Gynecology [address] [phone] Gabi Grimaldo MD 30 [place], [place] 01/23/2025 2:00 PM EDT Consult [facility] [place] [address] [facility] [address] [place] [address] Afsaneh Smith MD [address] [facility] [address] [place] [phone] 06/20/2025 4:00 PM EDT Appointment Radiology Department [address] [place], [place] [phone] 07/23/2025 8:00 AM EDT Office Visit Adult Medicine [address] [phone] Dejan Mak MD 4 [facility] [place] documented as of this encounter Goals Goal [...] on filedocumented in this encounter Care Teams Water Resource Agent Relationship Specialty Start Date End Date Dejan Mak MD [address] [place] [address] [place] PCP - General 12/28/22 documented as of this encounter
--- OUTSIDE RECORDS SUMMARY | 2024-12-10 06:41 | XMS_ITS | Clinical Summary ---
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 Relationship Specialty Start Date End Date Dejan Mak MD [address] [place] [address] PCP - General 12/28/22
--- OUTSIDE RECORDS SUMMARY | 2024-12-10 06:41 | XMS_ITS | Encounter Summary ---
Author Organization [facility] Address [address] [place] [address] Care Team Providers Care Political Geographer Name Role Phone Dejan Mak MD Primary Care Provider [phone] Reason for Referral * Medications - Closed Specialty Diagnoses / Procedures Referred By Yunier luke Referred To Contact Diagnoses Dysuria Lower abdominal pain Dejan Mak MD [address] [place] [address] Phone: tel: fax: Referral ID Status Reason Start Date Expiration Date Visits Re quested Visits Authorized [id number] Closed 1 1 * Home Health (Routine) - Pending Review Specialty Diagnoses / Procedures Referred By Yunier t Referred To Contact Home Health Services Diagnoses Fibromyalgia Musculoskeletal pain Dejan Mak MD [address] [place] [address] Phone: tel: fax: [address] [address] Phone: tel: Referral ID Status Reason Start Date Expiration Date Visits Requested Visits Authorized [id number] Pending Review Consult and Treat 11/27/2024 11/27/2025 1 1 * Imaging (Routine) - Pending Review Specialty Diagnoses / Procedures Referred By Contac t Referred To Contact Radiology Diagnoses Dysuria Hematuria, unspecified type Blurry vision Procedures US Retroperitoneal Complete Dejan Mak MD [address] [place] [address] Phone: tel: fax: [facility] [address] [facility] [address] [place], [place] Phone: tel: Referral ID Status Reason Start Date Expiration Date V isits Requested Visits Authorized [id number] Pending Review 11/27/2024 11/27/2025 1 1 * Consultation (Urgent) - Authorized Specialty Diagnoses / Procedures Referred By Yunier luke Referred To Contact Rheumatology Diagnoses Fibromyalgia Dejan Mak MD [address] [place] [address] Phone: tel: fax: Pete Lemon PA [address] [place] [address] Phone: tel: fax: Referral ID Status Reason Start Date Expiration Date Visits Requested Visits Authorized [id number] Authorized Specialty Services Required 11/27/2024 11/27/2025 1 1 * Consultation (Routine) - Authorized Specialty Diagnoses / Procedures Referred By Yunier luke Referred To Contact Neurology Diagnoses Nonintractable headache, unspecified chronicity pattern, unspecified headache type Blurry vision Nausea and vomiting, unspecified vomiting type Dejan Mak MD [address] [place] [address] Phone: tel: fax: [facility] [address] [facility] [address] [place] [address] Phone: tel: fax: Referral ID Status Reason Start Date Expiration Date Visits Requested Visits Authorized [id number] Authorized Specialty Services Required 11/27/2024 11/27/2025 1 1 * Imaging (Routine) - Authorized Specialty Diagnoses / Procedures Referred By Yunier t Referred To Contact Radiology Diagnoses Nonintractable headache, unspecified chronicity pattern, unspecified headache type Blurry vision Nausea and vomiting, unspecified vomiting type Procedures MR Brain wo Contrast Dejan Mak MD [address] [place] [address] Phone: tel: fax: Radiology Department [address] Phone: tel: fax: Referral ID Status Reason Start Date Expiration Date V isits Requested Visits Authorized [id number] Authorized 11/27/2024 01/28/2025 1 1 * Consultation (Urgent) - Authorized Specialty Diagnoses / Procedures Referred By Yunier luke Referred To Contact Urology Diagnoses Dysuria Lower abdominal pain Hematuria, unspecified type Dejan Mak MD [address] [place] [address] Phone: tel: fax: [facility] Urology [facility] [address] [place] [address] Phone: tel: fax: Referral ID Status Reason Start Date Expiration Date Visits Requested Visits Authorized [id number] Authorized Specialty Services Required 11/27/2024 11/27/2025 1 1 Reason for Visit * Reason Comments Difficulty Urinating Encounter Details Date Type Department Care Team ([facility] st Contact Info) Description 11/27/2024 2:00 PM EST Office Visit Adult Medicine [address] [phone] Dejan Mak MD [address] [place] [address] Dysuria (Primary Dx); Nonintractable headache, unspecified chronicity pattern, unspecified headache type; Lower abdominal pain; Hematuria, unspecified type; Blurry vision; Nausea and vomiting, unspecified vomiting type; Fibromyalgia; B12 deficiency; Musculoskeletal pain Social History Tobacco Use Types Packs/Day Years [...] on file documented as of this encounter Last Filed Vital Signs Vital Sign Reading Time Taken Comments Blood Pressure 104/72 11/27/2024 2:09 PM EST Pulse 77 11/27/2024 2:09 PM EST Temperature 36.6 ??C (97.9 ??F) 11/27/2024 2:09 PM ES T Respiratory Rate 12 11/27/2024 2:09 PM EST Oxygen Saturation - - Inhaled Oxygen Concentration - - Weight 75.8 kg (167 lb) 11/27/2024 2:09 PM EST Height 152.4 cm (5') 11/27/2024 2:09 PM EST Body Mass Index 32.61 11/27/2024 2:09 PM EST documented in this encounter Ordered Prescriptions Prescription Sig Dispense Quantity Refills Last Filled Start Date End Date SUMAtriptan (IMITREX) 25 mg tablet Take 1 tablet (25 mg total) by mouth 1 (one) time if needed for migraine. May repeat after 2 hours. 27 tablet 3 11/27/2024 oxyCODONE (OXY-IR) 5 mg immediate release capsuleIndications:D ysuria,Lower abdominal pain Take 1 capsule (5 mg total) by mouth 2 (two) times a day if needed for severe pain. Max Daily Amount: 10 mg 20 capsule 11/27/2024 ondansetron ODT (ZOFRAN-ODT) 8 mg disintegrating tablet Dissolve 1 tablet (8 mg total) on top of the tongue every 8 (eight) hours if needed for nausea or vomiting. 12 tablet 1 11/27/2024 documented in this encounter Progress Notes * Dejan Mak MD - 11/27/2024 2:00 PM EST CHIEF COMPLAINT: Difficulty Urinating IDENTIFIER: Tracey Estes is a 44 y.o. old female. HPI: 44 yo F comes for the follow: Vomiting Lower abdominal pain Lower back pain pain Headache, blurry vision Urine dipstick was done and showed trace but otherwise unremarkable ROS: The remainder of review of systems is noncontributory. PAST MEDICAL HISTORY: Patient Active Problem List Diagnosis Date Noted Breakthrough bleeding 10/25/2024 Right inguinal pain 10/25/2024 Right hip pain 08/29/2024 Obesity (BMI 30-39.9) 08/29/2024 Dry skin 05/11/2024 Skin blushing/flushing 05/11/2024 Onychomycosis 05/11/2024 Tinea pedis of left foot 05/11/2024 Sinus mucosal thickening 05/02/2024 SOB (shortness of breath) 05/02/2024 Blurry vision 12/01/2023 Cervical spondylosis 12/01/2023 Dizziness 12/01/2023 Vertigo 12/01/2023 Cervical radiculopathy 11/09/2023 Degenerative disc disease, cervical 11/09/2023 Low blood pressure reading 11/09/2023 Osteoarthritis of right shoulder 11/09/2023 Chronic right shoulder pain 09/28/2023 Chronic low back pain 09/28/2023 Lumbar herniated disc 09/28/2023 Neck pain 09/28/2023 Vitamin B12 deficiency 09/28/2023 Chest pain 07/15/2023 Heart palpitations 07/15/2023 Bilateral sciatica 07/20/2022 Flank pain 11/03/2021 Kidney stone 11/03/2021 Microscopic hematuria 11/03/2021 Renal colic 11/03/2021 Urinary tract infection 11/03/2021 Enlarged liver 10/22/2021 Hepatic steatosis 10/22/2021 Seasonal allergic conjunctivitis 07/10/2020 Seasonal allergic rhinitis due to pollen 07/10/2020 Elevated liver enzymes 12/30/2014 Anxiety 01/23/2013 Depression 01/23/2013 Tattoo of skin 01/23/2013 Mild intermittent asthma 09/23/2012 SOCIAL HISTORY: Social History Tobacco Use Smoking status: Some Days Current packs/day: 0.00 Types: Cigarettes Last attempt to quit: 07/24/2023 Years since quittin.3 Smokeless tobacco: Never Substance Use Topics Alcohol use: Yes Comment: occasional FAMILY HISTORY: Family Status Relation Name Status Mother Alive Father Sister Tanesha Alive Sister Lashon Alive Sister [place] Alive Sister Eli Alive Brother Charles Alive Brother Daniel Alive Brother Andrea Alive Brother Darnell Alive Brother Jaime MGM PGM PGF Daughter Alive Daughter Alive Daughter Alive Son Alive Aunt Alive Neg Hx (Not Specified) No partnership data on file Family History Problem Relation Name Age of Onset Arthritis Mother Hypertension Father kidney transplant, arthritis, [place] Other (Other: CKD) Sister Tanesha Arthritis Sister Lashon thyroid disorder Thyroid disease Sister India Thyroid disease Sister Eli arthritis No Known Problems Brother Charles No Known Problems Brother Daniel Other (Other: Autism) Brother Andrea No Known Problems Brother Darnell Stomach cancer Brother Jaime Diabetes Maternal Grandmother HTN, kidney failure on dialysis No Known Problems Paternal Grandmother No Known Problems Paternal Grandfather No Known Problems Daughter No Known Problems Daughter No Known Problems Daughter No Known Problems Son Breast cancer Aunt maternal aunt, 40s Ovarian cancer Neg Hx ACTIVE MEDICATIONS: Outpatient Medications Marked as Taking for the 11/27/24 encounter (Office Visit) with Dejan Mak MD Medication Sig Dispense Refill albuterol HFA (PROAIR [...] 1 tablet (12.5 mg total) by mouth. predniSONE (DELTASONE) 20 mg tablet Take 2 tablets (40 mg total) by mouth 1 (one) time each day. ALLERGIES: Ibuprofen, Morphine, Naproxen, Acetaminophen, Amoxicillin, Diphenhydramine hcl, Gabapentin, Hydromorphone, Nitrofurantoin, Tramadol, and Latex PHYSICAL EXAM: Blood pressure 104/72, pulse 77, temperature 36.6 ??C (97.9 ??F), resp. rate 12, height 1.524 m (60 ), weight 75.8 kg (167 lb). Body mass index is 32.61 kg/m??. BMI is greater than 25.0 (above the normal range) - see Plan APPEARANCE: Alert and in no acute distress HEART: RRR with normal S1 and S2, no murmurs, no gallops, no JVD appreciated LUNG: clear to auscultation bilaterally IMPRESSION: 1. Dysuria 2. Nonintractable headache, unspecified chronicity pattern, unspecified headache type 3. Lower abdominal pain 4. Hematuria, unspecified type 5. Blurry vision 6. Nausea and vomiting, unspecified vomiting type 7. Fibromyalgia 8. B12 deficiency 9. Musculoskeletal pain PLAN: 44 yo F comes for the follow: Vomiting Lower abdominal pain Lower back pain pain Headache, blurry vision Urine dipstick was done and showed trace but otherwise unremarkable #Dysuria #Lower abdominal pain Plan Patient agreeable for retroperitoneal ultrasound Patient agreeable for urinalysis with urine culture Patient referred to urology Oxycodone 5 mg twice daily as needed for severe pain was sent to pharmacy (PDMP was reviewed) #Headache #Blurry vision #Nausea/vomiting Plan: Patient referred to neurology Patient was given sumatriptan for headache as needed Patient agreeable for MRI brain #Fibromyalgia Plan: Patient referred to rheumatology #Vitamin B12 deficiency Plan: Patient agreeable for repeat B12 level as well as intrinsic factor blocking antibody Patient referred to home health Orders Placed This Encounter Procedures MR Brain wo Contrast US Retroperitoneal Complete Intrinsic factor blocking antibody Vitamin B12 Ambulatory referral to Urology Ambulatory referral to Neurology Ambulatory referral to Rheumatology Ambulatory referral to Home Health POC Urine Non-Auto W/O Micro ADDITIONAL ORDERS: AMB REFERRAL TO UROLOGY AMB REFERRAL TO NEUROLOGY AMB REFERRAL TO RHEUMATOLOGY AMB REFERRAL TO HOME HEALTH MR BRAIN WO CONTRAST US RETROPERITONEAL COMPLETE Dejan Mak MD on 11/27/2024 at 3:03 PM EST documented in this encounter Plan of Treatment Upcoming Encounters Date Type Department Care Team (Late st Contact Info) Description 12/11/2024 9:30 AM EST Office Visit Obstetrics and Gynecology - [address] [phone] Gabi Grimaldo MD [address] [place] [address] 01/23/2025 2:00 PM EDT Consult [facility] [place] [address] [phone] Afsaneh Smith MD [address] [phone] 06/20/2025 4:00 PM EDT Appointment Radiology Department - [address] [phone] 07/23/2025 8:00 AM EDT Office Visit Adult Medicine [address] [phone] Dejan Mak MD [address] [place] [address] Scheduled Orders Name Type Priority Associated Diagnoses Orde r Schedule MR Brain wo Contrast Imaging Routine Nonintractable headache, unspecified chronicity pattern, unspecified headache type Blurry vision Nausea and vomiting, unspecified vomiting type Expected: 11/27/2024, Expires: 11/27/2025 Scheduled Referrals Name Type Priority Associated Diagnoses Order Schedule Ambulatory referral to Urology Outpatient Referral Routine Dysuria Lower abdominal pain Hematuria, unspecified type 1 Occurrences starting 11/27/2024 until 11/27/2025 Ambulatory referral to Neurology Outpatient Referral Routine Nonintractable headache, unspecified chronicity pattern, unspecified headache type Blurry vision Nausea and vomiting, unspecified vomiting type 1 Occurrences starting 11/27/2024 until 11/27/2025 Ambulatory referral to Rheumatology Outpatient Referral Routine Fibromyalgia 1 Occurrences starting 11/27/2024 until 11/27/2025 Ambulatory referral to Home Health Outpatient Referral Routine Fibromyalgia Musculoskeletal pain 1 Occurrences starting 11/27/2024 until 11/27/2025 documented as of this encounter Goals Goal Patient Goal Type Associated Problems Recent Progress Patient-Stated? Author less pain General Yes [facility] PT PT STG x 8 visits General Yes [facility] PT Note: Pt will report average pain [...] x 15 visits General No [facility] Note: Pt will improve lumbar flexion [...] groceries away documented as of this encounter Procedures Procedure Name Priority Date/Time Associated Diagnosis Comments URINALYSIS WITH REFLEX MICROSCOPIC AND CULTURE Routine 11/27/2024 3:08 PM EST Dysuria Lower abdominal pain Hematuria, unspecified type BAH URINE CULTURE TUBE Routine 11/27/2024 3:08 PM EST Dysuria Lower abdominal pain Hematuria, unspecified type URINALYSIS WITH REFLEX MICROSCOPIC AND CULTURE Routine 11/27/2024 3:08 PM EST Dysuria Lower abdominal pain Hematuria, unspecified type POC URINE NON-AUTO W/O MICRO Routine 11/27/2024 2:27 PM EST Dysuria documented in this encounter Results * Vitamin B12 (12/04/2024 12:16 PM EST) Vitamin B-12 314 250 - 900 pcg/mL LAB CHEMISTRY METHOD 12/04/2024 4:56 PM EST [facility] Blood Venous blood specimen / Unknown Venipuncture / Unknown 12/04/2024 12:16 PM EST 12/04/2024 12:16 PM EST Dejan Mak MD LAB BLOOD ORDERABLES Final Result Performing Organization Address [facility] Co de Phone Number [facility] [address] [place] [address], [place] [phone] * Intrinsic factor blocking antibody (12/04/2024 12:16 PM EST) Pathologist [facility] Intrinsic Factor Blocking Antibody Negative Negative 12/07/2024 10:55 AM EST [facility] Comment: Positive in 50% of persons with pernicious anemia. Very high serum levels of vitamin B12 may give false positive results for intrinsic factor antibody. ??No sample should be collected from a patient who has received vitamin B12 injection therapy within the past week. Test performed at [facility], [address] , [place], [place] ??[address] ? [phone] Griselda Lee MD, PhD - Vacuum Cooker Operator Blood Venous blood specimen / Unknown Venipuncture / Unknown 12/04/2024 12:16 PM EST 12/04/2024 12:16 PM EST Dejan Mak MD LAB BLOOD ORDERABLES Final Result Performing Organization Address City/[facility]/ZIP Co de Phone Number [facility] [address] [place] [address] [address] * US Retroperitoneal Complete (11/27/2024 7:15 PM [...] Signed Date: 11/28/2024 09:29 ET Workstation ID: [id number] Transcribed By: Self Edit Transcribed Date: 11/28/2024 [...] Signed Date: 11/28/2024 09:29 ET Workstation ID: [id number] Transcribed By: Self Edit Transcribed Date: 11/28/2024 09:17 ET Dejan Mak MD IMG US PROCEDURES Final Res ult * Bah urine culture tube (11/27/2024 3:08 PM EST) Pathologist [facility] Extra Tube Hold for add-ons. 11/27/2024 6:01 PM EST [facility] Comment:Auto resulted. Urine Urine specimen obtained by clean catch procedure / Unknown Non-blood Collection / Unknown 11/27/2024 3:08 PM EST 11/27/2024 3:09 PM EST Dejan Mak MD LAB URINE ORDERABLES Final Result [facility] [address] [place] [address], [place] [phone] * (ABNORMAL) Urinalysis with reflex microscopic and culture (11/27/2024 3:08 PM EST) Pathologist [facility] Specific [place] Urine 1.020 1.003 - 1.030 LAB URINALYSIS - AUTOMATED METHOD 11/27/2024 6:18 PM EST [facility] pH, Urine 6.5 5.0 - 8.0 pH LAB URINALYSIS - AUTOMATED METHOD 11/27/2024 6:18 PM [facility] Leukocytes, Urine Negative Negative LAB URINALYSIS - AUTOMATED METHOD 11/27/2024 6:18 PM [facility] Nitrite, Urine Negative Negative LAB URINALYSIS - AUTOMATED METHOD 11/27/2024 6:18 PM [facility] Protein, Urine Negative <=Trace mg/dL LAB URINALYSIS - AUTOMATED METHOD 11/27/2024 6:18 PM [facility] Glucose, Urine Negative Negative mg/dL LAB URINALYSIS - AUTOMATED METHOD 11/27/2024 6:18 PM [facility] Ketones, Urine Negative Negative mg/dL LAB URINALYSIS - AUTOMATED METHOD 11/27/2024 6:18 PM [facility] Urobilinogen, Urine 1.0 0.2 - 1.0 mg/dL LAB URINALYSIS - AUTOMATED METHOD 11/27/2024 6:18 PM [facility] Bilirubin, Urine Negative Negative LAB URINALYSIS - AUTOMATED METHOD 11/27/2024 6:18 PM [facility] Blood, Urine Trace(A) Negative LAB URINALYSIS - AUTOMATED METHOD 11/27/2024 6:18 PM [facility] RBC, Urine 3.8 0 - 4 /HPF LAB URINALYSIS - AUTOMATED METHOD 11/27/2024 6:18 PM [facility] WBC, Urine 4.2(H) 0 - 4 /HPF LAB URINALYSIS - AUTOMATED METHOD 11/27/2024 6:18 PM [facility] Squamous Epithelial, Urine 53 0 - 60 /LPF LAB URINALYSIS - AUTOMATED METHOD 11/27/2024 6:18 PM [facility] Bacteria, Urine Negative Negative /HPF LAB URINALYSIS - AUTOMATED METHOD 11/27/2024 6:18 PM [facility] Hyaline Casts, Urine 0.4 0 - 3 /LPF LAB URINALYSIS - AUTOMATED METHOD 11/27/2024 6:18 PM EST [facility] Urine Urine specimen obtained by clean catch procedure / Unknown Non-blood Collection / Unknown 11/27/2024 3:08 PM EST 11/27/2024 3:09 PM EST us Dejan Mak MD LAB URINE ORDERABLES Final Result [facility] [address] [place] [address], [place] [phone] * POC Urine Non-Auto W/O Micro (11/27/2024 2:27 PM EST) Leukocytes UA POC Negative Negative Nitrite UA POC Negative Negative Urobilinogen UA POC Negative Negative Protein UA POC Negative Negative PH UA POC 6.5 5.0 - 9.0 Blood UA POC Trace Negative, Trace Specific [place] UA POC 1.020 1.001 - 1.035 Ketones UA POC Negative Negative Bilirubin UA POC Negative Negative Glucose UA POC Normal Normal, Trace Color UA POC Yellow CLARITY, URINE POC Clear Urine Urine specimen obtained by clean catch procedure / Unknown 11/27/2024 2:27 PM EST us Dejan Mak MD POINT OF CARE TEST ENTER/ED IT ORDERABLES Final Result documented in this encounter Visit Diagnoses Diagnosis Dysuria- Primary Nonintractable headache, unspecified chronicity pattern, unspecified headache type Lower abdominal pain Abdominal pain, other specified site Hematuria, unspecified type Blurry vision Other specified visual disturbances Nausea and vomiting, unspecified vomiting type Fibromyalgia Unspecified myalgia and myositis B12 deficiency Musculoskeletal pain Unspecified myalgia and myositis Dysuria Hematuria, unspecified type Blurry vision Other specified visual disturbances Encounter for screening mammogram for breast cancer documented in this encounter Discontinued Medications Medication Sig Discontinue Reason Start Date End Da te metoclopramide (REGLAN) 10 mg tablet Take 1 tablet (10 mg total) by mouth 3 times daily as needed. 02/16/2022 11/27/2024 phentermine 15 mg capsule Take 1 capsule (15 mg total) by mouth. 11/27/2024 pyridoxine (B-6) 50 mg tablet Take 1 tablet (50 mg total) by mouth. 04/05/2022 11/27/2024 simethicone (MYLICON) 80 mg chewable tablet Chew 1 tablet (80 mg total). 08/30/2023 11/27/2024 documented as of this encounter Care Teams Political Geographer Relationship Specialty Start Date End Date Dejan Mak MD [address] [place] [address] PCP - General 12/28/22 documented as of this encounter
--- OUTSIDE RECORDS SUMMARY | 2024-12-10 06:41 | XMS_ITS | Encounter Summary ---
Author Organization [facility] Address [address] [place] [address] Care Team Providers Care Human Resources Benefits Assistant Name Role Phone Dejan Mak MD Primary Care Provider [phone] Reason for Visit * Reason Onset Date Comments Advice Only 11/12/2024 acupuncture Encounter Details Date Type Department Care Team ([facility] st Contact Info) Description 11/12/2024 Telephone Neurosurgery [facility] 175 [facility] [address] [place] [phone] Heather Miller PA 175 [facility], [address] [address] Advice Only (acupuncture) Social History Tobacco Use Types Packs/Day Years [...] as of this encounter Progress Notes * RHODA Nichols - 11/12/2024 1:37 PM EST I spoke with patient, she called the [facility] for the aquatic PT, they asked her to come in person withher prescription, which she plans to do next week, she has a little cold right now. I asked her to call her insurance company, see if there is a local acupuncture office that they would cover, or shecould pay [id number]. All questions answered. * Juana Tong - 11/12/2024 9:34 AM EST Patient called for advice regarding the acupuncture she was referred to. They don't take the insurance. Please call when you get a chance. documented in this encounter Plan of Treatment Upcoming Encounters Date Type Department Care Team (Late st Contact Info) Description 12/11/2024 9:30 AM EST Office Visit Obstetrics and Gynecology - [address] [phone] Gabi Grimaldo MD [address] [place], [place] 01/23/2025 2:00 PM EDT Consult [facility] [place] [address] [phone] Afsaneh Smith MD [address] [phone] 06/20/2025 4:00 PM EDT Appointment Radiology Department - [address] [phone] 07/23/2025 8:00 AM EDT Office Visit Adult Medicine [facility] - [address] [phone] Dejan Mak MD [address] [place] [address] documented as of this encounter Visit Diagnoses Not on filedocumented in this encounter Care Teams Human Resources Benefits Assistant Relationship Specialty Start Date End Date Dejan Mak MD [address] [place] [address] PCP - General 12/28/22 documented as of this encounter
--- OUTSIDE RECORDS SUMMARY | 2024-12-10 06:41 | XMS_ITS | Encounter Summary ---
Author Organization [facility] Address [address] [place] [address] Care Team Providers Care Earring Maker Name Role Phone Dejan Mak MD Primary Care Provider [phone] Reason for Referral * Imaging (Routine) - Pending Review Specialty Diagnoses / Procedures Referred By Contac t Referred To Contact Radiology Diagnoses Dysuria Hematuria, unspecified type Blurry vision Procedures US Retroperitoneal Complete Dejan Mak MD [address] [place] [address] Phone: tel: fax: [address] Phone: tel: Referral ID Status Reason Start Date Expiration Date V isits Requested Visits Authorized [id number] Pending Review 11/27/2024 11/27/2025 1 1 Reason for Visit * Imaging (Routine) - Pending Review Specialty Diagnoses / Procedures Referred By Contac t Referred To Contact Radiology Diagnoses Dysuria Hematuria, unspecified type Blurry vision Procedures US Retroperitoneal Complete Dejan Mak MD [address] [place] [address] Phone: tel: fax: [address] Phone: tel: Referral ID Status Reason Start Date Expiration Date V isits Requested Visits Authorized [id number] Pending Review 11/27/2024 11/27/2025 1 1 Encounter Details Date Type Department Care Team (Latest Contact Info) Description 11/27/2024 6:36 PM EST - 11/27/2024 11:59 PM EST Hospital Encounter Radiology Department - [address] [address] Dysuria; Hematuria, unspecified type; Blurry vision Discharge Disposition: Home or Self Care Social History Tobacco Use Types Packs/Day Years [...] on file documented as of this encounter Medications at Time of Discharge albuterol HFA (PROAIR HFA ; PROVENTIL HFA ; VENTOLIN HFA) 90 mcg/actuation inhaler Inhale 2 puffs by mouth. 03/29/2024 clotrimazole-betamet hasone (LOTRISONE) 1-0.05 % cream 1 g twice daily 2 to 4 weeks (between toes on left side) 05/11/2024 cyclobenzaprine (FLEXERIL) 5 mg tablet Take 1 tablet (5 mg total) by mouth at bedtime as needed for muscle spasms. 30 tablet 1 11/20/2024 EPINEPHrine (EpiPen 2-Telly) 0.3 mg/0.3 mL injection Inject 0.3 mL (0.3 mg total) into the thigh. 12/01/2023 fluticasone propionate (FLONASE) 50 mcg/actuation nasal spray SPRAY 2 SPRAYS INTO EACH NOSTRIL EVERY DAY 48 mL 1 09/25/2024 HYDROmorphone (DILAUDID) 2 mg tablet Take 1 tablet (2 mg total) by mouth. 09/06/2023 hydrOXYzine HCL (ATARAX) 10 mg tablet Take 1 tablet (10 mg total) by mouth 3 (three) times a day if needed. 06/13/2024 meclizine (ANTIVERT) 12.5 mg tablet Take 1 tablet (12.5 mg total) by mouth. 12/01/2023 ondansetron ODT (ZOFRAN-ODT) 8 mg disintegrating tablet Dissolve 1 tablet (8 mg total) on top of the tongue every 8 (eight) hours if needed for nausea or vomiting. 12 tablet 1 11/27/2024 oxyCODONE (OXY-IR) 5 mg immediate release capsuleIndications:D ysuria,Lower abdominal pain Take 1 capsule (5 mg total) by mouth 2 (two) times a day if needed for severe pain. Max Daily Amount: 10 mg 20 capsule 11/27/2024 predniSONE (DELTASONE) 20 mg tablet Take 2 tablets (40 mg total) by mouth 1 (one) time each day. 06/28/2024 SUMAtriptan (IMITREX) 25 mg tablet Take 1 tablet (25 mg total) by mouth 1 (one) time if needed for migraine. May repeat after 2 hours. 27 tablet 3 11/27/2024 documented as of this encounter Discharge Disposition Disposition Code Departure Means Destination Home or Self Care documented in this encounter Plan of Treatment Upcoming Encounters Date Type Department Care Team (Late st Contact Info) Description 12/11/2024 9:30 AM EST Office Visit Obstetrics and Gynecology - [address] [phone] Gabi Grimaldo MD [address] [place] [address] 01/23/2025 2:00 PM EDT Consult [facility] [place] [address] [address] Afsaneh Smith MD 175 [facility] [address] [place] [phone] 06/20/2025 4:00 PM EDT Appointment Radiology Department - [address] [phone] 07/23/2025 8:00 AM EDT Office Visit Adult Medicine [facility] 444 [facility] [place] [phone] Dejan Mak MD 444 [facility] [place] documented as of this encounter Goals Goal [...] Procedure Name Priority Date/Time Associated Diagnosis Comments US RETROPERITONEAL COMPLETE Routine 11/27/2024 7:15 PM EST Dysuria Hematuria, unspecified type Blurry vision documented in this encounter Results * US Retroperitoneal Complete (11/27/2024 7:15 PM [...] Signed Date: 11/28/2024 09:29 ET Workstation ID: [id number] Transcribed By: Self Edit Transcribed Date: 11/28/2024 [...] Signed Date: 11/28/2024 09:29 ET Workstation ID: [id number] Transcribed By: Self Edit Transcribed Date: 11/28/2024 09:17 ET us Dejan Mak MD IMG US PROCEDURES Final Res ult documented in this encounter Visit Diagnoses Diagnosis Dysuria Hematuria, unspecified type Blurry vision Other specified visual disturbances Encounter for screening mammogram for breast cancer documented in this encounter Care Teams Earring Maker Relationship Specialty Start Date End Date Dejan Mak MD [address] [place] [address] PCP - General 12/28/22 documented as of this encounter
--- OUTSIDE RECORDS SUMMARY | 2024-12-10 06:41 | XMS_ITS | Encounter Summary ---
Author Organization [email or web address] Address [address] [place] [address] Care Team Providers Care Piece Jobber Name Role Phone Dejan Mak MD Primary Care Provider [phone] Reason for Visit * Reason Onset Date Comments Results 11/28/2024 pain 11/28/2024 Encounter Details Date Type Department Care Team ([facility] st Contact Info) Description 11/28/2024 Telephone Adult Medicine [facility] [address] [place] [address] Dejan Mak MD [address] [place] [address] Results; pain Social History Tobacco Use Types Packs/Day [...] as of this encounter Progress Notes * Yumiko Thacker RN - 11/28/2024 12:17 PM EST Spoke to pt. She states she gets kidney stones all the time. Around every 5 months at present time her symptoms are -Headache/headache starts at rt. Eye and moves up head 8/10 -Lower back pain across lower back 8/10 -Visible hematuria when she wipes and burning with urination 2 days ago sweating and feeling hot but no more n/v yesterday vomiting x 2 yesterday I advised pt. With 8/10 headache, and uti infection type symptoms, nausea and vomiting to be evaluated in the ER. Pt. Sts I really don't want to go to the ER . Pt. Requesting to talk to PCP regarding testing results Will send message to PCP * Natalia Rebolledo - 11/28/2024 10:48 AM EST Inform patient: ANY URGENT OR ABNORMAL RESULTS WIILL RESULT IN A CALL BACK TO THE PATIENT NAOMI. Patient states she is in a lot of pain and wants to know if medication can be ordered. Patient states she had told Dr Mak about medication allergies and he wouldn't prescribe anything until he got her allergy list from her reinforcing iron and rebar workers. Patient states she can't remember the name of the reinforcing iron and rebar workers butrui went to : [facility] [address] I sent this to triage because patient states she is in a lot of pain Type of test: : urine and ultrasound of kidney Date test was performed: 11/27/24 Where was the test performed: [facility] Who ordered this test?: Dr Mak Is the doctor here today?: yes Can the message wait until the doctor returns?: no IF PATIENT'S PCP IS NOT IN INSTRUCT PATIENT THAT THEY WILL RECEIVE A CALL BACK WHEN THE PCP IS IN THE OFFICE NEXT. documented in this encounter Plan of Treatment Upcoming Encounters Date Type Department Care Team (Late st Contact Info) Description 12/11/2024 9:30 AM EST Office Visit Obstetrics and Gynecology - [address] [phone] Gabi Grimaldo MD [address] [place] [address] 01/23/2025 2:00 PM EDT Consult [address] [place] [phone] Afsaneh Smith MD 175 [facility] [place] [address] [place] [address] 06/20/2025 4:00 PM EDT Appointment Radiology Department [address] [phone] 07/23/2025 8:00 AM EDT Office Visit Adult Medicine [address] [phone] Dejan Mak MD [address] [place] [address] documented as of this encounter Goals Goal [...] on filedocumented in this encounter Care Teams Piece Jobber Relationship Specialty Start Date End Date Dejan Mak MD [address] [place] [address] PCP - General 12/28/22 documented as of this encounter
--- OUTSIDE RECORDS SUMMARY | 2024-12-10 06:41 | XMS_ITS | Encounter Summary ---
Author Organization [facility] Address [address] [facility] [address] [place] [address] Phone Care Team Providers Care Transportation Attendant Name Role Phone Prosper Barnard MD Primary Care Provider [phone] Encounter Details Date Type Department Care Team (Late st Contact Info) Description 09/17/2021 Telephone [facility] [address] [facility] 200 [place] [phone] Bruce Hernandez, DO [address] [place] [id number] Social History Tobacco Use Types Packs/Day Years Used Date Smoking Tobacco: Every Day Cigarettes Smokeless Tobacco: Never Alcohol Use Standard Drinks/Week Comments Yes 0 (1 standard drink = 0.6 oz pur e alcohol) occasion Comments Unknown Sex and Gender Information Value Date Recorded Sex Assigned at Not on file Legal Sex Female 1:21 PM EDT Gender Identity Not on file Sexual Orientation Not on file documented as of this encounter Plan of Treatment Not on file documented as of this encounter Visit Diagnoses Not on filedocumented in this encounter Care Teams Transportation Attendant Relationship Specialty Start Date End Date Prosper Barnard MD [address] [place] [address] PCP - General Internal Medicine 08/28/21 documented as of this encounter
[2024-12-10 07:07] LABS: MANUAL DIFF FLAG NO
[2024-12-10 07:11] LABS: Appearance Urine Clear; Color Urine Yellow; Glucose Urine UA Negative (Negative); Leukocyte Esterase Urine Negative (Negative); Nitrite Urine Negative (Negative); PH 5.5 (5.0-9.0); Specific Gravity - Urine >= 1.030 (1.005-1.025); Urine Blood Negative (Negative); Urine Ketones 15 mg/dL (Negative); Urine Protein Trace mg/dL (Neg-Trace)
--- NOTE | 2024-12-10 07:12 | ED.GENADULT ---
HPI - General Adult General Chief complaint: General Medical Stated complaint: n/v/d, fever Time Seen by Provider: 12/10/24 07:00 Source: patient Mode of arrival: ambulatory Limitations: no limitations History of Present Illness HPI narrative: This is 44 years old female presented to the emergency department complaining of nausea vomiting diarrhea burning during urination generalized weakness, symptoms started yesterday. Denies any fever denies any chest pain or shortness of breath. Also complaining of abdominal pain which is generalized Onset (ago): day(s) (1) Location: abdomen Radiation: non-radiation Severity: mild Quality: burning Pain Consistency: constant Relieving factors: none Exacerbating factors: none Associated symptoms: denies other symptoms Related Data Home Medications ?Medication ?Instructions ?Recorded ?Confirmed topiramate 25 mg tablet 25 mg PO DAILY 05/25/23 05/25/23 Previous Rx's ?Medication ?Instructions ?Recorded potassium citrate 10 mEq (1,080 10 meq PO BID 90 days #180 tabs 05/25/23 mg) tablet,extended release pyridoxine (vitamin B6) 50 mg 50 mg PO DAILY 90 days #90 tabs 05/25/23 tablet ondansetron 4 mg disintegrating 4 mg PO Q8H PRN nausea and 03/16/24 tablet vomiting #7 tabs benzonatate 100 mg capsule 100 mg PO TID PRN cough #10 caps 06/05/24 cyclobenzaprine 5 mg tablet 5 mg PO TID PRN muscle spasm #10 06/28/24 tabs lidocaine 5 % topical patch 1 patch topical DAILY #15 ea 06/28/24 prednisone 20 mg tablet 40 mg (2 x 20 mg) PO DAILY #10 tabs 06/28/24 cyclobenzaprine 10 mg tablet 10 mg PO Q8H #20 tabs 07/03/24 oxycodone 5 mg tablet 5 mg PO Q6H PRN pain #20 tabs 07/03/24 oxycodone 5 mg tablet 5 mg PO Q6H PRN pain #15 tabs 12/10/24 Allergies Allergy/AdvReac Type Severity Reaction Status Date / Time morphine [MORPHINE] Allergy Severe SWELLING Verified 12/10/24 06:27 ibuprofen [IBUPROFEN] Allergy Intermediate HIVES Verified 12/10/24 06:27 naproxen [NAPROXEN] Allergy Intermediate HIVES Verified 12/10/24 06:27 acetaminophen Allergy Unknown Rash Verified 12/10/24 06:27 tramadol [TRAMADOL] Allergy Unknown HIVES Verified 12/10/24 06:27 diphenhydramine Allergy Hives Verified 12/10/24 06:27 [From Benadryl] ketorolac [From TORADOL] AdvReac Unknown ITCHING Verified 12/10/24 06:27 Ibuprofen Allergy Unknown Hives Uncoded 07/02/24 19:05 Morphine Sulf Microinfusion Allergy Unknown Swelling Uncoded 07/02/24 19:05 PF Review of Systems Constitutional: Constitutional: Reports no additional constitutional complaints Gastrointestinal: Gastrointestinal: Reports nausea and Reports vomiting [facility] Past Medical History [facility] Narrative: Denies any major medical problems , chronic back pain atypical chest pain Medical History Renal calculi Depression Asthma Sciatica Social History Social History Alcohol intake: never Smoked in Last 30 Days: Yes Use of substances other than those prescribed or required for medical reasons: No Substance Use Type: Marijuana Advance Directives: No Advance Directives Information Provided: Yes Do you have a plan to hurt others: No Plan Patient : No Physical Exam ED Vital Signs: Vital Signs - 24 hr 12/10/24 06:24 12/10/24 09:43 Temperature 98.8 F 98.6 F Pulse Rate 89 81 Respiratory Rate 18 16 Blood Pressure 109/61 103/67 Pulse Oximetry 98 99 Oxygen Delivery Method Room Air Room Air BMI result Body Mass Index 32.2 No acute distress vital signs are stable afebrile normotensive Const General: healthy appearing, comfortable, no acute distress, well developed, alert and awake Orientation/consciousness: oriented to person and patient oriented x3 Limitations: no limitations HENMT Head: Yes normal to inspection General nose exam: Normal external nose present Face and sinus: Yes normal facial exam Neck Neck: Yes normal visual inspection Chest Chest palpation & inspection: normal inspection of the chest Resp Effort & Inspection: normal respiratory effort Auscultation: clear to auscultation bilaterally Cardio Jugular venous distension: no JVD Rate: regular rate Rhythm: regular rhythm GI Inspection: Yes normal to inspection Palpation (GI): Soft to palpation, not firm, nontender and no guarding Auscultation: normal bowel sounds Skin General skin exam: no rashes or lesions noted, elasticity normal and turgor normal Neuro General: oriented to person and patient oriented x3 Cranial nerves: Yes CN's II-XII intact bilaterally Cognition (Neuro): normal cognition Course Reevaluation(s) Reevaluation #1: I re-examined the patient had 1109 she is doing better, she received 2 L of fluids labs normal CT scan essentially normal question enteritis vs inflammatory bowel disease, most likely viral gastroenteritis Time: 11:10 Medications Administered Discontinued Medications Generic Name Dose Route Start Last Admin Trade Name Freq PRN Reason Stop Dose Admin Sodium Chloride 1,000 mls @ 999 mls/hr 12/10/24 07:15 12/10/24 08:32 Ns IVCONT 12/10/24 08:15 Infused .Q1H1M LIZ Infusion Sodium Chloride 1,000 mls @ 999 mls/hr 12/10/24 08:15 12/10/24 09:44 Ns IVCONT 12/10/24 09:15 Infused .Q1H1M LIZ Infusion Iohexol 100 ml 12/10/24 08:50 12/10/24 08:50 Iohexol 350 Mg/Ml 100 Ml Infus..Btl IV 12/10/24 08:51 85 ml ONCE ONE Administration Ondansetron HCl 4 mg 12/10/24 10:09 12/10/24 10:16 Ondansetron Hcl 4 Mg/2 Ml Vial IVPUSH 12/10/24 10:10 4 mg ONCE ONE Administration Oxycodone HCl 5 mg 12/10/24 10:09 12/10/24 10:16 Oxycodone Hcl Immed Release 5 Mg Tablet PO 12/10/24 10:10 5 mg ONCE ONE Administration Medical Decision Making Medical Decision Making [facility] Narrative: Patient is here complaining of nausea vomiting and diarrhea we will insert an IV check labs and reassessed Differential Diagnosis Differential Diagnoses: The differential diagnosis associated with the presentation includes Gastroenteritis viral/colitis/viral syndrome/UTI. 11:23 Am be much better anticipate discharge clinical picture is more consistent with viral gastroenteritis Admission/Observation Consideration of admission/observation: Escalation of care including admission/observation considered Lab Data [facility] Lab Attestation statement: I reviewed the patient's lab results. 12/10/24 06:56 12/10/24 06:56 Labs: Lab Results 02/24/25 Range/Units 06:56 WBC 6.7 (4.8-10.8) X10*3/uL RBC 4.64 (4.20-5.50) X10*6/uL Hgb 11.3 L (12.0-16.0) g/dl Hct 35.9 L (37.0-47.0) % MCV 77.4 L (80.0-98.0) fL MCH 24.4 L (27.0-33.0) pg MCHC 31.5 (31.0-35.0) g/dl RDW 13.6 (11.0-16.0) % Plt Count 207 D (160-400) X10*3/uL MPV 10.8 (9.4-12.3) fL Immature Gran % (Auto) 0.5 H (0.0-0.4) % Neut % (Auto) 86.6 H (45-73) % Lymph % (Auto) 6.2 L (20-40) % Geary % (Auto) 5.7 (2-11) % Eos % (Auto) 0.8 (0-4) % Baso % (Auto) 0.2 (0-2) % Lymph # (Auto) 0.4 L (1.2-4.9) X10*3/uL Geary # (Auto) 0.4 (0.1-1.2) X10*3/uL Eos # (Auto) 0.1 (0.0-0.4) X10*3/uL Baso # (Auto) 0.0 (0.0-0.2) X10*3/uL Abs Immat Gran (auto) 0.03 (0.00-0.03) X10*3/uL Absolute Neuts (auto) 5.8 (2.0-8.3) x10*3/uL Absolute Nucleated RBC 0.000 (0.0-0.012) X10*3/uL Nucleated RBC % (auto) 0.0 (0.0-0.2) /100WBC Sodium 139 (135-145) mmol/L Potassium 4.0 (3.3-5.1) mmol/L Chloride 107 (96-108) mmol/L Carbon Dioxide 23 (22-29) mmol/L Anion Gap 13 (12-20) BUN 16 (9-16) mg/dL Creatinine 0.69 (0.5-1.4) mg/dL Estim Creat Clear Calc 92.0 Estimated GFR > 60 Random Glucose 101 (60-115) mg/dL Calcium 9.0 D (8.4-10.2) mg/dL Total Bilirubin 0.8 (0.0-1.0) mg/dL AST 23 (5-31) U/L ALT 10 (0-31) U/L Alkaline Phosphatase 80 (39-117) U/L Total Protein 7.4 (6.5-8.0) g/dL Albumin 3.9 (3.5-5.0) g/dL Lipase 17 (8-78) U/L Urine Color Yellow Urine Appearance Clear Urine pH 5.5 (5.0-9.0) Ur Specific [place] >= 1.030 H (1.005-1.025) Urine Protein Trace (Neg-Trace) mg/dL Urine Glucose (UA) Negative (Negative) mg/dL Urine Ketones 15 (Negative) mg/dL Urine Blood Negative (Negative) Urine Nitrite Negative (Negative) Ur Leukocyte Esterase Negative (Negative) Influenza Type A (PCR) NEGATIVE (Negative) Influenza Type B (PCR) NEGATIVE (Negative) RSV RNA Qual (PCR) NEGATIVE (Negative) SARS-CoV-2 RNA (RT-PCR) NEGATIVE (Negative) Independent Interpretation I performed an independent interpretation of an: CT Scan Interpretation: nad Radiology Impression Discussion of test interpretation with radiology: I have reviewed the radiologist's reading. Radiologist Impression: LYMPH NODES: Prominent mesenteric lymph nodes with associated mesenteric edema pattern. VASCULAR: No aneurysm or dissection, abdominal aorta. PELVIC VISCERA: Heterogeneous nodular nonenlarged uterus. 2.2 cm cystic structure in the left adnexa and 1.4 cm cystic structure in the right adnexa. OSSEOUS STRUCTURES: Spondylosis, L4-5 and L5-S1. Sclerosis and the sacroiliac joints. Probable bony island lesions in the left femoral head. CT/CT abdomen pelvis w IV con IMPRESSION: Consider inflammatory bowel disease versus enteritis in the correct clinical settings. Small fat-containing right midline epigastric/supraumbilical hernia. Hepatomegaly. Nonobstructing calculus/nephrolithiasis, right kidney. Probable dominant follicles, bilaterally Status post gastric sleeve.. Fleischner guidelines were followed. Electronically signed by: Keyon Mendoza MD 12/10/2024 09:41 AM [facility] [place] External Record Review External record reviewed: Inpatient record Discharge Plan Discharge Clinical Impression: Gastroenteritis Vomiting Qualifiers: Vomiting type: unspecified Nausea presence: with nausea Qualified Code(s): R11.2 - Nausea with vomiting, unspecified Diarrhea Qualifiers: Diarrhea type: unspecified type Qualified Code(s): R19.7 - Diarrhea, unspecified Abdominal pain Qualifiers: Abdominal location: generalized Qualified Code(s): R10.84 - Generalized abdominal pain Patient Disposition: Home, Self-Care Instructions: Acute Nausea and Vomiting (ED) Additional Instructions: Follow-up with your primary care physician call today and make an appointment, stay on a liquid diet today no solid food return to the emergency room if you worse any concern Prescriptions: New oxycodone 5 mg tablet 5 mg PO Q6H PRN (Reason: pain) Qty: 15 0RF Rx Instructions: partial filing upon pt request; Partial Fill upon patient request. No Action ondansetron 4 mg tablet,disintegrating 4 mg PO Q8H PRN (Reason: nausea and vomiting) Qty: 7 0RF benzonatate 100 mg capsule 100 mg PO TID PRN (Reason: cough) Qty: 10 0RF cyclobenzaprine 10 mg tablet 10 mg PO Q8H Qty: 20 0RF oxycodone 5 mg tablet 5 mg PO Q6H PRN (Reason: pain) Qty: 20 0RF Rx Instructions: Partial Fill upon patient request. cyclobenzaprine 5 mg tablet 5 mg PO TID PRN (Reason: muscle spasm) Qty: 10 0RF prednisone 20 mg tablet 40 mg PO DAILY Qty: 10 0RF lidocaine 5 % adhesive patch,medicated 1 patch topical DAILY Qty: 15 0RF Rx Instructions: leave on most painful area for up to 12 hrs topiramate 25 mg tablet 25 mg PO DAILY pyridoxine (vitamin B6) 50 mg tablet 50 mg PO DAILY 90 Days Qty: 90 3RF potassium citrate 10 mEq (1,080 mg) tablet extended release 10 meq PO BID 90 Days Qty: 180 3RF Referrals: Dejan Mak MD [Primary Care Provider] - 12/12/24 Print Language: Sudanese
[2024-12-10 07:16] LABS: Basophils Percent Auto 0.2 % (0-2); Eosinophils Absolute Auto 0.1 X10*3/uL (0.0-0.4); Eosinophils Percent Auto 0.8 % (0-4); Hematocrit 35.9 % (37.0-47.0); Hemoglobin 11.3 g/dl (12.0-16.0); Imm Gran Abs Auto 0.03 X10*3/uL (0.00-0.03); Imm Gran Pct Auto 0.5 % (0.0-0.4); Lymphocytes Absolute Auto 0.4 X10*3/uL (1.2-4.9); Lymphocytes Percent Auto 6.2 % (20-40); Mean Corpuscular HGB Conc 31.5 g/dl (31.0-35.0); Mean Corpuscular Hemoglobin 24.4 pg (27.0-33.0); Mean Corpuscular Volume 77.4 fL (80.0-98.0); Mean Platelet Volume 10.8 fL (9.4-12.3); Monocytes Absolute Auto 0.4 X10*3/uL (0.1-1.2); Monocytes Percent Auto 5.7 % (2-11); Neutrophils Absolute Auto 5.8 x10*3/uL (2.0-8.3); Neutrophils Percent Auto 86.6 % (45-73); Platelet Count 207 X10*3/uL (160-400); Red Blood Count 4.64 X10*6/uL (4.20-5.50); Red Cell Distribution Width 13.6 % (11.0-16.0); White Blood Count 6.7 X10*3/uL (4.8-10.8)
[2024-12-10 07:22] LABS: Alanine Aminotransferase 10 U/L (0-31); Albumin Level 3.9 g/dL (3.5-5.0); Alkaline Phosphatase 80 U/L (39-117); Anion Gap 13 (12-20); Aspartate Amino Transferase 23 U/L (5-31); Bilirubin Total 0.8 mg/dL (0.0-1.0); Blood Urea Nitrogen 16 mg/dL (9-16); Carbon Dioxide 23 mmol/L (22-29); Chloride 107 mmol/L (96-108); Estimated Glomerular Filt Rate > 60; Glucose Random 101 mg/dL (60-115); Sodium 139 mmol/L (135-145); Total Protein 7.4 g/dL (6.5-8.0)
[2024-12-10] MEDS: 0.9 % Sodium Chloride 1,000 ML 999 ML IVCONT ×2 (07:30→08:32)
[2024-12-10 07:32] LABS: Lipase 17 U/L (8-78)
[2024-12-10 08:01] LABS: Influenza A PCR NEGATIVE (Negative); Influenza B PCR NEGATIVE (Negative); Resp Syncy Virus RNA Qual PCR NEGATIVE (Negative); SARS COV2 PCR INHOUSE NEGATIVE (Negative)
[2024-12-10] MEDS: iohexoL 350 MG/ML 100 ML INFUS..BTL IV (08:50)
[2024-12-10 09:43] VITALS: BP 103/67; PULSE 81; RESP 16; TEMP 37; O2SAT 99
[2024-12-10] MEDS: ondansetron HCL 4 MG/2 ML VIAL IVPUSH (10:16)
[2024-12-10] MEDS: oxyCODONE HCl Immed Release 5 MG TABLET PO (10:16)
[2024-12-10 12:01] VITALS: BP 103/67; PULSE 81; RESP 16; TEMP 37; O2SAT 99
== END 2024-12-10 12:04 | disposition home or self-care (01) ==
PROVIDERS: Emergency Provider Emergency Medicine; PCP Internal Medicine
DX: K52.9 Noninfective gastroenteritis and colitis, unspecified (principal); R11.2 Nausea with vomiting, unspecified; R50.9 Fever, unspecified; R30.0 Dysuria; Z03.818 Encounter for observation for suspected exposure to other biological agents ruled out; Z79.899 Other long term (current) drug therapy
CPT/HCPCS: 0241U; 74177; 80053; 81003; 83690; 85025; 96361; 96374; 99284; 99285; J2405; Q9967

== ENCOUNTER → 2024-12-10 08:12 | Outpatient (BNV) | payer OTHER, SELFPAY | PROVIDERS: Emergency Provider Emergency Medicine; PCP Internal Medicine; Visit Provider Radiology Diagnostic Radiology | DX: K44.9 Diaphragmatic hernia without obstruction or gangrene (principal); R16.0 Hepatomegaly, not elsewhere classified; N20.0 Calculus of kidney; Z98.84 Bariatric surgery status | CPT/HCPCS: 74177 ==

== ENCOUNTER 2024-12-18 22:44 | Emergency (ER) | payer OTHER, SELFPAY ==
--- NOTE | ~2024-12-18 | XR_ITS ---
CLINICAL HISTORY: chest pain 1 view chest x-ray Comparison: CR/SR - XR CHEST 2V - 06/05/24 07:19 EDT Findings: The lungs are clear. Normal size heart. No acute fracture. IMPRESSION: 1. No acute cardiopulmonary abnormality. This document has been electronically signed by: Davis Gabriel on 12/19/2024 06:52:51
--- NOTE | 2024-12-18 22:48 | ECG_ITS ---
Test Reason : cp Blood Pressure : */* mmHG Vent. Rate : 68 BPM Atrial Rate : 68 BPM P-R Int : 158 ms QRS Dur : 82 ms QT Int : 386 ms P-R-T Axes : 42 41 46 degrees QTcB Int : 410 ms Normal sinus rhythm Cannot rule out Anterior infarct , age undetermined Abnormal ECG When compared with ECG of 28-Jun-2024 10:37, No significant change was found Referred By: Generic ED Physician Electronically Signed By: SAHRA ULLOA MD
[2024-12-18 22:50] VITALS: BP 117/71; PULSE 65; RESP 18; TEMP 36.9; O2SAT 98; BMI 32.2
[2024-12-18 23:24] LABS: Basophils Percent Auto 0.1 % (0-2); Eosinophils Absolute Auto 0.2 X10*3/uL (0.0-0.4); Eosinophils Percent Auto 2.1 % (0-4); Hematocrit 32.3 % (37.0-47.0); Hemoglobin 10.3 g/dl (12.0-16.0); Imm Gran Abs Auto 0.02 X10*3/uL (0.00-0.03); Imm Gran Pct Auto 0.3 % (0.0-0.4); Lymphocytes Absolute Auto 2.2 X10*3/uL (1.2-4.9); Lymphocytes Percent Auto 30.5 % (20-40); MANUAL DIFF FLAG NO; Mean Corpuscular HGB Conc 31.9 g/dl (31.0-35.0); Mean Corpuscular Hemoglobin 24.7 pg (27.0-33.0); Mean Corpuscular Volume 77.5 fL (80.0-98.0); Mean Platelet Volume 9.8 fL (9.4-12.3); Monocytes Absolute Auto 0.4 X10*3/uL (0.1-1.2); Monocytes Percent Auto 5.9 % (2-11); Neutrophils Absolute Auto 4.4 x10*3/uL (2.0-8.3); Neutrophils Percent Auto 61.1 % (45-73); Platelet Count 230 X10*3/uL (160-400); Red Blood Count 4.17 X10*6/uL (4.20-5.50); Red Cell Distribution Width 13.7 % (11.0-16.0); White Blood Count 7.2 X10*3/uL (4.8-10.8)
[2024-12-18 23:38] LABS: Alanine Aminotransferase 14 U/L (0-31); Albumin Level 3.6 g/dL (3.5-5.0); Alkaline Phosphatase 68 U/L (39-117); Anion Gap 10 (12-20); Aspartate Amino Transferase 19 U/L (5-31); Bilirubin Total 0.2 mg/dL (0.0-1.0); Blood Urea Nitrogen 15 mg/dL (9-16); Calcium 8.3 mg/dL (8.4-10.2); Carbon Dioxide 27 mmol/L (22-29); Chloride 111 mmol/L (96-108); Creatinine Clr Calc Pharmacy 99.3; Estimated Glomerular Filt Rate > 60; Glucose Random 87 mg/dL (60-115); Potassium 3.9 mmol/L (3.3-5.1); Sodium 144 mmol/L (135-145); Total Protein 6.5 g/dL (6.5-8.0)
[2024-12-18 23:45] LABS: Troponin-I High Sensitivity 22.7 ng/L (<3.5-17.0)
[2024-12-19 00:59] VITALS: BP 114/82; PULSE 74; RESP 16; TEMP 36.6; O2SAT 99
--- OUTSIDE RECORDS SUMMARY | 2024-12-19 02:32 | XMS_ITS | Encounter Summary ---
Author Organization [facility] Address [address] [place] [address] Care Team Providers Care Fire Control Technician B Name Role Phone Dejan Mak MD Primary Care Provider [phone] Reason for Referral * Imaging (Routine) - Pending Review Specialty Diagnoses / Procedures Referred By Contac t Referred To Contact Radiology Diagnoses Dysuria Hematuria, unspecified type Blurry vision Procedures US Retroperitoneal Complete Dejan Mak MD [address] [place] [address] Phone: tel: fax: [address] Phone: tel: Referral ID Status Reason Start Date Expiration Date V isits Requested Visits Authorized [id number] Pending Review 11/27/2024 11/27/2025 1 1 Reason for Visit * Imaging (Routine) - Pending Review Specialty Diagnoses / Procedures Referred By Contac t Referred To Contact Radiology Diagnoses Dysuria Hematuria, unspecified type Blurry vision Procedures US Retroperitoneal Complete Dejan Mak MD [address] [place] [address] Phone: tel: fax: [address] Phone: tel: Referral ID Status Reason Start Date Expiration Date V isits Requested Visits Authorized [id number] Pending Review 11/27/2024 11/27/2025 1 1 Encounter Details Date Type Department Care Team (Latest Contact Info) Description 11/27/2024 6:36 PM EST - 11/27/2024 11:59 PM EST Hospital Encounter Radiology Department - [address] [address] Dysuria; Hematuria, unspecified type; Blurry vision Discharge [...] Care Team (Late st Contact Info) Description 12/20/2024 1:45 PM EST Appointment Radiology Department - [address] [address] 01/23/2025 2:00 PM EDT Consult [facility] [place] - [place] [address] [phone] Afsaneh Smith MD 175 [facility] 150 [place] [phone] 06/20/2025 4:00 PM EDT Appointment Radiology Department - [address] [address] 07/23/2025 8:00 AM EDT Office Visit Adult Medicine [place] - [address] [phone] Dejan Mak MD 444 [place] [address] documented as of this encounter Goals Goal [...] Signed Date: 11/28/2024 09:29 ET Workstation ID: [id number] Transcribed By: Self Edit Transcribed Date: 11/28/2024 [...] Signed Date: 11/28/2024 09:29 ET Workstation ID: [id number] Transcribed By: Self Edit Transcribed Date: 11/28/2024 09:17 ET us Dejan Mak MD [facility] PROCED[facility] Final Res ult documented in this encounter Visit Diagnoses Diagnosis Dysuria Hematuria, unspecified type Blurry vision Other specified visual disturbances Encounter for screening mammogram for breast cancer documented in this encounter Care Teams Fire Control Technician B Relationship Specialty Start Date End Date Dejan Mak MD [address] [place] [address] PCP - General 12/28/22 documented as of this encounter
--- OUTSIDE RECORDS SUMMARY | 2024-12-19 02:32 | XMS_ITS | Encounter Summary ---
Author Organization [employer] Address [address] [place] [address] Care Team Providers Care Tower Attendant Name Role Phone Dejan Mak MD Primary Care Provider [phone] Reason for Visit * Reason Onset Date Comments Results 11/28/2024 pain 11/28/2024 Encounter Details Date Type Department Care Team ([facility] st Contact Info) Description 11/28/2024 Telephone Adult Medicine [facility] [address] [place] [address] Dejan Mak MD 444 [place] [address] Results; pain Social History Tobacco Use Types [...] he got her allergy list from her television news producer. Patient states she can't remember the name of the television news producer butrui went to : [facility] [address] I sent this to triage because [...] 1:45 PM EST Appointment Radiology Department - [address] [address] 01/23/2025 2:00 PM EDT Consult [facility] - [place] 175 [facility] [address] [place] [phone] Afsaneh Smith MD 175 [facility] [address] [place] [phone] 06/20/2025 4:00 PM EDT Appointment Radiology Department [address] [place], [place] [phone] 07/23/2025 8:00 AM EDT Office Visit Adult Medicine [address] [phone] Dejan Mak MD 4 [facility] [place] documented as of this encounter Goals Goal [...] on filedocumented in this encounter Care Teams Tower Attendant Relationship Specialty Start Date End Date Dejan Mak MD [address] [place] [address] [place] PCP - General 12/28/22 documented as of this encounter
--- OUTSIDE RECORDS SUMMARY | 2024-12-19 02:32 | XMS_ITS | Encounter Summary ---
Author Organization [facility] Address [address] [place] [address] Care Team Providers Care Benzene Washer Name Role Phone Dejan Mak MD Primary Care Provider [phone] Reason for Referral * Medications - Closed Specialty Diagnoses / Procedures Referred By Yunier luke Referred To Contact Diagnoses Dysuria Lower abdominal pain Dejan Mak MD [address] [place] [address] Phone: tel: fax: Referral ID Status Reason Start Date Expiration Date Visits Re quested Visits Authorized [id number] Closed 1 1 * Home Health (Routine) - Pending Review Specialty Diagnoses / Procedures Referred By Yunier t Referred To Contact Home Health Services Diagnoses Fibromyalgia Musculoskeletal pain Dejan Mak MD [address] [place] [address] Phone: tel: fax: [address] [address] Phone: tel: Referral ID Status Reason Start Date Expiration Date Visits Requested Visits Authorized [id number] Pending Review Consult and Treat 11/27/2024 11/27/2025 1 1 * Imaging (Routine) - Pending Review Specialty Diagnoses / Procedures Referred By Contac t Referred To Contact Radiology Diagnoses Dysuria Hematuria, unspecified type Blurry vision Procedures US Retroperitoneal Complete Dejan Mak MD [address] [place] [address] Phone: tel: fax: [facility] 444 [facility] 444 [place], [place] Phone: tel: Referral ID Status Reason Start Date Expiration Date V isits Requested Visits Authorized [id number] Pending Review 11/27/2024 11/27/2025 1 1 * Consultation (Urgent) - Authorized Specialty Diagnoses / Procedures Referred By Yunier luke Referred To Contact Rheumatology Diagnoses Fibromyalgia Dejan Mak MD [address] [place] [address] Phone: tel: fax: Pete Lemon PA [address] [place] [address] Phone: tel: fax: Referral ID Status Reason Start Date Expiration Date Visits Requested Visits Authorized [id number] Authorized Specialty Services Required 11/27/2024 11/27/2025 1 1 * Consultation (Routine) - Authorized Specialty Diagnoses / Procedures Referred By Yunier luke Referred To Contact Neurology Diagnoses Nonintractable headache, unspecified chronicity pattern, unspecified headache type Blurry vision Nausea and vomiting, unspecified vomiting type Dejan Mak MD [address] [place] [address] Phone: tel: fax: [facility] 175 [facility] [address] [place] [address] Phone: tel: fax: Referral ID Status Reason Start Date Expiration Date Visits Requested Visits Authorized [id number] Authorized Specialty Services Required 11/27/2024 11/27/2025 1 1 * Imaging (Routine) - Authorized Specialty Diagnoses / Procedures Referred By Yunier t Referred To Contact Radiology Diagnoses Nonintractable headache, unspecified chronicity pattern, unspecified headache type Blurry vision Nausea and vomiting, unspecified vomiting type Procedures MR Brain wo Contrast Dejan Mak MD [address] [place] [address] Phone: tel: fax: Radiology Department [address] Phone: tel: fax: Referral ID Status Reason Start Date Expiration Date V isits Requested Visits Authorized [id number] Authorized 11/27/2024 01/28/2025 1 1 * Consultation (Urgent) - Authorized Specialty Diagnoses / Procedures Referred By Yunier luke Referred To Contact Urology Diagnoses Dysuria Lower abdominal pain Hematuria, unspecified type Dejan Mak MD [address] [place] [address] Phone: tel: fax: [facility]rology [facility] [address] [place] [address] Phone: tel: fax: Referral ID Status Reason Start Date Expiration Date Visits Requested Visits Authorized [id number] Authorized Specialty Services Required 11/27/2024 11/27/2025 1 1 Reason for Visit * Reason Comments Difficulty Urinating Encounter Details Date Type Department Care Team ([facility] st Contact Info) Description 11/27/2024 2:00 PM EST Office Visit Adult Medicine [address] [phone] Dejan Mak MD [address] [place] [address] Dysuria (Primary Dx); Nonintractable headache, unspecified chronicity [...] Arthritis Mother Hypertension Father kidney transplant, arthritis, [place] Other (Other: CKD) Sister Tanesha Arthritis Sister [...] 1:45 PM EST Appointment Radiology Department - [address] [phone] 01/23/2025 2:00 PM EDT Consult [facility] 175 [facility] [address] [place] [phone] Afsaneh Smith MD 175 [facility] [address] [place] [phone] 06/20/2025 4:00 PM EDT Appointment Radiology Department - [address] [phone] 07/23/2025 8:00 AM EDT Office Visit Adult Medicine [address] [phone] Dejan Mak MD [address] [place] [address] Scheduled Orders Name Type Priority Associated Diagnoses [...] * Vitamin B12 (12/04/2024 12:16 PM EST) [facility] Vitamin B-12 314 250 - 900 pcg/mL LAB CHEMISTRY METHOD 12/04/2024 4:[address] [facility] Blood Venous blood specimen / Unknown Venipuncture / Unknown 12/04/2024 12:16 PM EST 12/04/2024 12:16 PM EST Dejan Mak MD LAB BLOOD ORDERABLES Final Result [facility] [address] [place] [address], [place] [phone] * Intrinsic factor blocking antibody (12/04/2024 12:16 PM EST) [facility] Intrinsic Factor Blocking Antibody Negative Negative 12/07/2024 10:55 AM EST [facility] Comment: Positive in 50% of persons with pernicious anemia. Very high serum levels of vitamin B12 may give false positive results for intrinsic factor antibody. ??No sample should be collected from a patient who has received vitamin B12 injection therapy within the past week. Test performed at [facility], [address] , [place], [place] ??[address] ? [phone] Griselda Lee MD, PhD - Review Scheduling Coordinator Blood Venous blood specimen / Unknown Venipuncture / Unknown 12/04/2024 12:16 PM EST 12/04/2024 12:16 PM EST Dejan Mak MD LAB BLOOD ORDERABLES Final Result [facility] [address] [place] [address] * US Retroperitoneal Complete (11/27/2024 7:15 PM [...] Signed Date: 11/28/2024 09:29 ET Workstation ID: [id number] Transcribed By: Self Edit Transcribed Date: 11/28/2024 [...] Signed Date: 11/28/2024 09:29 ET Workstation ID: [id number] Transcribed By: Self Edit Transcribed Date: 11/28/2024 09:17 ET Dejan Mak MD IMG US PROCEDURES Final Res ult * Bah urine culture tube (11/27/2024 3:08 PM EST) Extra Tube Hold for add-ons. 11/27/2024 6:[address] [facility] Comment:Auto resulted. Urine Urine specimen obtained by clean catch procedure / Unknown Non-blood Collection / Unknown 11/27/2024 3:08 PM EST 11/27/2024 3:09 PM EST Dejan Mak MD LAB URINE ORDERABLES Final Result [facility] [address] [place] [address], [place] [phone] * (ABNORMAL) Urinalysis with reflex microscopic and culture (11/27/2024 3:08 PM EST) Specific [place] Urine 1.020 1.003 - 1.030 LAB URINALYSIS - AUTOMATED METHOD 11/27/2024 6:18 PM [facility] pH, Urine 6.5 5.0 - 8.0 pH LAB URINALYSIS - AUTOMATED METHOD 11/27/2024 6:18 PM [facility] Leukocytes, Urine Negative Negative LAB URINALYSIS - AUTOMATED METHOD 11/27/2024 6:18 PM [facility] Nitrite, Urine Negative Negative LAB URINALYSIS - AUTOMATED METHOD 11/27/2024 6:18 PM [facility] Protein, Urine Negative <=Trace mg/dL LAB URINALYSIS - AUTOMATED METHOD 11/27/2024 6:18 PM [facility] Glucose, Urine Negative Negative mg/dL LAB URINALYSIS - AUTOMATED METHOD 11/27/2024 6:18 PM [facility] Ketones, Urine Negative Negative mg/dL LAB URINALYSIS - AUTOMATED METHOD 11/27/2024 6:18 PM [facility] Urobilinogen, Urine 1.0 0.2 - 1.0 mg/dL LAB URINALYSIS - AUTOMATED METHOD 11/27/2024 6:18 PM [facility] Bilirubin, Urine Negative Negative LAB URINALYSIS - AUTOMATED METHOD 11/27/2024 6:18 PM [facility] Blood, Urine Trace(A) Negative LAB URINALYSIS - AUTOMATED METHOD 11/27/2024 6:18 PM [facility] RBC, Urine 3.8 0 - 4 /HPF LAB URINALYSIS - AUTOMATED METHOD 11/27/2024 6:18 PM [facility] WBC, Urine 4.2(H) 0 - 4 /HPF LAB URINALYSIS - AUTOMATED METHOD 11/27/2024 6:18 PM [facility] Squamous Epithelial, Urine 53 0 - 60 /LPF LAB URINALYSIS - AUTOMATED METHOD 11/27/2024 6:18 PM [facility] Bacteria, Urine Negative Negative /HPF LAB URINALYSIS - AUTOMATED METHOD 11/27/2024 6:18 PM [facility] Hyaline Casts, Urine 0.4 0 - 3 /LPF LAB URINALYSIS - AUTOMATED METHOD 11/27/2024 6:18 PM [facility] Urine Urine specimen obtained by clean catch procedure / Unknown Non-blood Collection / Unknown 11/27/2024 3:08 PM EST 11/27/2024 3:09 PM EST us Dejan Mak MD LAB URINE ORDERABLES Final Result [facility] [address] [place] [address], [place] [phone] * POC Urine Non-Auto W/O Micro (11/27/2024 2:27 PM EST) Leukocytes UA POC Negative Negative Nitrite UA POC Negative Negative Urobilinogen UA POC Negative Negative Protein UA POC Negative Negative PH UA POC 6.5 5.0 - 9.0 Blood UA POC Trace Negative, Trace Specific [place] UA POC 1.020 1.001 - 1.035 Ketones [...] documented as of this encounter Care Teams Benzene Washer Relationship Specialty Start Date End Date Dejan Mak MD [address] [place] [address] PCP - General 12/28/22 documented as of this encounter
--- OUTSIDE RECORDS SUMMARY | 2024-12-19 02:32 | XMS_ITS | Encounter Summary ---
Author Organization [facility] Address [address] [place] [address] Care Team Providers Care Administrative Job Titles Name Role Phone Dejan Mak MD Primary Care Provider [phone] Reason for Visit * Reason Onset Date Comments vna 11/29/2024 Encounter Details Date Type Department Care Team ([facility] st Contact Info) Description 11/29/2024 Telephone Adult Medicine [facility] [address] [place] [address] Dejan Mak MD [address] [place] [address] vna Social History Tobacco Use Types Packs/Day [...] , would like to speak to nurse [phone], last office visit for the client , states received one for August but patient saw provider recently * Aime Santos LPN - 11/29/2024 4:47 PM EST Spoke with Adry she did receive the referral for STUDENT LOAN COUNSELOR * Aime Santos LPN - 11/29/2024 3:56 PM EST Called patient referral paper work was faxed to [phone] Att Adry confirmation was received Called Adry she said she never received the fax re faxed to [phone] Confirmation received * Ivory Santos RN - 11/29/2024 3:40 PM EST 11/27 vna referral was sent by Fabricio santos and confirmation received And there is note pt is active with [employer] Pt states no one has come because the agency is waiting for forms from dr Mak? * Lorena Cardoza - 11/29/2024 3:12 PM EST Patient call requires triage: Symptoms patient is presenting: patient is reaching out regarding needing pcp signature for home health care paperwork [employer] [address], [facility]. Patient wastold that doctor would fax information over however nothing was fax over. Appointment notes provingthat you need services. Patient insurance company called patient and told her that someone from [facility] said that paperwork was faxed however nothing was faxed over. Phone number [phone] How long has patient had these symptoms?: [...] traveled recently to another state outside of [place], [place], [place], [place], [place], [place], [place]? no o If yes, did you quarantine [...] of accident/Injury: No If yes, gather 3rd green party insurance information [employer] Party Information: not applicable PCP: Dejan Mak MD Payor: [employer] PLAN / Plan: [facility] MEDICAID / Product Type: *No Product type* / documented in this encounter Plan of Treatment Upcoming Encounters Date Type Department Care Team (Late st Contact Info) Description 12/20/2024 1:45 PM EST Appointment Radiology Department - [address] [phone] 01/23/2025 2:00 PM EDT Consult [facility] [place] [facility] [place] 175 [facility] [address] [place] [address] Afsaneh Smith MD [address] [facility] [address] [place] [phone] 06/20/2025 4:00 PM EDT Appointment Radiology Department - [place] [address] [place] [address] 07/23/2025 8:00 AM EDT Office Visit Adult Medicine [facility] [address] [place] [address] [place] [phone] Dejan Mak MD 444 [facility] [place] documented as of this encounter Goals Goal [...] on filedocumented in this encounter Care Teams Administrative Job Titles Relationship Specialty Start Date End Date Dejan Mak MD 4 [facility] [place] PCP - General 12/28/22 documented as of this encounter
--- OUTSIDE RECORDS SUMMARY | 2024-12-19 02:32 | XMS_ITS | Encounter Summary ---
Author Organization [employer] Address [address] [place] [address] Care Team Providers Care Bobbin Doffer Name Role Phone Dejan Mak MD Primary Care Provider [phone] Reason for Visit * Consultation (Routine) - Authorized Specialty Diagnoses / Procedures Referred By Contac t Referred To Contact Physical Therapy Diagnoses Chronic bilateral low back pain with right-sided sciatica Heather Miller, PA [address] [facility], [address] [place] [address] Phone: tel: fax: Reg Caro, PT [address] [place] [address] Phone: tel: fax: Referral ID Status Reason Start Date Expiration Date Visits Requested Visits Authorized [id number] Authorized Consult and Treat 10/12/2024 10/12/2025 21 21 Encounter Details Date Type Department Care Team ([facility] Contact Info) Description 12/04/2024 12:30 PM EST Treatment Outpatient Rehabilitation - [place] [address] [place] [phone] Sarah Aponte PTA Chronic bilateral low back [...] Mccall PTA - 12/04/2024 12:30 PM EST [facility] - Outpatient PHYSICAL THERAPY DAILY TREATMENT NOTE - OP Date: 12/04/2024 Visit Number: 3 Patient Name: Tracey Estes : 1980 Age: 44 y.o. Gender: female Diagnosis: ICD-10-CM ICD-9-CM 1. Chronic bilateral low back pain with right-sided sciatica M54.41 724.2 G89.29 724.3 338.29 Date of Onset/Surgery: 08/08/2023 Referring Provider: Heather Miller PA Insurance: Payor: [email or web address] PLAN / Plan: [employer] MEDICAID / Product Type: *No Product type* / Patient Identified by: Aden Mccall PTA Language: Bahraini Medications: Current Outpatient Medications on File Prior [...] 1:45 PM EST Appointment Radiology Department - [address] [phone] 01/23/2025 2:00 PM EDT Consult [facility] - [place] 175 [facility] [address] [place] [phone] Afsaneh Smith MD 175 [facility] [address] [place] [phone] 06/20/2025 4:00 PM EDT Appointment Radiology Department - [address] [phone] 07/23/2025 8:00 AM EDT Office Visit Adult Medicine [address] [phone] Dejan Mak MD [address] [place] [address] documented as of this encounter Goals Goal [...] cancer documented in this encounter Care Teams Bobbin Doffer Relationship Specialty Start Date End Date Dejan Mak MD [address] [place] [address] PCP - General 12/28/22 documented as of this encounter
--- OUTSIDE RECORDS SUMMARY | 2024-12-19 02:32 | XMS_ITS | Encounter Summary ---
Author Organization [employer] Address [address] [place] [address] Care Team Providers Care Portable Track Crew Chief Name Role Phone Dejan Mak MD Primary Care Provider [phone] Reason for Visit * Reason Onset Date Comments Medication Problem 11/29/2024 Encounter Details Date Type Department Care Team ([facility] Contact Info) Description 11/29/2024 Telephone Adult Medicine [facility] [address] [place] [address] Dejan Mak MD 444 [place] [address] Medication Problem Social History Tobacco Use Types [...] I asked if Tracey was able to flower picker the medication. Jamari attemptedto call Tracey to ask but no answer. I let Jamari know to ask her if she was able to get the meds and if not then what pharmacy she wanted the medication to go to. I recommended to use [facility] to get back to us about this. And I made her aware also that Dr Mak will not be in the office until the . * Natalia Rebolledo - 11/29/2024 1:32 PM EST Qamar from [facility] [place] is calling. States all 3 scripts didn't [...] 1:45 PM EST Appointment Radiology Department - [address] [phone] 01/23/2025 2:00 PM EDT Consult [facility] [place] [facility] [place] 175 [facility] [address] [place] [phone] Afsaneh Smith MD 175 [facility] [address] [place] [phone] 06/20/2025 4:00 PM EDT Appointment Radiology Department - [place] [address] [place] [address] [place] [phone] 07/23/2025 8:00 AM EDT Office Visit Adult Medicine [facility] [address] [place] [address] [place] [phone] Dejan Mak MD [address] [place] documented as of this encounter Goals [...] on filedocumented in this encounter Care Teams Portable Track Crew Chief Relationship Specialty Start Date End Date Dejan Mak MD [address] [place] PCP - General 12/28/22 documented as of this encounter
--- OUTSIDE RECORDS SUMMARY | 2024-12-19 02:32 | XMS_ITS | Encounter Summary ---
Author Organization [employer] Address [address] [place] [address] Care Team Providers Care Child Health Associate Name Role Phone Dejan Mak MD Primary Care Provider [phone] Reason for Visit * Reason Onset Date Comments vna 11/14/2024 Encounter Details Date Type Department Care Team ([facility] Contact Info) Description 11/14/2024 Telephone Adult Medicine [address] [phone] Aime Santos LPN vna Social History Tobacco [...] PM EST Home care referral faxed to [phone] confirmation received * Aime Santos LPN - 11/20/2024 2:34 PM EST Called Adry at [place] [phone] explained the provider is out of office until 11/27/24 I will fax what she needs as to as I get the referral ok with waiting * Aime Santos LPN - 11/16/2024 11:08 AM EST Called [facility] care Adry is not in this morning Will try later Patient has an apt on 11/27 Last office visit with Dr. Mak 08/29/24 [facility] requesting a home care referral and face to face for [facility] They have sent this requests 3 times starting 08/15/64 10/26/24 11/12/24 Please give to Aime when completed Thank you * Aime Santos LPN - 11/14/2024 12:28 PM EST [facility] requesting face to face encounter , [...] 1:45 PM EST Appointment Radiology Department - [address] [phone] 01/23/2025 2:00 PM EDT [facility] [place] [address] [facility] [address] [place] [phone] Afsaneh Smith MD [address] [facility] [address] [place] [phone] 06/20/2025 4:00 PM EDT Appointment Radiology Department - [address], [place] [phone] 07/23/2025 8:00 AM EDT Office Visit Adult Medicine [facility] [place] [address] [place] [phone] Dejan Mak MD [address] [place] documented as of this encounter [...] on filedocumented in this encounter Care Teams Child Health Associate Relationship Specialty Start Date End Date Dejan Mak MD [address] [place] PCP - General 12/28/22 documented as of this encounter
--- OUTSIDE RECORDS SUMMARY | 2024-12-19 02:32 | XMS_ITS | Encounter Summary ---
Author Organization [facility] Address [address] [facility] [address] [place] [address] Phone Care Team Providers Care Portainer Operator Name Role Phone Prosper Barnard MD Primary Care Provider [phone] Encounter Details Date Type Department Care Team (Late st Contact Info) Description 09/17/2021 Telephone [facility] [address] [facility] [address] [place] [phone] Bruce Hernandez, DO [address] [place] [phone] Social History Tobacco Use Types Packs/Day Years [...] on filedocumented in this encounter Care Teams Portainer Operator Relationship Specialty Start Date End Date Prosper Barnard MD [address] [place] [address] PCP - General Internal Medicine 08/28/21 documented as of this encounter
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
--- OUTSIDE RECORDS SUMMARY | 2024-12-19 02:32 | XMS_ITS | Encounter Summary ---
Author Organization [employer] Address [address] [place] [address] Care Team Providers Care Material Preparation Worker Name Role Phone Dejan Mak MD Primary Care Provider [phone] Reason for Visit * Reason Onset Date Comments Abdominal Pain 11/26/2024 Blood in Urine 11/26/2024 Encounter Details Date Type Department Care Team (Late st Contact Info) Description 11/26/2024 Telephone Adult Medicine [facility] [place] [address] [place] [phone] Dejan Mak MD 444 [place] [address] Abdominal Pain; Blood in Urine Social History [...] traveled recently to another state outside of [place], [place], [place], [place], [place], [place], [place]? no o If yes, did you quarantine [...] of accident/Injury: No If yes, gather 3rd libertarian insurance information Third Alliance Party Information: not applicable PCP: Dejan Mak MD Payor: [employer] PLAN / Plan: [employer] MEDICAID / Product Type: *No Product type* / documented in this encounter Plan of Treatment Upcoming Encounters Date Type Department Care Team (Late st Contact Info) Description 12/20/2024 1:45 PM EST Appointment Radiology Department - [address] [phone] 01/23/2025 2:00 PM EDT Consult [facility] 175 [facility] [address] [place] [phone] Afsaneh Smith MD 175 [facility] [address] [place] [phone] 06/20/2025 4:00 PM EDT Appointment Radiology Department - [address] [phone] 07/23/2025 8:00 AM EDT Office Visit Adult Medicine [address] [phone] Dejan Mak MD [address] [place] [address] documented as of this encounter Goals Goal [...] on filedocumented in this encounter Care Teams Material Preparation Worker Relationship Specialty Start Date End Date Dejan Mak MD [address] [place] [address] PCP - General 12/28/22 documented as of this encounter
--- OUTSIDE RECORDS SUMMARY | 2024-12-19 02:32 | XMS_ITS | Encounter Summary ---
Author Organization [employer] Address [address] [place] [address] Care Team Providers Care Regional Economic Liaison Name Role Phone Dejan Mak MD Primary Care Provider [phone] Reason for Visit * Reason Onset Date Comments ultra sound 11/29/2024 Encounter Details Date Type Department Care Team ([facility] st Contact Info) Description 11/29/2024 Telephone Adult Medicine [facility] [place], [place] [address] [place] [address] Dejan Mak MD 444 [place] [address] ultra sound Social History Tobacco Use Types [...] vaginal she would need to speak with warpman, she has no new symptoms, will f/u [...] traveled recently to another state outside of [place], [place], [place], [place], [place], [place], [place]? no o If yes, did you [...] of accident/Injury: No If yes, gather 3rd constitution party insurance information Third Green Party Information: not applicable PCP: Dejan Mak MD Payor: [facility] PLAN / Plan: [employer] MEDICAID / Product Type: *No Product type* / documented in this encounter Plan of Treatment Upcoming Encounters Date Type Department Care Team (Late st Contact Info) Description 12/20/2024 1:45 PM EST Appointment Radiology Department - [address] [phone] 01/23/2025 2:00 PM EDT Consult [facility] [place] [facility] [place] [address] [facility] [address] [place] [phone] Afsaneh Smith MD 175 [facility] [address] [place] [phone] 06/20/2025 4:00 PM EDT Appointment Radiology Department [address] [phone] 07/23/2025 8:00 AM EDT Office Visit Adult Medicine [address] [phone] Dejan Mak MD 444 [place], [place] documented as of this encounter Goals [...] on filedocumented in this encounter Care Teams Regional Economic Liaison Relationship Specialty Start Date End Date Dejan Mak MD [address] [facility] [place] PCP - General 12/28/22 documented as of this encounter
--- OUTSIDE RECORDS SUMMARY | 2024-12-19 02:32 | XMS_ITS | Encounter Summary ---
Author Organization [place] [address] Care Team Providers Care Service Member Name Role Phone Dejan Mak MD Primary Care Provider [phone] Reason for Visit * Reason Comments Vaginitis/Bacterial Vaginosis Encounter Details Date Type Department Care Team (Late st Contact Info) Description 12/11/2024 9:30 AM EST Office Visit Obstetrics and Gynecology [address] [phone] Gabi Grimaldo MD [address] [place] [address] Dysuria (Primary Dx); Kidney stone Social History Tobacco Use Types Packs/Day Years [...] Sign Reading Time Taken Comments Blood Pressure 115/76 12/11/2024 9:26 AM EST Pulse 82 12/11/2024 9:26 AM EST Temperature - - Respiratory Rate - - Oxygen Saturation - - Inhaled Oxygen Concentration - - Weight 76.7 kg (169 lb 3.2 oz) 12/11/2024 9:26 A M EST Height 152.4 cm (5') 12/11/2024 9:26 AM EST Body Mass Index 33.04 12/11/2024 9:26 AM EST documented in this encounter Progress Notes * Gabi Grimaldo MD - 12/11/2024 10:02 AM ESTAssociated Problem(s): Kidney stone Given her pain and hematuria have resolved, and in keeping with her history, I believe this episodelikely represented passage of a kidney stone. I explained that ureter and bladder irritation can continue for a few days after passage and thus, although her US did not show a stone in her ureter or bladder after the initial painful episode, it had likely already passed. I encouraged her to return to her Urologist if this should recur in the near future to discuss possible intervention. She agreed. * Gabi Grimaldo MD - 12/11/2024 9:30 AM EST 12/11/2024 Chief Complaint Patient presents with Vaginitis/Bacterial Vaginosis Subjective: Tracey Estes is a 44 y.o. who presents for recent episode of irregular bleeding and pelvic pain. Patient's last menstrual period was 11/12/2024. Two weeks ago cramping and then you went to the bathroom. Burned when she voided, mostly when she finished voiding. Had a spot of blood in the underwear at that time. She then started bleeding BRB a little more and was there a couple more times with wiping. She was then voiding more frequently and slowed down. Bleeding stopped. She notes that she had a renal US and showed stones in her kidneys, but not in the bladder. She thought it felt likewhen she passed a kidney stone in the past. Pain was also in her right sided hip area. They told her it was not a kidney stone. She notes she was in the ED last night with N/V, fever, diarrhea for the past day. Feeling better now. Told it was likely viral. Urine tested last night and normal. Her pain and bleeding resolved a few days after her initial episode. No further issues. Review of Systems: As in HPI. Patient Active Problem List Diagnosis Chronic right shoulder pain Anxiety Bilateral sciatica Blurry vision Chest pain Flank pain Chronic low back pain Cervical radiculopathy Cervical spondylosis Degenerative disc disease, cervical Depression Dry skin Elevated liver enzymes Enlarged liver Hepatic steatosis Heart palpitations Kidney stone Low blood pressure reading Lumbar herniated disc Microscopic hematuria Mild intermittent asthma Neck pain Osteoarthritis of right shoulder Renal colic Seasonal allergic conjunctivitis Seasonal allergic rhinitis due to pollen Sinus mucosal thickening Skin blushing/flushing SOB (shortness of breath) Tattoo of skin Onychomycosis Tinea pedis of left foot Urinary tract infection Dizziness Vertigo Vitamin B12 deficiency Right hip pain Obesity (BMI 30-39.9) Breakthrough bleeding Right inguinal pain Dysuria Kidney stone Past Medical History: Diagnosis Date Asthma 12/21/13 DX:Asthma Depression 12/21/13 DX:Depression; COMMENT: well controlled History of kidney problems 12/21/13 DX:History of kidney problems Past Surgical History: Procedure Laterality Date TUBAL LIGATION PROCEDURE: HISTORICAL TUBAL LIGATION VAGINOSCOPY 2007 PROCEDURE: OR COLPOSCOPY CERVIX BX CERVIX & ENDOCRV CURRETAGE Family History Problem Relation Name Age of Onset Arthritis Mother Hypertension Father kidney transplant, arthritis, CT Other (Other: CKD) Sister Tanesha Arthritis Sister [...] maternal aunt, 40s Ovarian cancer Neg Hx Social History Socioeconomic History Marital status: Single Spouse name: None Number of children: None Years of education: None Highest education level: None Occupational History None Tobacco Use Smoking status: Some Days Current packs/day: 0.00 Types: Cigarettes Last attempt to quit: 07/24/2023 Years since quittin.3 Smokeless tobacco: Never Vaping Use Vaping status: Never Used Substance and Sexual Activity Alcohol use: Yes Comment: occasional Drug use: No Sexual activity: Not Currently control/protection: Surgical Other Topics Concern None Social History Narrative Lives With 4 kids: -2014 OB History Para Term AB Living 5 4 SAB IAB Ectopic Multiple Live Births # Outcome Date GA Lbr Chuy/2nd Weight Sex Type Anes PTL Lv 5 4 3 2 1 Current Outpatient Medications on File Prior to [...] mouth 3 (three) times a day ifneeded. ondansetron ODT (ZOFRAN-ODT) 8 mg disintegrating tablet [...] repeat after 2 hours. 27 tablet 3 meclizine (ANTIVERT) 12.5 mg tablet Take 1 tablet (12.5 mg total) by mouth. No current facility-administered medications on file prior to visit. Allergies Allergen Reactions Ibuprofen Rash Morphine Anaphylaxis, Rash and Swelling Naproxen Anaphylaxis and Swelling Other Reaction(s): rash/ hives Acetaminophen Rash Amoxicillin Other reaction(s): Nitrofurantoin Diphenhydramine Hcl Hives Gabapentin Other Hydromorphone Hives Nitrofurantoin Tramadol Swelling Other Reaction(s): Hives/Urticaria, rash swelling Latex Rash Objective: Vitals: 12/11/24 0926 BP: 115/76 Pulse: 82 Weight: 76.7 kg (169 lb 3.2 oz) Height: 1.524 m (60 ) Gen: Well-appearing on today's exam NEUROLOGIC: speech fluent, grossly intact PSYCH: Mood and affect appropriate. Alert and oriented x 3. ABDOMEN: Soft, non-tender. No masses palpable, no organomegaly. LYMPH: No inguinal lymphadenopathy. PELVIC: External Genitalia: Exam chaperoned by medical receptionist medical assistant. Normal architecture, without lesions Urethral meatus: normal Vagina: normal appearance. Mucosa is pink, normal rugae. No discharge. No lesions. Speculum used for this exam. Cervix: Normal appearance, without discharge or lesions. Uterus: Normal size and shape. Anteverted position. Non-tender Adnexa: No adnexal masses or fullness. Non-tender Perianal area: No lesions. Assessment/Plan: 44 y.o. with: Kidney stone Given her pain and hematuria have resolved, and in keeping with her history, I believe this episodelikely represented passage of a kidney stone. I explained that ureter and bladder irritation can continue for a few days after passage and thus, although her US did not show a stone in her ureter or bladder after the initial painful episode, it had likely already passed. I encouraged her to return to her Urologist if this should recur in the near future to discuss possible intervention. She agreed. I also explained to the patient that she should not be seen unless she has an acute issue, and should wear a mask if she needs to come in the future when not feeling well or when diagnosed with a recent viral illness the night before. She voiced understanding. No orders of the defined types were placed in this encounter. No follow-ups on file. Gabi Grimaldo MD documented in this encounter Plan of Treatment Upcoming Encounters Date Type Department Care Team (Late st Contact Info) Description 12/20/2024 1:45 PM EST Appointment Radiology Department - [address] [phone] 01/23/2025 2:00 PM EDT Consult [facility] - [place] [address] [facility] [address] [place] [phone] Afsaneh Smith MD [address] [facility] [address] [place] [phone] 06/20/2025 4:00 PM EDT Appointment Radiology Department - [address] [phone] 07/23/2025 8:00 AM EDT Office Visit Adult Medicine [address] [phone] Dejan Mak MD [address] [place] [address] documented as of this encounter Goals Goal [...] as of this encounter Visit Diagnoses Diagnosis Dysuria- Primary Kidney stone Calculus of kidney Encounter for screening mammogram for breast cancer documented in this encounter Care Teams Service Member Relationship Specialty Start Date End Date Dejan Mak MD [address] [place] [address] PCP - General 12/28/22 documented as of this encounter
--- OUTSIDE RECORDS SUMMARY | 2024-12-19 02:33 | XMS_ITS | Clinical Summary ---
Author Organization [facility] Address [address] [place] [id number] Phone Care Team Providers Care [employer] C[employer] Supervisor Name Role Phone Dejan Mak MD Primary Care Provider [phone] Allergies Active Allergy Reactions Criticality Noted Date [...] 2 puffs by mouth. 03/29/20 24 Active clotrimazole-betam ethasone (LOTRISONE) 1-0.05 % cream 1 g twice [...] Active oxyCODONE (OXY-IR) 5 mg immediate release capsuleIndications :Dysuria,Lower abdominal pain Take 1 capsule (5 mg [...] (15 mg total) by mouth. 025 Discontinued Active Problems Problem Noted Date Diagnosed Date Dysuria 12/11/2024 Kidney stone 12/11/2024 Assessment & Plan (12/11/2024 10:04 AM EST): Given her pain and hematuria have resolved, and in keeping with her history, I believe this episode likely represented passage of a kidney stone. I [...] future to discuss possible intervention. She agreed. Breakthrough bleeding 10/25/2024 Assessment & Plan (10/25/2024 [...] for upper back and neck pain at [facility]. States she has pain everywhere [...] tall disc. Right hip x-ray 09/03/2024 at [facility] read is normal. She has C- spine and brain MRIs ordered that were denied by insurance, looks like she also had referral to neurology at [facility]. Ms. Estes describes low back, right buttock [...] also asked her to talk to her [employer] doctor or PCP about hormone replacement therapy, [...] Encounters Date Type Department Care Team Description 12/11/2024 9:30 AM EST Office Visit Obstetrics and Gynecology - [address] [phone] Gabi Grimaldo MD Dysuria (Primary Dx); Kidney stone 12/04/2024 12:30 PM EST Treatment Outpatient Rehabilitation [address] [phone] Sarah Aponte PTA Chronic bilateral low back pain with right-sided sciatica (Primary Dx) 11/29/2024 Telephone Adult Medicine [address] [phone] Dejan Mak MD ultra sound 11/29/2024 [place] [facility] [address] [phone] Dejan Mak MD vna 11/29/2024 [place] [facility] [address] [phone] Dejan Mak MD Medication Problem 11/28/2024 [place] [facility] [address] [phone] Dejan Mak MD Results; pain 11/27/2024 6:36 PM EST - 11/27/2024 11:59 PM EST Hospital Encounter Radiology Department [address] [phone] Dysuria; Hematuria, unspecified type; Blurry vision Discharge Disposition: Home or Self Care 11/27/2024 2:00 PM EST Office Visit Adult Medicine [address] [phone] Dejan Mak MD Dysuria (Primary Dx); Nonintractable headache, unspecified chronicity pattern, unspecified headache type; Lower abdominal pain; Hematuria, unspecified type; Blurry vision; Nausea and vomiting, unspecified vomiting type; Fibromyalgia; B12 deficiency; Musculoskeletal pain 11/26/[address] [phone] Dejan Mak MD Abdominal Pain; Blood in Urine 11/23/2024 1:00 PM EST Evaluation Outpatient Rehabilitation [address] [phone] Reg Caro, PT Chronic bilateral low back pain with right-sided sciatica 11/14/[address] [phone] Aime Santos LPN vna 11/12/[address] [phone] Heather Miller PA Advice Only (acupuncture) 11/12/[address] [phone] Dejan Mak MD Referral; fall11/02/2024 8:40 AM EST Office Visit [facility] [address] [facility] [address] [place] [phone] Cassy Clemens NP Other chest pain (Primary Dx); SOB (shortness of breath); Heart palpitations; Dizziness 10/25/2024 1:15 PM EST Office Visit Obstetrics and Gynecology [address] [phone] Gabi Grimaldo MD Breakthrough bleeding (Primary Dx); Right inguinal pain 10/12/2024 10:30 AM EST Office Visit [address] [phone] Heather Miller PA Chronic bilateral low back pain with right-sided sciatica (Primary Dx) 10/02/2024 Telephone Obstetrics and Gynecology - [address] [phone] Lucy Danielson CNM Results 10/02/2024 Telephone Adult Medicine [place] - [address] [phone] Dejan Mak MD 09/21/2024 2:00 PM EST Evaluation Outpatient Rehabilitation - [address] [phone] Reg Caro, PT Chronic right shoulder pain; Cervical radiculopathy; Chronic midline low back pain with right-sided sciatica from Last 3 Months Immunizations Name Administration Dates Next Due Pfizer SARS-CoV-2 COVID-19, mRNA, LNP-S, preservative free 12/21/2022,11/11/2021 Tdap Tetanus diptheria acell ular pertussis (Boostrix; Adacel) 7yo and older 04/02/2024,01/23/2013 Surgical History Surgery Date Site/Laterality Comments VAGINOSCOPY 2007 PROCEDURE: [place] COLPOSCOPY CERVIX BX CERVIX & ENDOCRV CURRETAGE [...] 3 Hypertension Father kidney transpla nt, arthritis, [place] Diabetes Maternal Grandmother HTN, ki dney failure [...] Pulse 82 12/11/2024 9:26 AM EST Temperature 36.6 ??C (97.9 ??F) 11/27/2024 2:09 PM ES T Respiratory Rate 12 11/27/2024 2:09 PM EST Oxygen Saturation 99% 11/02/2024 8:29 AM EST Inhaled Oxygen Concentration - - Weight 76.7 kg (169 lb 3.2 oz) 12/11/2024 9:26 A M EST Height 152.4 cm (5') 12/11/2024 9:26 AM EST Body Mass Index 33.04 12/11/2024 9:26 AM EST Plan of Treatment Upcoming Encounters Date Type Department Care Team (Late st Contact Info) Description 12/20/2024 1:45 PM EST Appointment Radiology Department - [address] [phone] 01/23/2025 2:00 PM EDT Consult [facility] [place] [facility] [place] [address] [place] [phone] Afsaneh Smith MD [address] [place] [address] 06/20/2025 4:00 PM EDT Appointment Radiology Department [address] [phone] 07/23/2025 8:00 AM EDT Office Visit Adult Medicine [address] [phone] Dejan Mak MD [address] [place] [address] Health Maintenance Due Date Last Done Comments [...] factor blocking antibody (12/04/2024 12:16 PM EST) Intrinsic Factor Blocking Antibody Negative Negative 12/07/2024 10:55 AM EST [facility] Comment: Positive in 50% of persons with pernicious anemia. Very high serum levels of vitamin B12 may give false positive results for intrinsic factor antibody. ??No sample should be collected from a patient who has received vitamin B12 injection therapy within the past week. Test performed at [facility], [address] [place], [place] ??[address] ? [phone] Griselda Lee MD, PhD - Sticker On Blood Venous blood specimen / Unknown Venipuncture / Unknown 12/04/2024 12:16 PM EST 12/04/2024 12:16 PM EST Dejan Mak MD LAB BLOOD ORDERABLES Final Result [facility] [address] [place] [address] * Vitamin B12 (12/04/2024 12:16 PM EST) Vitamin B-12 314 250 - 900 pcg/mL LAB CHEMISTRY METHOD 12/04/2024 4:56 PM EST [facility] Blood Venous blood specimen / Unknown Venipuncture / Unknown 12/04/2024 12:16 PM EST 12/04/2024 12:16 PM EST Dejan Mak MD LAB BLOOD ORDERABLES Final Result [facility] [place] [address] [place] [address], [place] [phone] * US Retroperitoneal Complete (11/27/2024 7:15 PM [...] Signed Date: 11/28/2024 09:29 ET Workstation ID: [id number] Transcribed By: Self Edit Transcribed Date: 11/28/2024 [...] Signed Date: 11/28/2024 09:29 ET Workstation ID: [id number] Transcribed By: Self Edit Transcribed Date: 11/28/2024 09:17 ET us Vidur Wyatt Mak MD IM US PROCEDURES Final Res ult * (ABNORMAL) Urinalysis with reflex microscopic and culture (11/27/2024 3:08 PM EST) Specific [place] Urine 1.020 1.003 - 1.030 LAB URINALYSIS - AUTOMATED METHOD 11/27/2024 6:18 PM [facility] pH, Urine 6.5 5.0 - 8.0 pH LAB URINALYSIS - AUTOMATED METHOD 11/27/2024 6:18 PM [facility] Leukocytes, Urine Negative Negative LAB URINALYSIS - AUTOMATED METHOD 11/27/2024 6:18 PM [facility] Nitrite, Urine Negative Negative LAB URINALYSIS - AUTOMATED METHOD 11/27/2024 6:18 PM [facility] Protein, Urine Negative <=Trace mg/dL LAB URINALYSIS - AUTOMATED METHOD 11/27/2024 6:18 PM [facility] Glucose, Urine Negative Negative mg/dL LAB URINALYSIS - AUTOMATED METHOD 11/27/2024 6:18 PM [facility] Ketones, Urine Negative Negative mg/dL LAB URINALYSIS - AUTOMATED METHOD 11/27/2024 6:18 PM [facility] Urobilinogen, Urine 1.0 0.2 - 1.0 mg/dL LAB URINALYSIS - AUTOMATED METHOD 11/27/2024 6:18 PM [facility] Bilirubin, Urine Negative Negative LAB URINALYSIS - AUTOMATED METHOD 11/27/2024 6:18 PM [facility] Blood, Urine Trace(A) Negative LAB URINALYSIS - AUTOMATED METHOD 11/27/2024 6:18 PM [facility] RBC, Urine 3.8 0 - 4 /HPF LAB URINALYSIS - AUTOMATED METHOD 11/27/2024 6:18 PM [facility] WBC, Urine 4.2(H) 0 - 4 /HPF LAB URINALYSIS - AUTOMATED METHOD 11/27/2024 6:18 PM [facility] Squamous Epithelial, Urine 53 0 - 60 /LPF LAB URINALYSIS - AUTOMATED METHOD 11/27/2024 6:18 PM [facility] Bacteria, Urine Negative Negative /HPF LAB URINALYSIS - AUTOMATED METHOD 11/27/2024 6:18 PM [facility] Hyaline Casts, Urine 0.4 0 - 3 /LPF LAB URINALYSIS - AUTOMATED METHOD 11/27/2024 6:18 PM [facility] Urine Urine specimen obtained by clean catch procedure / Unknown Non-blood Collection / Unknown 11/27/2024 3:08 PM EST 11/27/2024 3:09 PM EST us Dejan Mak MD LAB URINE ORDERABLES Final Result [facility] [address] [place] [address], [place] [phone] * Bah urine culture tube (11/27/2024 3:08 PM EST) [facility] Extra Tube Hold for add-ons. 11/27/2024 6:01 PM EST [facility] Comment:Auto resulted. Urine Urine specimen obtained by clean catch procedure / Unknown Non-blood Collection / Unknown 11/27/2024 3:08 PM EST 11/27/2024 3:09 PM EST Dejan Mak MD LAB URINE ORDERABLES Final Result [facility] [address] [place] [address], [place] [phone] * POC Urine Non-Auto W/O Micro (11/27/2024 2:27 PM EST) [facility] Leukocytes UA POC Negative Negative Nitrite UA POC Negative Negative Urobilinogen UA POC Negative Negative Protein UA POC Negative Negative PH UA POC 6.5 5.0 - 9.0 Blood UA POC Trace Negative, Trace Specific [place] UA POC 1.020 1.001 - 1.035 Ketones [...] ECG 12 lead (11/02/2024 8:52 AM EST) [facility] Ventricular Rate ECG 55 BPM GEMUSE Atrial Rate 55 BPM GEMUSE P-R Interval 150 ms GEMUSE QRS Duration 80 ms GEMUSE Q-T Interval 416 ms GEMUSE QTc 397 ms GEMUSE P Wave [place] 49 degrees GEMUSE R Mesa 68 degrees GEMUSE T [place] 68 degrees GEMUSE ECG Interpretation Sinus bradycardia Otherwise normal ECG When compared with ECG of 29-AUG-2023 08:17, No significant change was found Confirmed by Thom HOUSTON YUFENG ([id number]) on 11/05/2024 8:09:20 AM GEMUSE 11/02/2024 8:36 AM EST 11/05/2024 8:09 AM EST [address] TESTER ECG ORDERABLES Edited Result - Final GEMUSE from Last [address] [place] [place] [address] PLAN Care Teams [employer] Supervisor Relationship Specialty Start Date End Date Dejan Mak MD [address] [place] [address] PCP - General 12/28/22
[2024-12-19 02:35] VITALS: BP 110/72; PULSE 57; RESP 16; TEMP 36.7; O2SAT 100
[2024-12-19 02:41] LABS: Troponin-I High Sensitivity < 2.7 ng/L (<3.5-17.0)
--- NOTE | 2024-12-19 04:20 | PC.NURSE ---
Pt used her call light and reported that she is experiencing increasing chest pain. Asked if she could take anything for the pain. Primary nurse and provider made aware.
[2024-12-19 06:19] VITALS: BP 137/119; PULSE 68; RESP 16; TEMP 36.7; O2SAT 98
--- NOTE | 2024-12-19 06:23 | ED_ITS ---
HPI - Chest Pain General Chief Complaint: Chest Pain Stated Complaint: CP Time Seen by Provider: 12/19/24 06:07 Source: patient Mode of arrival: ambulatory Limitations: no limitations History of Present Illness ED Provider: Dr. My Marin HPI narrative: Patient comes to the emergency room complaining of chest pain for 36 hours. Denies any injuries. Denies any shortness of breath. Denies heavy lifting. Patient states that this on both sides of chest, patient states that the pain is worse with movement Related Data Home Medications ?Medication ?Instructions ?Recorded ?Confirmed topiramate 25 mg tablet 25 mg PO DAILY 05/25/23 05/25/23 Previous Rx's ?Medication ?Instructions ?Recorded potassium citrate 10 mEq (1,080 10 meq PO BID 90 days #180 tabs 05/25/23 mg) tablet,extended release pyridoxine (vitamin B6) 50 mg 50 mg PO DAILY 90 days #90 tabs 05/25/23 tablet ondansetron 4 mg disintegrating 4 mg PO Q8H PRN nausea and 03/16/24 tablet vomiting #7 tabs benzonatate 100 mg capsule 100 mg PO TID PRN cough #10 caps 06/05/24 cyclobenzaprine 5 mg tablet 5 mg PO TID PRN muscle spasm #10 06/28/24 tabs lidocaine 5 % topical patch 1 patch topical DAILY #15 ea 06/28/24 prednisone 20 mg tablet 40 mg (2 x 20 mg) PO DAILY #10 tabs 06/28/24 cyclobenzaprine 10 mg tablet 10 mg PO Q8H #20 tabs 07/03/24 oxycodone 5 mg tablet 5 mg PO Q6H PRN pain #20 tabs 07/03/24 oxycodone 5 mg tablet 5 mg PO Q6H PRN pain #15 tabs 12/10/24 cyclobenzaprine 10 mg tablet 10 mg PO BID PRN muscle spasm #10 12/19/24 tabs Allergies Allergy/AdvReac Type Severity Reaction Status Date / Time morphine [MORPHINE] Allergy Severe SWELLING Verified 12/18/24 22:52 ibuprofen [IBUPROFEN] Allergy Intermediate HIVES Verified 12/18/24 22:52 naproxen [NAPROXEN] Allergy Intermediate HIVES Verified 12/18/24 22:52 acetaminophen Allergy Unknown Rash Verified 12/18/24 22:52 tramadol [TRAMADOL] Allergy Unknown HIVES Verified 12/18/24 22:52 diphenhydramine Allergy Hives Verified 12/18/24 22:52 [From Benadryl] ketorolac [From TORADOL] AdvReac Unknown ITCHING Verified 12/18/24 22:52 Ibuprofen Allergy Unknown Hives Uncoded 12/18/24 22:52 Morphine Sulf Microinfusion Allergy Unknown Swelling Uncoded 12/18/24 22:52 PF Review of Systems 2 Review of Systems: Constitutional : No Weight loss, No Fever, No Chills, No Night Sweats, No Fatigue, No Malaise ENT/Mouth : No Hearing loss, No Ear Pain, No Nasal Congestion, No Sinus Pain, No Hoarseness, No sore throat, No Rhinorrhea, No Swallowing Difficulty Eyes: No Eye Pain, No Swelling, No Redness, No Foreign Body, No Discharge, No Vision Changes Cardiovascular : Complaining of Chest Pain, No SOB, No Dyspnea on Exertion, No Orthopnea, No Edema, No Palpitations Respiratory : No Cough, No Sputum, No Wheezing, No Smoke Exposure, No Dyspnea Gastrointestinal : No Nausea, No Vomiting, No Diarrhea, No Constipation, No abdominal Pain, No Hematochezia, No Melena Genitourinary : no irregular bleeding, No Dysuria, No Urinary Frequency, No Hematuria, No Urinary Incontinence, No Urgency, No Flank Pain, No Urinary Flow Changes, No Hesitancy Musculoskeletal : No joint pain, No Myalgias, No Joint Swelling Skin : No Skin Lesions, No rash Neuro : No Weakness, No Numbness, No Paresthesias, No Loss of Consciousness, No Dizziness, No Headache Psych : No Anxiety/Panic, No Depression, No SI/HI/AH/VH, No Social Issues, Heme/Lymph: No Bruising, No Bleeding,No Lymphadenopathy Endocrine : No Polyuria, No Polydipsia, No Temperature Intolerance [facility] Past Medical History Medical History Renal calculi Depression Asthma Sciatica Social History Social History Alcohol intake: never Substance Use Type: Marijuana Advance Directives: No Advance Directives Information Provided: Yes Do you have a plan to hurt others: No Plan Physical Exam 2 Vital Signs: Vital Signs: Last Vital Signs Temp 98.1 F 12/19/24 06:19 Pulse 68 12/19/24 06:19 Resp 16 12/19/24 06:19 BP 137/119 H 12/19/24 06:19 Pulse Ox 98 12/19/24 06:19 O2 Del Method Room Air 12/19/24 06:19 BMI result Body Mass Index 32.2 Const: Other: Appearance: Alert. Oriented X3. No acute distress. Eyes: Pupils equal, round and reactive to light. ENT: Pharynx normal. Neck: Normal inspection. Neck supple. No lymph nodes noted. No crepitus CVS: Normal heart rate and rhythm. Pulses normal. Normal S1 and S2, exaggerated response to very minimal palpation over the chest on both sides Respiratory: No respiratory distress. Breath sounds normal. No Wheezing. No rales Abdomen: Soft and nontender. No rigidity. No distention. Skin: Skin warm and dry. Normal skin color. Normal skin turgor. Extremities: No lower extremity edema. No Lacerations. No Rash Neuro: Oriented X 3. No motor deficit. No sensory deficit. Moving all extremities. No slurred speech. CN 2 through 12 grossly intact Psych: calm, cooperative, normal affect Medical Decision Making Medical Decision Making [facility] Narrative: My interpretation of EKG: Sinus rhythm, heart rate 68, no ST segment depression or elevation, no T-wave inversion, QTC 410 My interpretation of labs: No significant abnormality in patient's hematology or chemistry, troponin slightly bumped, 2nd troponin negative Ultrasound done at bedside does not show any pericardial effusion. Interpretation of chest x-ray: No acute abnormality. No signs of pneumonia or atelectasis Patient requesting pain medication, unfortunately, difficult to treat patient's pain as she has a allergic to ibuprofen, naproxen, acetaminophen, tramadol, ketorolac, morphine Given the patient's location of pain in the chest, it is likely musculoskeletal. Patient will be prescribed cyclobenzaprine Differential Diagnosis Differential Diagnoses: The differential diagnosis associated with the presentation includes (musculoskeletal pain, pneumonia, costochondritis) Lab Data [facility] Lab Attestation statement: I reviewed the patient's lab results. 12/18/24 23:18 12/18/24 23:18 Labs: Lab Results 12/18/24 12/19/24 Range/Units 23:18 02:11 WBC 7.2 (4.8-10.8) X10*3/uL RBC 4.17 L (4.20-5.50) X10*6/uL Hgb 10.3 L (12.0-16.0) g/dl Hct 32.3 L (37.0-47.0) % MCV 77.5 L (80.0-98.0) fL MCH 24.7 L (27.0-33.0) pg MCHC 31.9 (31.0-35.0) g/dl RDW 13.7 (11.0-16.0) % Plt Count 230 (160-400) X10*3/uL MPV 9.8 (9.4-12.3) fL Immature Gran % (Auto) 0.3 (0.0-0.4) % Neut % (Auto) 61.1 (45-73) % Lymph % (Auto) 30.5 (20-40) % Richardson % (Auto) 5.9 (2-11) % Eos % (Auto) 2.1 (0-4) % Baso % (Auto) 0.1 (0-2) % Lymph # (Auto) 2.2 (1.2-4.9) X10*3/uL Richardson # (Auto) 0.4 (0.1-1.2) X10*3/uL Eos # (Auto) 0.2 (0.0-0.4) X10*3/uL Baso # (Auto) 0.0 (0.0-0.2) X10*3/uL Abs Immat Gran (auto) 0.02 (0.00-0.03) X10*3/uL Absolute Neuts (auto) 4.4 (2.0-8.3) x10*3/uL Absolute Nucleated RBC 0.000 (0.0-0.012) X10*3/uL Nucleated RBC % (auto) 0.0 (0.0-0.2) /100WBC Sodium 144 (135-145) mmol/L Potassium 3.9 (3.3-5.1) mmol/L Chloride 111 H (96-108) mmol/L Carbon Dioxide 27 (22-29) mmol/L Anion Gap 10 L (12-20) BUN 15 (9-16) mg/dL Creatinine 0.64 (0.5-1.4) mg/dL Estim Creat Clear Calc 99.3 Estimated GFR > 60 Random Glucose 87 (60-115) mg/dL Calcium 8.3 L D (8.4-10.2) mg/dL Total Bilirubin 0.2 (0.0-1.0) mg/dL AST 19 (5-31) U/L ALT 14 (0-31) U/L Alkaline Phosphatase 68 (39-117) U/L Troponin I High Sens 22.7 H D < 2.7 D (<3.5-17.0) ng/L Total Protein 6.5 (6.5-8.0) g/dL Albumin 3.6 (3.5-5.0) g/dL Discharge Plan Discharge Clinical Impression: Atypical chest pain Patient Disposition: Home, Self-Care Instructions: Chest Pain (ED), Chest Wall Pain (ED) Additional Instructions: Please follow-up with your primary care physician tomorrow. If you have any worsening or new symptoms, please return to the emergency room or call 911 Prescriptions: New cyclobenzaprine 10 mg tablet 10 mg PO BID PRN (Reason: muscle spasm) Qty: 10 0RF No Action ondansetron 4 mg tablet,disintegrating 4 mg PO Q8H PRN (Reason: nausea and vomiting) Qty: 7 0RF benzonatate 100 mg capsule 100 mg PO TID PRN (Reason: cough) Qty: 10 0RF cyclobenzaprine 10 mg tablet 10 mg PO Q8H Qty: 20 0RF oxycodone 5 mg tablet 5 mg PO Q6H PRN (Reason: pain) Qty: 20 0RF Rx Instructions: Partial Fill upon patient request. cyclobenzaprine 5 mg tablet 5 mg PO TID PRN (Reason: muscle spasm) Qty: 10 0RF prednisone 20 mg tablet 40 mg PO DAILY Qty: 10 0RF lidocaine 5 % adhesive patch,medicated 1 patch topical DAILY Qty: 15 0RF Rx Instructions: leave on most painful area for up to 12 hrs oxycodone 5 mg tablet 5 mg PO Q6H PRN (Reason: pain) Qty: 15 0RF Rx Instructions: partial filing upon pt request; Partial Fill upon patient request. topiramate 25 mg tablet 25 mg PO DAILY pyridoxine (vitamin B6) 50 mg tablet 50 mg PO DAILY 90 Days Qty: 90 3RF potassium citrate 10 mEq (1,080 mg) tablet extended release 10 meq PO BID 90 Days Qty: 180 3RF Print Language: Frisian
[2024-12-19 06:38] VITALS: BP 100/59; PULSE 68; RESP 16; TEMP 36.7; O2SAT 98
== END 2024-12-19 06:41 | disposition home or self-care (01) ==
PROVIDERS: Emergency Provider Emergency Medicine
DX: R07.89 Other chest pain (principal); J45.909 Unspecified asthma, uncomplicated
CPT/HCPCS: 36415; 71045; 80053; 84484; 85025; 93005; 99283; 99284

== ENCOUNTER → 2024-12-18 22:48 | Outpatient (BNV) | payer OTHER, SELFPAY | PROVIDERS: Emergency Provider Emergency Medicine; Visit Provider Internal Medicine Cardiovascular Disease | DX: R94.31 Abnormal electrocardiogram [ECG] [EKG] (principal); R07.9 Chest pain, unspecified | CPT/HCPCS: 93010 ==

== ENCOUNTER → 2024-12-19 06:18 | Outpatient (BNV) | payer OTHER, SELFPAY | PROVIDERS: Emergency Provider Emergency Medicine; Visit Provider Radiology Vascular & Interventional Radiology | DX: R07.9 Chest pain, unspecified (principal) | CPT/HCPCS: 71045 ==

== ENCOUNTER 2025-02-25 20:47 | Emergency (ER) | payer OTHER, SELFPAY ==
[2025-02-25 20:50] VITALS: BP 123/70; PULSE 77; RESP 18; TEMP 36.9; O2SAT 99; BMI 32.2
--- NOTE | 2025-02-25 20:52 | ED_ITS ---
HPI - General Adult General Chief complaint: Upper Respiratory Symptoms Stated complaint: Sore throat Time Seen by Provider: 02/25/25 23:40 Source: patient Mode of arrival: ambulatory Limitations: no limitations History of Present Illness ED Provider: DR. Ledesma HPI narrative: 44-year-old female came in for evaluation of sore throat that was started 2 days ago, nasal congestion, +coughing, +sign dizziness. No fever, no chills, no exposure to a sick contacts. Related Data Home Medications ?Medication ?Instructions ?Recorded ?Confirmed topiramate 25 mg tablet 25 mg PO DAILY 05/25/23 05/25/23 Previous Rx's ?Medication ?Instructions ?Recorded potassium citrate 10 mEq (1,080 10 meq PO BID 90 days #180 tabs 05/25/23 mg) tablet,extended release pyridoxine (vitamin B6) 50 mg 50 mg PO DAILY 90 days #90 tabs 05/25/23 tablet ondansetron 4 mg disintegrating 4 mg PO Q8H PRN nausea and 03/16/24 tablet vomiting #7 tabs benzonatate 100 mg capsule 100 mg PO TID PRN cough #10 caps 06/05/24 cyclobenzaprine 5 mg tablet 5 mg PO TID PRN muscle spasm #10 06/28/24 tabs lidocaine 5 % topical patch 1 patch topical DAILY #15 ea 06/28/24 prednisone 20 mg tablet 40 mg (2 x 20 mg) PO DAILY #10 tabs 06/28/24 cyclobenzaprine 10 mg tablet 10 mg PO Q8H #20 tabs 07/03/24 oxycodone 5 mg tablet 5 mg PO Q6H PRN pain #20 tabs 07/03/24 oxycodone 5 mg tablet 5 mg PO Q6H PRN pain #15 tabs 12/10/24 cyclobenzaprine 10 mg tablet 10 mg PO BID PRN muscle spasm #10 12/19/24 tabs Allergies Allergy/AdvReac Type Severity Reaction Status Date / Time morphine [MORPHINE] Allergy Severe SWELLING Verified 02/25/25 20:51 ibuprofen [IBUPROFEN] Allergy Intermediate HIVES Verified 02/25/25 20:51 naproxen [NAPROXEN] Allergy Intermediate HIVES Verified 02/25/25 20:51 acetaminophen Allergy Unknown Rash Verified 02/25/25 20:51 tramadol [TRAMADOL] Allergy Unknown HIVES Verified 02/25/25 20:51 diphenhydramine Allergy Hives Verified 02/25/25 20:51 [From Benadryl] ketorolac [From TORADOL] AdvReac Unknown ITCHING Verified 02/25/25 20:51 Ibuprofen Allergy Unknown Hives Uncoded 12/18/24 22:52 Morphine Sulf Microinfusion Allergy Unknown Swelling Uncoded 12/18/24 22:52 PF Review of Systems Review of Systems: All other systems are reviewed and are negative Constitutional: Reports as per HPI and Reports no additional constitutional complaints Eyes: Reports as per HPI and Reports no additional eye complaints Reports system reviewed and no additional complaints, except as documented Cardiovascular: Reports as per HPI and Reports no additional cardiovascular complaints Respiratory: Reports as per HPI and Reports no additional respiratory complaints Gastrointestinal: Reports as per HPI and Reports no additional gastrointestinal complaints Genitourinary: Reports no additional female genitourinary complaints Musculoskeletal: Reports no additional musculoskeletal complaints Skin/Breast: Reports system reviewed and no additional complaints, except as docu Psychiatric: Reports no additional psychiatric complaints Endocrine: Reports no additional endocrine complaints Hematologic/Lymphatic: Reports no additional hematologic/lymphatic complaints Allergic/Immunologic: Reports no additional allergic/immunologic complaints Reports system reviewed and no additional complaints, except as documented and Reports Abnormal speech present [facility] Past Medical History Medical History Renal calculi Depression Asthma Sciatica Social History Social History Alcohol intake: never Substance Use Type: Marijuana Physical Exam ED Vital Signs: Vital Signs - 24 hr 02/25/25 20:50 Temperature 98.5 F Pulse Rate 77 Respiratory Rate 18 Blood Pressure 123/70 Pulse Oximetry 99 Oxygen Delivery Method Room Air BMI result Body Mass Index 32.2 Vital signs have been reviewed and appear to be correct. Blood pressure elevated. Heart rate normal. Respiratory rate normal. Temperature normal. Oxygen saturation normal. Appearance: Alert. Oriented X3. No acute distress. Head: Normal external exam. Normocephalic. Atraumatic. No Mijares signs noted. No raccoon eyes noted Eyes: PERRLA. EOMI. Conjunctiva and sclera normal. Eyelids normal. ENT: TM's Normal. Pharynx normal. Uvula midline. Moist mucous membranes. No trismus noted. No drooling noted. No muffled voice noted. Neck: Normal inspection. Neck supple. FROM. No adenopathy. Thyroid Normal. No meningeal signs. No neck mass noted. CVS: Normal heart rate and rhythm. Heart sound normal. No murmurs noted. Pulses normal throughout. Respiratory: No respiratory distress. Painless inspiration. Breath sounds normal. No wheezes/rales/rhonchi noted. Chest nontender. No accessory muscle usage noted or decreased air movement noted. Abdomen: Soft and nontender. Bowel sounds normal in all 4 quadrants. No distention noted. No organomegaly noted. No visible injury noted. Back: No CVA tenderness. Full range of motion noted. Skin: Skin warm and dry. Normal skin color. Normal skin turgor. No rashes/lesions/lacerations noted. Extremities: No lower extremity edema. Extremities exhibit normal range of motion. Extremities nontender. Neuro: Oriented X 3. Cranial nerve exam: II-XII are grossly intact No motor deficit. No sensory deficit. Reflexes normal. Course Course Course Narrative: RME, this is a rapid medical exam performed by Shady Carranza please refer to primary provider for complete H&P- 44-year-old female presents for evaluation of a sore throat since yesterday. She also complains of chills and headaches. She has mild pharyngeal erythema. Plan for strep testing and viral swabs Reevaluation(s) Reevaluation #1: Viral pharyngitis, patient was instructed to do symptomatic treatment. Time: 23:51 Medical Decision Making Differential Diagnosis Differential Diagnoses: The differential diagnosis associated with the presentation includes (Strep pharyngitis, viral pharyngitis, influenza, RSV, COVID-19 infection.) Admission/Observation Consideration of admission/observation: Escalation of care including admission/observation considered Lab Data MDM Lab Attestation statement: I reviewed the patient's lab results. Labs: Lab Results 02/25/25 Range/Units 20:58 Influenza Type A (PCR) NEGATIVE (Negative) Influenza Type B (PCR) NEGATIVE (Negative) RSV RNA Qual (PCR) NEGATIVE (Negative) SARS-CoV-2 RNA (RT-PCR) NEGATIVE (Negative) S. pyogenes GrpA ALEKSANDR Negative (Negative) Discharge Plan Discharge Clinical Impression: Pharyngitis Patient Disposition: Home, Self-Care Instructions: Pharyngitis (ED) Prescriptions: No Action ondansetron 4 mg tablet,disintegrating 4 mg PO Q8H PRN (Reason: nausea and vomiting) Qty: 7 0RF benzonatate 100 mg capsule 100 mg PO TID PRN (Reason: cough) Qty: 10 0RF cyclobenzaprine 10 mg tablet 10 mg PO Q8H Qty: 20 0RF oxycodone 5 mg tablet 5 mg PO Q6H PRN (Reason: pain) Qty: 20 0RF Rx Instructions: Partial Fill upon patient request. cyclobenzaprine 5 mg tablet 5 mg PO TID PRN (Reason: muscle spasm) Qty: 10 0RF prednisone 20 mg tablet 40 mg PO DAILY Qty: 10 0RF lidocaine 5 % adhesive patch,medicated 1 patch topical DAILY Qty: 15 0RF Rx Instructions: leave on most painful area for up to 12 hrs oxycodone 5 mg tablet 5 mg PO Q6H PRN (Reason: pain) Qty: 15 0RF Rx Instructions: partial filing upon pt request; Partial Fill upon patient request. cyclobenzaprine 10 mg tablet 10 mg PO BID PRN (Reason: muscle spasm) Qty: 10 0RF topiramate 25 mg tablet 25 mg PO DAILY pyridoxine (vitamin B6) 50 mg tablet 50 mg PO DAILY 90 Days Qty: 90 3RF potassium citrate 10 mEq (1,080 mg) tablet extended release 10 meq PO BID 90 Days Qty: 180 3RF Print Language: [place]
[2025-02-25 21:14] LABS: IDNOW Serial# 55D5AD1C; Strep A Nucleic Acid Negative (Negative)
[2025-02-25 21:42] LABS: Influenza A PCR NEGATIVE (Negative); Influenza B PCR NEGATIVE (Negative); Resp Syncy Virus RNA Qual PCR NEGATIVE (Negative); SARS COV2 PCR INHOUSE NEGATIVE (Negative)
--- OUTSIDE RECORDS SUMMARY | 2025-02-25 23:55 | XMS_ITS | Clinical Summary ---
Author Organization [facility] Address [address] [place] [id number] Phone Care Team Providers Care Technician Assistant Name Role Phone Prosper Barnard MD Primary Care Provider [phone] Allergies Active Allergy Reactions Criticality Noted Date [...] Health Maintenance Due Date Last Done Comments Hepatitis B Vaccine (1 of 3 - 19+ 3-dose series) 06/12 Pneumococcal Vaccine: Peds ( 0 to 5 Years) and At-Risk Patients (6 to 49 Years) (1 of 2 - PCV) 1997 Influenza Vaccine (Season Ended) 2025 Insurance [facility] Medicaid [facility] Medicaid Care Teams Technician Assistant Relationship Specialty Start Date End Date Prosper Barnard MD [address] [place] [address] PCP - General Internal Medicine 08/28/21
--- OUTSIDE RECORDS SUMMARY | 2025-02-25 23:55 | XMS_ITS | Clinical Summary ---
Author Organization [facility] Address [address] [place] [phone] Phone Care Team Providers Care Care Analyst Name Role Phone Dejan Mak MD Primary Care Provider [phone] Allergies Active Allergy Reactions Criticality Noted Date [...] 2 puffs by mouth. 03/29/20 24 Active EPINEPHrine (EpiPen 2-Telly) 0.3 mg/0.3 mL [...] (one) time each day. 06/28/20 24 Active ondansetron ODT (ZOFRAN-ODT) 8 mg disintegrating [...] 10 mg 20 capsule 11/27/19 25 Active cetirizine (ZyrTEC) 10 mg tablet Take 1 tablet (10 mg total) by mouth 1 (one) time each day. 30 each 5 12/30/19 25 025 Active amitriptyline (ELAVIL) 25 mg tablet Take 1 tablet (25 mg total) by mouth 1 (one) time each day. 30 tablet 2 01/24/20 25 026 Active SUMAtriptan (IMITREX) 50 mg tablet Take 1 tablet (50 mg total) by mouth 1 (one) time if needed for migraine for up to 1 dose. May repeat dose once in 2 hours if no relief. Do not exceed 2 doses in 24 hours. 9 tablet 3 01/24/20 25 Active lidocaine (LIDODERM) 5 % patch Apply 1 patch topically 1 (one) time each day if needed for moderate pain or severe pain. Apply to painful area 12 hours per day, remove for 12 hours. 30 each 2 02/21/20 25 Active cyclobenzaprine (FLEXERIL) 5 mg tablet Take 1 tablet (5 mg total) by mouth at bedtime as needed for muscle spasms. 30 tablet 1 02/21/20 25 Active methylPREDNISolone (MEDROL DOSPAK) 4 mg tablet Take as directed on package. 21 tablet 02/21/20 25 025 Active cyclobenzaprine (FLEXERIL) 5 mg tablet Take 1 tablet (5 mg total) by mouth at bedtime as needed for muscle spasms. 30 tablet 1 11/20/19 25 025 Discontin ued(Reord er) Active Problems Problem Noted Date Diagnosed Date Nonintractable chronic migraine 02/21/2025 Iron deficiency anemia due to chronic blood loss 02/06/2025 Abnormal findings on diagnostic imaging of abdom en 02/06/2025 Dysuria 12/11/2024 Kidney stone 12/11/2024 Assessment & [...] tall disc. Right hip x-ray 09/03/2024 at [facility] read is normal. She has C- spine and brain MRIs ordered that were denied by insurance, looks like she also had referral to neurology at [facility]. Ms. Estes describes low back, right buttock [...] also asked her to talk to her [employer] doctor or PCP about hormone replacement therapy, [...] Encounters Date Type Department Care Team Description 02/20/2025 4:45 PM EDT Office Visit Adult Medicine [address] [phone] Dejan Mak MD Chronic midline low back pain with right-sided sciatica (Primary Dx); Acute pain of left knee; Nonintractable chronic migraine 02/06/2025 2:20 PM EDT Consult Gastroenterology - [address] [facility] [address] [place] [phone] Hakan Coles MD Iron deficiency anemia due to chronic blood loss (Primary Dx); Abnormal findings on diagnostic imaging of abdomen 01/23/2025 2:00 PM EDT Consult [facility] [address] [facility] [address] [place] [address] Afsaneh Smith MD Nonintractable headache, unspecified chronicity pattern, unspecified headache type; Blurry vision; Nausea and vomiting, unspecified vomiting type 01/08/2025 Telephone Adult Medicine [address] [phone] Dejan Mak MD Referral 12/31/2024 2:30 PM EDT - 12/31/2024 11:59 PM EDT Hospital Encounter CT Scan - [address] [phone] LUQ abdominal pain; Abnormal x-ray of abdomen Discharge Disposition: Home or Self Care 12/28/2024 1:25 PM EDT - 12/28/2024 11:59 PM EDT Hospital Encounter Radiology Department - [address] [phone] Nonintractable headache, unspecified chronicity pattern, unspecified headache type; Blurry vision; Nausea and vomiting, unspecified vomiting type Discharge Disposition: Home or Self Care 12/26/2024 2:20 PM EDT - 12/26/2024 11:59 PM EDT Hospital Encounter XRAY [address] [phone] LUQ abdominal pain Discharge Disposition: Home or Self Care 12/26/2024 2:00 PM EDT Office Visit Adult [address] [phone] Dejan Mak MD Anemia, unspecified type (Primary Dx); Hypocalcemia; LUQ abdominal pain; Blurry vision; Nonintractable headache, unspecified chronicity pattern, unspecified headache type; Abnormal x-ray of abdomen 12/20/[address] [phone] Dejan Mak MD Chest Pain 12/11/2024 9:30 AM EST Office Visit Obstetrics and Gynecology [address] [phone] Gabi Grimaldo MD Dysuria (Primary Dx); Kidney stone 12/04/2024 12:30 PM EST Treatment Outpatient Rehabilitation [address] [phone] Sarah Aponte, FABIEN Chronic bilateral low back pain with right-sided sciatica (Primary Dx) 11/29/2024 Telephone Adult [address] [phone] Dejan Mak MD ultra sound 11/29/[address] [phone] Dejan Mak MD vna 11/29/2024 Telephone Adult [address] [phone] Dejan Mak MD Medication Problem 11/28/2024 Telephone Adult Medicine [address] [phone] Dejan Mak MD Results; pain from Last 3 Months Immunizations Name Administration Dates Next Due Pfizer SARS-CoV-2 COVID-19, mRNA, LNP-S, preservative free 12/21/2022,11/11/2021 Tdap Tetanus diptheria acell ular pertussis (Boostrix; Adacel) 7yo and older 04/02/2024,01/23/2013 Surgical History Surgery Date Site/Laterality Comments VAGINOSCOPY 2007 PROCEDURE: CO COLPOSCOPY CERVIX BX CERVIX & ENDOCRV CURRETAGE [...] 3 Hypertension Father kidney transpla nt, arthritis, [place] Diabetes Maternal Grandmother HTN, ki dney failure [...] Sign Reading Time Taken Comments Blood Pressure 100/68 02/20/2025 4:20 PM EDT Pulse 70 02/20/2025 4:20 PM EDT Temperature 36.6 ??C (97.8 ??F) 12/26/2024 1:44 PM ED T Respiratory Rate 12 12/26/2024 1:44 PM EDT Oxygen Saturation 98% 01/23/2025 2:29 PM EDT Inhaled Oxygen Concentration - - Weight 74.4 kg (164 lb) 02/20/2025 4:20 PM EDT Height 152.4 cm (5') 02/20/2025 4:20 PM EDT Body Mass Index 32.03 02/20/2025 4:20 PM EDT Plan of Treatment Upcoming Encounters Date Type Department Care Team (Late st Contact Info) Description 04/04/2025 4:00 PM EDT Office Visit [facility] [address] [place] [phone] Afsaneh Smith MD [address] [place] [phone] 06/20/2025 4:00 PM EDT Appointment Radiology Department - [address] [phone] 07/23/2025 8:00 AM EDT Office Visit Adult Medicine [address] [phone] Dejan Mak MD [address] [place] [address] [address] [id number] Health Maintenance Due Date Last Done Comments [...] season) 2024 12/21/2022, 11/11/2021, 01/19/2021 Influenza Vaccine (Season Ended) 2025 Cervical Cancer Screening: P ap Smear 07/26/2026 [...] age to complete this topic Meningococcal B Vaccine Aged Out No l onger eligible based on patient's age to complete [...] Procedure Name Priority Date/Time Associated Diagnosis Comments CT ABDOMEN PELVIS WO CONTRAST Routine 12/31/2024 2:50 PM EDT LUQ abdominal pain Abnormal x-ray of abdomen MR BRAIN WO CONTRAST Routine 12/28/2024 2:24 PM EDT Nonintractable headache, unspecified chronicity pattern, unspecified headache type Blurry vision Nausea and vomiting, unspecified vomiting type CBC WITH AUTO DIFFERENTIAL Routine 12/26/2024 2:55 PM EDT Anemia, unspecified type IRON AND TIBC Routine 12/26/2024 2:55 PM EDT Anemia, unspecified type VITAMIN B12 AND FOLATE Routine 12/26/2024 2:55 PM EDT Anemia, unspecified type CALCIUM, IONIZED Routine 12/26/2024 2:55 PM EDT Hypocalcemia CBC AND DIFFERENTIAL Routine 12/26/2024 2:55 PM EDT Anemia, unspecified type HEMOGLOBIN A1C Routine 12/26/2024 2:55 PM EDT Blurry vision XR ABDOMEN 1 VIEW Routine 12/26/2024 2:3 2 PM EDT LUQ abdominal pain INTRINSIC FACTOR BLOCKING ANTIBODY Routine 12/04/2024 12:16 PM EST B12 deficiency VITAMIN B12 Routine 12/04/2024 12:16 PM EST B12 deficiency from Last 3 Months Results * CT Abdomen Pelvis wo Contrast (12/31/2024 2:50 PM EDT) Anatomical Region Laterality Modality Body Computed Tomogra phy 12/31/2024 3:48 PM EDT Impressions 12/31/2024 4:02 PM EDT 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 Lymph nodes are slightly more prominent on the current study. Nonobstructing right renal calculus. Status post interval bariatric surgery. -------- FINAL REPORT -------- Dictated By: Beckie Mayen Dictated Date: 12/31/2024 15:48 ET Assigned Physician: Beckie Mayen Reviewed and Electronically Signed By: Beckie Mayen Signed Date: 12/31/2024 16:02 ET Workstation ID: [id number] Transcribed By: Self Edit Transcribed Date: 12/31/2024 15:48 ET Narrative 12/31/2024 4:[address] ABDOMEN AND PELVIS WITHOUT CONTRAST HISTORY: ??Abdominal pain. Dilated bowel loops. PROCEDURE: Multiple axial images are obtained from the upper abdomen and pelvis. Oral contrast was administered. PRIOR STUDIES: CT abdomen pelvis 07/02/2022. FINDINGS: Liver: Unremarkable. Pancreas: Unremarkable. Kidneys: There is a 2 mm calculus in the midpole of the right kidney. There is a 3 x 4 mm calculus in the lower pole of the right kidney adjacent to cortical scarring. Adrenal glands: Unremarkable. Spleen: Unremarkable Gallbladder: Unremarkable. Appendix: Unremarkable. GI tract: There are new surgical clips of the stomach consistent with interval bariatric surgery. Peritoneum/retroperitoneum: Slight infiltration of the mesentery in the left upper quadrant is not significantly changed. There is a 0.6 x 1.1 cm lymph node within this mesenteric stranding, and this has increased in size since the previous study. Other smaller lymph nodes are also noted. Aorta: Normal in caliber. Bladder: Unremarkable. Reproductive organs: Uterus and ovaries are unremarkable. Abdominal wall: No ventral hernia. Lymph nodes: Unremarkable. Bones: Unremarkable. Lung bases: Clear. Procedure Note Beckie Mayen MD - 12/31/2024 CT ABDOMEN AND PELVIS WITHOUT CONTRAST HISTORY: Abdominal pain. Dilated bowel loops. PROCEDURE: Multiple axial images are obtained from the upper abdomen andpelvis. Oral contrast was administered. PRIOR STUDIES: CT abdomen pelvis 07/02/2022. FINDINGS: Liver: Unremarkable. Pancreas: Unremarkable. Kidneys: There is a 2 mm calculus in the midpole of the right kidney.There is a 3 x 4 mm calculus in the lower pole of the right kidneyadjacent to cortical scarring. Adrenal glands: Unremarkable. Spleen: Unremarkable Gallbladder: Unremarkable. Appendix: Unremarkable. GI tract: There are new surgical clips of the stomach consistent withinterval bariatric surgery. Peritoneum/retroperitoneum: Slight infiltration of the mesentery in theleft upper quadrant is not significantly changed. There is a 0.6 x 1.1 cmlymph node within this mesenteric stranding, and this has increased insize since the previous study. Other smaller lymph nodes are also noted. Aorta: Normal in caliber. Bladder: Unremarkable. Reproductive organs: Uterus and ovaries are unremarkable. Abdominal wall: No ventral hernia. Lymph nodes: Unremarkable. Bones: Unremarkable. Lung bases: Clear. 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 Nonobstructing right renal calculus. Status post interval bariatric surgery. -------- FINAL REPORT -------- Dictated By: Beckie Mayen Dictated Date: 12/31/2024 15:48 ET Assigned Physician: Beckie Mayen Reviewed and Electronically Signed By: Beckie Mayen Signed Date: 12/31/2024 16:02 ET Workstation ID: [id number] Transcribed By: Self Edit Transcribed Date: 12/31/2024 15:48 ET us Lodushaka Mak MD IM CT PROCEDURES Final Res ult * MR Brain wo Contrast (12/28/2024 2:24 PM EDT) Anatomical Region Laterality Modality Head and Neck Magnetic Resonan ce 12/28/2024 5:50 PM EDT Impressions 12/28/2024 7:02 PM EDT No evidence of a recent infarction, intracranial hemorrhage, mass, or mass effect. ??Multi sinus disease. POS - [id number] -------- FINAL REPORT -------- Dictated By: Mary Roth Dictated Date: 12/28/2024 17:50 ET Assigned Physician: Mary Roth Reviewed and Electronically Signed By: Mary Roth Signed Date: 12/28/2024 19:02 ET Workstation ID: [id number] Transcribed By: Self Edit Transcribed Date: 12/28/2024 18:11 ET Narrative 12/28/2024 7:02 PM EDT EXAM: Brain MRI HISTORY: ??Severe headache. ??Blurry vision. ??Nausea and vomiting. COMPARISON: 11/25/2022 and 04/04/2013 CORRELATION: ??Head CT 08/26/2016 TECHNIQUE: Exam performed on a 1.5 Danii high-field MRI scanner. ??Multiplanar imaging performed without contrast. ?? FINDINGS: No restricted diffusion to indicate a recent infarct. ??No evidence of intracranial hemorrhage. ??No significant signal abnormality in the brain parenchyma. No evidence of a mass, mass effect, or midline shift. ??No hydrocephalus. ??Basal cisterns are patent. ??No cerebellar ectopia. ??Pituitary gland is not enlarged. ??Normal vascular flow-voids appear present in the major intracranial arteries at the skull base. Opacification of bilateral posterior ethmoid air cells and mucosal thickening of the anterior ethmoid air cells. ??Mucosal thickening in the sphenoid sinuses and maxillary sinuses. ??Frontal sinuses are hypoplastic. ??Stable 1.0 cm retention cyst or polyp at the floor of the left maxillary sinus. ??No significant fluid signal within mastoid air cells. Procedure Note Mary Roth MD - 12/28/2024 EXAM: Brain MRI HISTORY: Severe headache. Blurry vision. Nausea and vomiting. COMPARISON: 11/25/2022 and 04/04/2013 CORRELATION: Head CT 08/26/2016 TECHNIQUE: Exam performed on a 1.5 Danii high-field MRI scanner.Multiplanar imaging performed without contrast. FINDINGS: No restricted diffusion to indicate a recent infarct. No evidence ofintracranial hemorrhage. No significant signal abnormality in the brainparenchyma. No evidence of a mass, mass effect, or midline shift. No hydrocephalus.Basal cisterns are patent. No cerebellar ectopia. Pituitary gland is notenlarged. Normal vascular flow-voids appear present in the majorintracranial arteries at the skull base. Opacification of bilateral posterior ethmoid air cells and mucosalthickening of the anterior ethmoid air cells. Mucosal thickening in thesphenoid sinuses and maxillary sinuses. Frontal sinuses are hypoplastic.Stable 1.0 cm retention cyst or polyp at the floor of the left maxillarysinus. No significant fluid signal within mastoid air cells. IMPRESSION: No evidence of a recent infarction, intracranial hemorrhage, mass, or masseffect. Multi sinus disease. POS - [id number] -------- FINAL REPORT -------- Dictated By: aMry Roth Dictated Date: 12/28/2024 17:50 ET Assigned Physician: Mary Roth Reviewed and Electronically Signed By: Mary Roth Signed Date: 12/28/2024 19:02 ET Workstation ID: [id number] Transcribed By: Self Edit Transcribed Date: 12/28/2024 18:11 ET us Dejan Mak MD [facility] MRI PROCEDURES Final Re sult * Vitamin B12 and folate (12/26/2024 2:55 PM EDT) Vitamin B-12 329 250 - 900 pcg/mL LAB CHEMISTRY METHOD 12/26/2024 7:10 PM EDT [facility] Folate 5.4 2.8 - 17.0 ng/ml LAB CHEMISTRY METHOD 12/26/2024 7:10 PM EDT [facility] Blood Venous blood specimen / Unknown Venipuncture / Unknown 12/26/2024 2:55 PM EDT 12/26/2024 2:55 PM EDT us Dejan Mak MD LAB BLOOD ORDERABLES Final Result [facility] [address] [place] [address], [place] [phone] * (ABNORMAL) CBC auto differential (12/26/2024 2:55 PM EDT) WBC 6.3 4.8 - 10.8 K/mcL LAB HEMETOLOGY METHOD 12/26/2024 4:25 PM EDT [facility] RBC 4.80 3.80 - 4.80 M/mcL LAB HEMETOLOGY METHOD 12/26/2024 4:25 PM EDT [facility] Hemoglobin 11.5 11.5 - 16.0 g/dL LAB HEMETOLOGY METHOD 12/26/2024 4:25 PM EDT [facility] Hematocrit 38.0 35.0 - 47.0 % LAB HEMETOLOGY METHOD 12/26/2024 4:25 PM EDT [facility] MCV 79.8 79.0 - 98.0 FL LAB HEMETOLOGY METHOD 12/26/2024 4:25 PM EDT [facility] MCH 24.2(L) 27.0 - 32.0 pcg LAB HEMETOLOGY METHOD 12/26/2024 4:25 PM EDT [facility] MCHC 30.3(L) 32.0 - 37.0 g/dL LAB HEMETOLOGY METHOD 12/26/2024 4:25 PM EDT [facility] RDW 13.7 11.0 - 15.0 % LAB HEMETOLOGY METHOD 12/26/2024 4:25 PM EDT [facility] Platelets 287 130 - 400 K/mcL LAB HEMETOLOGY METHOD 12/26/2024 4:25 PM EDT [facility] MPV 11.0 7.0 - 11.0 FL LAB HEMETOLOGY METHOD 12/26/2024 4:25 PM EDT [facility] NRBC 0.0 <1.0 % LAB HEMETOLOGY METHOD 12/26/2024 4:25 PM [facility] NRBC Absolute 0.00 <0.10 K/mcL LAB HEMETOLOGY METHOD 12/26/2024 4:25 PM EDT [facility] Neutrophils Relative 65.4 % LAB HEMETOLOGY METHOD 12/26/2024 4:25 PM EDT [facility] Lymphocytes Relative 25.3 % LAB HEMETOLOGY METHOD 12/26/2024 4:25 PM [facility] Monocytes Relative 6.9 % LAB HEMETOLOGY METHOD 12/26/2024 4:25 PM [facility] Eosinophils Relative 1.6 % LAB HEMETOLOGY METHOD 12/26/2024 4:25 PM [facility] Basophils Relative 0.5 % LAB HEMETOLOGY METHOD 12/26/2024 4:25 PM [facility] Immature Granulocytes Relative 0.3 % LAB HEMETOLOGY METHOD 12/26/2024 4:25 PM [facility] Neutrophils Absolute 4.09 1.50 - 7.00 K/mcL LAB HEMETOLOGY METHOD [facility]24 [facility] Lymphocytes Absolute 1.58 1.00 - 5.00 K/mcL LAB HEMETOLOGY METHOD 12/26[facility]2024 4[facility] Monocytes Absolute 0.43 0.20 - 1.00 K/mcL LAB HEMETOLOGY METHOD 12/26/2024 4:25 PM [facility] Eosinophils Absolute 0.10 0.00 - 0.50 K/mcL LAB HEMETOLOGY METHOD 12/26/2024 4:25 PM EDT [facility] Basophils Absolute 0.03 0.00 - 0.20 K/[facility] LAB HEMETOLOGY METHOD 12/26/2024 4:25 PM EDT [facility] Immature Granulocytes Absolute 0.02 0.00 - 0.03 K/[facility] LAB HEMETOLOGY METHOD 12/26/2024 4:25 PM EDT [facility] Blood Venous blood specimen / Unknown Venipuncture / Unknown 12/26/2024 2:55 PM EDT 12/26/2024 2:55 PM EDT Dejan Mak MD LAB BLOOD ORDERABLES Final Result [facility] [address] [place] [address], [place] [phone] * (ABNORMAL) Iron and TIBC (12/26/2024 2:55 PM EDT) Pathologist [facility] Iron 52 40 - 150 mcg/dL LAB CHEMISTRY METHOD 12/26/2024 6:47 PM EDT [facility] TIBC 458(H) 250 - 450 mcg/dL LAB CHEMISTRY METHOD 12/26/2024 6:47 PM EDT [facility] Iron Saturation 11(L) 15 - 50 % LAB CHEMISTRY METHOD 12/26/2024 6:47 PM EDT [facility] Blood Venous blood specimen / Unknown Venipuncture / Unknown 12/26/2024 2:55 PM EDT 12/26/2024 2:55 PM EDT Dejan Mak MD LAB BLOOD ORDERABLES Final Result [facility] [address] [place] [address], [place] [phone] * Hemoglobin A1c (12/26/2024 2:55 PM EDT) Hemoglobin A1C 5.3 <6.5 % LAB CHEMISTRY METHOD 12/26/2024 9:07 PM EDT [facility] Mean Bld Glu Estim. 105 mg/dL LAB CHEMISTRY METHOD 12/26/2024 9:07 PM EDT [facility] Blood Venous blood specimen / Unknown Venipuncture / Unknown 12/26/2024 2:55 PM EDT 12/26/2024 2:55 PM EDT Dejan Mak MD LAB BLOOD ORDERABLES Final Result [facility] [address] [place] [address], [place] [phone] * Calcium, ionized (12/26/2024 2:55 PM EDT) Calcium Ionized 4.9 4.6 - 5.4 mg/dL 12/31/2024 9:17 AM EDT [facility] Comment: Test performed at [facility], [address] , [place], [place] ??[address] ? [phone] Griselda Lee MD, PhD - Manager Metrology Blood Venous blood specimen / Unknown Venipuncture / Unknown 12/26/2024 2:55 PM EDT 12/26/2024 2:55 PM EDT Dejan Mak MD LAB BLOOD ORDERABLES Final Result [facility] [address] [place] [address] * XR Abdomen 1 View (12/26/2024 2:32 PM EDT) Anatomical Region Laterality Modality Body Radiographic Shalonda ging 12/26/2024 3:43 PM EDT Narrative 12/26/2024 3:45 PM EDT Abdomen, single view. History left upper quadrant pain. No prior plain films of the abdomen are available for comparison. There is no evidence of bowel obstruction. Bowel gas pattern is nonspecific. There is single loop of mildly dilated small bowel in the left upper quadrant. There is no abnormal calcifications in the abdomen and pelvis. CONCLUSIONS: Nonspecific bowel gas pattern with mildly dilated small bowel loop in the left upper quadrant. Please correlate clinically. CT scan of the abdomen and pelvis may be considered if patient symptoms persist. -------- FINAL REPORT -------- Dictated By: Jing Amato Dictated Date: 12/26/2024 15:43 ET Assigned Physician: Jing Amato Reviewed and Electronically Signed By: Jing Amato Signed Date: 12/26/2024 15:45 ET Workstation ID: [id number] Transcribed By: Self Edit Transcribed Date: 12/26/2024 15:43 ET Procedure Note Jing Amato MD - 12/26/2024 Abdomen, single view. History left upper quadrant pain. No prior plain films of the abdomen are available for comparison. There isno evidence of bowel obstruction. Bowel gas pattern is nonspecific. Thereis single loop of mildly dilated small bowel in the left upper quadrant.There is no abnormal calcifications in the abdomen and pelvis. CONCLUSIONS: Nonspecific bowel gas pattern with mildly dilated small bowelloop in the left upper quadrant. Please correlate clinically. CT scan ofthe abdomen and pelvis may be considered if patient symptoms persist. -------- FINAL REPORT -------- Dictated By: Jing Amato Dictated Date: 12/26/2024 15:43 ET Assigned Physician: Jing Amato Reviewed and Electronically Signed By: Jing Amato Signed Date: 12/26/2024 15:45 ET Workstation ID: [id number] Transcribed By: Self Edit Transcribed Date: 12/26/2024 15:43 ET us Dejan Mak MD IMG XR PROCEDURES Final Res ult * Intrinsic factor blocking antibody (12/04/2024 12:16 [...] within the past week. Test performed at [facility], [address] , [place], [place] ??[address] ? [phone] Griselda Lee MD, PhD - Manager Metrology Blood Venous blood specimen / Unknown Venipuncture / Unknown 12/04/2024 12:16 PM EST 12/04/2024 12:16 PM EST Dejan Mak MD LAB BLOOD ORDERABLES Final Result [facility] [address] [place] [address] * Vitamin B12 (12/04/2024 12:16 PM EST) [facility] Vitamin B-12 314 250 - 900 pcg/mL LAB CHEMISTRY METHOD 12/04/2024 4:56 PM EST [facility] Blood Venous blood specimen / Unknown Venipuncture / Unknown 12/04/2024 12:16 PM EST 12/04/2024 12:16 PM EST Dejan Mak MD LAB BLOOD ORDERABLES Final Result [facility] [address] [place] [address], from Last 3 Months Insurance [facility] [employer] Care Teams Care Analyst Relationship Specialty Start Date End Date Dejan Mak MD [address] [place] [address] PCP - General 12/28/22
--- OUTSIDE RECORDS SUMMARY | 2025-02-25 23:55 | XMS_ITS | Encounter Summary ---
Author Organization [facility] Address [address] [facility] [address] [place] [address] Phone Care Team Providers Care Adjusto Writer Operator Name Role Phone Prosper Barnard MD Primary Care Provider [phone] Encounter Details Date Type Department Care Team (Late st Contact Info) Description 09/17/2021 Telephone [facility] [address] [facility] [address] [place] [phone] Bruce Hernandez, DO [address] [place] [id number] Social History Tobacco Use Types Packs/Day Years [...] on filedocumented in this encounter Care Teams Adjusto Writer Operator Relationship Specialty Start Date End Date Prosper Barnard MD [address] [place] [address] PCP - General Internal Medicine 08/28/21 documented as of this encounter
[2025-02-26 00:11] VITALS: BP 123/70; PULSE 77; RESP 18; TEMP 36.9; O2SAT 99
== END 2025-02-26 00:11 | disposition home or self-care (01) ==
PROVIDERS: Physician Assistant; Emergency Provider Emergency Medicine
DX: J02.9 Acute pharyngitis, unspecified (principal); Z03.818 Encounter for observation for suspected exposure to other biological agents ruled out
CPT/HCPCS: 0241U; 87651; 99283; 99284

== ENCOUNTER 2025-07-03 16:33 | Emergency (ER) | payer OTHER, SELFPAY ==
--- NOTE | ~2025-07-03 | CT_ITS ---
CLINICAL HISTORY: fall CT head without contrast Comparison: CT/SR - CT HEAD/BRAIN WO IV CON - 06/28/24 15:31 EDT Findings: No intra-axial mass, midline shift, hydrocephalus, or acute hemorrhage. No significant atrophy-like change or white matter disease. Mucosal thickening in left sphenoid sinus and bilateral ethmoid air cells. The orbits are unremarkable. There is no acute skull fracture. Left facial soft tissue swelling. IMPRESSION: 1. No acute intracranial findings. This document has been electronically signed by: Adele Daly MD on 07/03/2025 19:09:36
--- NOTE | ~2025-07-03 | CT_ITS ---
CLINICAL HISTORY: fall CT cervical spine without contrast Comparison: CT/SR - CT CERVICAL SPINE WITHOUT IV CONTRAST - 06/28/24 15:31 EDT Findings: There is reversal of the cervical lordosis could be positional or due to muscle spasm. No subluxation. Vertebral body height is maintained. No acute fracture in the cervical spine. Craniocervical junction is intact. 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 Prevertebral soft tissues within normal limits. Lung apices are clear. IMPRESSION: 1. No acute findings. 2. Degenerative changes at C6-7 with moderate left neural foraminal stenosis. This document has been electronically signed by: Adele Daly MD on 07/03/2025 19:00:03
--- NOTE | ~2025-07-03 | CT_ITS ---
CLINICAL HISTORY: fall CT maxillofacial without contrast Comparison: None provided Findings: No acute fracture. Temporomandibular joints are intact with no dislocation. Mucosal thickening in bilateral ethmoid air cells, left sphenoid sinus and bilateral maxillary sinuses Mastoid air cells are clear. Orbital contents within normal limits. Mild left facial soft tissue swelling/edema. No foreign bodies. IMPRESSION: 1. Mild left facial soft tissue swelling. No acute facial bone fracture. 2. Sinus inflammatory disease as described. This document has been electronically signed by: Adele Daly MD on 07/03/2025 19:05:46
[2025-07-03 16:39] VITALS: BP 126/72; PULSE 79; RESP 16; TEMP 36.6; O2SAT 94; BMI 27.9
--- NOTE | 2025-07-03 16:41 | ECG_ITS ---
Test Reason : SYNCOPY Blood Pressure : */* mmHG Vent. Rate : 70 BPM Atrial Rate : 70 BPM P-R Int : 152 ms QRS Dur : 92 ms QT Int : 388 ms P-R-T Axes : 42 24 32 degrees QTcB Int : 419 ms Normal sinus rhythm Normal ECG When compared with ECG of 18-Dec-2024 22:52, No significant change was found Referred By: Elmer Jimenez Electronically Signed By: SUJATA ELLIS
--- NOTE | 2025-07-03 16:43 | ED.GENADULT ---
HPI - General Adult General Chief complaint: Syncope Stated complaint: headache, abd pain, dizziness (fainted) Time Seen by Provider: 07/03/25 17:39 Source: patient Mode of arrival: ambulatory History of Present Illness ED Provider: Sanjeev REYES narrative: 45-year-old female who states that she suffers from fainting episodes and dizziness, she is currently under the care of a vertigo specialist, she also endorses additional specialists that she can not recall their names, she states that yesterday she was standing with some friends and that she experienced some dizziness and then passed out she has a significant amount of abrasions to the entire left side of her face with some residual contusions. She denies any visual disturbances, shortness of breath or chest pain/palpitations. Related Data Home Medications ?Medication ?Instructions ?Recorded ?Confirmed topiramate 25 mg tablet 25 mg PO DAILY 05/25/23 05/25/23 Previous Rx's ?Medication ?Instructions ?Recorded potassium citrate 10 mEq (1,080 10 meq PO BID 90 days #180 tabs 05/25/23 mg) tablet,extended release pyridoxine (vitamin B6) 50 mg 50 mg PO DAILY 90 days #90 tabs 05/25/23 tablet ondansetron 4 mg disintegrating 4 mg PO Q8H PRN nausea and 03/16/24 tablet vomiting #7 tabs benzonatate 100 mg capsule 100 mg PO TID PRN cough #10 caps 06/05/24 cyclobenzaprine 5 mg tablet 5 mg PO TID PRN muscle spasm #10 06/28/24 tabs lidocaine 5 % topical patch 1 patch topical DAILY #15 ea 06/28/24 prednisone 20 mg tablet 40 mg (2 x 20 mg) PO DAILY #10 tabs 06/28/24 cyclobenzaprine 10 mg tablet 10 mg PO Q8H #20 tabs 07/03/24 oxycodone 5 mg tablet 5 mg PO Q6H PRN pain #20 tabs 07/03/24 oxycodone 5 mg tablet 5 mg PO Q6H PRN pain #15 tabs 12/10/24 cyclobenzaprine 10 mg tablet 10 mg PO BID PRN muscle spasm #10 12/19/24 tabs Allergies Allergy/AdvReac Type Severity Reaction Status Date / Time morphine (MORPHINE) Allergy Severe SWELLING Verified 07/03/25 16:39 ibuprofen (IBUPROFEN) Allergy Intermediate HIVES Verified 07/03/25 16:39 naproxen (NAPROXEN) Allergy Intermediate HIVES Verified 07/03/25 16:39 acetaminophen Allergy Unknown Rash Verified 07/03/25 16:39 tramadol (TRAMADOL) Allergy Unknown HIVES Verified 07/03/25 16:39 diphenhydramine (From Allergy Hives Verified 07/03/25 16:39 Benadryl) ketorolac (From TORADOL) AdvReac Unknown ITCHING Verified 07/03/25 16:39 Ibuprofen Allergy Unknown Hives Uncoded 07/03/25 16:39 Morphine Sulf Microinfusion Allergy Unknown Swelling Uncoded 07/03/25 16:39 PF Review of Systems Review of Systems: Pertinent positives and negatives as stated in [facility]PI [facility] Past Medical History Source: nursing notes reviewed Medical History Renal calculi Depression Asthma Sciatica Social History Social History Alcohol intake: never Substance Use Type: Marijuana Advance Directives: No Advance Directives Information Provided: Yes Physical Exam ED Exam Exam: VITAL SIGNS: Reviewed. GENERAL: Well developed, well nourished, in no acute distress. HEAD: Normocephalic/abrasions noted to the left forehead extending down over the left side of the face to include the cheek EYES: PERRLA, EOMI, no subconjunctival hemorrhage, no hyphema, no nystagmus, no gaze palsy EARS: Ext canals without abnormality NOSE: Nares patent bilateral OROPHARYNX: no oral lesions noted, posterior pharynx clear NECK: Supple, no adenopathy LUNGS: Normal breath sounds. No adventitious sounds or accessory muscle use. SpO2<94> CARDIOVASCULAR: Regular rate and rhythm without noted murmurs, no JVD or lower extremity edema. ABDOMEN: Soft, non-tender, non-distended with bowel sounds. MUSCULOSKELETAL: No tenderness, deformities, or effusions noted on gross inspection. EXTREMITIES: No cyanosis, clubbing or edema. SKIN: Inspection of the skin reveals no rashes NEUROLOGIC: Alert and oriented x 4. Strength and sensation to light touch were grossly intact x 4. Vital Signs: Vital Signs - 24 hr 07/03/25 16:39 07/03/25 18:50 07/03/25 18:50 Temperature 97.9 F Pulse Rate 79 62 64 Respiratory Rate 16 Blood Pressure 126/72 120/75 126/83 Pulse Oximetry 94 Oxygen Delivery Method Room Air 07/03/25 18:52 07/03/25 19:37 Temperature 97.8 F Pulse Rate 67 67 Respiratory Rate 16 Blood Pressure 120/82 120/82 Pulse Oximetry Oxygen Delivery Method BMI result Body Mass Index 27.9 Course Course Course Narrative: RME: 45 year female presents to ED for evaluation of syncopal episode and head trauma. Patient states history of anemia and states she felt dizzy and then she passed out and hit her head on the sidewalk and cyst and has had headache with left facial bruising no ecchymosis. Neuro exam intact to lab EKG head CT scan ordered Medical Decision Making Medical Decision Making MDM Narrative: 45-year-old female with history and clinical presentation, DX: Appears to be a vasovagal syncopal episode, patient does appear guarded, her 2 daughters at the bedside, although she states that the injury happened yesterday it appears to be a little bit older than that on clinical exam. Patient endorses several specialists and is unable to recall her medication history at this time. My interpretation of the EKG: Normal sinus rhythm, HR 70, no STEMI, NV/QRS/QTC/QT is otherwise within normal limits. There are no acute changes when compared to prior. 185: Orthostatics are not positive. 1857: I reviewed and interpreted all investigations and there is no leukocytosis, there is a chronically stable anemia no thrombocytopenia. Coagulation studies are within normal limits. There is no MARJORIE/electrolyte or gross liver enzyme derangements. High sensitivity troponin is undetectable and not associated with ischemic changes. Beta HCG is negative. My interpretation of the noncontrast head CT is that there is no evidence of intracranial hemorrhage or mass effect. Official read is pending. My interpretation of the noncontrast cervical spine is that there is no evidence of fracture or subluxation. Official read is pending. My interpretation of the CT face is it there are no acute fractures. Official read is pending. CT scan official reads are pending 1926: Official reads essentially for the corroborate my interpretation above, there were no acute findings noted on CT scans. Patient is allergic to every analgesics which would be used for alleviation of her blunt contusions, I discussed all results and findings with her at bedside and strongly encouraged her to follow up with her primary care doctor within the next 2-3 days. Differential Diagnosis Differential Diagnoses: The differential diagnosis associated with the presentation includes See above Admission/Observation Consideration of admission/observation: Escalation of care including admission/observation considered See above Lab Data MDM Lab Attestation statement: I reviewed the patient's lab results. See above 07/03/25 17:02 07/03/25 17:02 Labs: Lab Results 07/03/25 Range/Units 17:02 WBC 9.3 (4.8-10.8) X10*3/uL RBC 4.63 (4.20-5.50) X10*6/uL Hgb 10.8 L (12.0-16.0) g/dl Hct 35.2 L (37.0-47.0) % MCV 76.0 L (80.0-98.0) fL MCH 23.3 L (27.0-33.0) pg MCHC 30.7 L (31.0-35.0) g/dl RDW 17.7 H (11.0-16.0) % Plt Count 227 (160-400) X10*3/uL MPV 9.8 (9.4-12.3) fL Immature Gran % (Auto) 0.3 (0.0-0.4) % Neut % (Auto) 73.7 H (45-73) % Lymph % (Auto) 16.8 L (20-40) % [place] % (Auto) 7.5 (2-11) % Eos % (Auto) 1.2 (0-4) % Baso % (Auto) 0.5 (0-2) % Lymph # (Auto) 1.6 (1.2-4.9) X10*3/uL [place] # (Auto) 0.7 (0.1-1.2) X10*3/uL Eos # (Auto) 0.1 (0.0-0.4) X10*3/uL Baso # (Auto) 0.1 (0.0-0.2) X10*3/uL Abs Immat Gran (auto) 0.03 (0.00-0.03) X10*3/uL Absolute Neuts (auto) 6.8 (2.0-8.3) x10*3/uL Absolute Nucleated RBC 0.000 (0.0-0.012) X10*3/uL Nucleated RBC % (auto) 0.0 (0.0-0.2) /100WBC PT 12.2 (10.9-12.4) SEC INR 1.1 (0.9-1.1) APTT 25.7 L (26.7-34.1) SEC Sodium 142 (135-145) mmol/L Potassium 3.7 (3.3-5.1) mmol/L Chloride 108 (96-108) mmol/L Carbon Dioxide 26 (22-29) mmol/L Anion Gap 12 (12-20) BUN 14 (9-16) mg/dL Creatinine 0.67 (0.5-1.4) mg/dL Estim Creat Clear Calc 87.2 Estimated GFR > 60 Random Glucose 115 (60-115) mg/dL Calcium 8.9 D (8.4-10.2) mg/dL Total Bilirubin 0.5 (0.0-1.0) mg/dL AST 33 H (5-31) U/L ALT 24 (0-31) U/L Alkaline Phosphatase 73 (39-117) U/L Troponin I High Sens < 2.7 (<3.5-17.0) ng/L Total Protein 6.7 (6.5-8.0) g/dL Albumin 4.1 (3.5-5.0) g/dL Beta HCG, Quant < 2 mIU/mL Independent Interpretation I performed an independent interpretation of an: EKG and CT Scan Interpretation: See above Radiology Impression Discussion of test interpretation with radiology: I have reviewed the radiologist's reading. Radiologist Impression: See above External Record Review External record reviewed: Prior outpatient labs and Prior outpatient radiology Discharge Plan Discharge Clinical Impression: Vasovagal syncope, Contusion of face, Abrasion of face Patient Disposition: Home, Self-Care Instructions: Syncope (ED) Additional Instructions: Resume home medications, continue to drink plenty of fluids especially water. Your workup today was otherwise reassuring, please follow up with your primary care doctor within the next 2-3 days and do not hesitate to return to the emergency room for any acute worsening of your symptoms. Prescriptions: No Action ondansetron 4 mg tablet,disintegrating 4 mg PO Q8H PRN (Reason: nausea and vomiting) Qty: 7 0RF benzonatate 100 mg capsule 100 mg PO TID PRN (Reason: cough) Qty: 10 0RF cyclobenzaprine 10 mg tablet 10 mg PO Q8H Qty: 20 0RF oxycodone 5 mg tablet 5 mg PO Q6H PRN (Reason: pain) Qty: 20 0RF Rx Instructions: Partial Fill upon patient request. cyclobenzaprine 5 mg tablet 5 mg PO TID PRN (Reason: muscle spasm) Qty: 10 0RF prednisone 20 mg tablet 40 mg PO DAILY Qty: 10 0RF lidocaine 5 % adhesive patch,medicated 1 patch topical DAILY Qty: 15 0RF Rx Instructions: leave on most painful area for up to 12 hrs oxycodone 5 mg tablet 5 mg PO Q6H PRN (Reason: pain) Qty: 15 0RF Rx Instructions: partial filing upon pt request; Partial Fill upon patient request. cyclobenzaprine 10 mg tablet 10 mg PO BID PRN (Reason: muscle spasm) Qty: 10 0RF topiramate 25 mg tablet 25 mg PO DAILY pyridoxine (vitamin B6) 50 mg tablet 50 mg PO DAILY 90 Days Qty: 90 3RF potassium citrate 10 mEq (1,080 mg) tablet extended release 10 meq PO BID 90 Days Qty: 180 3RF Interventions: ED Discharge Assessment Last Done: 07/03/25 19:37 Discharge Date/Time: 07/03/25 19:48 Print Language: Luxembourgish
[2025-07-03 17:07] LABS: MANUAL DIFF FLAG NO
[2025-07-03 17:09] LABS: Hematocrit 35.2 % (37.0-47.0); Hemoglobin 10.8 g/dl (12.0-16.0); Imm Gran Abs Auto 0.03 X10*3/uL (0.00-0.03); Imm Gran Pct Auto 0.3 % (0.0-0.4); Lymphocytes Absolute Auto 1.6 X10*3/uL (1.2-4.9); Mean Corpuscular HGB Conc 30.7 g/dl (31.0-35.0); Mean Corpuscular Hemoglobin 23.3 pg (27.0-33.0); Mean Corpuscular Volume 76.0 fL (80.0-98.0); NRBC Abs Auto 0.000 X10*3/uL (0.0-0.012); NRBC Pct Auto 0.0 /100WBC (0.0-0.2); Platelet Count 227 X10*3/uL (160-400); Red Blood Count 4.63 X10*6/uL (4.20-5.50); White Blood Count 9.3 X10*3/uL (4.8-10.8)
[2025-07-03 17:16] LABS: INTERNATIONAL NORM RATIO 1.1 (0.9-1.1); Prothrombin Time 12.2 SEC (10.9-12.4)
[2025-07-03 17:18] LABS: Partial Thromboplastin Time 25.7 SEC (26.7-34.1)
[2025-07-03 17:29] LABS: Alanine Aminotransferase 24 U/L (0-31); Albumin Level 4.1 g/dL (3.5-5.0); Alkaline Phosphatase 73 U/L (39-117); Anion Gap 12 (12-20); Aspartate Amino Transferase 33 U/L (5-31); Blood Urea Nitrogen 14 mg/dL (9-16); Calcium 8.9 mg/dL (8.4-10.2); Carbon Dioxide 26 mmol/L (22-29); Chloride 108 mmol/L (96-108); Creatinine Clr Calc Pharmacy 87.2; Estimated Glomerular Filt Rate > 60; Potassium 3.7 mmol/L (3.3-5.1); Sodium 142 mmol/L (135-145); Total Protein 6.7 g/dL (6.5-8.0)
[2025-07-03 17:30] LABS: Troponin-I High Sensitivity < 2.7 ng/L (<3.5-17.0)
[2025-07-03 18:50] VITALS: BP 120/75; BP 126/83; PULSE 62; PULSE 64
[2025-07-03 18:52] VITALS: BP 120/82; PULSE 67
--- OUTSIDE RECORDS SUMMARY | 2025-07-03 19:26 | XMS_ITS | Encounter Summary ---
Author Organization [facility] Address [address] [facility] [address] [place] [address] Phone Care Team Providers Care Machine Fixer Name Role Phone Prosper Barnard MD Primary Care Provider [phone] Encounter Details Date Type Department Care Team (Late st Contact Info) Description 09/17/2021 Telephone [facility] [address] [facility] [address] [place] [id number] Bruce Hernandez, DO [address] [place] [id number] Social History Tobacco Use Types Packs/Day Years [...] on filedocumented in this encounter Care Teams Machine Fixer Relationship Specialty Start Date End Date Prosper Barnard MD [address] [place] [address] PCP - General Internal Medicine 08/28/21 documented as of this encounter
--- OUTSIDE RECORDS SUMMARY | 2025-07-03 19:26 | XMS_ITS | Clinical Summary ---
Author Organization [facility] Address [address] [place] [address] Phone Care Team Providers Care Die Repair Name Role Phone Prosper Barnard MD Primary Care Provider [phone] Allergies Active Allergy Reactions Criticality Noted Date [...] of 2 - PCV) 1997 Influenza Vaccine (#1) 2025 Insurance [facility] Medicaid [facility] Medicaid Care Teams Die Repair Relationship Specialty Start Date End Date Prosper Barnard MD [address] [place] [address] PCP - General Internal Medicine 08/28/21
[2025-07-03 19:37] VITALS: BP 120/82; PULSE 67; RESP 16; TEMP 36.6
== END 2025-07-03 19:48 | disposition home or self-care (01) ==
PROVIDERS: Physician Assistant; Emergency Provider Student in an Organized Health Care Education/Training Program
DX: S00.81XA Abrasion of other part of head, initial encounter (principal); R55 Syncope and collapse; R42 Dizziness and giddiness; R10.2 Pelvic and perineal pain; R51.9 Headache, unspecified; M54.2 Cervicalgia; X58.XXXA Exposure to other specified factors, initial encounter; Y93.9 Activity, unspecified; Y92.9 Unspecified place or not applicable; Y99.8 Other external cause status; Z79.899 Other long term (current) drug therapy
CPT/HCPCS: 36415; 70450; 70486; 72125; 80053; 84484; 84702; 85025; 85610; 85730; 93005; 99283; 99284

== ENCOUNTER → 2025-07-03 16:41 | Outpatient (BNV) | payer OTHER, SELFPAY | PROVIDERS: Emergency Provider Student in an Organized Health Care Education/Training Program; Visit Provider Internal Medicine | DX: R55 Syncope and collapse (principal) | CPT/HCPCS: 93010 ==

== ENCOUNTER → 2025-07-03 18:07 | Outpatient (BNV) | payer OTHER, SELFPAY | PROVIDERS: Emergency Provider Student in an Organized Health Care Education/Training Program; Visit Provider Specialist | DX: M48.02 Spinal stenosis, cervical region (principal); M50.323 Other cervical disc degeneration at C6-C7 level; S00.81XA Abrasion of other part of head, initial encounter; R51.9 Headache, unspecified; R55 Syncope and collapse; W19.XXXA Unspecified fall, initial encounter | CPT/HCPCS: 70450; 70486; 72125 ==